=== PATIENT | male | born 1975 | race Caucasian/White ===

== ENCOUNTER 2017-03-18 18:54 | Inpatient (IN) | payer MEDICARE, OTHER ==
[~2017-03-18] VITALS: Ht 165.1 cm; Wt 87.4 kg
[2017-03-18 19:40] VITALS: BP 157/101; PULSE 62; RESP 18; TEMP 97.1; O2SAT 95
[2017-03-18] MEDS ORDERED: BENZTROPINE MESYLATE 1 MG TAB PO PRN (19:45)
[2017-03-18] MEDS ORDERED: ALUMINUM/MAGNESIUM/SIMETH 30 ML CUP PO PRN (19:45)
[2017-03-18] MEDS ORDERED: MAGNESIUM HYDROXIDE SUSP 30 ML CUP PO PRN (19:45)
[2017-03-18] MEDS ORDERED: BENZTROPINE MESYLATE 2 MG/2 ML VIAL IM PRN (19:45)
[2017-03-18] MEDS ORDERED: HALOPERIDOL 5 MG TAB PO PRN (20:00)
[2017-03-18] MEDS: REMOVE OLD NICOTINE PATCH T-DERMAL SCH (21:00)
[2017-03-18] MEDS: DIVALPROEX SODIUM DELAYED RELEASE 250 MG TAB PO SCH (22:01)
[2017-03-19 06:03] VITALS: BP 139/76; PULSE 69; RESP 18; TEMP 96.8; O2SAT 98
[2017-03-19 09:18] LABS: ANION GAP 8 MEQ/L (5-15); BICARBONATE 28.9 MEQ/L (21.0-32.0); BLOOD UREA NITROGEN 18 MG/DL (7-18); CHLORIDE 103 MEQ/L (98-107); GLOMERULAR FILTRATION RATE 104 ML/MIN (>89); POTASSIUM 3.4 MEQ/L (3.5-5.1); SODIUM (NA) 140 MEQ/L (136-145)
[2017-03-19 09:23] LABS: HDL CHOLESTEROL 46.2 MG/DL (40.0-60.0); LDL CHOLESTEROL 84 MG/DL (0-99)
[2017-03-19] MEDS: NICOTINE 21 MG/24 HR PATCH T-DERMAL SCH (09:29)
[2017-03-19] MEDS: DIVALPROEX DR 500 MG TABEC PO SCH (09:29)
--- NOTE | 2017-03-19 11:34 | HHI.HP ---
Provisional Diagnosis Admission Date Mar 18, 2017 at 19:27 [place] I. 1. Schizophrenia, undifferentiated type, acute exacerbation [place] II. Deferred [place] V. GAF is 20 presently Certification of Person's Competence To Provide Express and Informed Consent I have personally examined Jose Cook , a person being served at [facility] on, Mar 19, 2017 11:33. Express and informed consent means consent voluntarily given in writing, by a competent person, after sufficient explanation and disclosure of the subject matter involved to enable the person to make a knowing and willful decision without any element of force, fraud, deceit, duress, or other form of constraint or coercion. This person is 18 years of age or older, is not now known to be incompetent to consent to treatment with a guardian advocate, and does not have a health care surrogate or proxy currently making medical treatment decisions. I have found this person to be one of the following: [] Competent to provide express and informed consent, as defined above, for voluntary admission to this facility and is competent to provide express and informed consent for treatment. He/she has the consistent capacity to make well reasoned, willful, and knowing decisions concerning his or her medical or mental health treatment. The person fully and consistently understands the purpose of the admission for examination/placement and is fully capable of personally exercising all rights assured under [place] [x] Incompetent to provide express and informed consent to voluntary admission, and this is incompetent to provide express and informed consent to treatment. The person must be transferred to involuntary status and a petition for a guardian advocate filed with the Circuit Court. [] Refusing to provide express and informed consent to voluntary admission but is competent to provide express and informed consent for treatment. The person must be discharged or transferred to involuntary status. Form shall be completed within 24 hours of a person's arrival at the receiving facility and filed in the clinical record of each person: 1. Admitted on a voluntary basis 2. Permitted to provide express and informed consent to his/her own treatment 3. Allowed to transfer from involuntary to voluntary status 4. Prior to permitting a person to consent to his or her own treatment after having been previously found incompetent to consent to treatment. History of Present Illness Capacity: Lacks Capacity HPI Mr. Cook is a 42 year-old male with a history of schizophrenia who presents in transfer from [facility] under a Mortensen act alleging that he had been acting out at his [facility] facility. Records from [facility] reviewed. Reviewing our own electronic medical record, it appears this is patient's first visit to [facility]. Patient seen and examined with counselor. Chart reviewed. Case discussed with nursing staff reports the patient has been rambling and disorganized since arriving on the unit. On my examination today, the patient presents with pressured, disjointed speech. He tells me, "I had an idea for the place. A wash day. You're not going to breakfast on wash day. The love of the rain bee that loves me. They bait me." He proceeds in this way for some time and is difficult to interrupt. He appears internally stimulated, and when I ask about AVH, he says, "tigers talking about sharks. Sharks doing telepathy. I have olympic medals." Thought process extremely disorganized. He is impulsive and mildly psychomotor agitated. Affect somewhat silly. It is extremely difficult to get any meaningful history from the patient because of his degree of thought disorganization. I am unable to obtain any meaningful past psychiatric, family, chemical dependency or social history from this patient, once again on account of the thought disorganization. Review of Systems ROS Limitations: Psychotic, Poor Historian Except as stated in HPI: all other systems reviewed are Neg Past Psych History Psychological trauma history Unable to obtain from patient Violence risk - others (6 mos) Presently elevated. Patient is psychotic and unpredictable. Violence risk - self (6 mos) Presently elevated. Patient is psychotic and unpredictable. Substance Abuse History Drugs/Alcohol past 12 months Unable to obtain from patient because of thought disorganization. Past Family Social History Coded Allergies: Fluphenazine (Verified Allergy, Severe, 03/18/17) Geodon (Verified Allergy, Severe, 03/18/17) Past Medical History Includes a possible history of seizure, and the patient is presently on Depakote. Unable to obtain from patient because of degree of thought disorganization. Current Medications Medications (Trade) Dose Ordered Sig/Mai Route Start Time Stop Time Status Last Admin (Ativan) 1 mg Q6H PRN PO 03/18/17 19:45 (Ativan Inj) 1 mg Q6H PRN IM 03/18/17 19:45 (Cogentin) 1 mg Q12H PRN PO 03/18/17 19:45 (Cogentin Inj) 1 mg Q12H PRN IM 03/18/17 19:45 (Benadryl) 50 mg HS PRN PO 03/18/17 19:45 (Tylenol) 650 mg Q4H PRN PO 03/18/17 19:45 (Milk Of Magnesia Liq) 30 ml DAILY PRN PO 03/18/17 19:45 (Mag-Al Plus Susp Liq) 30 ml Q6H PRN PO 03/18/17 19:45 (Habitrol 21 Mg Patch.24 Hr) 1 patch DAILY T-DERMAL 03/19/17 09:00 03/19/17 09:29 Miscellaneous Information 1 HS T-DERMAL 03/18/17 21:00 (Depakote Dr) 500 mg DAILY PO 03/19/17 09:00 03/19/17 09:29 (Depakote Dr) 750 mg HS PO 03/18/17 21:00 03/18/17 22:01 (Haldol) 5 mg Q6H PRN PO 03/18/17 20:00 03/18/17 22:01 (Haldol Inj) 5 mg Q6H PRN IM 03/18/17 20:00 Family History Unable to obtain from patient Social History Unable to obtain from patient Patient's Strengths (min. 2) In a monitored setting. Verbally fluent. Physical Exam Physical examination completed at referring hospital ED. On my examination today, the patient appears to be well-nourished and well-developed and in no acute physical distress. No motor abnormalities noted although the patient is somewhat psychomotor agitated. No ictal activity noted. Laboratories and vitals signs reviewed: Vital Signs Vital Signs Date Time Temp Pulse Resp B/P Pulse Ox O2 Delivery O2 Flow Rate FiO2 03/19/17 06:03 96.8 69 18 139/76 98 Lab Results Laboratories from outside hospital reviewed: CBC was unremarkable. CMP was significant only for a mildly elevated glucose at 116 in a nonfasting sample. Urinalysis was bland. Toxicology negative. Alcohol level undetectable. Depakote level was low at 39. Head CT was performed and was read as no acute process. Item Value Date Time Sodium Level 140 MEQ/L 03/19/17 0831 Potassium Level 3.4 MEQ/L L 03/19/17 0831 Chloride Level 103 MEQ/L 03/19/17 0831 Carbon Dioxide Level 28.9 MEQ/L 03/19/17 0831 Blood Urea Nitrogen 18 MG/DL 03/19/17 0831 Creatinine 0.81 MG/DL 03/19/17 0831 EKG is sinus bradycardia with a QTC of 409 ms. Mental Status Examination Patient is casually dressed. He is somewhat disheveled. He is awake and alert and oriented to person only. Somewhat psychomotor agitated. Speech is rambling and pressured and difficult to follow. Focus and concentration impaired. Memory is difficult to assess because psychosis interferes. Affect is somewhat silly. Thought process disorganized. Associations loose. Difficult to assess for underlying delusional material because of the thought disorganization, although he may have some paranoia and bizarre ideation as noted above. Appears frankly internally preoccupied. No SI or HI voiced but the patient is unreliable to contract for safety. Insight and judgment are poor. Assessment & Plan Problem List: (1) Schizophrenia ICD Code: F20.9 Assessment & Plan This is a 42-year-old male with psychiatric history as detailed above who presents in transfer from [facility] under a Mortensen act. On my examination today, the patient presents as extremely disorganized. His Depakote level is subtherapeutic, especially given his reported dose, and so there is some concern for possible medication nonadherence. Charting also indicates that the patient receives Haldol Decanoate, but it is not clear when he received his last dose. Given his current degree of psychiatric decompensation, patient requires admission to the inpatient psychiatric unit for safety, observation and stabilization. Admit inpatient. Involuntary status. I've completed first opinion. Consult for second opinion. Request healthcare surrogate and guardian advocate. I have instructed the counselor to reach out the patient's [facility] facility to ascertain the details of his presentation here and also to figure out who his outpatient provider is so that we may confirm his outpatient regimen including the last date and dose of his Haldol Decanoate injection. For the time being, I will initiate Haldol 5 mg twice daily for psychosis. I will continue his Depakote, which I presently believe to be for seizure, and plan to check a Depakote and ammonia level later in the week. I will check an EEG to rule out nonconvulsive status epilepticus as a cause for his current symptoms. I will repeat his potassium and recheck a BMP and magnesium level in the morning. Violent/assaultive precautions given that he is psychotic and unpredictable. Haldol as needed for psychotic agitation, Ativan as needed for anxiety, Cogentin as needed for EPS, Benadryl as needed for sleep. Vitals every shift. Counselor to see. Disposition planning. Estimated length of stay : One to 2 weeks. Discharge Planning Pending psychiatric stabilization Request HC Surrog/Guard Advoc?: Yes Problem Qualifiers (1) Schizophrenia: Qualified Code: F20.3 - Undifferentiated schizophrenia Feliciano Euceda MD Mar 19, 2017 11:34
[2017-03-19] MEDS ORDERED: POTASSIUM CHLORIDE 10 MEQ CONTROLLED RELEASE TAB PO ONE (12:30)
--- NOTE | 2017-03-19 14:25 | PD.CONS ---
Provisional Diagnosis Admission Date Mar 18, 2017 at 19:27 [place] I. 1. Schizophrenia, undifferentiated type, acute exacerbation [place] II. Deferred [place] V. GAF is 20 presently History of Present Illness Service Psychiatry Consult Requested By Dr. Euceda Reason for Consult Second opinion Mortensen act Primary Care Physician Unknown HPI Mr. Cook is a 42 year-old male with a history of schizophrenia who presents in transfer from [facility] under a Mortensen act alleging that he had been acting out at his [facility] facility. Records from [facility] reviewed. Reviewing our own electronic medical record, it appears this is patient's first visit to [facility]. Patient seen and examined with counselor. Chart reviewed. Case discussed with nursing staff reports the patient has been rambling and disorganized since arriving on the unit. On my examination today, the patient presents with pressured, disjointed speech. He tells me, "I had an idea for the place. A wash day. You're not going to breakfast on wash day. The love of the rain bee that loves me. They bait me." He proceeds in this way for some time and is difficult to interrupt. He appears internally stimulated, and when I ask about AVH, he says, "tigers talking about sharks. Sharks doing telepathy. I have olympic medals." Thought process extremely disorganized. He is impulsive and mildly psychomotor agitated. Affect somewhat silly. It is extremely difficult to get any meaningful history from the patient because of his degree of thought disorganization. I am unable to obtain any meaningful past psychiatric, family, chemical dependency or social history from this patient, once again on account of the thought disorganization. 03/19/17 Above note dictated by Dr. Euceda reviewed and agreed with. Patient seen by me with nurse Sergey patient markedly disorganized confused delusional with and attitude of tension and irritability making some striking out gestures towards the corner of the room, patient was admitted to Dr. Euceda service under the Mortensen act. He has signed first opinion petition supporting Mortensen act. I agree. Patient meets criteria for involuntary psychiatric hospitalization under the Mortensen act. Thus I will cosign second opinion petition supporting Mortensen act Past Family Social History Coded Allergies: Fluphenazine (Verified Allergy, Severe, 03/18/17) Geodon (Verified Allergy, Severe, 6/27/17) Current Medications Medications (Trade) Dose Ordered Sig/Mai Route Start Time Stop Time Status Last Admin (Ativan) 1 mg Q6H PRN PO 03/18/17 19:45 (Ativan Inj) 1 mg Q6H PRN IM 03/18/17 19:45 (Cogentin) 1 mg Q12H PRN PO 03/18/17 19:45 (Cogentin Inj) 1 mg Q12H PRN IM 03/18/17 19:45 (Benadryl) 50 mg HS PRN PO 03/18/17 19:45 (Tylenol) 650 mg Q4H PRN PO 03/18/17 19:45 (Milk Of Magnesia Liq) 30 ml DAILY PRN PO 03/18/17 19:45 (Mag-Al Plus Susp Liq) 30 ml Q6H PRN PO 03/18/17 19:45 (Habitrol 21 Mg Patch.24 Hr) 1 patch DAILY T-DERMAL 03/19/17 09:00 03/19/17 09:29 Miscellaneous Information 1 HS T-DERMAL 03/18/17 21:00 (Depakote Dr) 500 mg DAILY PO 03/19/17 09:00 03/19/17 09:29 (Depakote Dr) 750 mg HS PO 03/18/17 21:00 03/18/17 22:01 (Haldol) 5 mg Q6H PRN PO 03/18/17 20:00 03/18/17 22:01 (Haldol Inj) 5 mg Q6H PRN IM 03/18/17 20:00 (Haldol) 5 mg BID PO 03/19/17 21:00 Patient's Strengths (min. 2) In a monitored setting. Verbally fluent. Physical Exam Vital Signs Vital Signs Date Time Temp Pulse Resp B/P Pulse Ox O2 Delivery O2 Flow Rate FiO2 03/19/17 06:03 96.8 69 18 139/76 98 Mental Status Examination Alert markedly confused disoriented below to reverse white male quite guarded and irritable Appearance Disheveled and malodorous Speech: Rapid, Other (markedly disorganized) Orientation: Person Memory: Impaired (describe) Thought Process: Loose Association Thought Content: Paranoid, Other (disorganized) Language Poor Fund of Knowledge Poor Hallucination Type: None (appears to be responding to internal stimuli) Attention and Concentration: Other (poor) Suicidal Ideation: No (denies) Previous Suicide Attempts: No Homicidal Ideation: No (denies) Previous Homicide Attempts: No Insight: Poor Judgment: Poor Affect: Other (increased range and intensity) Mood: Angry, Irritable Motor Activity: Normal gait Assessment & Plan Problem List: (1) Schizophrenia ICD Code: F20.9 Assessment & Plan Estimated LOS: days Request HC Surrog/Guard Advoc?: Yes Problem Qualifiers (1) Schizophrenia: Qualified Code: F20.3 - Undifferentiated schizophrenia Nathan Mares MD Mar 19, 2017 14:25
[2017-03-19 18:11] VITALS: BP 135/84; PULSE 80; RESP 18; TEMP 98.8; O2SAT 96
[2017-03-19] MEDS: DIVALPROEX SODIUM DELAYED RELEASE 250 MG TAB PO SCH (20:52)
[2017-03-19] MEDS: HALOPERIDOL 5 MG TAB PO SCH (20:52)
[2017-03-19] MEDS: REMOVE OLD NICOTINE PATCH T-DERMAL SCH (21:00)
[2017-03-19 21:25] LABS: HEMOGLOBIN A1a 1.1 %; HEMOGLOBIN A1b 0.9 %; HEMOGLOBIN Ao 85.9 %; HEMOGLOBIN LA1C 1.9 %; HEMOGLOBIN P3 3.4 %
--- NOTE | 2017-03-19 22:59 | EKG ---
Date Performed: 03/19/2017 Time Performed: 07:32:22 PTAGE: 42 years EKG: SINUS BRADYCARDIA BORDERLINE ECG NO PREVIOUS TRACING DOCTOR: Yoana Vallecillo Interpretating Date/Time 03/19/2017 22:57:51
[2017-03-20 05:50] VITALS: BP 120/72; PULSE 55; RESP 17; TEMP 97.2; O2SAT 98
[2017-03-20] MEDS: HALOPERIDOL 5 MG TAB PO SCH ×2 (09:00→21:07)
[2017-03-20] MEDS: DIVALPROEX DR 500 MG TABEC PO SCH (09:00)
[2017-03-20] MEDS: NICOTINE 21 MG/24 HR PATCH T-DERMAL SCH (09:00)
--- NOTE | 2017-03-20 12:01 | HHI.PYPN ---
Subjective Remarks Patient seen and examined with nurse. Chart reviewed. Case discussed with nursing staff reports the patient accepted his Depakote this morning but refused his Haldol saying that he only takes Haldol when he is in an assisted living facility, and since he isn't in an assisted living facility, he is going to refuse the Haldol. On my examination today, patient remains fairly disorganized. He rambles about a college class in a manner that is difficult to follow. He grows increasingly irritable throughout the course of the interview. He is upset about having his blood drawn for labs for unclear reasons. Says he plans to refuse EEG. No side effects from meds. No physical complaints. Review of Systems ROS Limitations: Poor Historian Except as stated in HPI: all other systems reviewed are Neg Objective Alert: Yes [place]: Person Mood: Other (irritable) Affect: Restricted Memory Intact: Comment (Not assessed) Hallucinations: Auditory (Remains int stim) Delusions: Yes Delusion Type: Paranoid Suicidal: Ideation (No SI voiced) Homicidal: Ideation (No HI voiced) Insight/Judgment Poor Remarks No motor abnormalities noted. Thought process disorganized. Grooming and hygiene fair at best. Labs Patient refused laboratories this morning. Vitals/IOs Vital Signs Date Time Temp Pulse Resp B/P Pulse Ox O2 Delivery O2 Flow Rate FiO2 03/20/17 05:50 97.2 55 17 120/72 98 Assessment & Plan Problem List: (1) Schizophrenia ICD Code: F20.9 Assessment & Plan Add IM backup option to patient's Haldol 5mg PO BID. Counselor continues to try to clarify when patient last received Haldol Dec. Continue Depakote as ordered. Try to obtain EEG, although patient says he plans to refuse. Continue to monitor on high-acuity unit. Continue other medications and care as ordered. Justification for Cont. Inpt. Impairment in reality construction. Medication changes in process. High risk for decompensation in a less restrictive environment. Discharge Planning Pending psychiatric stabilization. Request HC Surrog/Guard Advoc?: Yes Problem Qualifiers (1) Schizophrenia: Qualified Code: F20.3 - Undifferentiated schizophrenia Feliciano Euceda MD Mar 20, 2017 12:01
[2017-03-20] MEDS ORDERED: HALOPERIDOL LACTATE 5 MG/ML AMP IM PRN (12:15)
[2017-03-20 16:52] VITALS: BP 188/72; PULSE 62; RESP 24; TEMP 97.1; O2SAT 99
[2017-03-20] MEDS: REMOVE OLD NICOTINE PATCH T-DERMAL SCH (21:00)
[2017-03-20] MEDS: DIVALPROEX SODIUM DELAYED RELEASE 250 MG TAB PO SCH (21:07)
[2017-03-21 00:14] VITALS: BP 115/69; PULSE 111; RESP 20; TEMP 98; O2SAT 98
[2017-03-21 05:51] VITALS: BP 115/60; PULSE 55; RESP 18; TEMP 97.8; O2SAT 98
[2017-03-21] MEDS: HALOPERIDOL 5 MG TAB PO SCH ×2 (09:00→20:46)
[2017-03-21] MEDS: DIVALPROEX DR 500 MG TABEC PO SCH (09:59)
[2017-03-21 11:46] LABS: BICARBONATE 26.9 MEQ/L (21.0-32.0); MAGNESIUM 2.1 MG/DL (1.5-2.5)
--- NOTE | 2017-03-21 12:18 | HHI.PYPN ---
Subjective Remarks Patient seen and examined with counselor and nurse. Chart reviewed. Case discussed with nurse who reports the patient remains quite bizarre. He refused his EEG today and told the nurse that he did so because he thought that have to place a Mancera catheter to perform the procedure. Counselor has confirmed patient's last Haldol Decanoate injection was 200mg IM administered around . On my examination today, patient remains quite disorganized. He speaks in a rambling fashion about a "chest scan," a gas station, and "rice pudding in squash." He tells me, "there is a man in [place] who bowls with gators." He is irritable and paranoid. No evident side effects from medications. No physical complaints. Review of Systems ROS Limitations: Psychotic, Poor Historian Except as stated in HPI: all other systems reviewed are Neg Objective Alert: Yes [place]: Person Mood: Other (remains irritable) Affect: Restricted Memory Intact: Comment (Not formally assessed) Hallucinations: Auditory (int stim) Delusions: Yes Delusion Type: Paranoid Suicidal: Ideation (No SI) Homicidal: Ideation (No HI) Insight/Judgment Poor Remarks No motor abnormalities noted. Grooming and hygiene fair. TP disorganized. Labs Test 03/21/17 10:40 Sodium Level 141 MEQ/L Potassium Level 4.0 MEQ/L Chloride Level 108 MEQ/L Carbon Dioxide Level 26.9 MEQ/L Anion Gap 6 MEQ/L Blood Urea Nitrogen 13 MG/DL Creatinine 0.64 MG/DL Estimat Glomerular Filtration 136 ML/MIN Rate Random Glucose 135 MG/DL Calcium Level 9.3 MG/DL Magnesium Level 2.1 MG/DL Labs reviewed. Hypokalemia resolved. Vitals/IOs Vital Signs Date Time Temp Pulse Resp B/P Pulse Ox O2 Delivery O2 Flow Rate FiO2 03/21/17 05:51 97.8 55 18 115/60 98 Assessment & Plan Problem List: (1) Schizophrenia ICD Code: F20.9 Assessment & Plan Patient apparently received Haldol Decanoate about 2 weeks ago, but it is possible that the dose was inadequate or patient has ceased to respond to this agent. I will first try to titrate oral Haldol through the weekend to target dose of 10mg BID. If this controls his psychotic symptoms, then I will plan to administer additional Decanoate. Alternatively, we may need to replace this with a different antipsychotic. Continue VPA as ordered and check a VPA and ammonia level tomorrow. Monitor oral intake; it appears patient refused breakfast and lunch today. Continue to monitor on the inpatient unit. Continue other medications and care as ordered. Justification for Cont. Inpt. Impairment in reality construction. Medication changes in process. High risk for decompensation in a less restrictive environment. Discharge Planning Placement following psychiatric stabilization. Request HC Surrog/Guard Advoc?: Yes Problem Qualifiers (1) Schizophrenia: Qualified Code: F20.3 - Undifferentiated schizophrenia Feliciano Euceda MD Mar 21, 2017 12:18
[2017-03-21] MEDS ORDERED: PILL SPLITTER OTHER PRN (17:45)
[2017-03-21 17:48] VITALS: BP 129/58; PULSE 56; RESP 18; TEMP 98; O2SAT 96
[2017-03-21] MEDS: LORazepam 1 MG TAB PO PRN (20:45)
[2017-03-21] MEDS: DIVALPROEX SODIUM DELAYED RELEASE 250 MG TAB PO SCH (20:45)
[2017-03-21] MEDS: diphenhydrAMINE HCL 50 MG CAP - HS PRN PO (20:46)
[2017-03-21] MEDS ORDERED: HALOPERIDOL LACTATE 5 MG/ML AMP IM PRN (21:00)
[2017-03-22 05:42] VITALS: BP 116/71; PULSE 53; RESP 16; TEMP 98; O2SAT 98
[2017-03-22] MEDS: DIVALPROEX DR 500 MG TABEC PO SCH (09:00)
[2017-03-22] MEDS: HALOPERIDOL 5 MG TAB PO SCH ×2 (09:00→21:09)
[2017-03-22] MEDS: ACETAMINOPHEN 325 MG TAB PO PRN (09:24)
[2017-03-22] MEDS: LORazepam 1 MG TAB PO PRN (14:11)
--- NOTE | 2017-03-22 17:58 | HHI.PYPN ---
Subjective Remarks Patient was seen and case discussed with nursing. Patient is hyperverbal with slurred speech and difficult to understand. He remains internally preoccupied. He has voices taunting him accusing him of being scruggs. He is tolerating his medications well. Denies suicidal ideation intent or plan Objective Alert: Yes [place]: Person Mood: Other (remains irritable) Affect: Other (anxious) Memory Intact: Comment (Not formally assessed) Hallucinations: Auditory (voices telling him he is scruggs) Delusions: Yes Delusion Type: Paranoid (internally stimulated) Suicidal: Ideation (No SI) Homicidal: Ideation (No HI) Insight/Judgment Poor Labs Test 03/22/17 17:06 Ammonia 56 MCMOL/L Valproic Acid (Depakene) Level 90 MCG/ML Vitals/IOs Vital Signs Date Time Temp Pulse Resp B/P Pulse Ox O2 Delivery O2 Flow Rate FiO2 03/22/17 05:42 98.0 53 16 116/71 98 Assessment & Plan Problem List: (1) Schizophrenia ICD Code: F20.9 Assessment & Plan Ammonia level elevated, we will consult medicine. Justification for Cont. Inpt. Patient will decompensate in a less restrictive setting Request HC Surrog/Guard Advoc?: Yes Problem Qualifiers (1) Schizophrenia: Qualified Code: F20.3 - Undifferentiated schizophrenia Kirby Velasco DO Mar 22, 2017 17:58
[2017-03-22 17:59] VITALS: BP 136/65; PULSE 72; RESP 16; TEMP 97.7; O2SAT 98
[2017-03-22 19:29] LABS: ANION GAP 7 MEQ/L (5-15); BICARBONATE 26.2 MEQ/L (21.0-32.0); BLOOD UREA NITROGEN 13 MG/DL (7-18); CHLORIDE 109 MEQ/L (98-107); GLOMERULAR FILTRATION RATE 155 ML/MIN (>89); POTASSIUM 4.2 MEQ/L (3.5-5.1); SODIUM (NA) 142 MEQ/L (136-145)
[2017-03-22 19:30] LABS: ALT (GPT) 16 U/L (12-78); AST (GOT) 11 U/L (15-37)
[2017-03-22 19:33] LABS: ALKALINE PHOSPHATASE 71 U/L (45-117); TOTAL BILIRUBIN ADULT 0.2 MG/DL (0.2-1.0)
[2017-03-22] MEDS: diphenhydrAMINE HCL 50 MG CAP - HS PRN PO (21:08)
[2017-03-22] MEDS: DIVALPROEX SODIUM DELAYED RELEASE 250 MG TAB PO SCH (21:09)
[2017-03-23] MEDS: LORazepam 1 MG TAB PO PRN ×2 (01:03→20:40)
[2017-03-23 05:39] VITALS: BP 108/58; PULSE 59; RESP 17; TEMP 98.1; O2SAT 100
[2017-03-23] MEDS: DIVALPROEX DR 500 MG TABEC PO SCH (08:27)
[2017-03-23] MEDS: HALOPERIDOL 5 MG TAB PO SCH ×2 (08:27→20:41)
[2017-03-23] MEDS ORDERED: LACTULOSE SYRUP 20 GM/30 ML CUP PO ONE (10:30)
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
[2017-03-23] MEDS ORDERED: cloNIDine HCL 0.1 MG TAB PO PRN (14:15)
--- NOTE | 2017-03-23 15:59 | HHI.PYPN ---
Subjective Remarks Patient was seen and case discussed with nursing. Patient remains largely seclusive to his room. Speech remains difficult to understand and of slurred and mumbling fashion. Patient said that he continues to lay with the girls he can be a part of a kingdom. Compliant with his medications. Denies suicidal ideation intent or plan Objective Alert: Yes [place]: Person, Place Mood: Calm Affect: Restricted Memory Intact: Comment (Not formally assessed) Hallucinations: Auditory (voices telling him he is scruggs) Delusions: Yes Delusion Type: Paranoid (internally stimulated) Suicidal: Ideation (No SI) Homicidal: Ideation (No HI) Insight/Judgment Poor Labs Test 03/22/17 17:06 Sodium Level 142 MEQ/L Potassium Level 4.2 MEQ/L Chloride Level 109 MEQ/L Carbon Dioxide Level 26.2 MEQ/L Anion Gap 7 MEQ/L Blood Urea Nitrogen 13 MG/DL Creatinine 0.57 MG/DL Estimat Glomerular Filtration 155 ML/MIN Rate Random Glucose 87 MG/DL Calcium Level 8.9 MG/DL Total Bilirubin 0.2 MG/DL Aspartate Amino Transf 11 U/L (AST/SGOT) Alanine Aminotransferase 16 U/L (ALT/SGPT) Alkaline Phosphatase 71 U/L Ammonia 56 MCMOL/L Total Protein 6.5 GM/DL Albumin 3.2 GM/DL Valproic Acid (Depakene) Level 90 MCG/ML Vitals/IOs Vital Signs Date Time Temp Pulse Resp B/P Pulse Ox O2 Delivery O2 Flow Rate FiO2 03/23/17 05:39 98.1 59 17 108/58 100 Assessment & Plan Problem List: (1) Schizophrenia ICD Code: F20.9 Assessment & Plan Continue current treatment plan Justification for Cont. Inpt. Patient will decompensate in a less restrictive setting Request HC Surrog/Guard Advoc?: Yes Problem Qualifiers (1) Schizophrenia: Qualified Code: F20.3 - Undifferentiated schizophrenia Kirby Velasco DO Mar 23, 2017 15:59
[2017-03-23 18:20] VITALS: BP 149/66; PULSE 66; RESP 18; TEMP 98.3; O2SAT 97
[2017-03-23] MEDS: diphenhydrAMINE HCL 50 MG CAP - HS PRN PO (20:40)
[2017-03-23] MEDS: DIVALPROEX SODIUM DELAYED RELEASE 250 MG TAB PO SCH (20:41)
[2017-03-24 05:58] VITALS: BP 124/55; PULSE 62; RESP 16; TEMP 97.4; O2SAT 99
[2017-03-24] MEDS: LACTULOSE SYRUP 20 GM/30 ML CUP PO SCH (08:57)
[2017-03-24] MEDS: HALOPERIDOL 5 MG TAB PO SCH ×2 (08:57→21:34)
[2017-03-24] MEDS: DIVALPROEX DR 500 MG TABEC PO SCH (08:57)
[2017-03-24] MEDS: HALOPERIDOL LACTATE 5 MG/ML AMP IM PRN (11:54)
[2017-03-24] MEDS: LORazepam 2 MG/ML VIAL IM PRN (11:54)
--- NOTE | 2017-03-24 12:50 | HHI.PYPN ---
Subjective Remarks Patient interviewed and case discussed with the patient's nurse. He continues to demonstrate garbled and unintelligible speech. When he is understandable, he is discussing psychotic issues which are primarily loose associations. Review of Systems Except as stated in HPI: all other systems reviewed are Neg Objective Alert: Yes [place]: Person Mood: Calm Affect: Restricted Memory Intact: Comment (Not formally assessed) Hallucinations: Auditory (voices telling him he is scru[place]) Delusions: Yes Delusion Type: Paranoid (internally stimulated) Suicidal: Ideation (No SI) Homicidal: Ideation (No HI) Insight/Judgment Impaired Vitals/IOs Vital Signs Date Time Temp Pulse Resp B/P Pulse Ox O2 Delivery O2 Flow Rate FiO2 03/24/17 05:58 97.4 62 16 124/55 99 Assessment & Plan Problem List: (1) Schizophrenia ICD Code: F20.9 Assessment & Plan Estimated LOS: days insufficient response to antipsychotic medication. Will provide more time for observation, evaluation and response. Justification for Cont. Inpt. Likely to decompensate at lower level of care. Request HC Surrog/Guard Advoc?: Yes Problem Qualifiers (1) Schizophrenia: Qualified Code: F20.3 - Undifferentiated schizophrenia Panchito Kaufman MD Mar 24, 2017 12:50
[2017-03-24 13:59] LABS: PROTHROMBIN TIME - PATIENT 10.9 SEC (9.8-11.6)
[2017-03-24 18:32] VITALS: BP 115/65; PULSE 72; RESP 18; TEMP 99; O2SAT 98
[2017-03-24] MEDS: DIVALPROEX SODIUM DELAYED RELEASE 250 MG TAB PO SCH (21:32)
[2017-03-25 06:13] VITALS: BP 103/58; PULSE 56; RESP 18; TEMP 98.5; O2SAT 95
[2017-03-25] MEDS: DIVALPROEX DR 500 MG TABEC PO SCH (09:42)
[2017-03-25] MEDS: HALOPERIDOL 5 MG TAB PO SCH ×2 (09:42→21:00)
[2017-03-25] MEDS: ACETAMINOPHEN 325 MG TAB PO PRN (09:43)
[2017-03-25] MEDS: LACTULOSE SYRUP 20 GM/30 ML CUP PO SCH (09:46)
--- NOTE | 2017-03-25 13:17 | HHI.PYPN ---
Subjective Remarks Continues to demonstrate paranoid and confused thinking. Insight and judgment remain impaired. Case discussed with nursing staff and chart reviewed. Review of Systems Except as stated in HPI: all other systems reviewed are Neg Objective Alert: Yes [place]: Person Mood: Calm Affect: Restricted Memory Intact: Comment (Not formally assessed) Hallucinations: Auditory (voices telling him he is [place]ru[place]) Delusions: Yes Delusion Type: Paranoid (internally stimulated) Suicidal: Ideation (No SI) Homicidal: Ideation (No HI) Insight/Judgment Impaired Labs Test 03/24/17 13:27 Prothrombin Time 10.9 SEC Prothromb Time International 1.0 RATIO Ratio Vitals/IOs Vital Signs Date Time Temp Pulse Resp B/P Pulse Ox O2 Delivery O2 Flow Rate FiO2 03/25/17 06:13 98.5 56 18 103/58 95 Assessment & Plan Problem List: (1) Schizophrenia ICD Code: F20.9 Assessment & Plan Estimated LOS: daysCont to require more time on antipsychotic medication. Justification for Cont. Inpt. Will decompensate at lower level of care. Request HC Surrog/Guard Advoc?: Yes Problem Qualifiers (1) Schizophrenia: Qualified Code: F20.3 - Undifferentiated schizophrenia Panchito Kaufman MD Mar 25, 2017 13:17
[2017-03-25] MEDS: LORazepam 1 MG TAB PO PRN (16:30)
[2017-03-25 18:50] VITALS: BP 117/64; PULSE 65; RESP 18; TEMP 98.5; O2SAT 97
[2017-03-25] MEDS: DIVALPROEX SODIUM DELAYED RELEASE 250 MG TAB PO SCH (21:00)
[2017-03-26 05:57] VITALS: BP 114/57; PULSE 55; RESP 18; TEMP 96; O2SAT 99
[2017-03-26] MEDS: DIVALPROEX DR 500 MG TABEC PO SCH (09:11)
[2017-03-26] MEDS: HALOPERIDOL 5 MG TAB PO SCH ×2 (09:11→21:34)
[2017-03-26] MEDS: LACTULOSE SYRUP 20 GM/30 ML CUP PO SCH (09:11)
[2017-03-26] MEDS: ACETAMINOPHEN 325 MG TAB PO PRN (10:19)
[2017-03-26 11:14] VITALS: BP 120/67; PULSE 60; RESP 18
--- NOTE | 2017-03-26 13:24 | HHI.PYPN ---
Subjective Remarks Remains seclusive with paranoid ideation, ideas of reference and minimal social interaction. Chart reviewed and case discussed with nurse. Review of Systems Except as stated in HPI: all other systems reviewed are Neg Objective Alert: Yes [place]: Person Mood: Calm Affect: Restricted Memory Intact: Comment (Not formally assessed) Hallucinations: Auditory (voices telling him he is [place]ru[place]) Delusions: Yes Delusion Type: Paranoid (internally stimulated) Suicidal: Ideation (No SI) Homicidal: Ideation (No HI) Insight/Judgment Impaired Labs Test 03/26/17 12:15 Ammonia 32 MCMOL/L Vitals/IOs Vital Signs Date Time Temp Pulse Resp B/P Pulse Ox O2 Delivery O2 Flow Rate FiO2 03/26/17 11:14 60 18 120/67 03/26/17 05:57 96.0 99 Assessment & Plan Problem List: (1) Schizophrenia ICD Code: F20.9 Assessment & Plan Estimated LOS: days continue antipsychotic therapy. Patient needs more time to respond. Justification for Cont. Inpt. Psychotic and unable to care for self. Request HC Surrog/Guard Advoc?: Yes Problem Qualifiers (1) Schizophrenia: Qualified Code: F20.3 - Undifferentiated schizophrenia Panchito Kaufman MD Mar 26, 2017 13:23
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
[2017-03-26] MEDS ORDERED: LACTULOSE SYRUP 20 GM/30 ML CUP PO PRN (15:15)
[2017-03-26] MEDS: HALOPERIDOL LACTATE 5 MG/ML AMP IM PRN (15:20)
[2017-03-26 16:01] LABS: BLOOD, URINE NEG (NEG); GLUCOSE,URINE NEG (NEG); KETONE, URINE TRACE mg/dL (NEG); NITRITE,URINE NEG (NEG); URINE COLOR YELLOW (YELLW/STRAW)
[2017-03-26 16:10] LABS: COMMENT (UR) CULT NOT INDICATED; CULTURE IF INDICATED CULT NOT INDICATED
[2017-03-26 16:24] LABS: ANION GAP 6 MEQ/L (5-15); AST (GOT) 28 U/L (15-37); BICARBONATE 27.6 MEQ/L (21.0-32.0); BLOOD UREA NITROGEN 9 MG/DL (7-18); CHLORIDE 106 MEQ/L (98-107); GLOMERULAR FILTRATION RATE 121 ML/MIN (>89); POTASSIUM 4.9 MEQ/L (3.5-5.1); SODIUM (NA) 140 MEQ/L (136-145)
[2017-03-26 16:25] LABS: ALT (GPT) 20 U/L (12-78)
[2017-03-26 16:27] LABS: ALKALINE PHOSPHATASE 73 U/L (45-117); TOTAL BILIRUBIN ADULT 0.3 MG/DL (0.2-1.0)
[2017-03-26 17:10] LABS: AUTOMATED NEUTROPHIL # 3.8 TH/MM3 (1.8-7.7); BASOPHIL % 0.6 % (0.0-2.0); EOSINOPHIL # 0.2 TH/MM3 (0-0.4); EOSINOPHIL % 2.5 % (0.0-4.0); HEMATOCRIT 42.6 % (39.0-51.0); HEMO FLAGS DIFF FINAL; LYMPH % 33.2 % (9.0-44.0); LYMPHOCYTE # 2.2 TH/MM3 (1.0-4.8); MEAN CELL VOLUME 89.6 FL (80.0-100.0); MEAN CORPUSCULAR HEMOGLOBIN 29.8 PG (27.0-34.0); MEAN CORPUSCULAR HGB CONC 33.3 % (32.0-36.0); MONO % 6.5 % (0.0-8.0); NEUT % 57.2 % (16.0-70.0); PLATELET COUNT 189 TH/MM3 (150-450); RED BLOOD COUNT 4.76 MIL/MM3 (4.50-5.90); RED CELL DISTRIBUTION WIDTH 13.4 % (11.6-17.2); WHITE BLOOD COUNT 6.6 TH/MM3 (4.0-11.0)
[2017-03-26 18:37] VITALS: BP 131/70; PULSE 66; RESP 16; TEMP 98.7; O2SAT 98
--- NOTE | 2017-03-26 21:10 | RADRPT ---
EXAM DATE/TIME: 03/26/2017 20:36 [facility] COMPARISON: No previous studies available for comparison. INDICATIONS : Abdomen and back pain. MEDICAL HISTORY : None. SURGICAL HISTORY : None. ENCOUNTER: Initial ACUITY: 1 week PAIN SCORE: 4/10 LOCATION: Left abdomen FINDINGS: Supine view of the abdomen was performed. The abdominal bowel gas pattern is normal. No abnormal ma sses, calcifications, or organomegaly is seen. The osseous structures are unremarkable. CONCLUSION: 1. No acute findings. Agusto Hills MD on March 26, 2017 at 21:07 Board Certified Radiologist. This report was verified electronically.
--- NOTE | 2017-03-26 21:16 | RADRPT ---
EXAM DATE/TIME: 03/26/2017 20:38 [facility] COMPARISON: No previous studies available for comparison. INDICATIONS : Back pain. MEDICAL HISTORY : None. SURGICAL HISTORY : None. ENCOUNTER: Initial ACUITY: 2 months PAIN SCORE: 8/10 LOCATION: Bilateral back pain FINDINGS: Two view examination was performed. There are five non-rib bearing vertebral bodies. The vertebral bodies are in normal alignment without evidence of subluxation or scoliosis. The disc spaces are russ ntained. The pedicles are intact. Bony mineralization is normal. No fracture is identified. CONCLUSION: 1. Moderate degenerative disc disease. No acute fracture or spondylolisthesis. Agusto Hills MD on March 26, 2017 at 21:12 Board Certified Radiologist. This report was verified electronically.
--- NOTE | 2017-03-26 21:17 | RADRPT ---
EXAM DATE/TIME: 03/26/2017 20:40 [facility] COMPARISON: No previous studies available for comparison. INDICATIONS : Back pain MEDICAL HISTORY : None. SURGICAL HISTORY : None. ENCOUNTER: Initial ACUITY: 2 months PAIN SCORE: 8/10 LOCATION: Bilateral upper and lower back FINDINGS: There is a mild kyphosis. No fracture or spondylolisthesis. No paravertebral soft tissue swelling. Mo derate to advanced degenerative disc disease with large osteophytes in the lower thoracic spine. CONCLUSION: 1. Bjyoorok-el-ntmbji degenerative disc disease in the thoracic spine with large osteophytes especial ly inferiorly. Mild kyphosis. Agusto Hills MD on March 26, 2017 at 21:13 Board Certified Radiologist. This report was verified electronically.
[2017-03-26] MEDS: DIVALPROEX SODIUM DELAYED RELEASE 250 MG TAB PO SCH (21:33)
[2017-03-26] MEDS: diphenhydrAMINE HCL 50 MG CAP - HS PRN PO (21:34)
[2017-03-26] MEDS: LORazepam 1 MG TAB PO PRN (22:41)
[2017-03-27 06:24] VITALS: BP 113/60; PULSE 51; RESP 18; TEMP 97.1; O2SAT 96
[2017-03-27] MEDS: HALOPERIDOL 5 MG TAB PO SCH (09:10)
[2017-03-27] MEDS: DIVALPROEX DR 500 MG TABEC PO SCH (09:10)
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
[2017-03-27] MEDS: LORazepam 1 MG TAB PO PRN (14:48)
[2017-03-27 17:21] VITALS: BP 130/74; PULSE 17; RESP 17; TEMP 96.5
[2017-03-27] MEDS: DIVALPROEX SODIUM DELAYED RELEASE 250 MG TAB PO SCH (21:39)
[2017-03-27] MEDS: diphenhydrAMINE HCL 50 MG CAP - HS PRN PO (21:39)
[2017-03-28 05:27] VITALS: BP 105/60; PULSE 61; RESP 18; TEMP 97.8
[2017-03-28] MEDS: HALOPERIDOL 10 MG TAB PO SCH ×3 (09:49→18:37)
[2017-03-28] MEDS: DIVALPROEX DR 500 MG TABEC PO SCH (09:49)
--- NOTE | 2017-03-28 13:58 | HHI.PYPN ---
Subjective Remarks Patient seen and examined. Chart reviewed. Case discussed with nursing staff. On my examination today, the patient is marginally more organized. He remains perseverative about being discharged that he can live in the [employer] [facility]. He has a newspaper article from a few days ago that mentions this organization with a photo, and he observes that they "seem like such nice and juan people." He is able to make a coherent request to have some clothes brought from his [facility], and I will ask the nurse to follow up on this. Remains a little internally stimulated. No side effects from medications. Review of Systems ROS Limitations: Poor Historian Except as stated in HPI: all other systems reviewed are Neg Objective Alert: Yes [place]: Person Mood: Calm Affect: Blunted Memory Intact: Comment (Not formally assessed) Hallucinations: Auditory (a little internally stimulated) Delusions: No Delusion Type: Other (no teresa delusions today) Suicidal: Ideation (No SI) Homicidal: Ideation (No HI) Insight/Judgment Poor Remarks No motor abnormalities noted. Grooming and hygiene fair Labs Labs reviewed Vitals/IOs Vital Signs Date Time Temp Pulse Resp B/P Pulse Ox O2 Delivery O2 Flow Rate FiO2 03/28/17 05:27 97.8 61 18 105/60 03/27/17 06:24 96 Assessment & Plan Problem List: (1) Schizophrenia ICD Code: F20.9 Assessment & Plan Continue Haldol 10 mg 3 times daily through the weekend. Continue other psychotropics as ordered. Hospitalist input noted and appreciated. I note that the physical therapist has been consulted. Continue to monitor on the inpatient unit. Continue other medications and care as ordered. Justification for Cont. Inpt. Risk for decompensation Discharge Planning Pending psychiatric stabilization Request HC Surrog/Guard Advoc?: No (guardian advocate/healthcare surrogate not appointed by conciliation court judge.) Problem Qualifiers (1) Schizophrenia: Qualified Code: F20.3 - Undifferentiated schizophrenia Feliciano Euceda MD Mar 28, 2017 13:58
--- NOTE | 2017-03-28 14:26 | HHI.PR ---
Subjective Remarks Follow-up of patient with schizophrenia, hypertension and elevated ammonia level. Patient seen and examined today. He continues to have complaints of back pain. He is requesting PT be ordered. No other acute medical complaints. Objective Vitals Vital Signs Date Time Temp Pulse Resp B/P Pulse Ox O2 Delivery O2 Flow Rate FiO2 03/28/17 05:27 97.8 61 18 105/60 03/27/17 17:21 96.5 17 17 130/74 Result Diagram: 03/26/17 1655 03/26/17 1215 Imaging Last Impressions Thoracic Spine X-Ray 03/26/17 0000 Signed Impressions: Service Date/Time: Sunday, March 26, 2017 20:40 - CONCLUSION: 1. [id number] degenerative disc disease in the thoracic spine with large osteophytes especially inferiorly. Mild kyphosis. Agusto Hills MD Lumbar Spine X-Ray 03/26/17 0000 Signed Impressions: Service Date/Time: Sunday, March 26, 2017 20:38 - CONCLUSION: 1. Moderate degenerative disc disease. No acute fracture or spondylolisthesis. Agusto Hills MD Abdomen X-Ray 03/26/17 0000 Signed Impressions: Service Date/Time: Sunday, March 26, 2017 20:36 - CONCLUSION: 1. No acute findings. Agusto Hills MD Objective Remarks GENERAL: This is a well-nourished, well-developed patient, in no apparent distress. Awake and alert. Ambulating in hallway. SKIN: No rashes, ecchymoses or lesions. Cool and dry. HEENT: Atraumatic. Normocephalic. EOMI. MMM. Poor dentition. CARDIOVASCULAR: Regular rate and rhythm without murmurs, gallops, or rubs. RESPIRATORY: Clear to auscultation. Breath sounds equal bilaterally. No wheezes , rales, or rhonchi. GASTROINTESTINAL: Abdomen soft, non-tender, nondistended. Bowel sounds active 4. MUSCULOSKELETAL: Extremities without clubbing, cyanosis, or edema. (+)pain elicited with palpation of thoracic and lumbar spine diffusely. NEUROLOGICAL: Awake and alert. Confused, mumbles words with incoherent phrases. Motor and sensory grossly within normal limits. Medications and IVs Current Medications Medications (Trade) Dose Ordered Sig/Mai Route Start Time Stop Time Status Last Admin (Ativan) 1 mg Q6H PRN PO 03/18/17 19:45 03/27/17 14:48 (Ativan Inj) 1 mg Q6H PRN IM 03/18/17 19:45 03/24/17 11:54 (Cogentin) 1 mg Q12H PRN PO 03/18/17 19:45 (Cogentin Inj) 1 mg Q12H PRN IM 03/18/17 19:45 (Benadryl) 50 mg HS PRN PO 03/18/17 19:45 03/27/17 21:39 (Tylenol) 650 mg Q4H PRN PO 03/18/17 19:45 03/26/17 10:19 (Milk Of Magnesia Liq) 30 ml DAILY PRN PO 03/18/17 19:45 (Mag-Al Plus Susp Liq) 30 ml Q6H PRN PO 03/18/17 19:45 (Depakote Dr) 500 mg DAILY PO 03/19/17 09:00 03/28/17 09:49 (Depakote Dr) 750 mg HS PO 03/18/17 21:00 03/27/17 21:39 (Haldol) 5 mg Q6H PRN PO 03/18/17 20:00 03/18/17 22:01 (Haldol Inj) 5 mg Q6H PRN IM 03/18/17 20:00 03/26/17 15:20 (Pill Splitter) 1 ea UNSCH PRN OTHER 03/21/17 17:45 (Catapres) 0.1 mg Q6H PRN PO 03/23/17 14:15 (Lactulose Liq) 30 ml DAILY PRN PO 03/26/17 15:15 (Haldol) 10 mg TID PO 03/28/17 09:00 03/28/17 09:49 A/P Problem List: (1) Schizophrenia ICD Code: F20.9 Status: Acute (2) Increased ammonia level ICD Code: R79.89 Status: Acute (3) HTN (hypertension) ICD Code: I10 Status: Acute Assessment and Plan Patient is a 42-year-old male with primary medical history of HTN, schizophrenia who came in to the hospital transferred from [facility] under [facility] act from [facility] secondary to patient acting out at the facility. Patient is now admitted to inpatient psychiatry unit for further evaluation. Consulted for medical management, elevated ammonia level. Schizophrenia - Managed by psychiatry team Elevated ammonia level - resolved - ammonia level 56 --> 32 HTN - History of, but not on any meds - BP controlled off of meds - May use clonidine when necessary Back pain Abdominal pain - Thoracic xrays, personally reviewed, reveal moderate to severe DDD with large osteophytes and mild kyphosis - Lumbar xrays, personally reviewed, reveal moderate degenerative disc disease, with well maintained disc spaces/height and no e/o fracture or other osseous abnormality - lab studies all WNL - UA negative - KUB unremarkable - PT ordered - discussed xray findings with patient and recommended follow up with PCP as outpatient. Patient needs assistance with scheduling appt - will consult case management - Tylenol prn pain DVT prop - Patient is ambulatory Discussed with nursing staff, patient and Dr. Stanley Patient appears stable from hospitalist standpoint. Will sign off. Please reconsult if needed. Problem Qualifiers (1) Schizophrenia: Qualified Code: F20.3 - Undifferentiated schizophrenia Charlotte Villaseñor Mar 28, 2017 14:26
[2017-03-28] MEDS: ACETAMINOPHEN 325 MG TAB PO PRN (16:37)
[2017-03-28 18:13] VITALS: BP 104/54; PULSE 62; RESP 17; TEMP 98.7; O2SAT 99
[2017-03-28] MEDS: DIVALPROEX SODIUM DELAYED RELEASE 250 MG TAB PO SCH (20:39)
[2017-03-28] MEDS: LORazepam 1 MG TAB PO PRN (20:41)
[2017-03-28] MEDS: diphenhydrAMINE HCL 50 MG CAP - HS PRN PO (20:41)
[2017-03-29 06:07] VITALS: BP 112/56; PULSE 52; RESP 18; TEMP 98; O2SAT 98
[2017-03-29] MEDS: HALOPERIDOL 10 MG TAB PO SCH ×3 (09:00→17:22)
[2017-03-29] MEDS: DIVALPROEX DR 500 MG TABEC PO SCH (09:00)
--- NOTE | 2017-03-29 13:12 | HHI.PYPN ---
Subjective Remarks Pt seen and discussed with staff. He remains delusional and disorganized,and insists that he is going to live at the [facility]. He is compliant with medications but RN reports that pt has been resistant to medications. No SI/HI Objective Alert: Yes [place]: Person Mood: Calm Affect: Flat Memory Intact: Comment (fair) Hallucinations: Auditory (internally stimulated) Delusions: Yes Delusion Type: Other (bizarre) Suicidal: Ideation (No SI) Homicidal: Ideation (No HI) Insight/Judgment poor Vitals/IOs Vital Signs Date Time Temp Pulse Resp B/P Pulse Ox O2 Delivery O2 Flow Rate FiO2 03/29/17 06:07 98.0 52 18 112/56 98 Assessment & Plan Problem List: (1) Schizophrenia ICD Code: F20.9 Assessment & Plan Continue current tx plan. Estimated LOS: days Justification for Cont. Inpt. impairments in reality testing Request HC Surrog/Guard Advoc?: No (guardian advocate/healthcare surrogate not appointed by liquor runner.) Problem Qualifiers (1) Schizophrenia: Qualified Code: F20.3 - Undifferentiated schizophrenia Krys West MD Mar 29, 2017 13:12
[2017-03-29 17:51] VITALS: BP 131/68; PULSE 66; RESP 19; TEMP 97.8; O2SAT 99
[2017-03-29] MEDS: DIVALPROEX SODIUM DELAYED RELEASE 250 MG TAB PO SCH (20:52)
[2017-03-29] MEDS: LORazepam 1 MG TAB PO PRN (20:54)
[2017-03-30 05:50] VITALS: BP 113/54; PULSE 48; RESP 16; TEMP 96.3; O2SAT 99
[2017-03-30] MEDS: DIVALPROEX DR 500 MG TABEC PO SCH (09:00)
[2017-03-30] MEDS: HALOPERIDOL 10 MG TAB PO SCH ×3 (09:00→17:17)
--- NOTE | 2017-03-30 12:11 | HHI.PYPN ---
Subjective Remarks Pt seen and discussed with staff. He has been compliant with medications and denies side effects. RN moved room due to conflicts with roommate. Less suspicious of medications. No SI/HI. He remains fixated on living at the [facility]. Objective Alert: Yes [place]: Person Mood: Calm Affect: Flat Memory Intact: Comment (fair) Hallucinations: Auditory (internally stimulated) Delusions: Yes Delusion Type: Other (bizarre) Suicidal: Ideation (No SI) Homicidal: Ideation (No HI) Insight/Judgment poor Vitals/IOs Vital Signs Date Time Temp Pulse Resp B/P Pulse Ox O2 Delivery O2 Flow Rate FiO2 03/30/17 05:50 96.3 48 16 113/54 99 Assessment & Plan Problem List: (1) Schizophrenia ICD Code: F20.9 Assessment & Plan Continue current tx plan. Estimated LOS: days Justification for Cont. Inpt. risk of decompensations Request HC Surrog/Guard Advoc?: No (guardian advocate/healthcare surrogate not appointed by vacuum system tester.) Problem Qualifiers (1) Schizophrenia: Qualified Code: F20.3 - Undifferentiated schizophrenia Krys West MD Mar 30, 2017 12:11
[2017-03-30 17:00] VITALS: BP 132/60; PULSE 58; RESP 16; TEMP 98; O2SAT 99
[2017-03-30] MEDS: DIVALPROEX SODIUM DELAYED RELEASE 250 MG TAB PO SCH (20:44)
[2017-03-30] MEDS: ACETAMINOPHEN 325 MG TAB PO PRN (20:45)
[2017-03-31 06:09] VITALS: BP 94/47; PULSE 51; RESP 18; TEMP 95.7; O2SAT 100
[2017-03-31] MEDS: HALOPERIDOL 10 MG TAB PO SCH ×3 (09:35→16:57)
[2017-03-31] MEDS: DIVALPROEX DR 500 MG TABEC PO SCH (09:35)
--- NOTE | 2017-03-31 09:38 | HHI.PYPN ---
Subjective Remarks Patient seen and examined with counselor and nurse. Chart reviewed. Case discussed with nursing staff who reports the patient is fairly discharge focused. On my examination today, the patient does indeed request to be discharged. He seems more organized overall, although he remains fairly childlike. He is agreeable to returning to [facility], if this discharge can be arranged, and he is less perseverative on going to live with the [facility]. He denies any suicidal or homicidal ideation. Denies any audiovisual hallucinations. Denies any side effects from medications. No physical complaints. Review of Systems Except as stated in HPI: all other systems reviewed are Neg Objective Alert: Yes [place]: Person, Place Mood: Calm Affect: Blunted Memory Intact: Comment (remains fair) Hallucinations: Other (denies audiovisual hallucinations) Delusions: No Delusion Type: Other (no delusions today) Suicidal: Ideation (denies SI) Homicidal: Ideation (denies HI) Insight/Judgment Likely chronically poor Remarks No motor abnormalities noted. Thought process more linear today. Grooming and hygiene fair although dentition, if not previously noted, has been poor throughout. Labs Labs reviewed. Vitals/IOs Vital Signs Date Time Temp Pulse Resp B/P Pulse Ox O2 Delivery O2 Flow Rate FiO2 03/31/17 06:09 95.7 51 18 94/47 100 Assessment & Plan Problem List: (1) Schizophrenia ICD Code: F20.9 Assessment & Plan Patient seems improved today and is willing to return to his [facility] facility. He has been in good behavioral control over the weekend. I have asked the counselor to arrange for discharge back to [facility] within the next day or 2. Patient would be due for his Haldol Decanoate booster later this week, and I will schedule this for tomorrow to ensure that it is done, increasing the dose to 300 mg IM, or 10 times the oral dose for better control of symptoms in the long-term. Continue other medications and care as ordered. Justification for Cont. Inpt. Final discharge planning. Medication changes. Discharge Planning Anticipate discharge back to [facility] tomorrow, Friday. Request HC Surrog/Guard Advoc?: No Problem Qualifiers (1) Schizophrenia: Qualified Code: F20.3 - Undifferentiated schizophrenia Feliciano Euceda MD Mar 31, 2017 09:38
[2017-03-31] MEDS: ACETAMINOPHEN 325 MG TAB PO PRN (13:46)
[2017-03-31 18:12] VITALS: BP 123/68; PULSE 61; RESP 17; TEMP 97.1; O2SAT 100
[2017-03-31] MEDS: DIVALPROEX SODIUM DELAYED RELEASE 250 MG TAB PO SCH (21:04)
[2017-03-31] MEDS: diphenhydrAMINE HCL 50 MG CAP - HS PRN PO (22:44)
[2017-04-01 05:59] VITALS: BP 120/59; PULSE 47; RESP 18; TEMP 97.1; O2SAT 96
[2017-04-01] MEDS: HALOPERIDOL 10 MG TAB PO SCH ×3 (08:01→17:54)
[2017-04-01] MEDS: DIVALPROEX DR 500 MG TABEC PO SCH (08:01)
[2017-04-01] MEDS: LORazepam 1 MG TAB PO PRN ×2 (08:09→14:57)
[2017-04-01] MEDS ORDERED: HALOPERIDOL DECANOATE 50 MG/ML VIAL IM ONE (09:00)
--- NOTE | 2017-04-01 09:29 | HHI.PYPN ---
Subjective Remarks Patient seen and examined with staff. Chart reviewed. Case discussed in treatment team with nurse, counselor and occupational therapist. Per nursing staff, patient has been no significant behavioral problem. He received his Haldol Decanoate injection without incident. Counselor reports that unfortunately, during the period of the patient's hospitalization here, the administration of his assisted living facility has changed, and the new administration is refusing to accept the patient back. On my examination today , patient is taking this information in stride. He is agreeable to remaining on the unit for new placement. Thought process remains a little loose but generally much more organized versus admission. No SI or HI. No hallucinations. No side effects from medications. No physical complaints. Review of Systems ROS Limitations: Poor Historian Except as stated in HPI: all other systems reviewed are Neg Objective Alert: Yes [place]: Person, Place (at least) Mood: Calm Affect: Blunted Memory Intact: Comment (fair) Hallucinations: Other (no hallucinations) Delusions: No Delusion Type: Other (no delusions) Suicidal: Ideation (no SI) Homicidal: Ideation (no HI) Insight/Judgment Poor Remarks No motoric abnormalities. Grooming and hygiene fair. Labs Labs reviewed. Vitals/IOs Vital Signs Date Time Temp Pulse Resp B/P Pulse Ox O2 Delivery O2 Flow Rate FiO2 04/01/17 05:59 97.1 47 18 120/59 96 Assessment & Plan Problem List: (1) Schizophrenia ICD Code: F20.9 Assessment & Plan Continue current psychotropics as ordered. Continue to monitor on the inpatient unit. Continue other medications and care as ordered. Justification for Cont. Inpt. High risk for decompensation in a less restrictive environment. Discharge Planning Counselor is working on new placement for this patient Request HC Surrog/Guard Advoc?: No Problem Qualifiers (1) Schizophrenia: Qualified Code: F20.3 - Undifferentiated schizophrenia Feliciano Euceda MD Apr 01, 2017 09:29
--- NOTE | 2017-04-01 14:44 | PD.TTN ---
Patient Problems 1. Discharge planning 2. Medication compliance 3. Knowledge deficit 4. Lack of coping skills Progress Toward Goals Provider Input: Pt medication regiment will continue to be adjusted to help provide further stabilization. Nurse Input: Pt appears childlike, medication compliant, disorganized, cooperative and is no behavioral management problem on the unit. Psych Therapist Input: Pt appears hyperverbal, disorganized, cooperative, appropriate, with improving insight, improving coping skills and with less underlying agitation. He is willing to go to a new [facility] as he cannot return to [facility]. Pt verbalizes less delusional material and appears to perseverate somewhat less on whatever topic is bothering him. Occupational Therapist Input: Pt attends outside groups only and does not attend any therapy related groups. Documentation Scribe: ANI Lane Date Resolved: Apr 01, 2017 Hero Kirkpatrick Apr 01, 2017 14:44
[2017-04-01 17:30] VITALS: BP 135/57; PULSE 71; RESP 18; TEMP 96.6; O2SAT 98
[2017-04-01] MEDS: DIVALPROEX SODIUM DELAYED RELEASE 250 MG TAB PO SCH (20:27)
[2017-04-02 06:13] VITALS: BP 113/54; PULSE 63; RESP 18; TEMP 96.9; O2SAT 97
[2017-04-02] MEDS: DIVALPROEX DR 500 MG TABEC PO SCH (09:00)
--- NOTE | 2017-04-02 09:36 | HHI.PYPN ---
Subjective Remarks Patient seen and examined with counselor nurse. Chart reviewed. Case discussed with nursing staff. No behavioral issues noted. On my examination today, patient is in good spirits. He is agreeable to new placement, and counselor relays progress so far and finding the patient and new assisted living facility. Apparently he was declined at [facility] and there are to further referrals outstanding. The patient will be visited by a digital media representative from [facility] tomorrow. The patient says he is "just hanging out." He denies any audiovisual hallucinations. No SI or HI. No side effects from medications. No physical complaints besides some chronic left shoulder pain. Responded to all male staff on this pt ~12:10pm. Patient agitated, combative with staff. I have ordered patient medicated with Haldol 10mg, Ativan 2mg and Benadryl 50mg IM ETO and placed in locked seclusion until calm. I was present for [id number] evaluation at initiation of locked seclusion as required. Per RN, patient had been trying to get her to come into his room and he grew agitated when she declined. Review of Systems ROS Limitations: Poor Historian Except as stated in HPI: all other systems reviewed are Neg Objective Alert: Yes [place]: Person, Place (at least) Mood: Calm Affect: Blunted Memory Intact: Comment (fair) Hallucinations: Other (no hallucinations) Delusions: No Delusion Type: Other (no delusions) Suicidal: Ideation (no SI) Homicidal: Ideation (no HI) Insight/Judgment Poor Remarks MSE is from initial eval prior to the all staff assist. No motor abnormalities noted. Labs Labs reviewed. Vitals/IOs Vital Signs Date Time Temp Pulse Resp B/P Pulse Ox O2 Delivery O2 Flow Rate FiO2 04/02/17 06:13 96.9 63 18 113/54 97 Assessment & Plan Problem List: (1) Schizophrenia ICD Code: F20.9 Assessment & Plan Continue current psychotropics as ordered. I will ask the physical therapist to return to work with patient on his shoulder. Continue to monitor on the inpatient unit. Continue other medications and care as ordered. [Update following all-staff assist: I will add Zyprexa Zydis 5mg qHS. Violent/ assaultive prec remain in place.] Justification for Cont. Inpt. Impairment in social function. High risk for decompensation in less restrictive setting. Discharge Planning Counselor working on a new assisted living placement Request HC Surrog/Guard Advoc?: No Problem Qualifiers (1) Schizophrenia: Qualified Code: F20.3 - Undifferentiated schizophrenia Feliciano Euceda MD Apr 02, 2017 09:36
[2017-04-02] MEDS: HALOPERIDOL 10 MG TAB PO SCH ×3 (09:50→18:00)
[2017-04-02] MEDS ORDERED: diphenhydrAMINE HCL 50 MG/ML VIAL IM STA (12:11)
[2017-04-02] MEDS ORDERED: HALOPERIDOL LACTATE 5 MG/ML AMP IM STA (12:11)
[2017-04-02] MEDS ORDERED: LORazepam 2 MG/ML VIAL IM STA (12:11)
[2017-04-02 18:06] VITALS: BP 125/75; PULSE 68; RESP 16; TEMP 98.2; O2SAT 98
[2017-04-02] MEDS ORDERED: OLANZapine ODT 5 MG TAB PO SCH (21:00)
[2017-04-02] MEDS: DIVALPROEX SODIUM DELAYED RELEASE 250 MG TAB PO SCH (21:03)
[2017-04-03 06:08] VITALS: BP 119/59; PULSE 52; RESP 16; TEMP 97.6; O2SAT 98
[2017-04-03] MEDS: HALOPERIDOL 10 MG TAB PO SCH ×3 (09:00→18:00)
[2017-04-03] MEDS: DIVALPROEX DR 500 MG TABEC PO SCH (09:00)
--- NOTE | 2017-04-03 10:02 | HHI.PYPN ---
Subjective Remarks Patient seen and examined with nurse. Chart reviewed. Case discussed with nursing staff. No further behavioral issues overnight. On my examination today , the patient is calmer and apologizes for his behavior yesterday, although he is somewhat defensive and has an irritable edge. Denies SI or HI. Denies side effects from medications. No new physical complaints. Review of Systems ROS Limitations: Poor Historian Except as stated in HPI: all other systems reviewed are Neg Objective Alert: Yes [place]: Person, Place Mood: Other (somewhat irritable) Affect: Blunted Memory Intact: Comment (remains fair) Hallucinations: Other (no avh) Delusions: No Delusion Type: Other (no delusions) Suicidal: Ideation (no SI) Homicidal: Ideation (no HI) Insight/Judgment poor Remarks No abnormal motor movements noted. Thought process fairly linear. Labs Labs reviewed. Vitals/IOs Vital Signs Date Time Temp Pulse Resp B/P Pulse Ox O2 Delivery O2 Flow Rate FiO2 04/03/17 06:08 97.6 52 16 119/59 98 Assessment & Plan Problem List: (1) Schizophrenia ICD Code: F20.9 Assessment & Plan Titrate Zyprexa to 7.5 mg at bedtime. Continue other psychotropics as ordered. Continue to monitor on the high acuity unit. Continue other medications and care as ordered. Justification for Cont. Inpt. Medication changes in process. Risk for decompensation in less restrictive environment. Discharge Planning Counselor working on placement for this patient Request HC Surrog/Guard Advoc?: No Problem Qualifiers (1) Schizophrenia: Qualified Code: F20.3 - Undifferentiated schizophrenia Feliciano Euceda MD Apr 03, 2017 10:02
[2017-04-03] MEDS: ACETAMINOPHEN 325 MG TAB PO PRN (16:52)
[2017-04-03] MEDS: OLANZapine 5 MG TAB PO SCH (21:00)
[2017-04-03] MEDS: DIVALPROEX SODIUM DELAYED RELEASE 250 MG TAB PO SCH (21:39)
[2017-04-03] MEDS: diphenhydrAMINE HCL 50 MG CAP - HS PRN PO (21:40)
[2017-04-04 05:58] VITALS: BP 109/58; PULSE 52; RESP 18; TEMP 97.9; O2SAT 99
[2017-04-04] MEDS: DIVALPROEX DR 500 MG TABEC PO SCH (08:55)
[2017-04-04] MEDS: HALOPERIDOL 10 MG TAB PO SCH ×3 (08:55→17:21)
--- NOTE | 2017-04-04 10:18 | HHI.PYPN ---
Subjective Remarks Patient seen and examined with nurse. Chart reviewed. Zyprexa was placed on hold as there were apparently concerns about consent, although patient has already consented for Zyprexa. Case discussed with nursing staff who reports patient has been no real behavioral problem but remains a little bit irritable. On my examination today, the patient is calm. He remains agreeable to new placement. No evidence of behavioral issue at this time. No SI or HI. A little childlike in his interaction. No side effects from meds. No physical complaints. Remains agreeable to Zyprexa. Wants to have additional dose of Benadryl available if needed for sleep. Review of Systems ROS Limitations: Poor Historian Except as stated in HPI: all other systems reviewed are Neg Objective Alert: Yes [place]: Person, Place Mood: Calm Affect: Blunted (childlike) Memory Intact: Comment (remains fair) Hallucinations: Other (No hallucinations) Delusions: No Delusion Type: Other (no delusions) Suicidal: Ideation (No SI) Homicidal: Ideation (No HI) Insight/Judgment Poor Remarks No motor abnormalities noted. Grooming and hygiene fair. Labs Labs reviewed. Vitals/IOs Vital Signs Date Time Temp Pulse Resp B/P Pulse Ox O2 Delivery O2 Flow Rate FiO2 04/04/17 05:58 97.9 52 18 109/58 99 Assessment & Plan Problem List: (1) Schizophrenia ICD Code: F20.9 Assessment & Plan Take Zyprexa off of hold; patient continues to consent to this med. I will add a "may repeat x 1" order to patient's Benadryl per his request. Continue other psychotropics as ordered. Continue to monitor on the inpatient unit. Continue other medications and care as ordered. Justification for Cont. Inpt. Risk for decompensation Discharge Planning Counselor is working on new placement for this patient. Request HC Surrog/Guard Advoc?: No Problem Qualifiers (1) Schizophrenia: Qualified Code: F20.3 - Undifferentiated schizophrenia Feliciano Euceda MD Apr 04, 2017 10:18
[2017-04-04 17:27] VITALS: BP 117/58; PULSE 65; RESP 18; TEMP 97.9; O2SAT 97
[2017-04-04] MEDS: OLANZapine 5 MG TAB PO SCH (21:00)
[2017-04-04] MEDS: DIVALPROEX SODIUM DELAYED RELEASE 250 MG TAB PO SCH (21:17)
[2017-04-04] MEDS: diphenhydrAMINE HCL 50 MG CAP - HS PRN PO (21:18)
[2017-04-04] MEDS: ACETAMINOPHEN 325 MG TAB PO PRN (21:18)
[2017-04-05 05:52] VITALS: BP 112/65; PULSE 49; RESP 18; TEMP 97.2; O2SAT 96
[2017-04-05] MEDS: DIVALPROEX DR 500 MG TABEC PO SCH (09:00)
[2017-04-05] MEDS: HALOPERIDOL 10 MG TAB PO SCH ×3 (09:00→17:41)
--- NOTE | 2017-04-05 13:14 | HHI.PYPN ---
Subjective Remarks Patient was seen and case discussed with nursing. Patient is seclusive to room. He he is focused on me presenting himself as doing well this weekend. His compliant with his medications. He denies auditory or visual hallucinations. Asking for switch to Motrin from Tylenol Objective Alert: Yes [place]: Person, Place Mood: Calm Affect: Restricted Memory Intact: Comment (remains fair) Hallucinations: Other (No hallucinations) Delusions: No Delusion Type: Other (no delusions) Suicidal: Ideation (No SI) Homicidal: Ideation (No HI) Insight/Judgment Poor Vitals/IOs Vital Signs Date Time Temp Pulse Resp B/P Pulse Ox O2 Delivery O2 Flow Rate FiO2 04/05/17 05:52 97.2 49 18 112/65 96 Assessment & Plan Problem List: (1) Schizophrenia ICD Code: F20.9 Assessment & Plan Continue current treatment plan Justification for Cont. Inpt. Patient will decompensate in a less restrictive setting Request HC Surrog/Guard Advoc?: No Problem Qualifiers (1) Schizophrenia: Qualified Code: F20.3 - Undifferentiated schizophrenia Kirby Velasco DO Apr 05, 2017 13:14
[2017-04-05 17:49] VITALS: BP 120/64; PULSE 60; RESP 18; TEMP 97.2; O2SAT 98
[2017-04-05] MEDS: OLANZapine 5 MG TAB PO SCH (21:00)
[2017-04-05] MEDS: IBUPROFEN 600 MG TAB PO PRN (21:19)
[2017-04-05] MEDS: DIVALPROEX SODIUM DELAYED RELEASE 250 MG TAB PO SCH (21:22)
[2017-04-05] MEDS: diphenhydrAMINE HCL 50 MG CAP - HS PRN PO (21:23)
[2017-04-06 05:36] VITALS: BP 120/74; PULSE 67; RESP 18; TEMP 97.4; O2SAT 97
[2017-04-06] MEDS: HALOPERIDOL 10 MG TAB PO SCH ×3 (09:19→18:01)
[2017-04-06] MEDS: DIVALPROEX DR 500 MG TABEC PO SCH (09:19)
[2017-04-06] MEDS: LORazepam 1 MG TAB PO PRN (09:20)
--- NOTE | 2017-04-06 16:13 | HHI.PYPN ---
Subjective Remarks Patient was seen and case discussed with nursing. He remains on good behavior has not had any outbursts. He reengaged with his mother and they are not talking on the phone. Continues to deny psychotic symptoms. Compliant with his medications Objective Alert: Yes [place]: Person, Place Mood: Calm Affect: Blunted Memory Intact: Comment (remains fair) Hallucinations: Other (No hallucinations) Delusions: No Delusion Type: Other (no delusions) Suicidal: Ideation (No SI) Homicidal: Ideation (No HI) Insight/Judgment Poor Vitals/IOs Vital Signs Date Time Temp Pulse Resp B/P Pulse Ox O2 Delivery O2 Flow Rate FiO2 04/06/17 05:36 97.4 67 18 120/74 97 Assessment & Plan Problem List: (1) Schizophrenia ICD Code: F20.9 Assessment & Plan Continue current treatment plan Justification for Cont. Inpt. Patient will decompensate in a less restrictive setting Request HC Surrog/Guard Advoc?: No Problem Qualifiers (1) Schizophrenia: Qualified Code: F20.3 - Undifferentiated schizophrenia Kirby Velasco DO Apr 06, 2017 16:13
[2017-04-06 17:21] VITALS: BP 130/62; PULSE 71; RESP 18; TEMP 98.4; O2SAT 98
[2017-04-06] MEDS: OLANZapine 5 MG TAB PO SCH (21:05)
[2017-04-06] MEDS: DIVALPROEX SODIUM DELAYED RELEASE 250 MG TAB PO SCH (21:05)
[2017-04-07 05:48] VITALS: BP 128/73; PULSE 62; RESP 20; TEMP 98.5; O2SAT 99
[2017-04-07] MEDS: DIVALPROEX DR 500 MG TABEC PO SCH (09:17)
[2017-04-07] MEDS: HALOPERIDOL 10 MG TAB PO SCH ×3 (09:17→17:25)
[2017-04-07] MEDS ORDERED: DIVA500T PO (10:27)
[2017-04-07] MEDS ORDERED: HALO100P IM (10:27)
[2017-04-07] MEDS ORDERED: OLAN5TAB PO (10:27)
[2017-04-07] MEDS ORDERED: HALO10TA PO (10:27)
[2017-04-07] MEDS ORDERED: DIVA250T PO (10:27)
--- NOTE | 2017-04-07 10:27 | HHI.DS ---
Psychiatry Discharge Summary Advance Directive: No Reason Not Provided: Due to Patient Condition Admission Admission Date Mar 18, 2017 at 19:27 Admission Diagnosis: Brief History Mr. Cook is a 42 year-old male with a history of schizophrenia who presents in transfer from [facility] under a Mortensen act alleging that he had been acting out at his [facility] facility. Records from [facility] reviewed. Reviewing our own electronic medical record, it appears this is patient's first visit to [place]. Patient seen and examined with counselor. Chart reviewed. Case discussed with nursing staff reports the patient has been rambling and disorganized since arriving on the unit. On my examination today, the patient presents with pressured, disjointed speech. He tells me, "I had an idea for the place. A wash day. You're not going to breakfast on day. The love of the rain bee that loves me. They bait me." He proceeds in this way for some time and is difficult to interrupt. He appears internally stimulated, and when I ask about AVH, he says, "tigers talking about sharks. Sharks doing telepathy. I have [employer] medals." Thought process extremely disorganized. He is impulsive and mildly psychomotor agitated. Affect somewhat silly. It is extremely difficult to get any meaningful history from the patient because of his degree of thought disorganization. I am unable to obtain any meaningful past psychiatric, family, chemical dependency or social history from this patient, once again on account of the thought disorganization. 03/19/17 Above note dictated by Dr. Euceda reviewed and agreed with. Patient seen by me with nurse Sergey patient markedly disorganized confused delusional with and attitude of tension and irritability making some striking out gestures towards the corner of the room, patient was admitted to Dr. Euceda service under the Mortensen act. He has signed first opinion petition supporting Mortensen act. I agree. Patient meets criteria for involuntary psychiatric hospitalization under the Mortensen act. Thus I will cosign second opinion petition supporting Mortensen act Tobacco Use In Past 30 Days: Refused To Answer Alcohol Use: Never Results Blood Pressure 128 / 73 Vital Signs Date Time Temp Pulse Resp B/P Pulse Ox O2 Delivery O2 Flow Rate FiO2 04/07/17 05:48 98.5 62 20 128/73 99 Imaging Last Impressions Thoracic Spine X-Ray 03/26/17 0000 Signed Impressions: Service Date/Time: Sunday, March 26, 2017 20:40 - CONCLUSION: 1. [id number] degenerative disc disease in the thoracic spine with large osteophytes especially inferiorly. Mild kyphosis. Agusto Hills MD Lumbar Spine X-Ray 03/26/17 0000 Signed Impressions: Service Date/Time: Sunday, March 26, 2017 20:38 - CONCLUSION: 1. Moderate degenerative disc disease. No acute fracture or spondylolisthesis. Agusto Hills MD Abdomen X-Ray 03/26/17 0000 Signed Impressions: Service Date/Time: Sunday, March 26, 2017 20:36 - CONCLUSION: 1. No acute findings. gAusto Hills MD Medications Approp Antipsych med options 1 - Minimum of three failed multiple trials of monotherapy. 2 - Documented plan to taper to monotherapy due to previous use of multiple meds OR cross-taper in progress at D/C. 3 - Documentation of augmentation of Clozapine. 4 - Justification other than those listed in allowable values 1-3, document here : Discharge Discharge Disposition: [facility] Discharge Instructions Diet Instructions: As Tolerated, No Restrictions Activities you can perform: Weight Bearing as [place] Discharge/Advance Care Plan Health Problems: (1) Schizophrenia Goals to promote your health * To prevent worsening of your condition and complications * To maintain your health at the optimal level Directions to meet your goals Take your medications as prescribed Follow your dietary instruction Follow activity as directed Keep your appointments as scheduled Take your immunizations and boosters as scheduled If your symptoms worsen call your PCP, if no PCP go to Urgent Care Center or Emergency Room For 14/04 questions related to your inpatient stay or results of tests pending at discharge, please contact Dr. Feliciano Euceda at Smoking is Dangerous to Your Health. Avoid second hand smoking Feliciano Euceda MD Apr 07, 2017 10:27
[2017-04-07] MEDS: IBUPROFEN 600 MG TAB PO PRN ×2 (10:39→21:44)
[2017-04-07] MEDS: LORazepam 1 MG TAB PO PRN (12:09)
--- NOTE | 2017-04-07 15:30 | HHI.PYPN ---
Subjective Remarks Patient seen and examined with nurse. Chart reviewed. Case discussed with RN who reports that patient has been no real behavioral problem. Counselor reports that he has arranged for discharge [facility] today. On my exam, patient presents as very manipulative. He now says he does not want to go to [facility]. Mother has apparently made contact with patient on this, his 3rd week in the hospital. Previously, patient had initially been too disorganized to provide any collateral sources and later, when he was clearer, told us he had none. Mother is raising a great hue and cry about the discharge. I suspect this is all the result of patient's manipulations because he doesn't want to go to [facility]. Patient is otherwise psychiatrically stable. No evident mood disorder. No psychosis. Denies side effects from medications. No physical complaints. Review of Systems ROS Limitations: Poor Historian Except as stated in HPI: all other systems reviewed are Neg Objective Alert: Yes [place]: Person, Place Mood: Calm Affect: Blunted (childlike) Memory Intact: Comment (fair) Hallucinations: Other (No AVH) Delusions: No Delusion Type: Other (No delusions) Suicidal: Ideation (No SI) Homicidal: Ideation (No HI) Insight/Judgment Poor Remarks No abnormal motor movements noted. TP linear. Labs Labs reviewed. Vitals/IOs Vital Signs Date Time Temp Pulse Resp B/P Pulse Ox O2 Delivery O2 Flow Rate FiO2 04/07/17 05:48 98.5 62 20 128/73 99 Assessment & Plan Problem List: (1) Manipulative behavior ICD Code: R46.89 (2) History of schizophrenia ICD Code: Z86.59 Assessment & Plan Patient has successfully scuttled his discharge. Hopefully, if mother is opposed to discharge to [facility] she will be willing to take patient into her home instead. Counselor to liaison with mother. Continue current medications and care as ordered. Justification for Cont. Inpt. Dispo planning. Discharge Planning TBD. Request HC Surrog/Guard Advoc?: No Feliciano Euceda MD Apr 07, 2017 15:30
[2017-04-07 18:04] VITALS: BP 138/81; PULSE 79; RESP 18; TEMP 97.5; O2SAT 97
[2017-04-07] MEDS: DIVALPROEX SODIUM DELAYED RELEASE 250 MG TAB PO SCH (21:43)
[2017-04-07] MEDS: OLANZapine 5 MG TAB PO SCH (21:43)
[2017-04-07] MEDS: diphenhydrAMINE HCL 50 MG CAP - HS PRN PO (21:44)
[2017-04-08 06:02] VITALS: BP 122/78; PULSE 51; RESP 18; TEMP 97.7; O2SAT 98
[2017-04-08] MEDS: DIVALPROEX DR 500 MG TABEC PO SCH (08:36)
[2017-04-08] MEDS: HALOPERIDOL 10 MG TAB PO SCH ×3 (08:36→17:12)
--- NOTE | 2017-04-08 13:04 | HHI.PYPN ---
Subjective Remarks Patient seen and examined with counselor and nurse. Chart reviewed. Case discussed in treatment team. Per RN, patient tried to kiss her. On my exam, patient is entitled, petulant, childlike. Remains quite manipulative and behavioral. Threatens that he will call his mother to browbeat the staff if we do not complete some small administrative task to his satisfaction. No mood or psychotic symptoms. No side effects from meds. No physical complaints. Asking if he can be discharged today to [facility], and he was reminded that through his own actions he foiled his discharge to [facility] yesterday. He takes no ownership for his behavior. Review of Systems ROS Limitations: Poor Historian Except as stated in HPI: all other systems reviewed are Neg Objective Alert: Yes [place]: Person, Place Mood: Oppositional Affect: Other (childlike) Memory Intact: Comment (fair) Hallucinations: Other (No hallucinations) Delusions: No Delusion Type: Other (No delusional material) Suicidal: Ideation (No SI) Homicidal: Ideation (No HI) Insight/Judgment Poor Remarks No motoric abnormalities noted Labs Labs reviewed. 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 Continue other medications and care as ordered. Justification for Cont. Inpt. Discharge planning Discharge Planning Counselor is working on getting the patient to [facility] in mother's area. Request HC Surrog/Guard Advoc?: No Feliciano Euceda MD Apr 08, 2017 13:04
[2017-04-08] MEDS: LORazepam 2 MG/ML VIAL IM PRN (15:20)
[2017-04-08] MEDS: HALOPERIDOL LACTATE 5 MG/ML AMP IM PRN (15:20)
[2017-04-08 18:41] VITALS: BP 101/58; PULSE 58; RESP 18; TEMP 98.7; O2SAT 99
[2017-04-08] MEDS: OLANZapine 5 MG TAB PO SCH (21:00)
[2017-04-08] MEDS: DIVALPROEX SODIUM DELAYED RELEASE 250 MG TAB PO SCH (21:39)
[2017-04-09 05:47] VITALS: BP 138/87; PULSE 62; RESP 18; TEMP 96.7; O2SAT 99
[2017-04-09] MEDS: HALOPERIDOL 10 MG TAB PO SCH ×3 (08:46→17:17)
[2017-04-09] MEDS: DIVALPROEX DR 500 MG TABEC PO SCH (08:46)
--- NOTE | 2017-04-09 12:10 | HHI.PYPN ---
Subjective Remarks Patient seen and examined with counselor. Chart reviewed. Case discussed with nursing staff. No behavioral issues overnight. On my examination today, patient remains childlike, entitled, demanding. I suspect this is his baseline personality style. Patient perseverates on his clothes still held at [employer], and he says that if they have mishandled his clothes that he will adan them and "I will own [employer]!" No side effects from medications. Reports 1 episode of incontinence of urine overnight, says he slept through the urge to urinate. No associated symptoms. No other physical complaints. Review of Systems ROS Limitations: Poor Historian Except as stated in HPI: all other systems reviewed are Neg Objective Alert: Yes [place]: Person, Place Mood: Oppositional (ongoing) Affect: Other (remains childlike) Memory Intact: Comment (fair) Hallucinations: Other (No AVH) Delusions: No Delusion Type: Other (No delusions) Suicidal: Ideation (No SI) Homicidal: Ideation (No HI) Insight/Judgment Poor Remarks No motoric abnormalities. Labs Labs reviewed. Vitals/IOs Vital Signs Date Time Temp Pulse Resp B/P Pulse Ox O2 Delivery O2 Flow Rate FiO2 04/09/17 05:47 96.7 62 18 138/87 99 Assessment & Plan Problem List: (1) Manipulative behavior ICD Code: R46.89 (2) History of schizophrenia ICD Code: Z86.59 Assessment & Plan Check a urinalysis. Continue psychotropics as ordered. Continue other medications and care as ordered. Justification for Cont. Inpt. Discharge planning Discharge Planning Counselor working on finding an SENIOR LIVING that is satisfactory for family and patient. Request HC Surrog/Guard Advoc?: No Feliciano Euceda MD Apr 09, 2017 12:10
[2017-04-09] MEDS: IBUPROFEN 600 MG TAB PO PRN (17:17)
[2017-04-09 17:40] LABS: BLOOD, URINE NEG (NEG); COMMENT (UR) CULT NOT INDICATED; CULTURE IF INDICATED CULT NOT INDICATED; GLUCOSE,URINE NEG (NEG); KETONE, URINE TRACE mg/dL (NEG); NITRITE,URINE NEG (NEG); PH, URINE 5.5 (5.0-8.5); URINE COLOR YELLOW (YELLW/STRAW)
[2017-04-09 18:16] VITALS: BP 119/72; PULSE 75; RESP 18; TEMP 97.2; O2SAT 97
[2017-04-09] MEDS: OLANZapine 5 MG TAB PO SCH (20:49)
[2017-04-09] MEDS: DIVALPROEX SODIUM DELAYED RELEASE 250 MG TAB PO SCH (20:51)
[2017-04-10 06:19] VITALS: BP 118/63; PULSE 54; RESP 16; TEMP 96.9; O2SAT 97
[2017-04-10] MEDS: IBUPROFEN 600 MG TAB PO PRN (09:19)
[2017-04-10] MEDS: HALOPERIDOL 10 MG TAB PO SCH ×3 (09:19→17:45)
[2017-04-10] MEDS: DIVALPROEX DR 500 MG TABEC PO SCH (09:19)
--- NOTE | 2017-04-10 13:19 | HHI.PYPN ---
Subjective Remarks Patient seen and examined with nurse. Chart reviewed. Case discussed with nursing staff. For me today, patient remains childlike but is less demanding and less behavioral. Says that he would like to go to [facility]. No mood symptoms. No psychotic symptoms. No side effects from medications. No physical complaints besides some mild chronic back pain. Review of Systems ROS Limitations: Poor Historian Except as stated in HPI: all other systems reviewed are Neg Objective Alert: Yes [place]: Person, Place Mood: Calm Affect: Other (childlike) Memory Intact: Comment (fair) Hallucinations: Other (no hallucinations) Delusions: No Delusion Type: Other (no delusions noted) Suicidal: Ideation (No SI) Homicidal: Ideation (No HI) Insight/Judgment Poor Remarks No motor abnormalities Labs Test 04/09/17 17:20 Urine Color YELLOW Urine Turbidity CLEAR Urine pH 5.5 Urine Specific [place] 1.021 Urine Protein NEG mg/dL Urine Glucose (UA) NEG mg/dL Urine Ketones TRACE mg/dL Urine Occult Blood NEG Urine Nitrite NEG Urine Bilirubin NEG Urine Urobilinogen LESS THAN 2.0 MG/DL Urine Leukocyte Esterase NEG Urine WBC LESS THAN 1 /hpf Microscopic Urinalysis Comment CULT NOT INDICATED Urinalysis bland. No further reports of incontinence. Vitals/IOs Vital Signs Date Time Temp Pulse Resp B/P Pulse Ox O2 Delivery O2 Flow Rate FiO2 04/10/17 06:19 96.9 54 16 118/63 97 Assessment & Plan Problem List: (1) Manipulative behavior ICD Code: R46.89 (2) History of schizophrenia ICD Code: Z86.59 Assessment & Plan Continue current psychotropics as ordered. Continue to monitor on the inpatient unit. Continue other medications and care as ordered. Justification for Cont. Inpt. Discharge planning Discharge Planning [facility] placement Request HC Surrog/Guard Advoc?: No Feliciano Euceda MD Apr 10, 2017 13:19
[2017-04-10] MEDS: LORazepam 1 MG TAB PO PRN (14:06)
[2017-04-10 15:02] VITALS: BP 160/92
[2017-04-10 16:02] VITALS: BP 125/58; PULSE 70; RESP 17; TEMP 98.6; O2SAT 99
[2017-04-10 20:00] VITALS: BP 166/90; PULSE 70; RESP 18; TEMP 98.6; O2SAT 97
[2017-04-10] MEDS: DIVALPROEX SODIUM DELAYED RELEASE 250 MG TAB PO SCH (20:26)
[2017-04-10] MEDS: OLANZapine 5 MG TAB PO SCH (20:27)
[2017-04-11 05:49] VITALS: BP 129/72; PULSE 64; RESP 16; TEMP 97.4; O2SAT 98
[2017-04-11 05:59] VITALS: BP 129/72; PULSE 64; RESP 16; TEMP 97.4; O2SAT 98
[2017-04-11] MEDS: IBUPROFEN 600 MG TAB PO PRN (09:03)
[2017-04-11] MEDS: LORazepam 1 MG TAB PO PRN (09:04)
[2017-04-11] MEDS: DIVALPROEX DR 500 MG TABEC PO SCH (09:04)
[2017-04-11] MEDS: HALOPERIDOL 10 MG TAB PO SCH ×3 (09:04→18:00)
--- NOTE | 2017-04-11 11:49 | HHI.PYPN ---
Subjective Remarks Patient seen and examined with counselor and nurse. Chart reviewed. Case discussed with nursing staff reports the patient remains somewhat demanding but no real behavioral problem. For me, patient is fairly pleasant. No evidence of decompensated mood or psychotic disorder, and the patient is actually in fairly good spirits today. He and the counselor speak for a time about the discharge plan. No side effects from medications. No physical complaints. Review of Systems ROS Limitations: Poor Historian Except as stated in HPI: all other systems reviewed are Neg Objective Alert: Yes [place]: Person, Place Mood: Calm Affect: Euthymic (childlike) Memory Intact: Comment (fair) Hallucinations: Other (No AVH) Delusions: No Delusion Type: Other (No delusions elicited) Suicidal: Ideation (No SI) Homicidal: Ideation (No HI) Insight/Judgment Poor Remarks No motoric abnormalities appreciated. Labs Labs reviewed. Vitals/IOs Vital Signs Date Time Temp Pulse Resp B/P Pulse Ox O2 Delivery O2 Flow Rate FiO2 04/11/17 05:59 97.4 64 16 129/72 98 Assessment & Plan Problem List: (1) Manipulative behavior ICD Code: R46.89 (2) History of schizophrenia ICD Code: Z86.59 Assessment & Plan Continue Zyprexa as ordered. Continue Haldol PO supplementing Haldol Dec. Continue Depakote as ordered. Continue to monitor on the inpatient unit. Continue other medications and care as ordered. Justification for Cont. Inpt. Discharge planning Discharge Planning Counselor continues to work on assisted living placement. Counselor reports that mother has not been returning counselor calls of late, and this is presenting a barrier to discharge planning. Request HC Surrog/Guard Advoc?: No Feliciano Euceda MD Apr 11, 2017 11:49
[2017-04-11 18:11] VITALS: BP 132/69; PULSE 69; RESP 17; TEMP 96.9; O2SAT 97
[2017-04-11] MEDS: OLANZapine 5 MG TAB PO SCH (20:40)
[2017-04-11] MEDS: DIVALPROEX SODIUM DELAYED RELEASE 250 MG TAB PO SCH (20:40)
[2017-04-12 06:05] VITALS: BP 126/70; PULSE 59; RESP 18; TEMP 97.5; O2SAT 99
[2017-04-12] MEDS: HALOPERIDOL 10 MG TAB PO SCH ×3 (09:11→17:37)
[2017-04-12] MEDS: DIVALPROEX DR 500 MG TABEC PO SCH (09:12)
--- NOTE | 2017-04-12 14:49 | HHI.PYPN ---
Subjective Remarks Patient was seen and case discussed with nursing. Patient is pleasant and cooperative with exam. No verbal her behavioral outbursts. He is compliant with his medications. Apparently he had poor boundaries last night attempting to give everyone hog. Seclusive to room today. Continues to deny psychotic symptoms Objective Alert: Yes [place]: Person, Place Mood: Calm Affect: Restricted Memory Intact: Comment (fair) Hallucinations: Other (No AVH) Delusions: No Delusion Type: Other (No delusions elicited) Suicidal: Ideation (No SI) Homicidal: Ideation (No HI) Insight/Judgment Poor Vitals/IOs Vital Signs Date Time Temp Pulse Resp B/P Pulse Ox O2 Delivery O2 Flow Rate FiO2 04/12/17 06:05 97.5 59 18 126/70 99 Assessment & Plan Problem List: (1) Manipulative behavior ICD Code: R46.89 (2) History of schizophrenia ICD Code: Z86.59 Assessment & Plan Continue current treatment plan Justification for Cont. Inpt. Patient will decompensate in a less restrictive setting Request HC Surrog/Guard Advoc?: No Kirby Velasco DO Apr 12, 2017 14:49
[2017-04-12 18:10] VITALS: BP 119/62; PULSE 68; RESP 17; TEMP 97.4; O2SAT 96
[2017-04-12] MEDS: OLANZapine 5 MG TAB PO SCH (20:33)
[2017-04-12] MEDS: IBUPROFEN 600 MG TAB PO PRN (20:33)
[2017-04-12] MEDS: DIVALPROEX SODIUM DELAYED RELEASE 250 MG TAB PO SCH (20:34)
[2017-04-13 05:53] VITALS: BP 152/80; PULSE 57; RESP 18; TEMP 98; O2SAT 99
[2017-04-13] MEDS: IBUPROFEN 600 MG TAB PO PRN ×2 (09:36→22:05)
[2017-04-13] MEDS: DIVALPROEX DR 500 MG TABEC PO SCH (09:36)
[2017-04-13] MEDS: LORazepam 1 MG TAB PO PRN (09:37)
[2017-04-13] MEDS: HALOPERIDOL 10 MG TAB PO SCH ×3 (09:37→18:20)
--- NOTE | 2017-04-13 13:46 | HHI.PYPN ---
Subjective Remarks Patient was seen and case discussed with nursing. Patient describes an incident where he went to bed last night and the techs were being rude. He says he was able to control his emotions did not have an outburst. His compliant with medications. Behaving well on the unit. Denies psychotic symptoms. Remains seclusive to room Objective Alert: Yes [place]: Person, Place Mood: Calm Affect: Restricted Memory Intact: Comment (fair) Hallucinations: Other (No AVH) Delusions: No Delusion Type: Other (No delusions elicited) Suicidal: Ideation (No SI) Homicidal: Ideation (No HI) Insight/Judgment Poor Vitals/IOs Vital Signs Date Time Temp Pulse Resp B/P Pulse Ox O2 Delivery O2 Flow Rate FiO2 04/13/17 05:53 98.0 57 18 152/80 99 Assessment & Plan Problem List: (1) Manipulative behavior ICD Code: R46.89 (2) History of schizophrenia ICD Code: Z86.59 Assessment & Plan Continue current treatment plan Justification for Cont. Inpt. Patient would decompensate in a less restrictive setting Request HC Surrog/Guard Advoc?: No Kirby Velasco DO Apr 13, 2017 13:46
[2017-04-13] MEDS: OLANZapine 5 MG TAB PO SCH (21:00)
[2017-04-13] MEDS: DIVALPROEX SODIUM DELAYED RELEASE 250 MG TAB PO SCH (22:04)
[2017-04-13] MEDS: diphenhydrAMINE HCL 50 MG CAP - HS PRN PO (22:04)
[2017-04-13 22:28] VITALS: BP 119/60; PULSE 57; RESP 18; TEMP 97.9; O2SAT 96
[2017-04-14 05:56] VITALS: BP 125/64; PULSE 57; RESP 18; TEMP 97.2; O2SAT 97
[2017-04-14] MEDS: DIVALPROEX DR 500 MG TABEC PO SCH (08:45)
[2017-04-14] MEDS: HALOPERIDOL 10 MG TAB PO SCH ×3 (08:45→18:00)
--- NOTE | 2017-04-14 12:00 | HHI.PYPN ---
Subjective Remarks Patient seen and examined with counselor. Chart reviewed. Case discussed with nursing staff who reports that the patient spontaneously verbalized goals for the day including spending more time in the day area. On my examination today, the patient remains childlike but calm. He is somewhat fixated on discharge. No evidence of mood or psychotic disturbance. No SI or HI. No side effects from medications. No physical complaints. Review of Systems ROS Limitations: Poor Historian Except as stated in HPI: all other systems reviewed are Neg Objective Alert: Yes [place]: Person, Place Mood: Calm Affect: Blunted (childlike) Memory Intact: Comment (fair) Hallucinations: Other (none) Delusions: No Delusion Type: Other (none) Suicidal: Ideation (no SI voiced) Homicidal: Ideation (no HI voiced) Insight/Judgment Poor Remarks No motor abnormalities appreciated. Labs Labs reviewed Vitals/IOs Vital Signs Date Time Temp Pulse Resp B/P Pulse Ox O2 Delivery O2 Flow Rate FiO2 04/14/17 05:56 97.2 57 18 125/64 97 Assessment & Plan Problem List: (1) Manipulative behavior ICD Code: R46.89 (2) History of schizophrenia ICD Code: Z86.59 Assessment & Plan Continue current psychiatric medications as ordered. Continue other medications and care as ordered. Justification for Cont. Inpt. Discharge planning Discharge Planning Counselor continues to work on assisted living placement Request HC Surrog/Guard Advoc?: No Feliciano Euceda MD Apr 14, 2017 12:00
[2017-04-14] MEDS: IBUPROFEN 600 MG TAB PO PRN (12:23)
[2017-04-14] MEDS: LORazepam 1 MG TAB PO PRN (13:43)
[2017-04-14 18:12] VITALS: BP 135/77; PULSE 65; RESP 18; TEMP 97.3; O2SAT 100
[2017-04-14] MEDS: OLANZapine 5 MG TAB PO SCH (20:26)
[2017-04-14] MEDS: DIVALPROEX SODIUM DELAYED RELEASE 250 MG TAB PO SCH (20:26)
[2017-04-15 06:01] VITALS: BP 120/59; PULSE 55; RESP 18; TEMP 97.6; O2SAT 98
[2017-04-15] MEDS: HALOPERIDOL 10 MG TAB PO SCH ×3 (09:04→18:47)
[2017-04-15] MEDS: DIVALPROEX DR 500 MG TABEC PO SCH (09:04)
--- NOTE | 2017-04-15 11:55 | HHI.PYPN ---
Subjective Remarks Patient seen and examined with counselor and nurse. Chart reviewed. Case discussed in treatment team. Counselor informs me that counselor has once again arranged for successful placement at [facility]. Patient now tells me that he wishes to go to [facility]. Remains quite childlike. Somewhat manipulative. Continues to threaten to call his mother to harangue the staff if he does not get his way. Denies SI, HI or AVH. Denies issues with mood. Denies side effects from medications. No physical complaints. Review of Systems ROS Limitations: Poor Historian Except as stated in HPI: all other systems reviewed are Neg Objective Alert: Yes [place]: Person, Place Mood: Calm Affect: Other (childlike) Memory Intact: Comment (fair) Hallucinations: Other (no hallucinations) Delusions: No Delusion Type: Other (no delusions) Suicidal: Ideation (no SI) Homicidal: Ideation (no HI) Insight/Judgment Poor Remarks No motor abnormalities Labs Labs reviewed Vitals/IOs Vital Signs Date Time Temp Pulse Resp B/P Pulse Ox O2 Delivery O2 Flow Rate FiO2 04/15/17 06:01 97.6 55 18 120/59 98 Assessment & Plan Problem List: (1) Manipulative behavior ICD Code: R46.89 (2) History of schizophrenia ICD Code: Z86.59 Assessment & Plan Counselor has reached out to patient's mother who is now reportedly agreeable to placement at [facility]. [facility] is requesting a screening chest x-ray prior to admission, and I have ordered this. Continue current psychotropics as ordered. Continue other medications and care as ordered. Justification for Cont. Inpt. Discharge planning Discharge Planning Plan for discharge tomorrow, Friday, to [facility] Request HC Surrog/Guard Advoc?: No Feliciano Euceda MD Apr 15, 2017 11:55
--- NOTE | 2017-04-15 16:42 | RADRPT ---
EXAM DATE/TIME: 04/15/2017 16:06 [facility] COMPARISON: No previous studies available for comparison. INDICATIONS : Congestion, cough. MEDICAL HISTORY : None. SURGICAL HISTORY : None. ENCOUNTER: Initial ACUITY: 1 day PAIN SCORE: 0/10 LOCATION: Bilateral chest FINDINGS: A single view of the chest demonstrates the lungs to be symmetrically aerated without evidence of mas s, infiltrate or effusion. The cardiomediastinal contours are unremarkable. Osseous structures are intact. CONCLUSION: No acute disease. Nikos Avitia Jr., MD on April 15, 2017 at 16:39 Board Certified Radiologist. This report was verified electronically.
[2017-04-15 18:08] VITALS: BP 127/74; PULSE 80; RESP 18; TEMP 97.7; O2SAT 97
[2017-04-15] MEDS: OLANZapine 5 MG TAB PO SCH (20:57)
[2017-04-15] MEDS: DIVALPROEX SODIUM DELAYED RELEASE 250 MG TAB PO SCH (20:57)
[2017-04-16 05:50] VITALS: BP 92/63; PULSE 64; RESP 18; TEMP 98.4; O2SAT 98
[2017-04-16] MEDS: HALOPERIDOL 10 MG TAB PO SCH (08:34)
[2017-04-16] MEDS: DIVALPROEX DR 500 MG TABEC PO SCH (08:34)
--- NOTE | 2017-04-16 09:43 | HHI.DS ---
Psychiatry Discharge Summary Inpatient Psychiatric care?: Yes Advance Directive: No Reason Not Provided: Due to Patient Condition Mental Health AdvanceDirective: No Health Care Proxy: No Admission Admission Date Mar 18, 2017 at 19:27 Admission Diagnosis: (1) Schizophrenia ICD Code: F20.9 Brief History Mr. Cook is a 42 year-old male with a history of schizophrenia who presents in transfer from [facility] under a Mortensen act alleging that he had been acting out at his [facility] facility. Records from [facility] reviewed. Reviewing our own electronic medical record, it appears this is patient's first visit to [facility]. Patient seen and examined with counselor. Chart reviewed. Case discussed with nursing staff reports the patient has been rambling and disorganized since arriving on the unit. On my examination today, the patient presents with pressured, disjointed speech. He tells me, "I had an idea for the place. A wash day. You're not going to breakfast on wash day. The love of the rain bee that loves me. They bait me." He proceeds in this way for some time and is difficult to interrupt. He appears internally stimulated, and when I ask about AVH, he says, "tigers talking about sharks. Sharks doing telepathy. I have olympic medals." Thought process extremely disorganized. He is impulsive and mildly psychomotor agitated. Affect somewhat silly. It is extremely difficult to get any meaningful history from the patient because of his degree of thought disorganization. I am unable to obtain any meaningful past psychiatric, family, chemical dependency or social history from this patient, once again on account of the thought disorganization. Tobacco Use In Past 30 Days: Refused To Answer Alcohol Use: Never Hospital Course Patient was admitted to a locked, inpatient psychiatric unit. A general medical consultation was obtained. Appropriate precautions were in place throughout patient's hospital stay. Patient was seen and examined daily on the unit by psychiatry and also visited by counselor. Psychotropic medications were adjusted. Patient tolerated psychotropics well without side effects. Patient's presenting psychosis improved with the benefit of medication treatment. There was no evidence of suicidality or homicidality on the inpatient unit. As his mental state improved, dysfunctional personality traits emerged. He was noted to be quite manipulative, see relevant progress notes. After some difficulties, in part related to patient's manipulations, placement was arranged at [facility], and counselor has confirmed that mother is agreeing to this placement. On the day of discharge: Patient seen and examined. Chart reviewed. Case discussed with nursing staff. No behavioral issues overnight. On my examination today, patient voices readiness to go to [facility]. He denies any suicidal or homicidal ideation, intent or plan. Contracts for safety. No mood symptoms. No psychotic symptoms. Thought process linear and goal-directed. Denies side effects from medications. No physical complaints. Weighing the acute, chronic, and protective factors and based on the available evidence, I envelope stuffer to a reasonable degree of medical certainty that the patient is at low imminent risk of harm to self or others from a mental illness as defined under the Mortensen act and his level of function is adequate for outpatient care. Patient has maximized benefit from this inpatient psychiatric hospital stay and will be discharged today to [facility] with psychiatric follow-up as arranged by counselor. Patient is also follow-up with primary care. Patient to return to psychiatric emergency room for any concerning psychiatric symptoms. Results Blood Pressure 92 / 63 Vital Signs Date Time Temp Pulse Resp B/P Pulse Ox O2 Delivery O2 Flow Rate FiO2 04/16/17 05:50 98.4 64 18 92/63 98 Item Value Date Time White Blood Count 6.6 TH/MM3 03/26/17 1655 Hemoglobin 14.2 GM/DL 03/26/17 1655 Platelet Count 189 TH/MM3 03/26/17 1655 Sodium Level 140 MEQ/L 03/26/17 1215 Potassium Level 4.9 MEQ/L 03/26/17 1215 Chloride Level 106 MEQ/L 03/26/17 1215 Carbon Dioxide Level 27.6 MEQ/L 03/26/17 1215 Anion Gap 6 MEQ/L 03/26/17 1215 Blood Urea Nitrogen 9 MG/DL 03/26/17 1215 Creatinine 0.71 MG/DL 03/26/17 1215 Estimat Glomerular Filtration Rate 121 ML/MIN 03/26/17 1215 Random Glucose 91 MG/DL 03/26/17 1215 Calcium Level 9.3 MG/DL 03/26/17 1215 Total Bilirubin 0.3 MG/DL 03/26/17 1215 Aspartate Amino Transf (AST/SGOT) 28 U/L 03/26/17 1215 Alanine Aminotransferase (ALT/SGPT) 20 U/L 03/26/17 1215 Alkaline Phosphatase 73 U/L 03/26/17 1215 Ammonia 32 MCMOL/L 03/26/17 1215 Total Protein 7.1 GM/DL # 03/26/17 1215 Albumin 3.7 GM/DL 03/26/17 1215 Valproic Acid (Depakene) Level 90 MCG/ML 03/22/17 1706 Summary of Procedures None done Imaging Last Impressions Chest X-Ray 04/15/17 0000 Signed Impressions: Service Date/Time: Saturday, April 15, 2017 16:06 - CONCLUSION: No acute disease. Nikos Avitia Jr., MD Thoracic Spine X-Ray 03/26/17 0000 Signed Impressions: Service Date/Time: Sunday, March 26, 2017 20:40 - CONCLUSION: 1. [id number] degenerative disc disease in the thoracic spine with large osteophytes especially inferiorly. Mild kyphosis. Agusto Hills MD Lumbar Spine X-Ray 03/26/17 0000 Signed Impressions: Service Date/Time: Sunday, March 26, 2017 20:38 - CONCLUSION: 1. Moderate degenerative disc disease. No acute fracture or spondylolisthesis. Agusto Hills MD Abdomen X-Ray 03/26/17 0000 Signed Impressions: Service Date/Time: Sunday, March 26, 2017 20:36 - CONCLUSION: 1. No acute findings. Agusto Hills MD Pending results at discharge: No Medications # of Antipsychotic meds at D/C: 2 Appropriate >1 Antipsych meds?: 4 Approp Antipsych med options 1 - Minimum of three failed multiple trials of monotherapy. 2 - Documented plan to taper to monotherapy due to previous use of multiple meds OR cross-taper in progress at D/C. 3 - Documentation of augmentation of Clozapine. 4 - Justification other than those listed in allowable values 1-3, document here : 2 antipsychotics needed for stabilization. Discharge Discharge Date: Apr 16, 2017 Discharge Diagnosis: (1) Schizophrenia Diagnosis: Principal (Stabilized) ICD Code: F20.9 (2) Manipulative behavior Diagnosis: Secondary ICD Code: R46.89 (3) Rule-out intellectual disability Diagnosis: Secondary Mental Status Exam at Disch Patient is casually dressed. He is fairly well groomed and maintaining basic hygiene. He is awake and alert and oriented to person and hospital at least. No delirium. No motor abnormalities noted. Dentition remains poor, as at admission. Speech within normal limits for rate, tone and volume. Language and fund of knowledge perhaps somewhat reduced for age. Focus and concentration intact. Memory grossly intact on clinical exam. Mood fair and affect childlike but generally reactive. Thought processes linear. No loosening of associations. No delusional material. Denies audiovisual hallucinations. Denies suicidal or homicidal ideation, intent or plan. Insight and judgment are chronically poor. Pt Condition on Discharge: Stable Discharge Disposition: [facility] Discharge Instructions Diet Instructions: As Tolerated, No Restrictions Activities you can perform: Weight Bearing as [place] Scheduled Appointment: as per counselor's notes New Medications: Haloperidol Decanoate Inj (Haldol Decanoate Inj) 100 Mg/Ml Inj 300 MG IM Q28D This dose of Haldol Decanoate is due 04/29/2017. Mental Health #3 Ref [address] (Divalproex DR) 500 Mg Tabdr 500 MG PO DAILY Mental Health Days 15 Ref [address] (Divalproex DR) 250 Mg Tabdr 750 MG PO HS Mental Health Days 15 Ref 1 TAB Haloperidol (Haloperidol) 10 Mg Tab 10 MG PO TID Continue oral Haldol until your next Haldol Dec injection or as directed by your outpatient provider. Mental Health Days 15 Ref 1 TAB Olanzapine (Olanzapine) 5 Mg Tab 7.5 MG PO HS Mental Health Days 15 Ref 1 TAB Discharge Time <= 30 minutes Discharge/Advance Care Plan Health Problems: (1) Manipulative behavior (2) History of schizophrenia Goals to promote your health * To prevent worsening of your condition and complications * To maintain your health at the optimal level Directions to meet your goals Take your medications as prescribed Follow your dietary instruction Follow activity as directed Keep your appointments as scheduled Take your immunizations and boosters as scheduled If your symptoms worsen call your PCP, if no PCP go to Urgent Care Center or Emergency Room For 14/04 questions related to your inpatient stay or results of tests pending at discharge, please contact Dr. Feliciano Euceda at Smoking is Dangerous to Your Health. Avoid second hand smoking Problem Qualifiers (1) Schizophrenia: Qualified Code: F20.3 - Undifferentiated schizophrenia Feliciano Euceda MD 26, 2017 09:43
== END 2017-04-16 12:05 | DRG 885 ==
LOC: H270 19:27
PROVIDERS: ADMIT Psychiatry & Neurology Psychiatry; ATTEND Psychiatry & Neurology Psychiatry
DX: F20.3 Undifferentiated schizophrenia (principal); R56.9 Unspecified convulsions; M25.78 Osteophyte, vertebrae; I10 Essential (primary) hypertension; I49.9 Cardiac arrhythmia, unspecified; H54.42 Blindness, left eye, normal vision right eye; R10.30 Lower abdominal pain, unspecified; M51.36 Other intervertebral disc degeneration, lumbar region; M51.34 Other intervertebral disc degeneration, thoracic region; R46.89 Other symptoms and signs involving appearance and behavior
CPT/HCPCS: 71010; 72072; 72100; 74000; 80048; 80053; 80061; 80164; 81001; 82140; 83036; 83735; 85025; 85610; 93005; J1200; J1630; J1631; J2060; Q0163

== ENCOUNTER 2017-04-21 06:51 | Inpatient (IN) | payer MEDICARE, OTHER ==
[~2017-04-21] VITALS: Ht 170.2 cm; Wt 95.4 kg
[~2017-04-21 06:51] MED LIST: DIVA250T PO; DIVA500T PO; HALO100P IM; HALO10TA PO; OLAN5TAB PO
[2017-04-21 06:53] VITALS: BP 179/88; PULSE 88; RESP 18; TEMP 98.5; O2SAT 98
[2017-04-21] MEDS ORDERED: HALO5TAB PO (07:21)
--- NOTE | 2017-04-21 07:56 | PD ---
HPI Chief Complaint: Psychiatric Symptoms Time Seen by Provider: 07:16 Travel History International Travel<30 days: No Contact w/Intl Traveler<30days: No Traveled to known affect area: No History of Present Illness HPI Is a 42-year-old man with a history of schizophrenia presents to the emergency department for psychiatric evaluation. Review of records shows she was just admitted from [facility] in [place] where he apparently had been acting out. He was admitted for about a month inpatient psychiatry. He was discharged about 5 days ago on April 16. Patient states that he was discharged to [facility]. He states he's been there for about 3 days. He reports that the staff member dropped him off. He is multiple complaints that really center around finding belongings, he apparently has 2 suitcases there and somewhat his garage. Previously but staying, as well as concerns about his taxes and his disability check. He denies any recent illness or injury. He is disorganized and somewhat tangential and difficult to get a complete history from. History Past Medical History Narrative Medical Schizophrenia Tetanus Vaccination: Unknown Influenza Vaccination: No Social History Alcohol Use: No Tobacco Use: Yes Allergies-Medications (Allergen,Severity, Reaction): Coded Allergies: Fluphenazine (Verified Allergy, Severe, 04/21/17) Geodon (Verified Allergy, Severe, 04/21/17) Reported Meds & Prescriptions Reported Meds & Active Scripts Active Haldol Decanoate Inj (Haloperidol Decanoate) 100 Mg/Ml Inj 300 Mg IM Q28D This dose of Haldol Decanoate is due 04/29/2017. Olanzapine 5 Mg Tab 7.5 Mg PO HS [address] (Divalproex Sodium) 250 Mg Tabdr 750 Mg PO HS [address] (Divalproex Sodium) 500 Mg Tabdr 500 Mg PO DAILY 15 Days Reported Haloperidol 5 Mg Tab 5 Mg PO TID Review of Systems Except as stated in HPI: all other systems reviewed are Neg Physical Exam Narrative GENERAL: 42 old man, talking loudly, little bit disheveled, no acute distress. SKIN: Focused skin assessment warm/dry. HEAD: Atraumatic. Normocephalic. CARDIOVASCULAR: Regular rate and rhythm. No murmur appreciated. RESPIRATORY: No accessory muscle use. Clear to auscultation. Breath sounds equal bilaterally. GASTROINTESTINAL: Abdomen soft, non-tender, nondistended. Hepatic and splenic margins not palpable. MUSCULOSKELETAL: No obvious deformities. No edema. NEUROLOGICAL: Awake and alert. No obvious cranial nerve deficits. Motor grossly within normal limits. Normal speech. PSYCHIATRIC: Verbose and a little bit agitated, somewhat tangential and disorganized in his thinking. Not clearly delusional or psychotic, not clearly responding to internal stimuli. Data Data Last Documented VS Vital Signs Date Time Temp Pulse Resp B/P Pulse Ox O2 Delivery O2 Flow Rate FiO2 04/21/17 06:53 98.5 88 18 179/88 98 Room Air Orders Psych Screen (04/21/17 07:47) MDM Medical Decision Making Medical Screen Exam Complete: Yes Emergency Medical Condition: Yes Differential Diagnosis Schizophrenia, personality disorder, intellectual disability, adjustment reaction, behavioral disturbance, other Narrative Course Medical decision making 42 old male with schizophrenia dropped off from [facility] for psychiatric assessment. No somatic complaints. He had labs done when he was just admitted. Is on Depakote and his ammonia was a little bit elevated. He does not appear encephalopathic. Patient is medically clear for psychiatric evaluation. Diagnosis Primary Impression: Schizophrenia Alex Jiménez MD Apr 21, 2017 07:56
[2017-04-21 08:11] LABS: AUTOMATED NEUTROPHIL # 3.7 TH/MM3 (1.8-7.7); BASOPHIL % 0.5 % (0.0-2.0); EOSINOPHIL # 0.1 TH/MM3 (0-0.4); EOSINOPHIL % 1.2 % (0.0-4.0); HEMATOCRIT 36.4 % (39.0-51.0); HEMO FLAGS DIFF FINAL; LYMPHOCYTE # 1.3 TH/MM3 (1.0-4.8); MEAN CELL VOLUME 89.2 FL (80.0-100.0); MEAN CORPUSCULAR HEMOGLOBIN 30.8 PG (27.0-34.0); MEAN CORPUSCULAR HGB CONC 34.5 % (32.0-36.0); MONO % 10.7 % (0.0-8.0); NEUT % 64.6 % (16.0-70.0); PLATELET COUNT 160 TH/MM3 (150-450); RED BLOOD COUNT 4.08 MIL/MM3 (4.50-5.90); RED CELL DISTRIBUTION WIDTH 13.2 % (11.6-17.2); WHITE BLOOD COUNT 5.7 TH/MM3 (4.0-11.0)
[2017-04-21 08:31] LABS: ANION GAP 11 MEQ/L (5-15); BICARBONATE 24.7 MEQ/L (21.0-32.0); BLOOD UREA NITROGEN 10 MG/DL (7-18); CHLORIDE 106 MEQ/L (98-107); GLOMERULAR FILTRATION RATE 149 ML/MIN (>89); POTASSIUM 3.8 MEQ/L (3.5-5.1); SODIUM (NA) 142 MEQ/L (136-145)
[2017-04-21 08:32] LABS: AST (GOT) 16 U/L (15-37)
[2017-04-21 08:35] LABS: ALKALINE PHOSPHATASE 76 U/L (45-117); ALT (GPT) 15 U/L (12-78); TOTAL BILIRUBIN ADULT 0.3 MG/DL (0.2-1.0)
--- NOTE | 2017-04-21 13:58 | PD ---
History of Present Illness Chief Complaint: Psychiatric Symptoms Time Seen by Provider: 13:30 Travel History International Travel<30 Days: No Contact w/Intl Traveler<30days: No Known affected area: No Legal Status Legal Status: Voluntary History of Present Illness: 42-year-old male well known to this facility, with long history of paranoid schizophrenia. Patient was recently treated by Dr. Luz Maria freeman here at [facility] and discharged less than one week ago. He was brought in by the folks at [facility] because the patient was creating a disturbance. At this time, the patient denies being suicidal or homicidal. He continues to express paranoid ideation and looks to the ceiling to tell this physician that there wires in the ceiling which are likely to persecute him in some way. He would like to take his Haldol at this time and is requesting an increased dose from 5 mg to 10 mg. This physician also spoke with his recent psychiatrist, who states he has been treated with Haldol decanoate. Patient is also willing to take his Depakote at this time and has been ordered 1000 mg at bedtime. It is unclear at this moment whether he needs psychiatric hospitalization and this physician did research his recent hospitalization here at [facility]. According to his recent psychiatrist, he is a master manipulator and he called his mother repeatedly during the hospitalization to manipulate his medicines. Mother would call the nursing staff and threatened to turn this facility into the local newspapers for administering medicines against the patient's will. PFSH Past Medical History Heart Rhythm Problems: No Cardiovascular Problems: Yes High Cholesterol: No Chest Pain: No Congestive Heart Failure: No Cerebrovascular Accident: No Diminished Hearing: No Genitourinary: No Musculoskeletal: Yes (States he has hip displasia) Neurologic: Yes Reproductive: No Respiratory: No Migraines: No Seizures: Yes Tetanus Vaccination: Unknown Influenza Vaccination: No Past Surgical History Abdominal Surgery: No Cardiac Surgery: No Ear Surgery: No Endocrine Surgery: No Eye Surgery: No Genitourinary Surgery: No Gynecologic Surgery: No Thoracic Surgery: No Other Surgery: Yes Psychiatric History Psychiatric History Hx Psychiatric Treatment: Unable to assess due to level of decompensation History of Inpatient Treatment: Yes Guns or firearms in home: No Social History Hx Alcohol Use: No Hx Tobacco Use: Yes Hx Substance Use: No Allergies-Medications (Allergen,Severity, Reaction): Coded Allergies: Fluphenazine (Verified Allergy, Severe, 04/21/17) Geodon (Verified Allergy, Severe, 04/21/17) Reported Meds & Prescriptions Reported Meds & Active Scripts Active Haldol Decanoate Inj (Haloperidol Decanoate) 100 Mg/Ml Inj 300 Mg IM Q28D This dose of Haldol Decanoate is due 04/29/2017. Olanzapine 5 Mg Tab 7.5 Mg PO HS [address] (Divalproex Sodium) 250 Mg Tabdr 750 Mg PO HS [address] (Divalproex Sodium) 500 Mg Tabdr 500 Mg PO DAILY 15 Days Reported Haloperidol 5 Mg Tab 5 Mg PO TID Review of Systems Except as stated in HPI: all other systems reviewed are Neg Exam Alert: Yes [place]: Person, Place, Date Mood: Anxious Affect: Labile Speech: Fast Eye Contact: Indirect Memory Intact: Immediate, Recent, Remote Delusions: Yes Delusion Type: Paranoid Insight/Judgement adequate. MDM Medical Decision Making Medical Record Reviewed: Yes Assessment/Plan We will begin treatment here in the emergency department by increasing oral Haldol, adding Zyprexa situs, and using Depakote at bedtime. If patient can be calm and cooperative, we will investigate his ability to be returning to [facility] if they will accept him. Orders Psych Screen (04/21/17 07:47) Complete Blood Count With Diff (04/21/17 07:48) Comprehensive Metabolic Panel (04/21/17 07:48) Drug Screen, Random Urine (04/21/17 07:48) Diet Regular Basic (04/21/17 Lunch) Haloperidol (Haldol) (04/21/17 18:00) Divalproex Er (Depakote Er) (04/21/17 21:00) Results Vital Signs Date Time Temp Pulse Resp B/P Pulse Ox O2 Delivery O2 Flow Rate FiO2 04/21/17 06:53 98.5 88 18 179/88 98 Room Air Laboratory Tests Test 04/21/17 04/21/17 07:50 07:55 White Blood Count 5.7 Red Blood Count 4.08 Hemoglobin 12.6 Hematocrit 36.4 Mean Corpuscular Volume 89.2 Mean Corpuscular Hemoglobin 30.8 Mean Corpuscular Hemoglobin 34.5 Concent Red Cell Distribution Width 13.2 Platelet Count 160 Mean Platelet Volume 8.9 Neutrophils (%) (Auto) 64.6 Lymphocytes (%) (Auto) 23.0 Monocytes (%) (Auto) 10.7 Eosinophils (%) (Auto) 1.2 Basophils (%) (Auto) 0.5 Neutrophils # (Auto) 3.7 Lymphocytes # (Auto) 1.3 Monocytes # (Auto) 0.6 Eosinophils # (Auto) 0.1 Basophils # (Auto) 0.0 CBC Comment DIFF FINAL Differential Comment Sodium Level 142 Potassium Level 3.8 Chloride Level 106 Carbon Dioxide Level 24.7 Anion Gap 11 Blood Urea Nitrogen 10 Creatinine 0.59 Estimat Glomerular Filtration 149 Rate Random Glucose 95 Calcium Level 8.9 Total Bilirubin 0.3 Aspartate Amino Transf 16 (AST/SGOT) Alanine Aminotransferase 15 (ALT/SGPT) Alkaline Phosphatase 76 Total Protein 6.9 Albumin 3.5 Urine Opiates Screen NEG Urine Barbiturates Screen NEG Urine Amphetamines Screen NEG Urine Benzodiazepines Screen NEG Urine Cocaine Screen NEG Urine Cannabinoids Screen NEG Diagnosis Primary Impression: Chronic paranoid schizophrenia Panchito Kaufman MD Apr 21, 2017 13:58
[2017-04-21 14:29] VITALS: BP 141/67; PULSE 70; RESP 20; O2SAT 96
[2017-04-21] MEDS ORDERED: OLANZapine ODT 10 MG TAB PO ONE (14:30)
[2017-04-21 14:38] VITALS: BP 113/74; PULSE 106; RESP 18; O2SAT 92
[2017-04-21] MEDS: HALOPERIDOL 10 MG TAB PO SCH (18:47)
[2017-04-21] MEDS: DIVALPROEX SODIUM E.R. 500 MG TAB PO SCH (20:59)
[2017-04-22 02:25] VITALS: BP 149/81; PULSE 64; RESP 18; O2SAT 98
[2017-04-22 06:37] VITALS: BP 147/88; PULSE 60; RESP 20
[2017-04-22] MEDS: HALOPERIDOL 10 MG TAB PO SCH ×3 (09:39→18:14)
[2017-04-22 10:40] VITALS: BP 129/72; PULSE 58; RESP 18; O2SAT 99
[2017-04-22] MEDS ORDERED: LORazepam 2 MG/ML VIAL IM PRN ×2 (11:45)
[2017-04-22] MEDS ORDERED: ALUMINUM/MAGNESIUM/SIMETH 30 ML CUP PO PRN (11:45)
[2017-04-22] MEDS ORDERED: MAGNESIUM HYDROXIDE SUSP 30 ML CUP PO PRN (11:45)
[2017-04-22] MEDS ORDERED: diphenhydrAMINE HCL 50 MG/ML VIAL IM PRN (11:45)
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
[2017-04-22 13:03] VITALS: BP 149/84; PULSE 72; RESP 19; TEMP 97.9; O2SAT 99
[2017-04-22] MEDS: DIVALPROEX SODIUM E.R. 500 MG TAB PO SCH (21:04)
[2017-04-22] MEDS: traZODone HCL 50 MG TAB PO PRN (23:36)
[2017-04-23 06:09] VITALS: BP 139/65; PULSE 57; RESP 18; TEMP 97.3; O2SAT 98
[2017-04-23] MEDS: NICOTINE 21 MG/24 HR PATCH T-DERMAL SCH (08:34)
[2017-04-23] MEDS: HALOPERIDOL 10 MG TAB PO SCH ×3 (08:35→17:56)
--- NOTE | 2017-04-23 09:01 | EKG ---
Date Performed: 04/23/2017 Time Performed: 07:02:57 PTAGE: 42 years EKG: SINUS BRADYCARDIA WITH SINUS ARRHYTHMIA MINIMAL VOLTAGE CRITERIA FOR LVH, CONSIDER NORMAL V ARIANT NONSPECIFIC ST ELEVATION BORDERLINE ECG PREVIOUS TRACING : 03/19/2017 07.32 DOCTOR: Alex Mccord Interpretating Date/Time 04/23/2017 09:00:55
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
[2017-04-23 11:07] LABS: AUTOMATED NEUTROPHIL # 3.2 TH/MM3 (1.8-7.7); BASOPHIL % 0.5 % (0.0-2.0); EOSINOPHIL # 0.2 TH/MM3 (0-0.4); EOSINOPHIL % 2.7 % (0.0-4.0); HEMATOCRIT 42.1 % (39.0-51.0); HEMO FLAGS DIFF FINAL; LYMPH % 33.1 % (9.0-44.0); LYMPHOCYTE # 1.9 TH/MM3 (1.0-4.8); MEAN CELL VOLUME 89.2 FL (80.0-100.0); MEAN CORPUSCULAR HEMOGLOBIN 31.4 PG (27.0-34.0); MEAN CORPUSCULAR HGB CONC 35.2 % (32.0-36.0); NEUT % 54.7 % (16.0-70.0); PLATELET COUNT 190 TH/MM3 (150-450); RED BLOOD COUNT 4.72 MIL/MM3 (4.50-5.90); RED CELL DISTRIBUTION WIDTH 13.7 % (11.6-17.2); WHITE BLOOD COUNT 5.8 TH/MM3 (4.0-11.0)
[2017-04-23 11:14] LABS: ANION GAP 7 MEQ/L (5-15); AST (GOT) 14 U/L (15-37); BICARBONATE 29.4 MEQ/L (21.0-32.0); BLOOD UREA NITROGEN 12 MG/DL (7-18); CHLORIDE 104 MEQ/L (98-107); GLOMERULAR FILTRATION RATE 113 ML/MIN (>89); POTASSIUM 4.3 MEQ/L (3.5-5.1); SODIUM (NA) 140 MEQ/L (136-145)
[2017-04-23] MEDS: ACETAMINOPHEN 325 MG TAB PO PRN ×2 (11:15→17:32)
[2017-04-23 11:35] LABS: HEMOGLOBIN A1a 0.9 %; HEMOGLOBIN Ao 85.5 %; HEMOGLOBIN F 0.9 %; HEMOGLOBIN LA1C 1.9 %; HEMOGLOBIN P3 3.6 %
[2017-04-23 11:41] LABS: ALKALINE PHOSPHATASE 85 U/L (45-117); ALT (GPT) 14 U/L (12-78); HDL CHOLESTEROL 46.5 MG/DL (40.0-60.0); LDL CHOLESTEROL 125 MG/DL (0-99); TOTAL BILIRUBIN ADULT 0.4 MG/DL (0.2-1.0)
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
[2017-04-23 17:37] VITALS: BP 130/60; PULSE 70; RESP 18; TEMP 98; O2SAT 97
[2017-04-23] MEDS: LORazepam 1 MG TAB PO PRN (18:41)
[2017-04-23] MEDS: REMOVE OLD NICODERM (NICOTINE) PATCH T-DERMAL SCH (20:53)
[2017-04-23] MEDS: DIVALPROEX SODIUM E.R. 500 MG TAB PO SCH (20:53)
[2017-04-24 05:30] VITALS: BP 117/71; PULSE 67; RESP 18; TEMP 97.2; O2SAT 99
[2017-04-24] MEDS: NICOTINE 21 MG/24 HR PATCH T-DERMAL SCH (09:00)
[2017-04-24] MEDS: HALOPERIDOL 10 MG TAB PO SCH ×3 (09:00→17:52)
--- NOTE | 2017-04-24 09:36 | HHI.PYPN ---
Subjective Remarks Patient seen and examined with nurse. Chart reviewed. Case discussed with nursing staff who reports that the patient has been complaining of some dental and right knee pain. Also has been telling nurse that he is Jose Garcia. On my examination today, patient complains that his sleep remains somewhat poor. He tells me that he is experiencing AH that he is Jose Garcia and does , as a result, believe that he is so. Denies side effects from medications. Does complain of R knee pain and dental pain in R lower canine. Also complains of chronic back pain. Review of Systems ROS Limitations: Psychotic, Poor Historian Except as stated in HPI: all other systems reviewed are Neg Objective Alert: Yes [place]: Person, Place, Date Mood: Calm Affect: Blunted Memory Intact: Comment (remains intact) Hallucinations: Auditory (as above) Delusions: Yes Delusion Type: Paranoid Suicidal: Ideation (no SI) Homicidal: Ideation (no HI) Insight/Judgment Poor Remarks No motor abnormalities appreciated. No tenderness to palpation at the R knee. No swelling or erythema. Affected canine appears intact as far as I can tell. Labs Test 04/23/17 10:11 White Blood Count 5.8 TH/MM3 Red Blood Count 4.72 MIL/MM3 Hemoglobin 14.8 GM/DL Hematocrit 42.1 % Mean Corpuscular Volume 89.2 FL Mean Corpuscular Hemoglobin 31.4 PG Mean Corpuscular Hemoglobin 35.2 % Concent Red Cell Distribution Width 13.7 % Platelet Count 190 TH/MM3 Mean Platelet Volume 8.9 FL Neutrophils (%) (Auto) 54.7 % Lymphocytes (%) (Auto) 33.1 % Monocytes (%) (Auto) 9.0 % Eosinophils (%) (Auto) 2.7 % Basophils (%) (Auto) 0.5 % Neutrophils # (Auto) 3.2 TH/MM3 Lymphocytes # (Auto) 1.9 TH/MM3 Monocytes # (Auto) 0.5 TH/MM3 Eosinophils # (Auto) 0.2 TH/MM3 Basophils # (Auto) 0.0 TH/MM3 CBC Comment DIFF FINAL Differential Comment Sodium Level 140 MEQ/L Potassium Level 4.3 MEQ/L Chloride Level 104 MEQ/L Carbon Dioxide Level 29.4 MEQ/L Anion Gap 7 MEQ/L Blood Urea Nitrogen 12 MG/DL Creatinine 0.75 MG/DL Estimat Glomerular Filtration 113 ML/MIN Rate Random Glucose 85 MG/DL Hemoglobin A1c 5.4 % Calcium Level 9.6 MG/DL Total Bilirubin 0.4 MG/DL Aspartate Amino Transf 14 U/L (AST/SGOT) Alanine Aminotransferase 14 U/L (ALT/SGPT) Alkaline Phosphatase 85 U/L Total Protein 7.6 GM/DL Albumin 3.8 GM/DL Triglycerides Level 130 MG/DL Cholesterol Level 197 MG/DL LDL Cholesterol 125 MG/DL HDL Cholesterol 46.5 MG/DL Cholesterol/HDL Ratio 4.23 RATIO Vitamin B12 Level 575 PG/ML 25-Hydroxy Vitamin D Total 37.5 ng/ML Thyroid Stimulating Hormone 0.575 uIU/ML 3rd Gen Valproic Acid (Depakene) Level 86 MCG/ML Labs reviewed. Depakote level within the therapeutic range but likely somewhat artificially elevated because of the timing of the blood draw. Vitals/IOs Vital Signs Date Time Temp Pulse Resp B/P Pulse Ox O2 Delivery O2 Flow Rate FiO2 04/24/17 05:30 97.2 67 18 117/71 99 04/22/17 10:40 Room Air Assessment & Plan Problem List: (1) Adjustment disorder with mixed disturbance of emotions and conduct ICD Code: F43.25 (2) Schizophrenia ICD Code: F20.9 Assessment & Plan Given psychotic symptoms today and difficulty with sleep, I have added back Zyprexa at a dose of 5mg qHS. Consult to hospitalist for c/o knee and dental pain. Back pain is chronic; consult PT. Continue to monitor on high acuity unit. Continue other medications and care as ordered. Justification for Cont. Inpt. Medication changes in process. High risk for decompensation and less restrictive environment. Discharge Planning New placement Request HC Surrog/Guard Advoc?: No Problem Qualifiers (1) Schizophrenia: Qualified Code: F20.9 - Schizophrenia, unspecified type Feliciano Euceda MD Apr 24, 2017 09:35
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
[2017-04-24 17:44] VITALS: BP 127/73; PULSE 78; RESP 17; TEMP 97.6; O2SAT 97
--- NOTE | 2017-04-24 18:56 | RADRPT ---
EXAM DATE/TIME: 04/24/2017 18:10 [place] COMPARISON: No previous studies available for comparison. INDICATIONS : Right knee pain after fall. MEDICAL HISTORY : None. SURGICAL HISTORY : None. ENCOUNTER: Initial ACUITY: 3 days PAIN SCORE: 10/10 LOCATION: Right knee. FINDINGS: Two view examination of the right knee demonstrates no evidence of fracture or dislocation. Bony min eralization is normal. The suprapatellar soft tissues have a normal configuration. No radiopaque fo reign bodies. CONCLUSION: No fracture seen. Nikos Ivan MD on April 24, 2017 at 18:54 Board Certified Radiologist. This report was verified electronically.
[2017-04-24] MEDS: REMOVE OLD NICODERM (NICOTINE) PATCH T-DERMAL SCH (21:00)
[2017-04-24] MEDS: OLANZapine 5 MG TAB PO SCH (21:56)
[2017-04-24] MEDS: DIVALPROEX SODIUM E.R. 500 MG TAB PO SCH (21:56)
[2017-04-25 05:58] VITALS: BP 138/76; PULSE 69; RESP 18; TEMP 97.3; O2SAT 98
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
[2017-04-25] MEDS: NICOTINE 21 MG/24 HR PATCH T-DERMAL SCH (09:03)
[2017-04-25] MEDS: HALOPERIDOL 10 MG TAB PO SCH ×2 (09:03→13:01)
--- NOTE | 2017-04-25 09:22 | HHI.PYPN ---
Subjective Remarks Patient seen and examined with counselor and nurse. Chart reviewed. Case discussed with nursing staff who reports that the patient slept much better overnight with addition of Zyprexa. On my examination today, the patient agrees that he slept better and says that his auditory hallucinations are somewhat decreased with addition of Zyprexa. He does complain that he feels more groggy today, and we discussed medication adjustments to manage this. He denies any suicidal or homicidal ideation. Denies side effects from medications. No new physical complaints. Review of Systems ROS Limitations: Poor Historian Except as stated in HPI: all other systems reviewed are Neg Objective Alert: Yes [place]: Person, Place, Date Mood: Calm Affect: Blunted Memory Intact: Comment (intact) Hallucinations: Auditory (decreasing) Delusions: No Delusion Type: Other (No delusions) Suicidal: Ideation (denies SI) Homicidal: Ideation (denies HI) Insight/Judgment Poor Remarks No motor abnormalities appreciated. Labs Labs reviewed. Vitals/IOs Vital Signs Date Time Temp Pulse Resp B/P Pulse Ox O2 Delivery O2 Flow Rate FiO2 04/25/17 05:58 97.3 69 18 138/76 98 04/22/17 10:40 Room Air Assessment & Plan Problem List: (1) Adjustment disorder with mixed disturbance of emotions and conduct ICD Code: F43.25 (2) Schizophrenia ICD Code: F20.9 Assessment & Plan Continue Zyprexa as ordered since this seems to have helped with sleep. Taper Haldol to 7.5 mg 3 times daily to try to manage complaints of grogginess. Check a Depakote and ammonia level this evening, pre-dose. Hospitalist input noted and appreciated. Continue to monitor on the inpatient unit. Continue other medications and care as ordered. Justification for Cont. Inpt. Medication changes. Impairment in reality construction. High risk for decompensation in a less restrictive environment. Discharge Planning New placement Request HC Surrog/Guard Advoc?: No Problem Qualifiers (1) Schizophrenia: Qualified Code: F20.9 - Schizophrenia, unspecified type Feliciano Euceda MD Apr 25, 2017 09:22
[2017-04-25] MEDS: ACETAMINOPHEN 325 MG TAB PO PRN ×2 (11:35→15:41)
[2017-04-25] MEDS ORDERED: PILL SPLITTER OTHER PRN (18:00)
[2017-04-25] MEDS: HALOPERIDOL 5 MG TAB PO SCH (18:03)
[2017-04-25 18:17] VITALS: BP 128/64; PULSE 76; RESP 18; TEMP 97.9; O2SAT 99
[2017-04-25] MEDS: OLANZapine 5 MG TAB PO SCH (20:05)
[2017-04-25] MEDS: REMOVE OLD NICODERM (NICOTINE) PATCH T-DERMAL SCH (20:05)
[2017-04-25] MEDS: DIVALPROEX SODIUM E.R. 500 MG TAB PO SCH (20:05)
[2017-04-26 05:43] VITALS: BP 120/80; PULSE 69; RESP 18; TEMP 97.2; O2SAT 97
[2017-04-26] MEDS: HALOPERIDOL 5 MG TAB PO SCH ×3 (08:41→17:19)
[2017-04-26] MEDS: NICOTINE 21 MG/24 HR PATCH T-DERMAL SCH (08:41)
--- NOTE | 2017-04-26 17:17 | HHI.PYPN ---
Subjective Remarks Patient was seen and case discussed with nursing. Patient is pleasant and cooperative with exam. Behaving well on the unit. Compliant with his medications. Denies psychotic symptoms. Denies suicidal ideation intent or plan Objective Alert: Yes [place]: Person, Place, Date Mood: Calm Affect: Blunted Memory Intact: Comment (intact) Hallucinations: Auditory (decreasing) Delusions: No Delusion Type: Other (No delusions) Suicidal: Ideation (denies SI) Homicidal: Ideation (denies HI) Insight/Judgment Poor Labs Test 04/25/17 04/25/17 20:54 21:05 Ammonia 35 MCMOL/L Valproic Acid (Depakene) Level 76 MCG/ML Vitals/IOs Vital Signs Date Time Temp Pulse Resp B/P Pulse Ox O2 Delivery O2 Flow Rate FiO2 04/26/17 05:43 97.2 69 18 120/80 97 04/22/17 10:40 Room Air Assessment & Plan Problem List: (1) 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 Inpt. Patient will decompensate in a less restrictive setting Request HC Surrog/Guard Advoc?: No Problem Qualifiers (1) Schizophrenia: Qualified Code: F20.9 - Schizophrenia, unspecified type Kirby Velasco DO Apr 26, 2017 17:17
[2017-04-26 17:44] VITALS: BP 136/62; PULSE 66; RESP 18; TEMP 98.2; O2SAT 98
[2017-04-26] MEDS: REMOVE OLD NICODERM (NICOTINE) PATCH T-DERMAL SCH (20:44)
[2017-04-26] MEDS: OLANZapine 5 MG TAB PO SCH (20:44)
[2017-04-26] MEDS: DIVALPROEX SODIUM E.R. 500 MG TAB PO SCH (20:44)
[2017-04-27] MEDS: HALOPERIDOL 5 MG TAB PO SCH ×3 (09:07→17:21)
[2017-04-27] MEDS: NICOTINE 21 MG/24 HR PATCH T-DERMAL SCH (09:09)
[2017-04-27] MEDS: BENZOCAINE 7.5% ORAL GEL 9.4 GM TUBE OROPHARYNG PRN ×2 (13:05→21:27)
[2017-04-27 17:48] VITALS: BP 141/81; PULSE 84; RESP 17; TEMP 98.1; O2SAT 99
[2017-04-27] MEDS: REMOVE OLD NICODERM (NICOTINE) PATCH T-DERMAL SCH (21:00)
[2017-04-27] MEDS: OLANZapine 5 MG TAB PO SCH (21:24)
[2017-04-27] MEDS: DIVALPROEX SODIUM E.R. 500 MG TAB PO SCH (21:24)
[2017-04-28 05:51] VITALS: BP 128/77; PULSE 64; RESP 18; TEMP 97.4; O2SAT 95
[2017-04-28] MEDS: NICOTINE 21 MG/24 HR PATCH T-DERMAL SCH (09:00)
--- NOTE | 2017-04-28 09:50 | HHI.PYPN ---
Subjective Remarks Patient seen and examined. Chart reviewed. Case discussed with nursing staff. No behavioral issues noted. On my examination today, the patient reports that his sleep remains somewhat disturbed. Complains of noncommand auditory hallucinations of laughing. No SI or HI. No side effects from medications. No physical complaints. Review of Systems ROS Limitations: Poor Historian Except as stated in HPI: all other systems reviewed are Neg Objective Alert: Yes [place]: Person, Place, Date Mood: Calm Affect: Blunted (remains a little blunted) Memory Intact: Comment (intact) Hallucinations: Auditory ("laughing") Delusions: No Delusion Type: Other (No delusions) Suicidal: Ideation (No SI) Homicidal: Ideation (No HI) Insight/Judgment Poor Remarks No motoric abnormalities. Grooming and hygiene poor. Labs Labs reviewed. Depakote level within the therapeutic range. Mild hyperammonemia noted without evidence of encephalopathy. Vitals/IOs Vital Signs Date Time Temp Pulse Resp B/P Pulse Ox O2 Delivery O2 Flow Rate FiO2 04/28/17 05:51 97.4 64 18 128/77 95 Assessment & Plan Problem List: (1) Adjustment disorder with mixed disturbance of emotions and conduct ICD Code: F43.25 (2) Schizophrenia ICD Code: F20.9 Assessment & Plan Titrate Zyprexa to 7.5 mg at bedtime to target reported psychotic symptoms and difficulty with sleep. I have discussed this with the patient and he is in agreement with adjusting this medication. Continue Haldol as ordered. Patient due for booster dose of Haldol Decanoate. Add lactulose for hyperammonemia and recheck later in the week. Continue Depakote as ordered. Continue other medications and care as ordered. Justification for Cont. Inpt. High risk for decompensation and less restrictive environment. Discharge Planning New placement. Request HC Surrog/Guard Advoc?: No Problem Qualifiers (1) Schizophrenia: Qualified Code: F20.9 - Schizophrenia, unspecified type Feliciano Euceda MD Apr 28, 2017 09:50
[2017-04-28] MEDS: ACETAMINOPHEN 325 MG TAB PO PRN (10:21)
[2017-04-28] MEDS: HALOPERIDOL 5 MG TAB PO SCH ×3 (10:21→17:57)
[2017-04-28 18:00] VITALS: BP 120/70; PULSE 72; RESP 17; TEMP 98.7; O2SAT 97
[2017-04-28] MEDS: DIVALPROEX SODIUM E.R. 500 MG TAB PO SCH (20:39)
[2017-04-28] MEDS: OLANZapine 5 MG TAB PO SCH (20:39)
[2017-04-28] MEDS: REMOVE OLD NICODERM (NICOTINE) PATCH T-DERMAL SCH (21:00)
[2017-04-28] MEDS: BENZOCAINE 7.5% ORAL GEL 9.4 GM TUBE OROPHARYNG PRN (21:00)
[2017-04-29 06:18] VITALS: BP 135/73; PULSE 57; RESP 16; TEMP 97.4; O2SAT 98
[2017-04-29] MEDS: HALOPERIDOL 5 MG TAB PO SCH ×3 (08:48→18:27)
[2017-04-29] MEDS: NICOTINE 21 MG/24 HR PATCH T-DERMAL SCH (08:48)
[2017-04-29] MEDS: LACTULOSE SYRUP 20 GM/30 ML CUP PO SCH (08:48)
--- NOTE | 2017-04-29 10:50 | HHI.PYPN ---
Subjective Remarks Patient seen and examined with counselor and nurse. Chart reviewed. Case discussed in treatment team. On my examination today, patient reports that he slept fairly well overnight. Calm and cooperative at this point. No psychotic symptoms. No behavioral issue per nursing staff. No side effects from medications. No physical complaints. Review of Systems ROS Limitations: Poor Historian Except as stated in HPI: all other systems reviewed are Neg Objective Alert: Yes [place]: Person, Place, Date Mood: Calm Affect: Blunted Memory Intact: Comment (intact) Hallucinations: Other (No AVH) Delusions: No Delusion Type: Other (No delusions elicited) Suicidal: Ideation (No SI) Homicidal: Ideation (No HI) Insight/Judgment Poor Remarks No motor abnormalities noted. TP linear. Labs Labs reviewed. Vitals/IOs Vital Signs Date Time Temp Pulse Resp B/P Pulse Ox O2 Delivery O2 Flow Rate FiO2 04/29/17 06:18 97.4 57 16 135/73 98 Assessment & Plan Problem List: (1) Adjustment disorder with mixed disturbance of emotions and conduct ICD Code: F43.25 (2) Schizophrenia ICD Code: F20.9 Assessment & Plan Patient due for Haldol Dec, 300mg IM today. Continue oral Haldol, but we should consider beginning to slowly taper this med. Continue other medications and care as ordered. Justification for Cont. Inpt. High risk for decompensation and less restrictive environment. Discharge Planning Counselor working on [facility] placement. Request HC Surrog/Guard Advoc?: No Problem Qualifiers (1) Schizophrenia: Qualified Code: F20.9 - Schizophrenia, unspecified type Feliciano Euceda MD Apr 29, 2017 10:50
[2017-04-29] MEDS: LORazepam 0.5 MG TAB PO PRN ×2 (12:24→20:49)
--- NOTE | 2017-04-29 14:53 | PD.TTN ---
Present for Treatment Team Treatment Team Staff: Provider (Dr. Euceda), Nurse (Nida King RN), Psych Therapist (ANI Lane), Occupational Therapist (RAMIREZ Michael) Patient Problems 1. Discharge planning 2. Medication compliance 3. Knowledge deficit 4. Lack of coping skills Progress Toward Goals Provider Input: Placement options are being reviewed and pt is due for his Haldol Deconoate shot. Nurse Input: Pt appears cooperative, gaurded, mumbles to himself, is focused on discharge back to [place] and is compliant with medication regiment. Psych Therapist Input: Pt continues to appear disorganized, demanding, cooperative, appropriate, hyperverbal and visible on unit. Pt presents with poor insight into condition and need for care. He is compliant with medication regiment. Pt is being referred to [facility] facilities as he will require this placement following discharge. Occupational Therapist Input: Pt is cooperative and attends 50% of groups. Documentation Scribe: ANI Lane Jonathan LMHC Apr 29, 2017 14:53
[2017-04-29] MEDS: HALOPERIDOL DECANOATE 50 MG/ML VIAL IM SCH (15:00)
[2017-04-29 18:15] VITALS: BP 144/86; PULSE 80; RESP 18; TEMP 98.1; O2SAT 98
[2017-04-29] MEDS: DIVALPROEX SODIUM E.R. 500 MG TAB PO SCH (20:49)
[2017-04-29] MEDS: OLANZapine 5 MG TAB PO SCH (20:49)
[2017-04-29] MEDS: REMOVE OLD NICODERM (NICOTINE) PATCH T-DERMAL SCH (20:50)
[2017-04-30 05:58] VITALS: BP 93/46; PULSE 53; RESP 18; TEMP 98.1; O2SAT 97
[2017-04-30] MEDS: HALOPERIDOL 5 MG TAB PO SCH ×3 (08:09→18:00)
[2017-04-30] MEDS: LACTULOSE SYRUP 20 GM/30 ML CUP PO SCH (08:09)
[2017-04-30] MEDS: NICOTINE 21 MG/24 HR PATCH T-DERMAL SCH (09:00)
--- NOTE | 2017-04-30 09:59 | HHI.PYPN ---
Subjective Remarks Patient seen and examined with counselor and nurse. Chart reviewed. Case discussed with nursing staff. No behavioral issues noted. Patient is medication compliant. On my examination today, patient calm and cooperative. No AVH. No SI/HI. He says that he would [facility], but then says, "[facility]'m [facility] [place] [facility]." Patient asks, and education provided re: purpose of lactulose. He would like the lactulose in juice. No side effects from medications. Received Haldol Decanoate injection yesterday without incident. No physical complaints. Review of Systems ROS Limitations: Poor Historian Except as stated in HPI: all other systems reviewed are Neg Objective Alert: Yes [place]: Person, Place, Date Mood: Calm Affect: Blunted (childlike) Memory Intact: Comment (intact) Hallucinations: Other (No hallucinations) Delusions: No Delusion Type: Other (No delusions) Suicidal: Ideation (No SI) Homicidal: Ideation (No HI) Insight/Judgment Poor Remarks No motor abnormalities noted. Labs Labs reviewed. 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 Check ammonia level end of the week. Continue other medications and care as ordered. Justification for Cont. Inpt. High risk for decompensation in less restrictive environment. Discharge Planning Placement Request HC Surrog/Guard Advoc?: No Problem Qualifiers (1) Schizophrenia: Qualified Code: F20.9 - Schizophrenia, unspecified type Feliciano Euceda MD Apr 30, 2017 09:59
[2017-04-30] MEDS: REMOVE OLD NICODERM (NICOTINE) PATCH T-DERMAL SCH (20:59)
[2017-04-30] MEDS: OLANZapine 5 MG TAB PO SCH (20:59)
[2017-04-30] MEDS: DIVALPROEX SODIUM E.R. 500 MG TAB PO SCH (20:59)
[2017-04-30 21:00] VITALS: BP 111/63; PULSE 66; RESP 16; TEMP 97.4; O2SAT 98
[2017-05-01 05:59] VITALS: BP 103/55; PULSE 57; RESP 16; TEMP 97.3; O2SAT 97
[2017-05-01] MEDS: HALOPERIDOL 5 MG TAB PO SCH ×3 (08:31→18:24)
[2017-05-01] MEDS: NICOTINE 21 MG/24 HR PATCH T-DERMAL SCH (08:31)
[2017-05-01] MEDS: LACTULOSE SYRUP 20 GM/30 ML CUP PO SCH (08:31)
[2017-05-01] MEDS: ACETAMINOPHEN 325 MG TAB PO PRN ×2 (08:56→20:50)
--- NOTE | 2017-05-01 10:19 | HHI.PYPN ---
Subjective Remarks Patient seen and examined with nurse. Chart reviewed. Case discussed with nursing staff. On my examination today, the patient is complaining of low back pain. He says that he fell last night but didn't report it. No psychotic symptoms. No mood symptoms. No side effects from medications. No other physical complaints. Review of Systems ROS Limitations: Poor Historian Except as stated in HPI: all other systems reviewed are Neg Objective Alert: Yes [place]: Person, Place, Date Mood: Calm Affect: Restricted Memory Intact: Comment (remains intact) Hallucinations: Other (no AVH) Delusions: No Delusion Type: Other (none elicited) Suicidal: Ideation (No SI) Homicidal: Ideation (No HI) Insight/Judgment Poor Remarks No motor abnormalities noted. Mild spinal tenderness over lumbar spine. No paraspinal mm tenderness. Appears to be in NAD. Thought process linear. Labs Labs reviewed. Vitals/IOs Vital Signs Date Time Temp Pulse Resp B/P Pulse Ox O2 Delivery O2 Flow Rate FiO2 05/01/17 05:59 97.3 57 16 103/55 97 Assessment & Plan Problem List: (1) Adjustment disorder with mixed disturbance of emotions and conduct ICD Code: F43.25 (2) Schizophrenia ICD Code: F20.9 Assessment & Plan Lumbar X-Ray [update: no fracture]. Lidoderm patch. Consult to hospitalist for back pain. Falls prec. Continue other medications and care as ordered. Justification for Cont. Inpt. Risk for decompensation Discharge Planning Placement Request HC Surrog/Guard Advoc?: No Problem Qualifiers (1) Schizophrenia: Qualified Code: F20.9 - Schizophrenia, unspecified type Feliciano Euceda MD May 01, 2017 10:19
[2017-05-01] MEDS: LIDOCAINE HCL 5% PATCH T-DERMAL SCH (11:00)
--- NOTE | 2017-05-01 11:33 | RADRPT ---
EXAM DATE/TIME: 05/01/2017 11:22 [place] COMPARISON: SPINE LUMBAR LTD (AP & LAT), March 26, 2017, 20:38. INDICATIONS : Low back pain; fall yesterday. MEDICAL HISTORY : None. SURGICAL HISTORY : None. ENCOUNTER: Initial ACUITY: 2 days PAIN SCORE: 7/10 LOCATION: Bilateral lumbar spine FINDINGS: Two view examination was performed. There are five non-rib bearing vertebral bodies. The vertebral bodies are in normal alignment without evidence of subluxation or scoliosis.there mild stable primary degenerative changes of the lower thoracic and lumbar spine. Mild disc space narrowing at L2-3. The pedicles are intact. Bony mineralization is normal. No fracture is identified. No significant anand es compared to the prior exam. CONCLUSION: Stable plain films the lumbar spine compared to the prior exam. There are mild to moderate primary de generative changes involving the lower thoracic and lumbar spine. Cem Crocker MD on May 01, 2017 at 11:31 Board Certified Radiologist. This report was verified electronically.
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
[2017-05-01] MEDS ORDERED: ACETAMINOPHEN/HYDROcodone 325 MG/5 MG TAB PO PRN (13:00)
[2017-05-01] MEDS: LORazepam 0.5 MG TAB PO PRN (15:18)
[2017-05-01 16:15] VITALS: BP 148/64; PULSE 62; RESP 18; TEMP 97.6; O2SAT 98
[2017-05-01 18:12] VITALS: BP 130/77; PULSE 69; RESP 18; TEMP 97.6; O2SAT 98
[2017-05-01] MEDS: OLANZapine 5 MG TAB PO SCH (20:47)
[2017-05-01] MEDS: DIVALPROEX SODIUM E.R. 500 MG TAB PO SCH (20:47)
[2017-05-01] MEDS: REMOVE OLD NICODERM (NICOTINE) PATCH T-DERMAL SCH (20:48)
[2017-05-02 05:59] VITALS: BP 145/71; PULSE 53; RESP 17; TEMP 98.1; O2SAT 98
[2017-05-02] MEDS: HALOPERIDOL 5 MG TAB PO SCH ×3 (08:45→17:35)
[2017-05-02] MEDS: LACTULOSE SYRUP 20 GM/30 ML CUP PO SCH ×2 (08:45→21:27)
[2017-05-02] MEDS: LIDOCAINE HCL 5% PATCH T-DERMAL SCH (08:45)
[2017-05-02] MEDS: NICOTINE 21 MG/24 HR PATCH T-DERMAL SCH (09:00)
--- NOTE | 2017-05-02 09:57 | HHI.PYPN ---
Subjective Remarks Patient seen and examined with nurse. Chart reviewed. Case discussed with nursing staff who reports that the patient is somewhat med seeking but otherwise no behavioral problem. Patient tells me he is "doing pretty good." Remains focused on discharge plan, and he did discuss the plan with the counselor. Wants to be placed on the state hospital list, but patient is not presently impaired enough to warrant state psychiatric hospitalization. No psychotic symptoms. No SI or HI. No side effects from medications. Back pain improved with lidocaine patch. No physical complaints otherwise. Review of Systems ROS Limitations: Poor Historian Except as stated in HPI: all other systems reviewed are Neg Objective Alert: Yes [place]: Person, Place, Date Mood: Calm Affect: Blunted (childlike) Memory Intact: Comment (intact) Hallucinations: Other (no AVH) Delusions: No Delusion Type: Other (no delusions) Suicidal: Ideation (No SI) Homicidal: Ideation (No HI) Insight/Judgment Poor Remarks No motor abnormalities noted. Thought process linear. Labs Labs reviewed. Ammonia remains elevated without evidence of encephalopathy. Vitals/IOs Vital Signs Date Time Temp Pulse Resp B/P Pulse Ox O2 Delivery O2 Flow Rate FiO2 05/02/17 05:59 98.1 53 17 145/71 98 Assessment & Plan Problem List: (1) Adjustment disorder with mixed disturbance of emotions and conduct ICD Code: F43.25 (2) Schizophrenia ICD Code: F20.9 Assessment & Plan Given that patient has now received second dose of Haldol Dec 300mg IM without evidence of ongoing psychosis, taper oral Haldol to 5mg TID with plans for further taper as able. Continue Zyprexa and Depakote as ordered. Titrate lactulose to BID and recheck ammonia after weekend. Continue other medications and care as ordered. Justification for Cont. Inpt. Risk for decompensation in less restrictive environment. Med changes. Discharge Planning Placement. Counselor working on this. Request HC Surrog/Guard Advoc?: No Problem Qualifiers (1) Schizophrenia: Qualified Code: F20.9 - Schizophrenia, unspecified type Feliciano Euceda MD May 02, 2017 09:57
[2017-05-02 18:00] VITALS: BP 138/70; PULSE 55; RESP 18; TEMP 98; O2SAT 97
[2017-05-02] MEDS: REMOVE OLD NICODERM (NICOTINE) PATCH T-DERMAL SCH (21:00)
[2017-05-02] MEDS: OLANZapine 5 MG TAB PO SCH (21:00)
[2017-05-02] MEDS: DIVALPROEX SODIUM E.R. 500 MG TAB PO SCH (21:28)
[2017-05-02] MEDS: traZODone HCL 50 MG TAB PO PRN (21:28)
[2017-05-02] MEDS: diphenhydrAMINE HCL 50 MG CAP PO PRN (21:28)
[2017-05-03 05:56] VITALS: BP 104/61; PULSE 44; RESP 16; TEMP 97.6; O2SAT 96
[2017-05-03] MEDS: LACTULOSE SYRUP 20 GM/30 ML CUP PO SCH ×2 (07:58→20:27)
[2017-05-03] MEDS: LIDOCAINE HCL 5% PATCH T-DERMAL SCH (07:58)
[2017-05-03] MEDS: HALOPERIDOL 5 MG TAB PO SCH ×3 (07:58→16:48)
[2017-05-03] MEDS: NICOTINE 21 MG/24 HR PATCH T-DERMAL SCH (08:00)
--- NOTE | 2017-05-03 13:15 | HHI.PYPN ---
Subjective Remarks Pt seen and discussed with staff. Pt signed ROR yesterday evening requesting discharge. During exam, he c/o of hearing voices and fear that sea water is coming into his room. He states that he didn't realize ROR meant that he wanted discharge and states that he would like to rescind. No SI/HI Objective Alert: Yes [place]: Person, Place, Date Mood: Anxious Affect: Other (congruent) Memory Intact: Comment (intact) Hallucinations: Auditory, Other (pt reports AH) Delusions: No Delusion Type: Other (pt reports that seawater is going to rise in his room) Suicidal: Ideation (No SI) Homicidal: Ideation (No HI) Insight/Judgment poor Vitals/IOs Vital Signs Date Time Temp Pulse Resp B/P Pulse Ox O2 Delivery O2 Flow Rate FiO2 05/03/17 05:56 97.6 44 16 104/61 96 Assessment & Plan Problem List: (1) Adjustment disorder with mixed disturbance of emotions and conduct ICD Code: F43.25 (2) Schizophrenia ICD Code: F20.9 Assessment & Plan Continue current tx plan. Allow pt to rescind ROR. Estimated LOS: days Justification for Cont. Inpt. psychosis Request HC Surrog/Guard Advoc?: No Problem Qualifiers (1) Schizophrenia: Qualified Code: F20.9 - Schizophrenia, unspecified type Krys West MD May 03, 2017 13:15
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
[2017-05-03 18:16] VITALS: BP 113/58; PULSE 60; RESP 17; TEMP 97.6; O2SAT 97
[2017-05-03] MEDS: DIVALPROEX SODIUM E.R. 500 MG TAB PO SCH (20:28)
[2017-05-03] MEDS: OLANZapine 5 MG TAB PO SCH (20:28)
[2017-05-03] MEDS: REMOVE OLD NICODERM (NICOTINE) PATCH T-DERMAL SCH (20:28)
[2017-05-04 06:35] VITALS: BP 120/64; PULSE 52; RESP 16; TEMP 97.4; O2SAT 97
[2017-05-04] MEDS: NICOTINE 21 MG/24 HR PATCH T-DERMAL SCH (09:00)
[2017-05-04] MEDS: LIDOCAINE HCL 5% PATCH T-DERMAL SCH (09:55)
[2017-05-04] MEDS: HALOPERIDOL 5 MG TAB PO SCH ×3 (09:56→17:42)
[2017-05-04] MEDS: LACTULOSE SYRUP 20 GM/30 ML CUP PO SCH ×2 (09:56→20:30)
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
[2017-05-04 15:46] VITALS: BP 131/73; PULSE 56; RESP 16; TEMP 97.9; O2SAT 99
[2017-05-04] MEDS: ACETAMINOPHEN 325 MG TAB PO PRN (18:00)
[2017-05-04] MEDS: OLANZapine 5 MG TAB PO SCH (20:30)
[2017-05-04] MEDS: DIVALPROEX SODIUM E.R. 500 MG TAB PO SCH (20:30)
[2017-05-04] MEDS: REMOVE OLD NICODERM (NICOTINE) PATCH T-DERMAL SCH (20:31)
[2017-05-05 06:35] VITALS: BP 130/63; PULSE 57; RESP 18; TEMP 98; O2SAT 99
[2017-05-05] MEDS: HALOPERIDOL 5 MG TAB PO SCH ×4 (08:55→21:36)
[2017-05-05] MEDS: LACTULOSE SYRUP 20 GM/30 ML CUP PO SCH ×2 (08:55→21:35)
[2017-05-05] MEDS: LIDOCAINE HCL 5% PATCH T-DERMAL SCH (08:56)
[2017-05-05] MEDS: NICOTINE 21 MG/24 HR PATCH T-DERMAL SCH (08:56)
[2017-05-05] MEDS: LORazepam 1 MG TAB PO PRN (14:11)
[2017-05-05 18:59] VITALS: BP_SYST 136; BP_SYST 141; BP_DIAS 72; BP_DIAS 92; PULSE 71; PULSE 93; RESP 18; TEMP 97.7; TEMP 98; O2SAT 97
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
[2017-05-05] MEDS: REMOVE OLD NICODERM (NICOTINE) PATCH T-DERMAL SCH (21:00)
[2017-05-05] MEDS: OLANZapine 5 MG TAB PO SCH (21:35)
[2017-05-05] MEDS: DIVALPROEX SODIUM E.R. 500 MG TAB PO SCH (21:35)
[2017-05-05] MEDS: ACETAMINOPHEN 325 MG TAB PO PRN (21:40)
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
[2017-05-06 05:43] VITALS: BP 133/65; PULSE 72; RESP 18; TEMP 97.6; O2SAT 94
[2017-05-06] MEDS: HALOPERIDOL 5 MG TAB PO SCH ×2 (08:27→20:47)
[2017-05-06] MEDS: NICOTINE 21 MG/24 HR PATCH T-DERMAL SCH (08:49)
[2017-05-06] MEDS: LIDOCAINE HCL 5% PATCH T-DERMAL SCH (08:49)
[2017-05-06] MEDS ORDERED: LACTULOSE SYRUP 20 GM/30 ML CUP PO SCH (09:00)
[2017-05-06 09:06] LABS: ANION GAP 4 MEQ/L (5-15); AST (GOT) 13 U/L (15-37); BICARBONATE 30.7 MEQ/L (21.0-32.0); BLOOD UREA NITROGEN 12 MG/DL (7-18); CHLORIDE 105 MEQ/L (98-107); GLOMERULAR FILTRATION RATE 127 ML/MIN (>89); SODIUM (NA) 140 MEQ/L (136-145)
[2017-05-06 09:07] LABS: ALT (GPT) 21 U/L (12-78)
[2017-05-06 09:10] LABS: ALKALINE PHOSPHATASE 76 U/L (45-117); TOTAL BILIRUBIN ADULT 0.3 MG/DL (0.2-1.0)
--- NOTE | 2017-05-06 09:39 | RADRPT ---
EXAM DATE/TIME: 05/06/2017 08:00 [facility] COMPARISON: No previous studies available for comparison. INDICATIONS : Increased lab values. MEDICAL HISTORY : Seizures. Schizophrenia. Hip dysplasia. SURGICAL HISTORY : None. ENCOUNTER: Initial ACUITY: 1 day PAIN SCORE: 0/10 LOCATION: Abdomen. MEASUREMENTS: LIVER: 17.5 cm length COMMON DUCT: 4 mm RIGHT KIDNEY: 11.8 x 4.8 x 5.1 cm SPLEEN: 13.6 cm length FINDINGS: LIVER: The liver is enlarged without focal lesion or ductal dilatation. COMMON DUCT: No intraluminal mass or stone visualized. GALLBLADDER: Contains no stones, demonstrates no wall thickening or pericholecystic fluid. PANCREAS: The visualized portions are within normal limits. RIGHT KIDNEY: No hydronephrosis, stone or mass. SPLEEN: The spleen is enlarged. No focal splenic lesion is seen. CONCLUSION: Hepatosplenomegaly. Nathan Rinaldi MD on May 06, 2017 at 9:34 Board Certified Radiologist. This report was verified electronically.
[2017-05-06] MEDS ORDERED: DIATRIZOATE MEGLUM/DIATRIZOATE SOD 9 ML CUP PO ONE (13:45)
[2017-05-06] MEDS: diphenhydrAMINE HCL 50 MG CAP PO PRN (14:05)
[2017-05-06] MEDS: LORazepam 1 MG TAB PO PRN (14:05)
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
[2017-05-06] MEDS ORDERED: IOHEXOL 350 MG/ML 10 ML VIAL (for RAD DIAG) IV ONE (17:11)
--- NOTE | 2017-05-06 17:44 | RADRPT ---
EXAM DATE/TIME: 05/06/2017 16:58 [facility] COMPARISON: No previous studies available for comparison. INDICATIONS : Hepatosplenomegaly IV CONTRAST: 94 cc Omnipaque 350 (iohexol) IV ; Cumulative dose for multiple exams. RADIATION DOSE: 5.25 CTDIvol (mGy) ; Combined studies - Thorax/Abdomen/Pelvis MEDICAL HISTORY : None SURGICAL HISTORY : None. ENCOUNTER: Initial ACUITY: 1 day PAIN SCALE: 0/10 LOCATION: chest TECHNIQUE: Volumetric scanning of the chest was performed. Using automated exposure control and adjustment of t he mA and/or kV according to patient size, radiation dose was kept as low as reasonably achievable to obtain optimal diagnostic quality images. DICOM format image data is available electronically for review and comparison. Follow-up recommendations for detected pulmonary nodules are based at a minimum on nodule size and pa tient risk factors according to Fleischner Society Guidelines. FINDINGS: LUNGS: There is no consolidation or pneumothorax. No concerning pulmonary nodule is visualized. PLEURA: There is no pleural thickening or pleural effusion. MEDIASTINUM: The heart and great vessels demonstrate no acute abnormality. There is no mediastinal or hilar lymph adenopathy. AXILLAE: Within normal limits. No lymphadenopathy. SKELETAL: Spurs are seen in the thoracic spine. MISCELLANEOUS: The visualized upper abdominal organs demonstrate no acute abnormality. CONCLUSION: Normal examination. Nathan Rinaldi MD on May 06, 2017 at 17:41 Board Certified Radiologist. This report was verified electronically.
--- NOTE | 2017-05-06 17:47 | RADRPT ---
EXAM DATE/TIME: 05/06/2017 16:58 [facility] COMPARISON: No previous studies available for comparison. INDICATIONS : Evaluate hepatosplenomegaly IV CONTRAST: 94 cc Omnipaque 350 (iohexol) IV ; Cumulative dose for multiple exams. ORAL CONTRAST: Prescribed oral contrast ingested. RADIATION DOSE: 5.25 CTDIvol (mGy) ; Combined studies - Thorax/Abdomen/Pelvis MEDICAL HISTORY : None SURGICAL HISTORY : None. ENCOUNTER: Initial ACUITY: 1 day PAIN SCALE: 0/10 LOCATION: abdomen TECHNIQUE: Volumetric scanning of the abdomen and pelvis was performed. Using automated exposure control and ad justment of the mA and/or kV according to patient size, radiation dose was kept as low as reasonably achievable to obtain optimal diagnostic quality images. DICOM format image data is available electro nically for review and comparison. FINDINGS: LOWER LUNGS: The visualized lower lungs are clear. LIVER: Homogeneous density without lesion. There is no dilation of the biliary tree. No calcified gallston es. SPLEEN: Normal size without lesion. PANCREAS: There is fatty infiltration of the pancreas especially the pancreatic head and uncinate process. No s oft tissue mass is seen. KIDNEYS: Normal in size and shape. There is no mass, stone or hydronephrosis. ADRENAL GLANDS: Within normal limits. VASCULAR: There is no aortic aneurysm. BOWEL/MESENTERY: The stomach, small bowel, and colon demonstrate no acute abnormality. There is no free intraperitone al air or fluid. ABDOMINAL WALL: Within normal limits. RETROPERITONEUM: There is no lymphadenopathy. BLADDER: No wall thickening or mass. REPRODUCTIVE: Within normal limits. INGUINAL: There is no lymphadenopathy or hernia. MUSCULOSKELETAL: There is some degenerative change in the lumbar spine. CONCLUSION: 1. Liver and spleen appear normal in size. CT is better at characterizing the overall size of the arline er and spleen compared to ultrasound. 2. Fatty infiltration of the pancreas. Nathan Rinaldi MD on May 06, 2017 at 17:42 Board Certified Radiologist. This report was verified electronically.
[2017-05-06 18:00] VITALS: BP 121/54; PULSE 62; RESP 18; TEMP 98.1; O2SAT 95
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
[2017-05-06] MEDS: REMOVE OLD NICODERM (NICOTINE) PATCH T-DERMAL SCH (20:41)
[2017-05-06] MEDS: OLANZapine 5 MG TAB PO SCH (20:47)
[2017-05-06] MEDS: LACTULOSE SYRUP 20 GM/30 ML CUP PO SCH (20:48)
[2017-05-06] MEDS: DIVALPROEX SODIUM E.R. 500 MG TAB PO SCH (20:48)
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
[2017-05-07 06:02] VITALS: BP 130/79; PULSE 60; RESP 18; TEMP 97.9; O2SAT 97
[2017-05-07] MEDS: NICOTINE 21 MG/24 HR PATCH T-DERMAL SCH (09:00)
[2017-05-07] MEDS: LACTULOSE SYRUP 20 GM/30 ML CUP PO SCH ×2 (09:03→21:00)
[2017-05-07] MEDS: LIDOCAINE HCL 5% PATCH T-DERMAL SCH (09:04)
[2017-05-07] MEDS: LORazepam 1 MG TAB PO PRN (09:04)
[2017-05-07] MEDS: HALOPERIDOL 5 MG TAB PO SCH ×2 (09:04→21:23)
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
[2017-05-07 18:07] VITALS: BP 124/73; PULSE 59; RESP 18; TEMP 97.6; O2SAT 97
[2017-05-07] MEDS: REMOVE OLD NICODERM (NICOTINE) PATCH T-DERMAL SCH (21:00)
[2017-05-07] MEDS: OLANZapine 5 MG TAB PO SCH (21:22)
[2017-05-07] MEDS: DIVALPROEX SODIUM E.R. 500 MG TAB PO SCH (21:23)
[2017-05-08 06:00] VITALS: BP 118/58; PULSE 45; RESP 18; TEMP 97.6; O2SAT 97
[2017-05-08] MEDS: LACTULOSE SYRUP 20 GM/30 ML CUP PO SCH ×2 (08:38→20:06)
[2017-05-08] MEDS: NICOTINE 21 MG/24 HR PATCH T-DERMAL SCH (08:38)
[2017-05-08] MEDS: HALOPERIDOL 5 MG TAB PO SCH ×2 (08:38→20:07)
[2017-05-08] MEDS: LIDOCAINE HCL 5% PATCH T-DERMAL SCH (08:38)
[2017-05-08 18:11] VITALS: BP 114/59; PULSE 60; RESP 17; TEMP 98.4; O2SAT 96
[2017-05-08] MEDS: OLANZapine 5 MG TAB PO SCH (20:07)
[2017-05-08] MEDS: DIVALPROEX SODIUM E.R. 500 MG TAB PO SCH (20:07)
--- NOTE | 2017-05-08 20:27 | HHI.PYPN ---
Subjective Remarks Patient seen for follow, chart review. Patient found sleeping but was able to wake up to engage in interview. Patient states he had been feeling "drowsy" that he did not do much today. Patient states that he is currently still waiting for placement and that he continues adhered to treatment here on the unit at proving that he is in behavioral control. Patient denies SI, HI, AVH or delusions at time of interview. Review of Systems Except as stated in HPI: all other systems reviewed are Neg Objective Alert: Yes [place]: Person, Place, Date Mood: Calm Affect: Other (congruent) Memory Intact: Comment (intact) Hallucinations: Other (denies at time of interview) Delusions: Yes Delusion Type: Other ([place] view stealing his money) Suicidal: Ideation (No SI) Homicidal: Ideation (No HI) Insight/Judgment Limited insight, impulse control and judgment Vitals/IOs Vital Signs Date Time Temp Pulse Resp B/P Pulse Ox O2 Delivery O2 Flow Rate FiO2 05/08/17 18:11 98.4 60 17 114/59 96 Assessment & Plan Problem List: (1) 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 Patient to continue recommendations as per primary medical team. Patient to be encouraged to maintain personal hygiene participate in groups and activities. Discharge planning in progress Justification for Cont. Inpt. Patient at risk for further decompensation if at lower level of care. Discharge Planning In progress Request HC Surrog/Guard Advoc?: No Problem Qualifiers (1) Schizophrenia: Qualified Code: F20.9 - Schizophrenia, unspecified type Moe Boswell MD May 08, 2017 20:27
[2017-05-08] MEDS: LORazepam 1 MG TAB PO PRN (20:41)
[2017-05-08] MEDS: REMOVE OLD NICODERM (NICOTINE) PATCH T-DERMAL SCH (21:00)
[2017-05-09 06:24] VITALS: BP 118/72; PULSE 74; RESP 18; TEMP 97.8; O2SAT 96
[2017-05-09] MEDS: HALOPERIDOL 5 MG TAB PO SCH ×2 (09:00→20:29)
[2017-05-09] MEDS: LACTULOSE SYRUP 20 GM/30 ML CUP PO SCH ×2 (09:00→20:30)
[2017-05-09] MEDS: LIDOCAINE HCL 5% PATCH T-DERMAL SCH (09:00)
[2017-05-09] MEDS: NICOTINE 21 MG/24 HR PATCH T-DERMAL SCH (09:00)
[2017-05-09] MEDS: ACETAMINOPHEN 325 MG TAB PO PRN (16:38)
[2017-05-09 17:57] VITALS: BP 110/71; PULSE 9; RESP 17; TEMP 98.2; O2SAT 98
--- NOTE | 2017-05-09 18:15 | HHI.PYPN ---
Subjective Remarks Patient seen for follow-up, chart reviewed. As per nursing report and discussion with staff patient requires encouragement to be able to leave his room but has been calm and cooperative with staff. Patient found asleep was able to wake up for interview. Patient states that he was feeling okay felt a little sick last evening after eating something that he cannot identify. But denied having any upset stomach today. Patient states that he would like to return to regular diet but was reminded that he is currently being followed by primary medical team for increased ammonia levels. Patient states that he will try to leave his room and participating more in activities and is waiting to be able to find placement Review of Systems Except as stated in HPI: all other systems reviewed are Neg Objective Alert: Yes [place]: Person, Place, Date Mood: Calm Affect: Other (congruent) Memory Intact: Comment (intact) Hallucinations: Other (denies at time of interview) Delusions: Yes Delusion Type: Other ([place] view stealing his money) Suicidal: Ideation (No SI) Homicidal: Ideation (No HI) Insight/Judgment Limited insight, fair impulse control and judgment Vitals/IOs Vital Signs Date Time Temp Pulse Resp B/P Pulse Ox O2 Delivery O2 Flow Rate FiO2 05/09/17 17:57 98.2 9 17 110/71 98 Assessment & Plan Problem List: (1) 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 Patient awaiting placement as discharged he is currently attempted to find an assisted living facility that will accept him. Continue to encourage patient to improve personal hygiene and a participate in activities and groups on the unit. Discharge planning in progress Justification for Cont. Inpt. Patient at risk for further decompensation if at lower level of care. Discharge Planning In progress Request HC Surrog/Guard Advoc?: No Problem Qualifiers (1) Schizophrenia: Qualified Code: F20.9 - Schizophrenia, unspecified type Moe Boswell MD May 09, 2017 18:15
[2017-05-09] MEDS: OLANZapine 5 MG TAB PO SCH (20:29)
[2017-05-09] MEDS: DIVALPROEX SODIUM E.R. 500 MG TAB PO SCH (20:29)
[2017-05-09] MEDS: REMOVE OLD NICODERM (NICOTINE) PATCH T-DERMAL SCH (20:30)
[2017-05-10 05:53] VITALS: BP 120/76; PULSE 52; RESP 16; TEMP 97.1; O2SAT 96
[2017-05-10] MEDS: LIDOCAINE HCL 5% PATCH T-DERMAL SCH (08:39)
[2017-05-10] MEDS: LACTULOSE SYRUP 20 GM/30 ML CUP PO SCH ×2 (08:40→20:59)
[2017-05-10] MEDS: NICOTINE 21 MG/24 HR PATCH T-DERMAL SCH (08:40)
[2017-05-10] MEDS: HALOPERIDOL 5 MG TAB PO SCH ×2 (08:40→21:01)
--- NOTE | 2017-05-10 17:29 | HHI.PYPN ---
Subjective Remarks Patient was seen and case discussed with nursing. Patient is more perseverative and demanding today. He is hyperverbal and focused on the qualities of the assisted living facility he will be discharged to. Complaining of bed wetting at night. Denies auditory visual hallucinations. Compliant with his medications. 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 Inpt. Patient would decompensate in a less restrictive setting Request HC Surrog/Guard Advoc?: No Problem Qualifiers (1) Schizophrenia: Qualified Code: F20.9 - Schizophrenia, unspecified type Kirby Velasco DO May 10, 2017 17:29
[2017-05-10 18:37] VITALS: BP 122/81; PULSE 66; RESP 18; TEMP 97.6; O2SAT 98
[2017-05-10] MEDS: DIVALPROEX SODIUM E.R. 500 MG TAB PO SCH (21:00)
[2017-05-10] MEDS: REMOVE OLD NICODERM (NICOTINE) PATCH T-DERMAL SCH (21:00)
[2017-05-10] MEDS: OLANZapine 5 MG TAB PO SCH (21:01)
[2017-05-11 06:14] VITALS: BP 118/61; PULSE 68; RESP 16; TEMP 98.4; O2SAT 97
[2017-05-11] MEDS: LACTULOSE SYRUP 20 GM/30 ML CUP PO SCH ×2 (09:00→20:26)
[2017-05-11] MEDS: LIDOCAINE HCL 5% PATCH T-DERMAL SCH (09:00)
[2017-05-11] MEDS: HALOPERIDOL 5 MG TAB PO SCH ×2 (09:00→20:26)
[2017-05-11] MEDS: NICOTINE 21 MG/24 HR PATCH T-DERMAL SCH (09:00)
[2017-05-11] MEDS: LORazepam 1 MG TAB PO PRN (16:28)
[2017-05-11 17:00] VITALS: BP 118/67; PULSE 66; RESP 18; TEMP 98.1; O2SAT 99
--- NOTE | 2017-05-11 19:14 | HHI.PYPN ---
Subjective Remarks Patient was seen and case discussed with nursing. Patient was sleeping throughout the day. When awoken, he was initially pleasant but became irritable with flight of ideas and pressured speech. Largely nonsensical and disorganized. No behavioral outbursts today. Compliant with medications Objective Alert: Yes [place]: Person, Place, Date Mood: Agitated, Oppositional Affect: Other (irritable) Memory Intact: Comment (intact) Hallucinations: Other (denies at time of interview) Delusions: Yes Delusion Type: Other (perseverative) Suicidal: Ideation (No SI) Homicidal: Ideation (No HI) Insight/Judgment Poor Vitals/IOs Vital Signs Date Time Temp Pulse Resp B/P (MAP) Pulse Ox O2 Delivery O2 Flow Rate FiO2 05/11/17 17:00 98.1 66 18 118/67 (84) 99 Assessment & Plan Problem List: (1) Adjustment disorder with mixed disturbance of emotions and conduct ICD Codes: F43.25 - Adjustment disorder with mixed disturbance of emotions and conduct Status: Acute (2) Schizophrenia ICD Codes: F20.9 - Schizophrenia, unspecified Status: Acute Assessment & Plan Continue current treatment plan Justification for Cont. Inpt. Patient would decompensate in a less restrictive setting Request HC Surrog/Guard Advoc?: No Problem Qualifiers (1) Schizophrenia: Kirby Velasco DO May 11, 2017 19:14
[2017-05-11] MEDS: OLANZapine 5 MG TAB PO SCH (20:26)
[2017-05-11] MEDS: REMOVE OLD NICODERM (NICOTINE) PATCH T-DERMAL SCH (20:26)
[2017-05-11] MEDS: DIVALPROEX SODIUM E.R. 500 MG TAB PO SCH (20:26)
[2017-05-12 05:41] VITALS: BP 103/61; PULSE 62; RESP 18; TEMP 97.4; O2SAT 95
[2017-05-12] MEDS: NICOTINE 21 MG/24 HR PATCH T-DERMAL SCH (09:00)
[2017-05-12] MEDS: LIDOCAINE HCL 5% PATCH T-DERMAL SCH ×2 (09:00→09:07)
[2017-05-12] MEDS: HALOPERIDOL 5 MG TAB PO SCH ×2 (09:06→20:20)
[2017-05-12] MEDS: LACTULOSE SYRUP 20 GM/30 ML CUP PO SCH ×2 (09:06→20:20)
[2017-05-12] MEDS: REMOVE OLD NICODERM (NICOTINE) PATCH T-DERMAL SCH (09:17)
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
[2017-05-12] MEDS: OLANZapine 5 MG TAB PO SCH (20:20)
[2017-05-12] MEDS: DIVALPROEX SODIUM E.R. 500 MG TAB PO SCH (20:20)
[2017-05-12] MEDS: traZODone HCL 50 MG TAB PO PRN (20:20)
[2017-05-13 05:52] VITALS: BP 133/75; PULSE 62; RESP 18; TEMP 97.7; O2SAT 96
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
[2017-05-13] MEDS: HALOPERIDOL 5 MG TAB PO SCH ×2 (08:48→20:21)
[2017-05-13] MEDS: LIDOCAINE HCL 5% PATCH T-DERMAL SCH (08:49)
[2017-05-13] MEDS: LACTULOSE SYRUP 20 GM/30 ML CUP PO SCH ×2 (09:00→20:23)
[2017-05-13] MEDS: NICOTINE 21 MG/24 HR PATCH T-DERMAL SCH (09:00)
[2017-05-13] MEDS: ACETAMINOPHEN 325 MG TAB PO PRN (17:42)
[2017-05-13 17:51] VITALS: BP 109/59; PULSE 53; RESP 18; TEMP 98.2; O2SAT 96
[2017-05-13] MEDS: DIVALPROEX SODIUM E.R. 500 MG TAB PO SCH (20:21)
[2017-05-13] MEDS: OLANZapine 5 MG TAB PO SCH (20:21)
[2017-05-13] MEDS: traZODone HCL 50 MG TAB PO PRN (20:25)
[2017-05-13] MEDS: REMOVE OLD NICODERM (NICOTINE) PATCH T-DERMAL SCH (20:33)
[2017-05-14 05:58] VITALS: BP 113/53; PULSE 47; RESP 18; TEMP 96.1; O2SAT 96
[2017-05-14] MEDS: NICOTINE 21 MG/24 HR PATCH T-DERMAL SCH (09:00)
[2017-05-14] MEDS: LACTULOSE SYRUP 20 GM/30 ML CUP PO SCH ×2 (09:08→21:00)
[2017-05-14] MEDS: HALOPERIDOL 5 MG TAB PO SCH ×2 (09:08→21:00)
[2017-05-14] MEDS: LIDOCAINE HCL 5% PATCH T-DERMAL SCH (09:09)
--- NOTE | 2017-05-14 09:53 | HHI.PYPN ---
Subjective Remarks Patient seen and examined with counselor. Chart reviewed. Case discussed with nursing staff. On my examination today, the patient tells us that he feels much better. He proudly shows us that he has made his bed. He says that he slept better overnight with titration of his Zyprexa. He is quite enthusiastic about the possibility of placement and promises that next time he will not act out as he has in the past. Denies side effects from medications. No physical complaints. Review of Systems Except as stated in HPI: all other systems reviewed are Neg Objective Alert: Yes [place]: Person, Place, Date Mood: Calm Affect: Euthymic (childlike) Memory Intact: Comment (intact) Hallucinations: Other (no hallucinations) Delusions: No Delusion Type: Other (no delusions) Suicidal: Ideation (No SI) Homicidal: Ideation (No HI) Insight/Judgment Poor Remarks No motor abnormalities noted. Labs Labs reviewed. Vitals/IOs Vital Signs Date Time Temp Pulse Resp B/P (MAP) Pulse Ox O2 Delivery O2 Flow Rate FiO2 05/14/17 05:58 96.1 47 18 113/53 (73) 96 Assessment & Plan Problem List: (1) Adjustment disorder with mixed disturbance of emotions and conduct ICD Codes: F43.25 - Adjustment disorder with mixed disturbance of emotions and conduct Status: Acute (2) Schizophrenia ICD Codes: F20.9 - Schizophrenia, unspecified Status: Acute Assessment & Plan Continue Zyprexa as ordered. Continue to monitor on the high acuity unit. Continue other medications and care as ordered. Justification for Cont. Inpt. High risk for decompensation in less restrictive environment. Discharge Planning New placement. Case discussed with counselor. Request HC Surrog/Guard Advoc?: No Problem Qualifiers (1) Schizophrenia: Feliciano Euceda MD May 14, 2017 09:53
[2017-05-14] MEDS: ACETAMINOPHEN 325 MG TAB PO PRN (18:35)
[2017-05-14 19:39] VITALS: BP 132/81; PULSE 72; RESP 18; TEMP 97.6; O2SAT 99
[2017-05-14] MEDS: OLANZapine 5 MG TAB PO SCH (21:00)
[2017-05-14] MEDS: DIVALPROEX SODIUM E.R. 500 MG TAB PO SCH (21:00)
[2017-05-14] MEDS: REMOVE OLD NICODERM (NICOTINE) PATCH T-DERMAL SCH (21:00)
[2017-05-15 06:06] VITALS: BP 112/55; PULSE 50; RESP 16; TEMP 98.2; O2SAT 97
[2017-05-15] MEDS: LACTULOSE SYRUP 20 GM/30 ML CUP PO SCH ×2 (08:56→20:45)
[2017-05-15] MEDS: HALOPERIDOL 5 MG TAB PO SCH ×2 (08:56→20:46)
[2017-05-15] MEDS: NICOTINE 21 MG/24 HR PATCH T-DERMAL SCH (08:57)
[2017-05-15] MEDS: LIDOCAINE HCL 5% PATCH T-DERMAL SCH ×2 (08:57→09:03)
--- NOTE | 2017-05-15 10:28 | HHI.PYPN ---
Subjective Remarks Patient seen and examined with nurse. Chart reviewed. Case discussed with nursing staff. On my exam, the patient says that he is a little worried about his father's health, which has been ailing. He says that he tried to get in touch with his mother but was not able to; I have encouraged him to continue trying. Denies AVH. No SI or HI. Remains eager for eventual placement. Denies side effects from medications. Complains of chronic back pain but has no other physical complaints. Review of Systems Except as stated in HPI: all other systems reviewed are Neg Objective Alert: Yes [place]: Person, Place, Date Mood: Calm Affect: Blunted Memory Intact: Comment (intact) Hallucinations: Other (No AVH) Delusions: No Delusion Type: Other (no delusions) Suicidal: Ideation (No SI) Homicidal: Ideation (No HI) Insight/Judgment Poor Remarks No motor abnormalities noted Labs Labs reviewed Vitals/IOs Vital Signs Date Time Temp Pulse Resp B/P (MAP) Pulse Ox O2 Delivery O2 Flow Rate FiO2 05/15/17 06:06 98.2 50 16 112/55 (74) 97 Assessment & Plan Problem List: (1) Adjustment disorder with mixed disturbance of emotions and conduct ICD Codes: F43.25 - Adjustment disorder with mixed disturbance of emotions and conduct Status: Acute (2) Schizophrenia ICD Codes: F20.9 - Schizophrenia, unspecified Status: Acute Assessment & Plan Continue current psychiatric medications as ordered. Continue to monitor on the inpatient unit. Continue other medications and care as ordered. Justification for Cont. Inpt. High risk for decompensation in less restrictive environment. Discharge Planning Placement. Request HC Surrog/Guard Advoc?: No Problem Qualifiers (1) Schizophrenia: Feliciano Euceda MD May 15, 2017 10:28
[2017-05-15 18:05] VITALS: BP 162/80; PULSE 78; RESP 17; TEMP 98.5; O2SAT 98
[2017-05-15] MEDS: DIVALPROEX SODIUM E.R. 500 MG TAB PO SCH (20:46)
[2017-05-15] MEDS: OLANZapine 5 MG TAB PO SCH (20:46)
[2017-05-15] MEDS: REMOVE OLD NICODERM (NICOTINE) PATCH T-DERMAL SCH (20:46)
[2017-05-15] MEDS: traZODone HCL 50 MG TAB PO PRN (22:56)
[2017-05-16] MEDS: ACETAMINOPHEN 325 MG TAB PO PRN (02:26)
[2017-05-16 05:52] VITALS: BP 134/98; PULSE 75; RESP 18; TEMP 95.9; O2SAT 98
[2017-05-16] MEDS: LACTULOSE SYRUP 20 GM/30 ML CUP PO SCH (07:57)
[2017-05-16] MEDS: HALOPERIDOL 5 MG TAB PO SCH ×2 (07:57→20:21)
[2017-05-16] MEDS: NICOTINE 21 MG/24 HR PATCH T-DERMAL SCH (07:58)
[2017-05-16] MEDS: LIDOCAINE HCL 5% PATCH T-DERMAL SCH (07:59)
--- NOTE | 2017-05-16 12:47 | HHI.PYPN ---
Subjective Remarks Patient seen and examined with nurse. Chart reviewed. Case discussed with nursing staff. Patient presents as childlike, needy. Once again displaying that he has made his bed and is cooperating in his estimation with unit expectations. Requesting additional Haldol, but this is because he wants "a female to inject it in my buttocks." Resistant to taking lactulose for hyperammonemia because of the GI side effects; education attempted regarding the purpose of this medication. Says he likes the room he is in and feels safe there. No side effects from medications. No physical complaints. Review of Systems ROS Limitations: Poor Historian Except as stated in HPI: all other systems reviewed are Neg Objective Alert: Yes [place]: Person, Place, Date Mood: Anxious Affect: Euthymic (quite childlike) Memory Intact: Comment (intact) Hallucinations: Other (None) Delusions: No Delusion Type: Other (no delusions) Suicidal: Ideation (No SI) Homicidal: Ideation (No HI) Insight/Judgment poor Remarks No motor abnormalities noted. Labs Labs reviewed. Vitals/IOs Vital Signs Date Time Temp Pulse Resp B/P (MAP) Pulse Ox O2 Delivery O2 Flow Rate FiO2 05/16/17 05:52 95.9 75 18 134/98 (110) 98 Assessment & Plan Problem List: (1) Adjustment disorder with mixed disturbance of emotions and conduct ICD Codes: F43.25 - Adjustment disorder with mixed disturbance of emotions and conduct Status: Acute (2) Schizophrenia ICD Codes: F20.9 - Schizophrenia, unspecified Status: Acute Assessment & Plan Switch lactulose to Carnitor. Check ammonia level beginning of next week. Will also check updated set of basic laboratories at the same time. Sexual precautions. Continue to monitor on the high acuity unit. Continue other medications and care as ordered. Justification for Cont. Inpt. High risk for decompensation in less restrictive environment. Medication changes. Discharge Planning Placement. Case discussed with counselor, including interaction with patient's mother yesterday. Request HC Surrog/Guard Advoc?: No Problem Qualifiers (1) Schizophrenia: Feliciano Euceda MD May 16, 2017 12:47
[2017-05-16 17:50] VITALS: BP 130/86; PULSE 94; RESP 18; TEMP 97.2; O2SAT 97
[2017-05-16] MEDS: levOCARNitine 10% ORAL SOLN 118 ML BTL PO SCH (18:00)
[2017-05-16] MEDS: DIVALPROEX SODIUM E.R. 500 MG TAB PO SCH (20:21)
[2017-05-16] MEDS: OLANZapine 5 MG TAB PO SCH (20:22)
[2017-05-16] MEDS: REMOVE OLD NICODERM (NICOTINE) PATCH T-DERMAL SCH (20:47)
[2017-05-16] MEDS: traZODone HCL 50 MG TAB PO PRN (21:47)
[2017-05-17 06:00] VITALS: BP 113/57; PULSE 60; RESP 18; TEMP 98; O2SAT 98
[2017-05-17] MEDS: HALOPERIDOL 5 MG TAB PO SCH ×2 (08:18→21:34)
[2017-05-17] MEDS: levOCARNitine 10% ORAL SOLN 118 ML BTL PO SCH ×3 (08:18→17:35)
[2017-05-17] MEDS: LIDOCAINE HCL 5% PATCH T-DERMAL SCH (08:19)
[2017-05-17] MEDS: NICOTINE 21 MG/24 HR PATCH T-DERMAL SCH (08:54)
--- NOTE | 2017-05-17 12:46 | HHI.PYPN ---
Subjective Remarks Pt seen and discussed with staff. He has been childlike and intrusive, but not aggressive. He gave RN a long list of lottery numbers that he states are going to win. No SI/HI Objective Alert: Yes [place]: Person, Place, Date Mood: Anxious Affect: Euthymic (quite childlike) Memory Intact: Comment (intact) Hallucinations: Other (None) Delusions: No Delusion Type: Other (no delusions) Suicidal: Ideation (No SI) Homicidal: Ideation (No HI) Insight/Judgment poor Vitals/IOs Vital Signs Date Time Temp Pulse Resp B/P (MAP) Pulse Ox O2 Delivery O2 Flow Rate FiO2 05/17/17 06:00 98.0 60 18 113/57 (75) 98 Assessment & Plan Problem List: (1) Adjustment disorder with mixed disturbance of emotions and conduct ICD Codes: F43.25 - Adjustment disorder with mixed disturbance of emotions and conduct Status: Acute (2) Schizophrenia ICD Codes: F20.9 - Schizophrenia, unspecified Status: Acute Assessment & Plan Continue current tx plan. Estimated LOS: days Justification for Cont. Inpt. risk of decompensation Request HC Surrog/Guard Advoc?: No Problem Qualifiers (1) Schizophrenia: Krys West MD May 17, 2017 12:46
[2017-05-17] MEDS: LORazepam 1 MG TAB PO PRN (17:58)
[2017-05-17 18:37] VITALS: BP 116/58; PULSE 58; RESP 17; TEMP 96.7; O2SAT 99
[2017-05-17] MEDS: REMOVE OLD NICODERM (NICOTINE) PATCH T-DERMAL SCH (21:00)
[2017-05-17] MEDS: OLANZapine 5 MG TAB PO SCH (21:34)
[2017-05-17] MEDS: DIVALPROEX SODIUM E.R. 500 MG TAB PO SCH (21:35)
[2017-05-18 06:06] VITALS: BP 128/59; PULSE 49; RESP 16; TEMP 97.6; O2SAT 100
[2017-05-18] MEDS: HALOPERIDOL 5 MG TAB PO SCH ×2 (08:30→21:22)
[2017-05-18] MEDS: levOCARNitine 10% ORAL SOLN 118 ML BTL PO SCH ×3 (08:30→13:34)
[2017-05-18] MEDS: NICOTINE 21 MG/24 HR PATCH T-DERMAL SCH (08:31)
[2017-05-18] MEDS: REMOVE OLD NICODERM (NICOTINE) PATCH T-DERMAL SCH (08:31)
[2017-05-18] MEDS: LIDOCAINE HCL 5% PATCH T-DERMAL SCH (08:35)
--- NOTE | 2017-05-18 11:09 | HHI.PYPN ---
Subjective Remarks Pt seen and discussed with staff. He has been compliant with medications and denies side effects. He has been isolative to room. No behavioral problems.No SI /HI He continues to behave in a childlike regressed manner. Insight is poor Objective Alert: Yes [place]: Person, Place, Date Mood: Calm Affect: Euthymic (quite childlike) Memory Intact: Comment (intact) Hallucinations: Other (None) Delusions: No Delusion Type: Other (no delusions) Suicidal: Ideation (No SI) Homicidal: Ideation (No HI) Insight/Judgment poor Vitals/IOs Vital Signs Date Time Temp Pulse Resp B/P (MAP) Pulse Ox O2 Delivery O2 Flow Rate FiO2 05/18/17 06:06 97.6 49 16 128/59 (82) 100 Assessment & Plan Problem List: (1) Adjustment disorder with mixed disturbance of emotions and conduct ICD Codes: F43.25 - Adjustment disorder with mixed disturbance of emotions and conduct Status: Acute (2) Schizophrenia ICD Codes: F20.9 - Schizophrenia, unspecified Status: Acute Assessment & Plan Continue current tx plan. Estimated LOS: days Justification for Cont. Inpt. risk of decompensation Request HC Surrog/Guard Advoc?: No Problem Qualifiers (1) Schizophrenia: Krys West MD May 18, 2017 11:09
[2017-05-18 18:44] VITALS: BP 128/69; PULSE 68; RESP 16; TEMP 97.3; O2SAT 98
[2017-05-18] MEDS: OLANZapine 5 MG TAB PO SCH (21:22)
[2017-05-18] MEDS: DIVALPROEX SODIUM E.R. 500 MG TAB PO SCH (21:22)
[2017-05-19 06:09] VITALS: BP 125/64; PULSE 58; RESP 16; TEMP 95.7; O2SAT 97
[2017-05-19] MEDS: LIDOCAINE HCL 5% PATCH T-DERMAL SCH (08:57)
[2017-05-19] MEDS: HALOPERIDOL 5 MG TAB PO SCH ×2 (08:57→20:30)
[2017-05-19] MEDS: levOCARNitine 10% ORAL SOLN 118 ML BTL PO SCH ×4 (08:58→17:05)
[2017-05-19] MEDS: NICOTINE 21 MG/24 HR PATCH T-DERMAL SCH (09:00)
--- NOTE | 2017-05-19 09:27 | HHI.PYPN ---
Subjective Remarks Patient seen and examined with nurse. Chart reviewed. Case discussed with nursing staff. On my examination, patient is somewhat faultfinding and manipulative today. Otherwise calm and no behavioral problem. Placement remains difficult. Case d/w counselor. Patient denies side effects from medications and likes the Carnitor better than the lactulose. No physical complaints today. Review of Systems ROS Limitations: Poor Historian Except as stated in HPI: all other systems reviewed are Neg Objective Alert: Yes [place]: Person, Place, Date Mood: Calm Affect: Blunted Memory Intact: Comment (intact) Hallucinations: Other (no AVH) Delusions: No Delusion Type: Other (no delusions) Suicidal: Ideation (No SI) Homicidal: Ideation (No HI) Insight/Judgment Poor Remarks No motor abnormalities noted Labs Labs reviewed. Vitals/IOs Vital Signs Date Time Temp Pulse Resp B/P (MAP) Pulse Ox O2 Delivery O2 Flow Rate FiO2 05/19/17 06:09 95.7 58 16 125/64 (84) 97 Assessment & Plan Problem List: (1) Adjustment disorder with mixed disturbance of emotions and conduct ICD Codes: F43.25 - Adjustment disorder with mixed disturbance of emotions and conduct Status: Acute (2) Schizophrenia ICD Codes: F20.9 - Schizophrenia, unspecified Status: Acute Assessment & Plan Continue current psychotropics as ordered. Follow-up laboratories ordered for tomorrow morning. Continue to monitor on the high acuity unit. Continue other medications and care as ordered. Justification for Cont. Inpt. High risk for decompensation in less restrictive environment. Discharge Planning Placement Request HC Surrog/Guard Advoc?: No Problem Qualifiers (1) Schizophrenia: Feliciano Euceda MD May 19, 2017 09:27
[2017-05-19] MEDS: ACETAMINOPHEN 325 MG TAB PO PRN (14:21)
[2017-05-19] MEDS: DIVALPROEX SODIUM E.R. 500 MG TAB PO SCH (20:30)
[2017-05-19] MEDS: OLANZapine 5 MG TAB PO SCH (20:30)
[2017-05-19] MEDS: REMOVE OLD NICODERM (NICOTINE) PATCH T-DERMAL SCH (20:31)
[2017-05-19] MEDS: diphenhydrAMINE HCL 50 MG CAP PO PRN (20:33)
[2017-05-20 06:05] VITALS: BP 112/80; PULSE 46; RESP 18; TEMP 96.4; O2SAT 96
[2017-05-20] MEDS: NICOTINE 21 MG/24 HR PATCH T-DERMAL SCH (09:00)
[2017-05-20] MEDS: levOCARNitine 10% ORAL SOLN 118 ML BTL PO SCH ×3 (09:00→13:00)
[2017-05-20] MEDS: LIDOCAINE HCL 5% PATCH T-DERMAL SCH ×2 (09:00→09:09)
[2017-05-20] MEDS: HALOPERIDOL 5 MG TAB PO SCH ×2 (09:10→20:20)
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
[2017-05-20] MEDS ORDERED: HALOPERIDOL LACTATE 5 MG/ML AMP IM ONE (13:00)
[2017-05-20] MEDS ORDERED: HALOPERIDOL LACTATE 5 MG/ML AMP ONE (13:01)
[2017-05-20 13:03] LABS: AUTOMATED NEUTROPHIL # 2.2 TH/MM3 (1.8-7.7); BASOPHIL % 0.2 % (0.0-2.0); EOSINOPHIL # 0.1 TH/MM3 (0-0.4); EOSINOPHIL % 2.7 % (0.0-4.0); HEMATOCRIT 41.5 % (39.0-51.0); HEMO FLAGS DIFF FINAL; LYMPH % 43.2 % (9.0-44.0); MEAN CELL VOLUME 89.8 FL (80.0-100.0); MEAN CORPUSCULAR HEMOGLOBIN 31.2 PG (27.0-34.0); MEAN CORPUSCULAR HGB CONC 34.7 % (32.0-36.0); MONO % 6.8 % (0.0-8.0); NEUT % 47.1 % (16.0-70.0); PLATELET COUNT 161 TH/MM3 (150-450); RED BLOOD COUNT 4.62 MIL/MM3 (4.50-5.90); RED CELL DISTRIBUTION WIDTH 13.5 % (11.6-17.2); WHITE BLOOD COUNT 4.6 TH/MM3 (4.0-11.0)
[2017-05-20 13:10] LABS: ALT (GPT) 16 U/L (12-78); ANION GAP 7 MEQ/L (5-15); AST (GOT) 10 U/L (15-37); BICARBONATE 27.8 MEQ/L (21.0-32.0); BLOOD UREA NITROGEN 13 MG/DL (7-18); CHLORIDE 108 MEQ/L (98-107); GLOMERULAR FILTRATION RATE 138 ML/MIN (>89); POTASSIUM 4.7 MEQ/L (3.5-5.1); SODIUM (NA) 143 MEQ/L (136-145)
[2017-05-20 13:12] LABS: ALKALINE PHOSPHATASE 66 U/L (45-117); TOTAL BILIRUBIN ADULT 0.3 MG/DL (0.2-1.0)
--- NOTE | 2017-05-20 14:52 | RADRPT ---
EXAM DATE/TIME: 05/20/2017 14:35 [facility] COMPARISON: No previous studies available for comparison. INDICATIONS : Pain both hands and left elbow MEDICAL HISTORY : paranoid schizophrenia SURGICAL HISTORY : None. ENCOUNTER: Initial ACUITY: 1 day PAIN SCORE: Non-responsive. LOCATION: Left elbow FINDINGS: Two view examination of the left elbow demonstrates no soft tissue swelling, joint effusion, fracture or dislocation. Bony mineralization is normal. CONCLUSION: Unremarkable limited examination of the left elbow. Joel Machado MD on May 20, 2017 at 14:50 Board Certified Radiologist. This report was verified electronically.
--- NOTE | 2017-05-20 14:53 | RADRPT ---
EXAM DATE/TIME: 05/20/2017 14:30 [facility] COMPARISON: No previous studies available for comparison. INDICATIONS : Pain both hands and left elbow MEDICAL HISTORY : paranoid schizophrenia SURGICAL HISTORY : None. ENCOUNTER: Initial ACUITY: 1 day PAIN SCORE: Non-responsive. LOCATION: Right hand FINDINGS: Three view examination of the right hand demonstrates no soft tissue swelling, dislocation, or fractu re. The carpal bones appear intact. The interphalangeal and metacarpophalangeal joints are intact. Bony mineralization is normal. CONCLUSION: Unremarkable examination of the right hand. Joel Machado MD on May 20, 2017 at 14:51 Board Certified Radiologist. This report was verified electronically.
--- NOTE | 2017-05-20 14:54 | RADRPT ---
EXAM DATE/TIME: 05/20/2017 14:32 [facility] COMPARISON: No previous studies available for comparison. INDICATIONS : Pain both hands and left elbow MEDICAL HISTORY : paranoid schizophrenia SURGICAL HISTORY : None. ENCOUNTER: Initial ACUITY: 1 day PAIN SCORE: Non-responsive. LOCATION: Left hand FINDINGS: Three view examination of the left hand demonstrates no soft tissue swelling, dislocation, or fractur e. The carpal bones appear intact. The interphalangeal and metacarpophalangeal joints are intact. Bony mineralization is normal. CONCLUSION: Unremarkable examination of the left hand. Nikos Avitia Jr., MD on May 20, 2017 at 14:52 Board Certified Radiologist. This report was verified electronically.
[2017-05-20 15:40] VITALS: BP 153/74; PULSE 60; RESP 19; TEMP 96.9; O2SAT 97
--- NOTE | 2017-05-20 16:54 | RADRPT ---
EXAM DATE/TIME: 05/20/2017 14:40 [facility] COMPARISON: No previous studies available for comparison. INDICATIONS : Psychotic. RADIATION DOSE: 56.39 CTDIvol (mGy) MEDICAL HISTORY : Seizures. SURGICAL HISTORY : None. ENCOUNTER: Initial ACUITY: 1 day PAIN SCALE: 0/10 LOCATION: cranial TECHNIQUE: Multiple contiguous axial images were obtained of the head. Using automated exposure control and adj ustment of the mA and/or kV according to patient size, radiation dose was kept as low as reasonably a chievable to obtain optimal diagnostic quality images. DICOM format image data is available electro nically for review and comparison. FINDINGS: CEREBRUM: The ventricles are normal for age. No evidence of midline shift, mass lesion, hemorrhage or acute in farction. No extra-axial fluid collections are seen. POSTERIOR FOSSA: The cerebellum and brainstem are intact. The 4th ventricle is midline. The cerebellopontine angle i s unremarkable. EXTRACRANIAL: The visualized portion of the orbits is intact. SKULL: The calvaria is intact. No evidence of skull fracture. CONCLUSION: Normal examination. Joel Machado MD on May 20, 2017 at 16:51 Board Certified Radiologist. This report was verified electronically.
[2017-05-20 18:05] VITALS: BP 109/58; PULSE 57; RESP 18; TEMP 97.3; O2SAT 99
[2017-05-20] MEDS: DIVALPROEX SODIUM E.R. 500 MG TAB PO SCH (20:20)
[2017-05-20] MEDS: LACTULOSE SYRUP 20 GM/30 ML CUP PO SCH (20:20)
[2017-05-20] MEDS: OLANZapine 5 MG TAB PO SCH (20:21)
[2017-05-20] MEDS: REMOVE OLD NICODERM (NICOTINE) PATCH T-DERMAL SCH (20:39)
[2017-05-21 06:27] VITALS: BP 107/63; PULSE 51; RESP 18; TEMP 97.3; O2SAT 95
[2017-05-21] MEDS: OLANZapine 5 MG TAB PO SCH ×2 (08:52→20:38)
[2017-05-21] MEDS: LACTULOSE SYRUP 20 GM/30 ML CUP PO SCH ×2 (08:52→20:41)
[2017-05-21] MEDS: HALOPERIDOL 5 MG TAB PO SCH ×2 (08:53→20:37)
[2017-05-21] MEDS: diphenhydrAMINE HCL 50 MG CAP PO PRN (08:53)
[2017-05-21] MEDS: LIDOCAINE HCL 5% PATCH T-DERMAL SCH (09:00)
[2017-05-21] MEDS: NICOTINE 21 MG/24 HR PATCH T-DERMAL SCH (09:00)
--- NOTE | 2017-05-21 10:56 | HHI.PYPN ---
Subjective Remarks Patient seen and examined with counselor and nurse. Chart reviewed. Case discussed with nursing staff. No further behavioral disturbance following his outburst yesterday. On my examination today, patient presents as quite manipulative. He tells us that he wants to be sent to the [facility] because placement at [facility] has not come through yet. He takes no ownership for the impact of his behavior on the difficulties with placement. He says that he is being held against his will, but when I explain that he is voluntary and could sign an ROR if he wished, he tells me that he would make a suicidal gesture if discharged so that he would be brought back into the hospital. Quite imperious and dictating of care. Affect a little dysphoric. No psychotic symptoms. No side effects from medications. No physical complaints. Review of Systems ROS Limitations: Poor Historian Except as stated in HPI: all other systems reviewed are Neg Objective Alert: Yes [place]: Person, Place Mood: Oppositional Affect: Blunted (perhaps a little dysphoric) Memory Intact: Comment (not formally assessed) Hallucinations: Other (No AVH) Delusions: No Delusion Type: Other (No delusions) Suicidal: Ideation (No SI) Homicidal: Ideation (No HI) Insight/Judgment Poor Remarks No motor abnormalities noted. Thought processes fairly linear. Grooming and hygiene poor. Labs Test 05/20/17 12:26 White Blood Count 4.6 TH/MM3 Red Blood Count 4.62 MIL/MM3 Hemoglobin 14.4 GM/DL Hematocrit 41.5 % Mean Corpuscular Volume 89.8 FL Mean Corpuscular Hemoglobin 31.2 PG Mean Corpuscular Hemoglobin Concent 34.7 % Red Cell Distribution Width 13.5 % Platelet Count 161 TH/MM3 Mean Platelet Volume 9.1 FL Neutrophils (%) (Auto) 47.1 % Lymphocytes (%) (Auto) 43.2 % Monocytes (%) (Auto) 6.8 % Eosinophils (%) (Auto) 2.7 % Basophils (%) (Auto) 0.2 % Neutrophils # (Auto) 2.2 TH/MM3 Lymphocytes # (Auto) 2.0 TH/MM3 Monocytes # (Auto) 0.3 TH/MM3 Eosinophils # (Auto) 0.1 TH/MM3 Basophils # (Auto) 0.0 TH/MM3 CBC Comment DIFF FINAL Differential Comment Blood Urea Nitrogen 13 MG/DL Creatinine 0.63 MG/DL Random Glucose 90 MG/DL Total Protein 7.0 GM/DL Albumin 3.3 GM/DL Calcium Level 9.1 MG/DL Alkaline Phosphatase 66 U/L Aspartate Amino Transf (AST/SGOT) 10 U/L Alanine Aminotransferase (ALT/SGPT) 16 U/L Total Bilirubin 0.3 MG/DL Sodium Level 143 MEQ/L Potassium Level 4.7 MEQ/L Chloride Level 108 MEQ/L Carbon Dioxide Level 27.8 MEQ/L Anion Gap 7 MEQ/L Estimat Glomerular Filtration Rate 138 ML/MIN Ammonia 61 MCMOL/L Valproic Acid (Depakene) Level 61 MCG/ML Labs reviewed. Vitals/IOs Vital Signs Date Time Temp Pulse Resp B/P (MAP) Pulse Ox O2 Delivery O2 Flow Rate FiO2 05/21/17 06:27 97.3 51 18 107/63 (78) 95 Assessment & Plan Problem List: (1) Adjustment disorder with mixed disturbance of emotions and conduct ICD Codes: F43.25 - Adjustment disorder with mixed disturbance of emotions and conduct Status: Acute (2) Schizophrenia ICD Codes: F20.9 - Schizophrenia, unspecified Status: Acute Assessment & Plan Patient has entered back into his behavioral and manipulative mode, as was seen during his previous hospitalization. As a practical matter, his behavioral acting out is hampering efforts at placement. I will continue his psychotropics as ordered. We might consider liberalizing restrictions to the short mcguire and with meals in the next day or two if patient is able to maintain behavioral control. Continue to monitor on the high acuity unit. Continue other medications and care as ordered. Justification for Cont. Inpt. High risk for decompensation in less restrictive environment. Discharge Planning I will initiate a state hospital referral as the patient asks as I suspect his acting out will represent a critical barrier to placement even long after his behaviors have improved. Request HC Surrog/Guard Advoc?: No Problem Qualifiers (1) Schizophrenia: Feliciano Euceda MD May 21, 2017 10:56
[2017-05-21 15:59] VITALS: BP 111/53; PULSE 60; RESP 18; TEMP 97.7; O2SAT 95
[2017-05-21] MEDS: DIVALPROEX SODIUM E.R. 500 MG TAB PO SCH (20:38)
[2017-05-21] MEDS: REMOVE OLD NICODERM (NICOTINE) PATCH T-DERMAL SCH (21:00)
[2017-05-22] MEDS: OLANZapine 5 MG TAB PO SCH ×2 (08:36→21:00)
[2017-05-22] MEDS: HALOPERIDOL 5 MG TAB PO SCH ×2 (08:36→21:00)
[2017-05-22] MEDS: LACTULOSE SYRUP 20 GM/30 ML CUP PO SCH ×2 (08:45→21:00)
[2017-05-22] MEDS: LIDOCAINE HCL 5% PATCH T-DERMAL SCH (08:45)
[2017-05-22] MEDS: NICOTINE 21 MG/24 HR PATCH T-DERMAL SCH (08:45)
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
--- NOTE | 2017-05-22 10:42 | HHI.PYPN ---
Subjective Remarks Patient seen and examined with nurse. Chart reviewed. Case discussed with nursing staff. No behavioral issues noted overnight. On my examination today, patient remains quite childlike. Less manipulative and imperious today. He expresses desire for placement, and we discuss how his acting out has affected the viability of this plan. No side effects from medications. Some chronic pain complaints, but otherwise no physical complaints. Review of Systems ROS Limitations: Poor Historian Except as stated in HPI: all other systems reviewed are Neg Objective Alert: Yes [place]: Person, Place Mood: Calm Affect: Blunted, Other (childlike) Memory Intact: Comment (not formally assessed) Hallucinations: Other (No AVH) Delusions: No Delusion Type: Other (No delusional material) Suicidal: Ideation (No SI) Homicidal: Ideation (No HI) Insight/Judgment Poor Remarks No motoric abnormalities appreciated Labs Labs reviewed Vitals/IOs Vital Signs Date Time Temp Pulse Resp B/P (MAP) Pulse Ox O2 Delivery O2 Flow Rate FiO2 05/21/17 15:59 97.7 60 18 111/53 (72) 95 Assessment & Plan Problem List: (1) Adjustment disorder with mixed disturbance of emotions and conduct ICD Codes: F43.25 - Adjustment disorder with mixed disturbance of emotions and conduct Status: Acute (2) Schizophrenia ICD Codes: F20.9 - Schizophrenia, unspecified Status: Acute Assessment & Plan Continue current psychotropics as ordered. Hospitalist input noted and appreciated. Given lack of ongoing behavioral disturbance, will allow patient to return to dine with peers and spend time in day area; d/w nursing. Low threshold to return to previous restrictions though with patient resumes acting out and this poses a risk to self/others. Continue other medications and care as ordered. Justification for Cont. Inpt. High risk for decompensation in less restrictive environment Discharge Planning Placement versus state psychiatric hospital Request HC Surrog/Guard Advoc?: No Problem Qualifiers (1) Schizophrenia: Feliciano Euceda MD May 22, 2017 10:42
[2017-05-22] MEDS: LORazepam 1 MG TAB PO PRN (11:20)
[2017-05-22 16:22] VITALS: BP 87/56; PULSE 65; RESP 18; TEMP 98.1; O2SAT 94
[2017-05-22] MEDS: DIVALPROEX SODIUM E.R. 500 MG TAB PO SCH (21:00)
[2017-05-22] MEDS: REMOVE OLD NICODERM (NICOTINE) PATCH T-DERMAL SCH (21:00)
[2017-05-23 06:08] VITALS: BP 140/65; PULSE 68; RESP 18; TEMP 97.4; O2SAT 97
[2017-05-23] MEDS: OLANZapine 5 MG TAB PO SCH ×2 (09:00→21:00)
[2017-05-23] MEDS: NICOTINE 21 MG/24 HR PATCH T-DERMAL SCH (09:00)
[2017-05-23] MEDS: LIDOCAINE HCL 5% PATCH T-DERMAL SCH (09:00)
[2017-05-23] MEDS: HALOPERIDOL 5 MG TAB PO SCH ×2 (09:04→21:37)
[2017-05-23] MEDS: LACTULOSE SYRUP 20 GM/30 ML CUP PO SCH ×2 (09:04→09:43)
--- NOTE | 2017-05-23 10:09 | HHI.PYPN ---
Subjective Remarks Patient seen and examined with nurse. Chart reviewed. Case discussed with nursing staff. On my exam, patient continues to try to dictate care, particularly with regard to placement. I have tried to explain to patient that we are largely at the mercy of facilities that might consider his case given his history of acting out. He promises to "be good for 1 week." No side effects from medications. Patient is refusing lactulose, and I provided psychoeducation regarding the need for this medication to assist in reducing his ammonia levels. No physical complaints. Review of Systems ROS Limitations: Poor Historian Except as stated in HPI: all other systems reviewed are Neg Objective Alert: Yes [place]: Person, Place Mood: Calm Affect: Blunted (childlike) Memory Intact: Comment (not formally assessed) Hallucinations: Other (No AVH) Delusions: No Delusion Type: Other (no delusional material noted) Suicidal: Ideation (No SI) Homicidal: Ideation (No HI) Insight/Judgment Poor Remarks No motoric abnormalities noted. Labs Labs reviewed. Vitals/IOs Vital Signs Date Time Temp Pulse Resp B/P (MAP) Pulse Ox O2 Delivery O2 Flow Rate FiO2 05/23/17 06:08 97.4 68 18 140/65 (90) 97 Assessment & Plan Problem List: (1) Adjustment disorder with mixed disturbance of emotions and conduct ICD Codes: F43.25 - Adjustment disorder with mixed disturbance of emotions and conduct Status: Acute (2) Schizophrenia ICD Codes: F20.9 - Schizophrenia, unspecified Status: Acute Assessment & Plan Continue current psychotropics as ordered. I have encouraged the patient to take his lactulose. I will check an ammonia level in the morning although I suspect this will remain elevated given his nonadherence with ammonia lowering therapy. Continue to monitor on the inpatient unit. Continue other medications and care as ordered. Justification for Cont. Inpt. High risk for decompensation in less restrictive environment. Discharge Planning Placement versus state psychiatric hospitalization Request HC Surrog/Guard Advoc?: No Problem Qualifiers (1) Schizophrenia: Feliciano Euceda MD May 23, 2017 10:09
[2017-05-23 15:45] VITALS: BP 139/71; PULSE 71; RESP 18; TEMP 97.3; O2SAT 97
[2017-05-23] MEDS: REMOVE OLD NICODERM (NICOTINE) PATCH T-DERMAL SCH (21:00)
[2017-05-23] MEDS: DIVALPROEX SODIUM E.R. 500 MG TAB PO SCH (21:36)
[2017-05-24 06:13] VITALS: BP 116/59; PULSE 55; RESP 16; TEMP 97.6; O2SAT 98
[2017-05-24] MEDS: OLANZapine 5 MG TAB PO SCH ×2 (08:43→20:52)
[2017-05-24] MEDS: LACTULOSE SYRUP 20 GM/30 ML CUP PO SCH ×2 (08:43→20:53)
[2017-05-24] MEDS: HALOPERIDOL 5 MG TAB PO SCH ×2 (08:43→20:53)
[2017-05-24] MEDS: NICOTINE 21 MG/24 HR PATCH T-DERMAL SCH (08:44)
[2017-05-24] MEDS: LIDOCAINE HCL 5% PATCH T-DERMAL SCH (08:44)
[2017-05-24] MEDS: ACETAMINOPHEN 325 MG TAB PO PRN (16:24)
--- NOTE | 2017-05-24 17:21 | HHI.PYPN ---
Subjective Remarks Patient was seen and case discussed with nursing. Patient remains oppositional taking lactulose. After psychoeducation he said he will take it and nursing was asked to administer. He is pleasant and cooperative with exam. His been behaving well. No physical or verbal outbursts Objective Alert: Yes [place]: Person, Place Mood: Oppositional Affect: Restricted Memory Intact: Comment (not formally assessed) Hallucinations: Other (No AVH) Delusions: No Delusion Type: Other (no delusional material noted) Suicidal: Ideation (No SI) Homicidal: Ideation (No HI) Insight/Judgment Poor Labs Test 05/24/17 09:20 Ammonia 57 MCMOL/L Vitals/IOs Vital Signs Date Time Temp Pulse Resp B/P (MAP) Pulse Ox O2 Delivery O2 Flow Rate FiO2 05/24/17 06:13 97.6 55 16 116/59 (78) 98 Assessment & Plan Problem List: (1) Adjustment disorder with mixed disturbance of emotions and conduct ICD Codes: F43.25 - Adjustment disorder with mixed disturbance of emotions and conduct Status: Acute (2) Schizophrenia ICD Codes: F20.9 - Schizophrenia, unspecified Status: Acute Assessment & Plan Continue current treatment plan Justification for Cont. Inpt. Patient would decompensate in a less restrictive setting Request HC Surrog/Guard Advoc?: No Problem Qualifiers (1) Schizophrenia: Kirby Velasco DO May 24, 2017 17:21
[2017-05-24 18:49] VITALS: BP 151/87; PULSE 70; RESP 17; TEMP 97.7; O2SAT 98
[2017-05-24] MEDS: DIVALPROEX SODIUM E.R. 500 MG TAB PO SCH (20:52)
[2017-05-24] MEDS: REMOVE OLD NICODERM (NICOTINE) PATCH T-DERMAL SCH (21:00)
[2017-05-25 05:50] VITALS: BP 136/77; PULSE 66; RESP 17; TEMP 98; O2SAT 96
[2017-05-25] MEDS: NICOTINE 21 MG/24 HR PATCH T-DERMAL SCH (09:00)
[2017-05-25] MEDS: LIDOCAINE HCL 5% PATCH T-DERMAL SCH (09:00)
[2017-05-25] MEDS: LACTULOSE SYRUP 20 GM/30 ML CUP PO SCH ×2 (09:37→20:53)
[2017-05-25] MEDS: OLANZapine 5 MG TAB PO SCH ×2 (09:37→20:53)
[2017-05-25] MEDS: HALOPERIDOL 5 MG TAB PO SCH ×2 (09:38→20:53)
--- NOTE | 2017-05-25 16:27 | HHI.PYPN ---
Subjective Remarks Patient was seen and case discussed with nursing. Patient is now compliant with his lactulose. Slightly more seclusive today. However day by day, insight seems to improve, patient has accepted his status here while social workers continue to look for placement. Behaving well on the unit. Denies psychotic symptoms Objective Alert: Yes [place]: Person, Place Mood: Calm Affect: Restricted Memory Intact: Comment (not formally assessed) Hallucinations: Other (No AVH) Delusions: No Delusion Type: Other (no delusional material noted) Suicidal: Ideation (No SI) Homicidal: Ideation (No HI) Insight/Judgment Improving Vitals/IOs Vital Signs Date Time Temp Pulse Resp B/P (MAP) Pulse Ox O2 Delivery O2 Flow Rate FiO2 05/25/17 05:50 98.0 66 17 136/77 (96) 96 Assessment & Plan Problem List: (1) Adjustment disorder with mixed disturbance of emotions and conduct ICD Codes: F43.25 - Adjustment disorder with mixed disturbance of emotions and conduct Status: Acute (2) Schizophrenia ICD Codes: F20.9 - Schizophrenia, unspecified Status: Acute Assessment & Plan Continue current treatment plan Justification for Cont. Inpt. Patient would decompensate in a less restrictive setting Request HC Surrog/Guard Advoc?: No Problem Qualifiers (1) Schizophrenia: Kirby Velasco DO May 25, 2017 16:27
[2017-05-25 18:00] VITALS: BP 120/58; PULSE 72; RESP 17; TEMP 98.2; O2SAT 95
[2017-05-25] MEDS: DIVALPROEX SODIUM E.R. 500 MG TAB PO SCH (20:53)
[2017-05-25] MEDS: REMOVE OLD NICODERM (NICOTINE) PATCH T-DERMAL SCH (20:57)
[2017-05-26 05:46] VITALS: BP 125/74; PULSE 63; RESP 17; TEMP 98; O2SAT 96
[2017-05-26] MEDS: LIDOCAINE HCL 5% PATCH T-DERMAL SCH (09:00)
[2017-05-26] MEDS: NICOTINE 21 MG/24 HR PATCH T-DERMAL SCH (09:00)
[2017-05-26] MEDS: HALOPERIDOL 5 MG TAB PO SCH ×2 (09:10→21:22)
[2017-05-26] MEDS: LACTULOSE SYRUP 20 GM/30 ML CUP PO SCH ×2 (09:10→21:21)
[2017-05-26] MEDS: OLANZapine 5 MG TAB PO SCH ×2 (09:10→21:22)
--- NOTE | 2017-05-26 11:21 | HHI.PYPN ---
Subjective Remarks Patient seen and examined with counselor and his nurse. Chart reviewed. Case discussed with nursing staff. No behavioral issues overnight. On my examination today, patient mainly focuses his comments to the counselor who is assisting him in discharge planning, as this is his primary concern. No psychotic symptoms. Presently calm. No side effects from medications. No physical complaints. Review of Systems Except as stated in HPI: all other systems reviewed are Neg Objective Alert: Yes [place]: Person, Place Mood: Calm Affect: Appropriate Memory Intact: Comment (not formally assessed) Hallucinations: Other (No AVH) Delusions: No Delusion Type: Other (no delusions) Suicidal: Ideation (No SI) Homicidal: Ideation (No HI) Insight/Judgment Poor Remarks No motor abnormalities noted Labs Labs reviewed. Vitals/IOs Vital Signs Date Time Temp Pulse Resp B/P (MAP) Pulse Ox O2 Delivery O2 Flow Rate FiO2 05/26/17 05:46 98.0 63 17 125/74 (91) 96 Assessment & Plan Problem List: (1) Adjustment disorder with mixed disturbance of emotions and conduct ICD Codes: F43.25 - Adjustment disorder with mixed disturbance of emotions and conduct Status: Acute (2) Schizophrenia ICD Codes: F20.9 - Schizophrenia, unspecified Status: Acute Assessment & Plan Continue current psychiatric medications as ordered. Continue other medications and care as ordered. Continue to monitor on the inpatient unit. Justification for Cont. Inpt. Risk for decompensation Discharge Planning Placement versus state referral Request HC Surrog/Guard Advoc?: No Problem Qualifiers (1) Schizophrenia: Feliciano Euceda MD May 26, 2017 11:21
[2017-05-26 17:53] VITALS: BP 135/75; PULSE 81; RESP 16; TEMP 97.9; O2SAT 98
[2017-05-26] MEDS: REMOVE OLD NICODERM (NICOTINE) PATCH T-DERMAL SCH (21:00)
[2017-05-26] MEDS: DIVALPROEX SODIUM E.R. 500 MG TAB PO SCH (21:22)
[2017-05-27 06:29] VITALS: BP 109/57; PULSE 54; RESP 18; TEMP 97.7; O2SAT 97
[2017-05-27] MEDS: LIDOCAINE HCL 5% PATCH T-DERMAL SCH ×2 (09:00→18:02)
[2017-05-27] MEDS: OLANZapine 5 MG TAB PO SCH ×2 (09:00→20:44)
[2017-05-27] MEDS: NICOTINE 21 MG/24 HR PATCH T-DERMAL SCH (09:00)
[2017-05-27] MEDS: HALOPERIDOL 5 MG TAB PO SCH ×2 (09:00→20:44)
[2017-05-27] MEDS: LACTULOSE SYRUP 20 GM/30 ML CUP PO SCH ×2 (09:20→20:44)
--- NOTE | 2017-05-27 09:39 | HHI.PYPN ---
Subjective Remarks Patient seen and examined with counselor and nurse. Chart reviewed. Case discussed in treatment team. On my examination today, patient denies AVH. Sleep somewhat poor, but he does get up a few times to void. We do discuss limiting fluids towards evening hours to limit need to arise to void. Now says that he wants to go to a facility in [place] called [facility], counselor looking into this. Denies side effects from medications. No physical complaints. Review of Systems ROS Limitations: Poor Historian Except as stated in HPI: all other systems reviewed are Neg Objective Alert: Yes [place]: Person, Place Mood: Calm Affect: Blunted Memory Intact: Comment (not assessed) Hallucinations: Other (No AVH) Delusions: No Delusion Type: Other (No delusional material) Suicidal: Ideation (no suicidal ideation) Homicidal: Ideation (no homicidal ideation) Insight/Judgment Poor Remarks No abnormal motor movements noted Labs Labs reviewed Vitals/IOs Vital Signs Date Time Temp Pulse Resp B/P (MAP) Pulse Ox O2 Delivery O2 Flow Rate FiO2 05/27/17 06:29 97.7 54 18 109/57 (74) 97 Assessment & Plan Problem List: (1) Adjustment disorder with mixed disturbance of emotions and conduct ICD Codes: F43.25 - Adjustment disorder with mixed disturbance of emotions and conduct Status: Acute (2) Schizophrenia ICD Codes: F20.9 - Schizophrenia, unspecified Status: Acute Assessment & Plan Patient to receive booster dose of Haldol Decanoate today. To consider tapering and discontinuing oral Haldol. Continue Zyprexa as ordered. Continue other medications and care as ordered. Justification for Cont. Inpt. Risk for decompensation in less restrictive environment. Discharge Planning Placement. Case discussed with counselor. We can certainly look into this facility that patient mentions. Request HC Surrog/Guard Advoc?: No Problem Qualifiers (1) Schizophrenia: Feliciano Euceda MD May 27, 2017 09:39
--- NOTE | 2017-05-27 11:05 | PD.TTN ---
Patient Problems 1. Discharge planning 2. Medication compliance 3. Knowledge deficit 4. Lack of coping skills Progress Toward Goals Provider Input: Placement options are being reviewed and pt is due for his Haldol Deconoate shot. Nurse(s) Input: Pt appears cooperative, gaurded, mumbles to himself, is focused on discharge back to [place] and is compliant with medication regiment. Psych Therapist Input: Pt continues to appear disorganized, demanding, cooperative, appropriate, hyperverbal and visible on unit. Pt presents with poor insight into condition and need for care. He is compliant with medication regiment. Pt is being referred to [facility] facilities as he will require this placement following discharge. Occupational Therapist Input: Pt is cooperative and attends 50% of groups. Documentation Scribe: ANI Lane Elizabeth RMGeorgiana May 27, 2017 11:05
--- NOTE | 2017-05-27 11:21 | PD.TTN ---
Patient Problems 1. Discharge planning 2. Medication compliance 3. Knowledge deficit 4. Lack of coping skills Progress Toward Goals Provider Present: Dr. Noni Euceda Provider Input: Placement options are being reviewed and pt is due for his Haldol Deconoate shot. Nurse(s) Input: Pt appears cooperative, gaurded, mumbles to himself, is focused on discharge back to [place] and is compliant with medication regiment. Psychiatric Counselors Present: MARISOL Hameed Psych Therapist Input: Pt continues to appear disorganized, demanding, cooperative, appropriate, hyperverbal and visible on unit. Pt presents with poor insight into condition and need for care. He is compliant with medication regiment. Pt is being referred to [facility] facilities as he will require this placement following discharge. Group Spec/RT/OT/GUZMÁN Present: Dev Ferrari OT Group Spec/RT/OT/GUZMÁN Input: Patient attends selective groups mostly exercise group Occupational Therapist Input: Pt is cooperative and attends 50% of groups. Documentation Scribe: Hero Kirkpatrick Leonora Mckeon May 27, 2017 11:21
[2017-05-27] MEDS: HALOPERIDOL DECANOATE 50 MG/ML VIAL IM SCH (15:00)
[2017-05-27] MEDS: LORazepam 1 MG TAB PO PRN (17:51)
[2017-05-27 18:20] VITALS: BP 123/64; PULSE 60; RESP 18; TEMP 98.2; O2SAT 96
[2017-05-27] MEDS: DIVALPROEX SODIUM E.R. 500 MG TAB PO SCH (20:44)
[2017-05-27] MEDS: REMOVE OLD NICODERM (NICOTINE) PATCH T-DERMAL SCH (20:45)
[2017-05-28 05:51] VITALS: BP 142/84; PULSE 77; RESP 18; TEMP 97.4; O2SAT 96
[2017-05-28] MEDS: LIDOCAINE HCL 5% PATCH T-DERMAL SCH (09:00)
[2017-05-28] MEDS: NICOTINE 21 MG/24 HR PATCH T-DERMAL SCH (09:00)
--- NOTE | 2017-05-28 09:54 | HHI.PYPN ---
Subjective Remarks Patient seen and examined with counselor and to nurse. Chart reviewed. Case discussed with nursing staff. Patient received Haldol Dec without incident yesterday. Nurse does note that patient had been growing a little more unruly in the several days prior to his Decanoate injection. On my exam today, patient is needy, childlike. Remains focused on discharge but now says that he does not want us to look into the facility in [place] because it is too far for his mother to drive. He reports he was experiencing VH of "shadow people" yesterday but the Haldol Dec helped. Denies AVH at this time. No SI or HI. No side effects from medications. No physical complaints. Review of Systems ROS Limitations: Poor Historian Except as stated in HPI: all other systems reviewed are Neg Objective Alert: Yes [place]: Person, Place Mood: Calm Affect: Blunted (childlike) Memory Intact: Comment (not assessed) Hallucinations: Other (Denies AVH at this time) Delusions: No Delusion Type: Other (No delusional material) Suicidal: Ideation (no si) Homicidal: Ideation (no hi) Insight/Judgment poor Remarks No abnormal motor movements noted. Grooming and hygiene fair. Labs Labs reviewed. Vitals/IOs Vital Signs Date Time Temp Pulse Resp B/P (MAP) Pulse Ox O2 Delivery O2 Flow Rate FiO2 05/28/17 05:51 97.4 77 18 142/84 (103) 96 Assessment & Plan Problem List: (1) Adjustment disorder with mixed disturbance of emotions and conduct ICD Codes: F43.25 - Adjustment disorder with mixed disturbance of emotions and conduct Status: Acute (2) Schizophrenia ICD Codes: F20.9 - Schizophrenia, unspecified Status: Acute Assessment & Plan Continue current psychotropics as ordered. Going forward, we might consider administering Haldol Dec every 3-3.5 weeks (i.e. around the end of May for next dose) given that patient seemed to decompensate slightly just before next dose. I will check a CBC, CMP, ammonia, and VPA level this evening to rule out medical/adherence issues as cause for aberrant behavior. Continue to monitor on the high acuity unit. Continue other medications and care as ordered. Justification for Cont. Inpt. High risk for decompensation in less restrictive environment. Discharge Planning Placement versus state psychiatric hospitalization. Request HC Surrog/Guard Advoc?: No Problem Qualifiers (1) Schizophrenia: Feliciano Euceda MD May 28, 2017 09:54
[2017-05-28] MEDS: OLANZapine 5 MG TAB PO SCH ×2 (09:56→21:24)
[2017-05-28] MEDS: HALOPERIDOL 5 MG TAB PO SCH ×2 (09:56→21:25)
[2017-05-28] MEDS: LORazepam 1 MG TAB PO PRN (09:56)
[2017-05-28] MEDS: LACTULOSE SYRUP 20 GM/30 ML CUP PO SCH ×2 (09:56→21:24)
[2017-05-28 18:18] VITALS: BP 127/68; PULSE 59; RESP 18; TEMP 98.1; O2SAT 95
[2017-05-28 18:43] LABS: AUTOMATED NEUTROPHIL # 3.3 TH/MM3 (1.8-7.7); BASOPHIL % 0.5 % (0.0-2.0); EOSINOPHIL # 0.2 TH/MM3 (0-0.4); EOSINOPHIL % 2.7 % (0.0-4.0); HEMATOCRIT 40.6 % (39.0-51.0); HEMO FLAGS DIFF FINAL; LYMPH % 40.2 % (9.0-44.0); LYMPHOCYTE # 2.7 TH/MM3 (1.0-4.8); MEAN CELL VOLUME 89.7 FL (80.0-100.0); MEAN CORPUSCULAR HEMOGLOBIN 31.2 PG (27.0-34.0); MEAN CORPUSCULAR HGB CONC 34.7 % (32.0-36.0); MONO % 7.2 % (0.0-8.0); NEUT % 49.4 % (16.0-70.0); PLATELET COUNT 166 TH/MM3 (150-450); RED BLOOD COUNT 4.53 MIL/MM3 (4.50-5.90); RED CELL DISTRIBUTION WIDTH 13.2 % (11.6-17.2); WHITE BLOOD COUNT 6.8 TH/MM3 (4.0-11.0)
[2017-05-28 19:08] LABS: AST (GOT) 10 U/L (15-37); BICARBONATE 29.1 MEQ/L (21.0-32.0); BLOOD UREA NITROGEN 12 MG/DL (7-18); GLOMERULAR FILTRATION RATE 129 ML/MIN (>89)
[2017-05-28 19:10] LABS: ALT (GPT) 17 U/L (12-78)
[2017-05-28 19:48] LABS: ALKALINE PHOSPHATASE 74 U/L (45-117); ANION GAP 7 MEQ/L (5-15); CHLORIDE 104 MEQ/L (98-107); POTASSIUM 3.8 MEQ/L (3.5-5.1); SODIUM (NA) 140 MEQ/L (136-145); TOTAL BILIRUBIN ADULT 0.3 MG/DL (0.2-1.0)
[2017-05-28] MEDS: REMOVE OLD NICODERM (NICOTINE) PATCH T-DERMAL SCH (21:00)
[2017-05-28] MEDS: DIVALPROEX SODIUM E.R. 500 MG TAB PO SCH (21:25)
[2017-05-29 05:42] VITALS: BP 95/50; PULSE 55; RESP 16; TEMP 98; O2SAT 98
[2017-05-29] MEDS: LIDOCAINE HCL 5% PATCH T-DERMAL SCH (08:51)
[2017-05-29] MEDS: OLANZapine 5 MG TAB PO SCH ×2 (08:51→20:40)
[2017-05-29] MEDS: NICOTINE 21 MG/24 HR PATCH T-DERMAL SCH (08:51)
[2017-05-29] MEDS: HALOPERIDOL 5 MG TAB PO SCH ×2 (08:51→20:39)
[2017-05-29] MEDS: LACTULOSE SYRUP 20 GM/30 ML CUP PO SCH ×2 (08:51→20:38)
--- NOTE | 2017-05-29 11:34 | HHI.PYPN ---
Subjective Remarks Patient seen and examined with counselor. Chart reviewed. Case discussed with nursing staff. Patient calm, no behavioral problem today. No SI/HI. No hallucinations. Most of session spent discussing discharge planning with counselor. Placement remains quite difficult given patient's history. No side effects from medications. No physical complaints. Review of Systems Except as stated in HPI: all other systems reviewed are Neg Objective Alert: Yes [place]: Person, Place Mood: Calm Affect: Appropriate Memory Intact: Comment (not assessed) Hallucinations: Other (No hallucinations) Delusions: No Delusion Type: Other (No delusions) Suicidal: Ideation (No SI) Homicidal: Ideation (No HI) Insight/Judgment Poor Remarks No motoric abnormalities noted Labs Test 05/28/17 18:10 05/28/17 22:03 White Blood Count 6.8 TH/MM3 Red Blood Count 4.53 MIL/MM3 Hemoglobin 14.1 GM/DL Hematocrit 40.6 % Mean Corpuscular Volume 89.7 FL Mean Corpuscular Hemoglobin 31.2 PG Mean Corpuscular Hemoglobin Concent 34.7 % Red Cell Distribution Width 13.2 % Platelet Count 166 TH/MM3 Mean Platelet Volume 8.6 FL Neutrophils (%) (Auto) 49.4 % Lymphocytes (%) (Auto) 40.2 % Monocytes (%) (Auto) 7.2 % Eosinophils (%) (Auto) 2.7 % Basophils (%) (Auto) 0.5 % Neutrophils # (Auto) 3.3 TH/MM3 Lymphocytes # (Auto) 2.7 TH/MM3 Monocytes # (Auto) 0.5 TH/MM3 Eosinophils # (Auto) 0.2 TH/MM3 Basophils # (Auto) 0.0 TH/MM3 CBC Comment DIFF FINAL Differential Comment Blood Urea Nitrogen 12 MG/DL Creatinine 0.67 MG/DL Random Glucose 92 MG/DL Total Protein 6.5 GM/DL Albumin 3.3 GM/DL Calcium Level 8.4 MG/DL Alkaline Phosphatase 74 U/L Aspartate Amino Transf (AST/SGOT) 10 U/L Alanine Aminotransferase (ALT/SGPT) 17 U/L Total Bilirubin 0.3 MG/DL Sodium Level 140 MEQ/L Potassium Level 3.8 MEQ/L Chloride Level 104 MEQ/L Carbon Dioxide Level 29.1 MEQ/L Anion Gap 7 MEQ/L Estimat Glomerular Filtration Rate 129 ML/MIN Valproic Acid (Depakene) Level 66 MCG/ML Ammonia 51 MCMOL/L Labs reviewed: CBC unremarkable CMP unremarkable Ammonia level slightly down Depakote level stable and remains within the therapeutic range. Vitals/IOs Vital Signs Date Time Temp Pulse Resp B/P (MAP) Pulse Ox O2 Delivery O2 Flow Rate FiO2 05/29/17 05:42 98.0 55 16 95/50 (65) 98 Assessment & Plan Problem List: (1) Adjustment disorder with mixed disturbance of emotions and conduct ICD Codes: F43.25 - Adjustment disorder with mixed disturbance of emotions and conduct Status: Acute (2) Schizophrenia ICD Codes: F20.9 - Schizophrenia, unspecified Status: Acute Assessment & Plan Continue current psychotropic medications as ordered. Continue to monitor on the high acuity unit. Continue other medications and care as ordered. Justification for Cont. Inpt. Risk for decompensation in less restrictive environment Discharge Planning Placement versus state psychiatric hospital Request HC Surrog/Guard Advoc?: No Problem Qualifiers (1) Schizophrenia: Feliciano Euceda MD May 29, 2017 11:34
[2017-05-29 17:54] VITALS: BP 132/88; PULSE 66; RESP 18; TEMP 97.2; O2SAT 96
[2017-05-29] MEDS: DIVALPROEX SODIUM E.R. 500 MG TAB PO SCH (20:39)
[2017-05-29] MEDS: REMOVE OLD NICODERM (NICOTINE) PATCH T-DERMAL SCH (20:40)
[2017-05-30 06:16] VITALS: BP 138/79; PULSE 55; RESP 17; TEMP 97.6; O2SAT 96
[2017-05-30] MEDS: NICOTINE 21 MG/24 HR PATCH T-DERMAL SCH (09:00)
[2017-05-30] MEDS: LIDOCAINE HCL 5% PATCH T-DERMAL SCH (09:00)
[2017-05-30] MEDS: OLANZapine 5 MG TAB PO SCH ×2 (09:08→20:35)
[2017-05-30] MEDS: HALOPERIDOL 5 MG TAB PO SCH ×2 (09:08→20:35)
[2017-05-30] MEDS: LACTULOSE SYRUP 20 GM/30 ML CUP PO SCH ×2 (09:09→20:35)
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
[2017-05-30] MEDS: FLUTICASONE PROPIONATE 50 MCG/ACT 16 GM NASAL SPRAY EACH NARE SCH (17:45)
[2017-05-30] MEDS ORDERED: ACETIC ACID/HYDROCORTISONE OTIC SOLN 10 ML BTL RIGHT EAR SCH (17:45)
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
[2017-05-30 18:25] VITALS: BP 144/78; PULSE 68; RESP 17; TEMP 98.8; O2SAT 99
[2017-05-30] MEDS: NEOMYCIN/POLYMYXIN/HYDROCORT OTIC SOLN 10 ML BTL RIGHT EAR SCH (20:00)
[2017-05-30] MEDS: traZODone HCL 50 MG TAB PO PRN (20:35)
[2017-05-30] MEDS: DIVALPROEX SODIUM E.R. 500 MG TAB PO SCH (20:35)
[2017-05-30] MEDS: REMOVE OLD NICODERM (NICOTINE) PATCH T-DERMAL SCH (21:00)
[2017-05-31] MEDS: NEOMYCIN/POLYMYXIN/HYDROCORT OTIC SOLN 10 ML BTL RIGHT EAR SCH ×3 (09:00→17:08)
[2017-05-31] MEDS: HALOPERIDOL 5 MG TAB PO SCH ×2 (09:00→20:24)
[2017-05-31] MEDS: OLANZapine 5 MG TAB PO SCH ×2 (09:00→20:23)
[2017-05-31] MEDS: LACTULOSE SYRUP 20 GM/30 ML CUP PO SCH ×2 (09:00→20:24)
[2017-05-31] MEDS: NICOTINE 21 MG/24 HR PATCH T-DERMAL SCH (09:00)
[2017-05-31] MEDS: LIDOCAINE HCL 5% PATCH T-DERMAL SCH (09:00)
[2017-05-31] MEDS: FLUTICASONE PROPIONATE 50 MCG/ACT 16 GM NASAL SPRAY EACH NARE SCH (09:00)
--- NOTE | 2017-05-31 13:11 | HHI.PYPN ---
Subjective Remarks Patient seen and case discussed with nurse. Labs reviewed. Appears to be improving. No complaints of psychosis, suicidal or homicidal ideation. Review of Systems Except as stated in HPI: all other systems reviewed are Neg Objective Alert: Yes [place]: Person, Place Mood: Calm Affect: Blunted Memory Intact: Comment (not assessed) Hallucinations: Auditory (none), Visual ("shadow people") Delusions: No Delusion Type: Other (No delusions) Suicidal: Ideation (No SI) Homicidal: Ideation (No HI) Insight/Judgment Improved Vitals/IOs Vital Signs Date Time Temp Pulse Resp B/P (MAP) Pulse Ox O2 Delivery O2 Flow Rate FiO2 05/30/17 18:25 98.8 68 17 144/78 (100) 99 Assessment & Plan Problem List: (1) Adjustment disorder with mixed disturbance of emotions and conduct ICD Codes: F43.25 - Adjustment disorder with mixed disturbance of emotions and conduct Status: Acute (2) Schizophrenia ICD Codes: F20.9 - Schizophrenia, unspecified Status: Acute Assessment & Plan Estimated LOS: days continue current antipsychotic medicines. Justification for Cont. Inpt. Waiting for medication efficacy to be adequate. Request HC Surrog/Guard Advoc?: No Problem Qualifiers (1) Schizophrenia: Panchito Kaufman MD May 31, 2017 13:11
[2017-05-31] MEDS: ACETAMINOPHEN 325 MG TAB PO PRN ×2 (16:37→17:08)
[2017-05-31 17:34] VITALS: BP 127/66; PULSE 57; RESP 17; TEMP 99; O2SAT 98
[2017-05-31] MEDS: LORazepam 0.5 MG TAB PO PRN (17:57)
[2017-05-31] MEDS: traZODone HCL 50 MG TAB PO PRN (20:23)
[2017-05-31] MEDS: DIVALPROEX SODIUM E.R. 500 MG TAB PO SCH (20:23)
[2017-05-31] MEDS: REMOVE OLD NICODERM (NICOTINE) PATCH T-DERMAL SCH (20:24)
[2017-06-01 05:55] VITALS: BP 146/72; PULSE 57; RESP 18; TEMP 98.1; O2SAT 97
[2017-06-01] MEDS: OLANZapine 5 MG TAB PO SCH ×2 (08:44→21:00)
[2017-06-01] MEDS: HALOPERIDOL 5 MG TAB PO SCH ×2 (08:44→21:00)
[2017-06-01] MEDS: FLUTICASONE PROPIONATE 50 MCG/ACT 16 GM NASAL SPRAY EACH NARE SCH (08:44)
[2017-06-01] MEDS: NEOMYCIN/POLYMYXIN/HYDROCORT OTIC SOLN 10 ML BTL RIGHT EAR SCH ×3 (08:44→17:16)
[2017-06-01] MEDS: LACTULOSE SYRUP 20 GM/30 ML CUP PO SCH ×2 (08:44→21:00)
[2017-06-01] MEDS: NICOTINE 21 MG/24 HR PATCH T-DERMAL SCH (08:51)
[2017-06-01] MEDS: LIDOCAINE HCL 5% PATCH T-DERMAL SCH (08:52)
--- NOTE | 2017-06-01 13:44 | HHI.PYPN ---
Subjective Remarks Patient seen and examined. Chart reviewed. Case discussed with nursing staff. No behavioral issues overnight. On my examination today, patient is calm and pleasant. Denies AVH. No SI or HI. Her pain is improving. He asks to get a shave. No side effects from medications. No new physical complaints. Review of Systems Except as stated in HPI: all other systems reviewed are Neg Objective Alert: Yes [place]: Person, Place Mood: Calm Affect: Appropriate Memory Intact: Comment (not formally assessed) Hallucinations: Other (denies AVH) Delusions: No Delusion Type: Other (No delusions) Suicidal: Ideation (No SI) Homicidal: Ideation (No HI) Insight/Judgment Poor Remarks No motor abnormalities noted. Labs Labs reviewed. Vitals/IOs Vital Signs Date Time Temp Pulse Resp B/P (MAP) Pulse Ox O2 Delivery O2 Flow Rate FiO2 06/01/17 05:55 98.1 57 18 146/72 (96) 97 Assessment & Plan Problem List: (1) Adjustment disorder with mixed disturbance of emotions and conduct ICD Codes: F43.25 - Adjustment disorder with mixed disturbance of emotions and conduct Status: Acute (2) Schizophrenia ICD Codes: F20.9 - Schizophrenia, unspecified Status: Acute Assessment & Plan Continue current psychotropics as ordered. Continue other medications and care as ordered. Patient may get a shave with staff supervision. Justification for Cont. Inpt. Risk for decompensation Discharge Planning Placement versus critical access hospital psychiatric hospital referral. Request HC Surrog/Guard Advoc?: No Problem Qualifiers (1) Schizophrenia: Feliciano Euceda MD Jun 01, 2017 13:44
[2017-06-01 17:49] VITALS: BP 104/60; PULSE 54; RESP 17; TEMP 97.3; O2SAT 95
[2017-06-01] MEDS: REMOVE OLD NICODERM (NICOTINE) PATCH T-DERMAL SCH (21:00)
[2017-06-01] MEDS: DIVALPROEX SODIUM E.R. 500 MG TAB PO SCH (21:00)
[2017-06-01] MEDS: LORazepam 1 MG TAB PO PRN (21:00)
[2017-06-01] MEDS: traZODone HCL 50 MG TAB PO PRN (21:00)
[2017-06-02 05:57] VITALS: BP 104/65; PULSE 50; RESP 18; TEMP 98.3; O2SAT 98
[2017-06-02] MEDS: NEOMYCIN/POLYMYXIN/HYDROCORT OTIC SOLN 10 ML BTL RIGHT EAR SCH ×3 (09:00→17:09)
[2017-06-02] MEDS: OLANZapine 5 MG TAB PO SCH ×2 (09:00→21:00)
[2017-06-02] MEDS: LACTULOSE SYRUP 20 GM/30 ML CUP PO SCH ×2 (09:00→21:00)
[2017-06-02] MEDS: LIDOCAINE HCL 5% PATCH T-DERMAL SCH (09:00)
[2017-06-02] MEDS: NICOTINE 21 MG/24 HR PATCH T-DERMAL SCH (09:00)
[2017-06-02] MEDS: HALOPERIDOL 5 MG TAB PO SCH ×2 (09:00→21:00)
[2017-06-02] MEDS: FLUTICASONE PROPIONATE 50 MCG/ACT 16 GM NASAL SPRAY EACH NARE SCH (09:00)
--- NOTE | 2017-06-02 15:57 | HHI.PYPN ---
Subjective Remarks Patient was seen today for psychiatric reevaluation along with nursing charge, patient is calm, cooperative and pleasant. Patient states that he is ready to go back home. He says that he has been thinking about how to hold himself and avoid explosive behavior. He says the He was just walk away. Patient reports good mood, denies suicidal and homicidal ideation, patient denies visual and auditory hallucinations. At least in the last 24 hours, patient has no present any reportable agitation or aggressive behavior. She has been fully compliant with medications, no significant side effects. Review of Systems Other No somatic complaints Objective Alert: Yes [place]: Person, Place Mood: Calm Affect: Appropriate Memory Intact: Comment (not formally assessed) Hallucinations: Other (denies AVH) Delusions: No Delusion Type: Other (No delusions) Suicidal: Ideation (No SI) Homicidal: Ideation (No HI) Insight/Judgment Good Vitals/IOs Vital Signs Date Time Temp Pulse Resp B/P (MAP) Pulse Ox O2 Delivery O2 Flow Rate FiO2 06/02/17 05:57 98.3 50 18 104/65 (78) 98 Assessment & Plan Problem List: (1) Adjustment disorder with mixed disturbance of emotions and conduct ICD Codes: F43.25 - Adjustment disorder with mixed disturbance of emotions and conduct Status: Acute (2) Schizophrenia ICD Codes: F20.9 - Schizophrenia, unspecified Status: Acute Assessment & Plan Estimated LOS: days Justification for Cont. Inpt. Patient has an elevated risk to decompensate at a lower level of care. Request HC Surrog/Guard Advoc?: No Problem Qualifiers (1) Schizophrenia: Hammad Wesley MD Jun 02, 2017 15:57
[2017-06-02 17:29] VITALS: BP 127/61; PULSE 61; RESP 16; TEMP 98.2; O2SAT 98
[2017-06-02] MEDS: DIVALPROEX SODIUM E.R. 500 MG TAB PO SCH (21:00)
[2017-06-02] MEDS: diphenhydrAMINE HCL 50 MG CAP PO PRN (21:00)
[2017-06-02] MEDS: LORazepam 1 MG TAB PO PRN ×2 (21:00→21:05)
[2017-06-02] MEDS: REMOVE OLD NICODERM (NICOTINE) PATCH T-DERMAL SCH (21:00)
[2017-06-03 06:03] VITALS: BP 99/56; PULSE 51; RESP 18; TEMP 97.6; O2SAT 98
[2017-06-03] MEDS: FLUTICASONE PROPIONATE 50 MCG/ACT 16 GM NASAL SPRAY EACH NARE SCH (09:00)
[2017-06-03] MEDS: NICOTINE 21 MG/24 HR PATCH T-DERMAL SCH (09:00)
[2017-06-03] MEDS: OLANZapine 5 MG TAB PO SCH ×2 (09:00→20:49)
[2017-06-03] MEDS: LIDOCAINE HCL 5% PATCH T-DERMAL SCH (09:00)
[2017-06-03] MEDS: LACTULOSE SYRUP 20 GM/30 ML CUP PO SCH ×2 (09:03→20:48)
[2017-06-03] MEDS: HALOPERIDOL 5 MG TAB PO SCH ×2 (09:03→20:48)
[2017-06-03] MEDS: NEOMYCIN/POLYMYXIN/HYDROCORT OTIC SOLN 10 ML BTL RIGHT EAR SCH ×3 (09:03→17:55)
--- NOTE | 2017-06-03 10:47 | HHI.PYPN ---
Subjective Remarks Patient seen and examined with nurse. Chart reviewed. Case discussed in treatment team. On my exam, patient calm and cooperative. No particular psychiatric or physical complaints. Denies side effects from medications. Says he slept a little poorly overnight but this was because there were people yelling in the hallways, which is likely fact-based. Review of Systems ROS Limitations: Poor Historian Except as stated in HPI: all other systems reviewed are Neg Objective Alert: Yes [place]: Person, Place Mood: Calm Affect: Blunted Memory Intact: Comment (not formally assessed) Hallucinations: Other (no AVH) Delusions: No Delusion Type: Other (no delusional material elicited) Suicidal: Ideation (No SI) Homicidal: Ideation (No HI) Insight/Judgment Poor Remarks No motor abnormalities noted Labs Labs reviewed. Vitals/IOs Vital Signs Date Time Temp Pulse Resp B/P (MAP) Pulse Ox O2 Delivery O2 Flow Rate FiO2 06/03/17 06:03 97.6 51 18 99/56 (70) 98 Assessment & Plan Problem List: (1) Adjustment disorder with mixed disturbance of emotions and conduct ICD Codes: F43.25 - Adjustment disorder with mixed disturbance of emotions and conduct Status: Acute (2) Schizophrenia ICD Codes: F20.9 - Schizophrenia, unspecified Status: Acute Assessment & Plan Continue current psychotropics as ordered. Continue to monitor on the inpatient unit. I did offer once again to transfer him to the lower acuity unit where it might be more quiet, but patient maintains he is most comfortable where he is at. Continue other medications and care as ordered. Justification for Cont. Inpt. Risk for decompensation Discharge Planning Placement versus state hospital Request HC Surrog/Guard Advoc?: No Problem Qualifiers (1) Schizophrenia: Feliciano Euceda MD Jun 03, 2017 10:47
[2017-06-03 17:57] VITALS: PULSE 68; RESP 18; TEMP 97.6; O2SAT 95
[2017-06-03 17:58] VITALS: BP 117/54; PULSE 68; RESP 18; TEMP 97.6; O2SAT 95
[2017-06-03] MEDS: DIVALPROEX SODIUM E.R. 500 MG TAB PO SCH (20:48)
[2017-06-03] MEDS: REMOVE OLD NICODERM (NICOTINE) PATCH T-DERMAL SCH (20:49)
[2017-06-04 06:04] VITALS: BP 114/61; PULSE 54; RESP 14; TEMP 98; O2SAT 98
[2017-06-04] MEDS: LIDOCAINE HCL 5% PATCH T-DERMAL SCH (09:00)
[2017-06-04] MEDS: LACTULOSE SYRUP 20 GM/30 ML CUP PO SCH ×2 (09:00→20:35)
[2017-06-04] MEDS: OLANZapine 5 MG TAB PO SCH ×2 (09:00→20:36)
[2017-06-04] MEDS: NICOTINE 21 MG/24 HR PATCH T-DERMAL SCH (09:00)
[2017-06-04] MEDS: FLUTICASONE PROPIONATE 50 MCG/ACT 16 GM NASAL SPRAY EACH NARE SCH (09:01)
[2017-06-04] MEDS: NEOMYCIN/POLYMYXIN/HYDROCORT OTIC SOLN 10 ML BTL RIGHT EAR SCH ×3 (09:01→18:21)
[2017-06-04] MEDS: HALOPERIDOL 5 MG TAB PO SCH ×2 (09:01→20:35)
--- NOTE | 2017-06-04 10:21 | HHI.PYPN ---
Subjective Remarks Patient seen and examined with counselor and nurse. Chart reviewed. Case discussed with nursing staff. No behavioral issues overnight. On my examination today, patient calm and pleasant. Engages counselor in discharge planning discussion. No psychiatric symptoms reported. No side effects from medications. No physical complaints. Review of Systems Except as stated in HPI: all other systems reviewed are Neg Objective Alert: Yes [place]: Person, Place Mood: Calm Affect: Blunted Memory Intact: Comment (not formally assessed) Hallucinations: Other (no AVH) Delusions: No Delusion Type: Other (no delusions) Suicidal: Ideation (No SI) Homicidal: Ideation (no homicidal ideation) Insight/Judgment Poor Remarks No motor abnormalities noted Labs Labs reviewed Vitals/IOs Vital Signs Date Time Temp Pulse Resp B/P (MAP) Pulse Ox O2 Delivery O2 Flow Rate FiO2 06/04/17 06:04 98.0 54 14 114/61 (78) 98 Assessment & Plan Problem List: (1) Adjustment disorder with mixed disturbance of emotions and conduct ICD Codes: F43.25 - Adjustment disorder with mixed disturbance of emotions and conduct Status: Acute (2) Schizophrenia ICD Codes: F20.9 - Schizophrenia, unspecified Status: Acute Assessment & Plan Continue current psychotropics as ordered. Continue to monitor on the inpatient unit. Continue other medications and care as ordered. Justification for Cont. Inpt. Risk for decompensation Discharge Planning Placement versus [facility] referral Request HC Surrog/Guard Advoc?: No Problem Qualifiers (1) Schizophrenia: Feliciano Euceda MD Jun 04, 2017 10:21
[2017-06-04] MEDS: DIVALPROEX SODIUM E.R. 500 MG TAB PO SCH (20:35)
[2017-06-05 06:19] VITALS: BP 123/69; PULSE 58; RESP 14; TEMP 97.6; O2SAT 95
[2017-06-05] MEDS: LACTULOSE SYRUP 20 GM/30 ML CUP PO SCH ×2 (08:08→20:39)
[2017-06-05] MEDS: HALOPERIDOL 5 MG TAB PO SCH ×2 (08:08→20:39)
[2017-06-05] MEDS: FLUTICASONE PROPIONATE 50 MCG/ACT 16 GM NASAL SPRAY EACH NARE SCH (08:09)
[2017-06-05] MEDS: NEOMYCIN/POLYMYXIN/HYDROCORT OTIC SOLN 10 ML BTL RIGHT EAR SCH ×3 (08:09→17:08)
[2017-06-05] MEDS: OLANZapine 5 MG TAB PO SCH ×2 (08:10→20:39)
--- NOTE | 2017-06-05 09:25 | HHI.PYPN ---
Subjective Remarks Patient seen and examined with counselor and nurse. Chart reviewed. Case discussed with nursing staff. On my examination today, patient no behavioral problem. Counselor reports that he has reached out to patient's mother and left a voicemail. Ongoing discussion regarding discharge planning. Counselor suggests possible [facility] placement, and patient is receptive to this idea. No side effects from medications. No physical complaints. Review of Systems Except as stated in HPI: all other systems reviewed are Neg Objective Alert: Yes [place]: Person, Place Mood: Calm Affect: Appropriate Memory Intact: Comment (not formally assessed) Hallucinations: Other (None) Delusions: No Delusion Type: Other (No delusions) Suicidal: Ideation (No SI) Homicidal: Ideation (No HI) Insight/Judgment Poor Remarks No motoric abnormalities noted. Thought process linear. Labs Labs reviewed. Vitals/IOs Vital Signs Date Time Temp Pulse Resp B/P (MAP) Pulse Ox O2 Delivery O2 Flow Rate FiO2 06/05/17 06:19 97.6 58 14 123/69 (87) 95 Assessment & Plan Problem List: (1) Adjustment disorder with mixed disturbance of emotions and conduct ICD Codes: F43.25 - Adjustment disorder with mixed disturbance of emotions and conduct Status: Acute (2) Schizophrenia ICD Codes: F20.9 - Schizophrenia, unspecified Status: Acute Assessment & Plan Continue current psychotropic medications as ordered. Continue to monitor inpatient. Continue other medications and care as ordered. Justification for Cont. Inpt. Risk for decompensation Discharge Planning Placement versus state psychiatric hospitalization Request HC Surrog/Guard Advoc?: No Problem Qualifiers (1) Schizophrenia: Feliciano uEceda MD Jun 05, 2017 09:25
[2017-06-05] MEDS: LORazepam 1 MG TAB PO PRN (10:53)
[2017-06-05 18:27] VITALS: BP 121/74; PULSE 68; RESP 18; TEMP 97.4; O2SAT 97
[2017-06-05] MEDS: DIVALPROEX SODIUM E.R. 500 MG TAB PO SCH (20:40)
[2017-06-05] MEDS: traZODone HCL 50 MG TAB PO PRN (20:42)
[2017-06-06 05:30] VITALS: BP 120/68; PULSE 76; RESP 15; TEMP 97.5; O2SAT 96
[2017-06-06] MEDS: HALOPERIDOL 5 MG TAB PO SCH ×2 (08:01→20:39)
[2017-06-06] MEDS: NEOMYCIN/POLYMYXIN/HYDROCORT OTIC SOLN 10 ML BTL RIGHT EAR SCH ×3 (08:01→18:00)
[2017-06-06] MEDS: LACTULOSE SYRUP 20 GM/30 ML CUP PO SCH ×2 (08:01→20:40)
[2017-06-06] MEDS: FLUTICASONE PROPIONATE 50 MCG/ACT 16 GM NASAL SPRAY EACH NARE SCH (08:02)
[2017-06-06] MEDS: OLANZapine 5 MG TAB PO SCH ×2 (08:02→20:39)
--- NOTE | 2017-06-06 09:40 | HHI.PYPN ---
Subjective Remarks Patient seen and examined with counselor and nurse. Chart reviewed. Case discussed with nursing staff. No behavioral issues noted. Case discussed with counselor who reports he has initiated 5 referrals to group homes in the area. Counselor updates patient on progress with regards to disposition. Patient in fairly good spirits today. No mood or psychotic symptoms. No side effects from medications. No physical complaints. Review of Systems Except as stated in HPI: all other systems reviewed are Neg Objective Alert: Yes [place]: Person, Place Mood: Calm Affect: Appropriate (remains fairly appropriate) Memory Intact: Comment (not formally assessed) Hallucinations: Other (no AVH) Delusions: No Delusion Type: Other (no delusional material) Suicidal: Ideation (no suicidal ideation) Homicidal: Ideation (no homicidal ideation) Insight/Judgment Poor Remarks No motoric abnormalities Labs Labs reviewed Vitals/IOs Vital Signs Date Time Temp Pulse Resp B/P (MAP) Pulse Ox O2 Delivery O2 Flow Rate FiO2 06/06/17 05:30 97.5 76 15 120/68 (85) 96 Assessment & Plan Problem List: (1) Adjustment disorder with mixed disturbance of emotions and conduct ICD Codes: F43.25 - Adjustment disorder with mixed disturbance of emotions and conduct Status: Acute (2) Schizophrenia ICD Codes: F20.9 - Schizophrenia, unspecified Status: Acute Assessment & Plan Continue current psychiatric medications as ordered. To consider discontinuing oral Haldol after the weekend and continuing on with Haldol Decanoate, Zyprexa and Depakote. Continue other medications and care as ordered. Continue to monitor on the inpatient unit. Justification for Cont. Inpt. Risk for decompensation Discharge Planning Placement versus state psychiatric hospitalization Request HC Surrog/Guard Advoc?: No Problem Qualifiers (1) Schizophrenia: Feliciano Euceda MD Jun 06, 2017 09:40
[2017-06-06 16:15] VITALS: BP 149/76; PULSE 76; RESP 17; TEMP 97.6; O2SAT 99
[2017-06-06] MEDS: DIVALPROEX SODIUM E.R. 500 MG TAB PO SCH (20:40)
[2017-06-07 05:41] VITALS: BP 107/61; PULSE 51; RESP 18; TEMP 97.5; O2SAT 99
[2017-06-07] MEDS: OLANZapine 5 MG TAB PO SCH ×2 (09:00→20:39)
[2017-06-07] MEDS: LACTULOSE SYRUP 20 GM/30 ML CUP PO SCH ×2 (09:00→20:36)
[2017-06-07] MEDS: FLUTICASONE PROPIONATE 50 MCG/ACT 16 GM NASAL SPRAY EACH NARE SCH (09:13)
[2017-06-07] MEDS: NEOMYCIN/POLYMYXIN/HYDROCORT OTIC SOLN 10 ML BTL RIGHT EAR SCH ×3 (09:13→18:00)
[2017-06-07] MEDS: HALOPERIDOL 5 MG TAB PO SCH ×2 (09:13→20:36)
[2017-06-07 17:56] VITALS: BP 151/88; PULSE 82; RESP 19; TEMP 98.5; O2SAT 97
--- NOTE | 2017-06-07 18:41 | HHI.PYPN ---
Subjective Remarks Patient was seen and case discussed with nursing. Patient she complaint today is back pain and he is willing to get Motrin. Continues to behave well on the unit. No verbal or physical outbursts. Compliant with medications Objective Alert: Yes [place]: Person, Place Mood: Calm Affect: Labile Memory Intact: Comment (not formally assessed) Hallucinations: Other (no AVH) Delusions: No Delusion Type: Other (no delusional material) Suicidal: Ideation (no suicidal ideation) Homicidal: Ideation (no homicidal ideation) Insight/Judgment Poor Vitals/IOs Vital Signs Date Time Temp Pulse Resp B/P (MAP) Pulse Ox O2 Delivery O2 Flow Rate FiO2 06/07/17 17:56 98.5 82 19 151/88 (109 97 Assessment & Plan Problem List: (1) Adjustment disorder with mixed disturbance of emotions and conduct ICD Codes: F43.25 - Adjustment disorder with mixed disturbance of emotions and conduct Status: Acute (2) Schizophrenia ICD Codes: F20.9 - Schizophrenia, unspecified Status: Acute Assessment & Plan Continue current treatment plan Justification for Cont. Inpt. Patient would decompensate in a less restrictive setting Request HC Surrog/Guard Advoc?: No Problem Qualifiers (1) Schizophrenia: Kirby Velasco DO Jun 07, 2017 18:41
[2017-06-07] MEDS: IBUPROFEN 800 MG TAB PO PRN (19:08)
[2017-06-07] MEDS: diphenhydrAMINE HCL 50 MG CAP PO PRN (20:36)
[2017-06-07] MEDS: DIVALPROEX SODIUM E.R. 500 MG TAB PO SCH (20:36)
[2017-06-08 05:36] VITALS: BP 93/52; PULSE 54; RESP 15; TEMP 96.4; O2SAT 98
[2017-06-08] MEDS: OLANZapine 5 MG TAB PO SCH ×2 (09:00→20:29)
[2017-06-08] MEDS: LACTULOSE SYRUP 20 GM/30 ML CUP PO SCH ×2 (10:21→20:29)
[2017-06-08] MEDS: HALOPERIDOL 5 MG TAB PO SCH ×2 (10:21→20:29)
[2017-06-08] MEDS: FLUTICASONE PROPIONATE 50 MCG/ACT 16 GM NASAL SPRAY EACH NARE SCH (10:22)
[2017-06-08] MEDS: NEOMYCIN/POLYMYXIN/HYDROCORT OTIC SOLN 10 ML BTL RIGHT EAR SCH ×3 (10:22→17:32)
[2017-06-08 17:13] VITALS: BP 128/71; PULSE 75; RESP 18; TEMP 98.5
--- NOTE | 2017-06-08 18:38 | HHI.PYPN ---
Subjective Remarks Patient was seen and case discussed with nursing. Patient today is perseverative and mildly irritable concerning future discharge. He was asked to have patient's while we find placement. He was able to be redirected. Continues to deny psychotic symptoms but could be preoccupied. No outbursts Objective Alert: Yes [place]: Person, Place Mood: Agitated Affect: Labile Memory Intact: Comment (not formally assessed) Hallucinations: Other (no AVH) Delusions: No Delusion Type: Other (vigilance) Suicidal: Ideation (no suicidal ideation) Homicidal: Ideation (no homicidal ideation) Insight/Judgment Poor Vitals/IOs Vital Signs Date Time Temp Pulse Resp B/P (MAP) Pulse Ox O2 Delivery O2 Flow Rate FiO2 06/08/17 17:13 98.5 75 18 128/71 (90) 06/08/17 05:36 98 Assessment & Plan Problem List: (1) Adjustment disorder with mixed disturbance of emotions and conduct ICD Codes: F43.25 - Adjustment disorder with mixed disturbance of emotions and conduct Status: Acute (2) Schizophrenia ICD Codes: F20.9 - Schizophrenia, unspecified Status: Acute Assessment & Plan Continue current treatment plan Justification for Cont. Inpt. Patient will decompensate in a less restrictive setting Request HC Surrog/Guard Advoc?: No Problem Qualifiers (1) Schizophrenia: Kirby Velasco DO Jun 08, 2017 18:38
[2017-06-08] MEDS: DIVALPROEX SODIUM E.R. 500 MG TAB PO SCH (20:29)
[2017-06-09 06:08] VITALS: BP 123/68; PULSE 73; RESP 20; TEMP 97.6; O2SAT 97
--- NOTE | 2017-06-09 08:38 | HHI.PYPN ---
Subjective Remarks Patient seen and examined with nurse. Chart reviewed. Case discussed with nursing staff who reports patient is doing well on the unit. On my examination today, the patient is calm and cooperative with exam. No mood or psychotic symptoms. Denies audiovisual hallucinations. No SI or HI. He would like to discontinue oral Haldol, and we discuss the risks and benefits of so doing. Denies side effects from medications. Complains of some chronic back pain without radiation or bowel/bladder symptoms. No other physical complaints. Review of Systems Except as stated in HPI: all other systems reviewed are Neg Objective Alert: Yes [place]: Person, Place Mood: Calm Affect: Appropriate Memory Intact: Comment (not formally assessed) Hallucinations: Other (denies AVH) Delusions: No Delusion Type: Other (no delusions) Suicidal: Ideation (no SI) Homicidal: Ideation (no HI) Insight/Judgment Poor Remarks No motor abnormalities noted. Thought process linear. Labs Labs reviewed Vitals/IOs Vital Signs Date Time Temp Pulse Resp B/P (MAP) Pulse Ox O2 Delivery O2 Flow Rate FiO2 06/09/17 06:08 97.6 73 20 123/68 (86) 97 Assessment & Plan Problem List: (1) Adjustment disorder with mixed disturbance of emotions and conduct ICD Codes: F43.25 - Adjustment disorder with mixed disturbance of emotions and conduct Status: Acute (2) Schizophrenia ICD Codes: F20.9 - Schizophrenia, unspecified Status: Acute Assessment & Plan Discontinue oral Haldol. Continue with Haldol Decanoate as ordered. Continue other psychotropics as ordered. Continue symptomatic treatment for patient's chronic back pain. Continue to monitor on the inpatient unit. Continue other medications and care as ordered. Justification for Cont. Inpt. Med changes. Risk for decompensation. Discharge Planning Placement versus state psychiatric hospitalization Request HC Surrog/Guard Advoc?: No Problem Qualifiers (1) Schizophrenia: Feliciano Euceda MD Jun 09, 2017 08:38
[2017-06-09] MEDS: FLUTICASONE PROPIONATE 50 MCG/ACT 16 GM NASAL SPRAY EACH NARE SCH (09:00)
[2017-06-09] MEDS: NEOMYCIN/POLYMYXIN/HYDROCORT OTIC SOLN 10 ML BTL RIGHT EAR SCH ×3 (09:00→18:00)
[2017-06-09] MEDS: OLANZapine 5 MG TAB PO SCH ×2 (09:00→21:00)
[2017-06-09] MEDS: HALOPERIDOL 5 MG TAB PO SCH (09:19)
[2017-06-09] MEDS: LACTULOSE SYRUP 20 GM/30 ML CUP PO SCH ×2 (09:19→21:00)
[2017-06-09] MEDS: traZODone HCL 50 MG TAB PO PRN (21:00)
[2017-06-09] MEDS: DIVALPROEX SODIUM E.R. 500 MG TAB PO SCH (21:00)
[2017-06-10] MEDS: NEOMYCIN/POLYMYXIN/HYDROCORT OTIC SOLN 10 ML BTL RIGHT EAR SCH ×3 (09:00→18:00)
[2017-06-10] MEDS: OLANZapine 5 MG TAB PO SCH ×2 (09:00→21:00)
[2017-06-10] MEDS: LACTULOSE SYRUP 20 GM/30 ML CUP PO SCH ×2 (09:11→21:41)
[2017-06-10] MEDS: FLUTICASONE PROPIONATE 50 MCG/ACT 16 GM NASAL SPRAY EACH NARE SCH (09:11)
--- NOTE | 2017-06-10 12:35 | HHI.PYPN ---
Subjective Remarks Patient seen and examined with nurse. Chart reviewed. Case discussed in treatment team. On my examination today, patient is in fairly good spirits. No evidence of psychotic decompensation off of oral Haldol. Behaving well on the unit per nursing staff. No side effects from medications. No physical complaints. Patient is agreeable to a trial of transition to a lower acuity 2600 unit. Review of Systems ROS Limitations: Poor Historian Except as stated in HPI: all other systems reviewed are Neg Objective Alert: Yes [place]: Person, Place Mood: Calm Affect: Appropriate (remains appropriate) Memory Intact: Comment (not formally assessed) Hallucinations: Other (denies AVH) Delusions: No Delusion Type: Other (no delusional material elicited) Suicidal: Ideation (no SI) Homicidal: Ideation (no HI) Insight/Judgment Poor Remarks No motoric abnormalities appreciated Labs Labs reviewed Vitals/IOs Vital Signs Date Time Temp Pulse Resp B/P (MAP) Pulse Ox O2 Delivery O2 Flow Rate FiO2 06/09/17 06:08 97.6 73 20 123/68 (86) 97 Assessment & Plan Problem List: (1) Adjustment disorder with mixed disturbance of emotions and conduct ICD Codes: F43.25 - Adjustment disorder with mixed disturbance of emotions and conduct Status: Acute (2) Schizophrenia ICD Codes: F20.9 - Schizophrenia, unspecified Status: Acute Assessment & Plan Transfer to 2600 unit. Continue current psychotropics as ordered. Continue other medications and care as ordered. Justification for Cont. Inpt. Risk for decompensation in less restrictive environment. Discharge Planning Placement versus state psychiatric hospitalization. Counselor continues to work on placement options for this patient. Request HC Surrog/Guard Advoc?: No Problem Qualifiers (1) Schizophrenia: Feliciano Euceda MD Jun 10, 2017 12:35
[2017-06-10 17:49] VITALS: BP 147/86; PULSE 79; RESP 18; TEMP 96.5; O2SAT 98
[2017-06-10] MEDS: LORazepam 0.5 MG TAB PO PRN (21:38)
[2017-06-10] MEDS: DIVALPROEX SODIUM E.R. 500 MG TAB PO SCH (21:39)
[2017-06-11 06:07] VITALS: BP 150/67; PULSE 46; RESP 18; TEMP 98.3; O2SAT 98
[2017-06-11] MEDS: NEOMYCIN/POLYMYXIN/HYDROCORT OTIC SOLN 10 ML BTL RIGHT EAR SCH ×3 (09:00→17:12)
[2017-06-11] MEDS: LACTULOSE SYRUP 20 GM/30 ML CUP PO SCH ×2 (09:57→21:31)
[2017-06-11] MEDS: FLUTICASONE PROPIONATE 50 MCG/ACT 16 GM NASAL SPRAY EACH NARE SCH (09:58)
[2017-06-11] MEDS: OLANZapine 5 MG TAB PO SCH ×2 (09:59→21:00)
--- NOTE | 2017-06-11 12:40 | HHI.PYPN ---
Subjective Remarks Patient seen and examined with nurse. Chart reviewed. Case discussed with nursing staff who reports the patient has been no behavioral problem on the unit. On my examination today, the patient appears to be adapting well to the milieu of the 2600 unit. Mood is good. No evidence of psychotic decompensation. The patient would like his Depakote to be dosed twice a day instead of once a day. He reports that he has an uncle Kojo who would like to be of assistance in discharge planning, and I have passed this information along to the counselor. No side effects from medications. No physical complaints. Review of Systems Except as stated in HPI: all other systems reviewed are Neg Objective Alert: Yes [place]: Person, Place Mood: Calm Affect: Appropriate Memory Intact: Comment (not assessed) Hallucinations: Other (no hallucinations) Delusions: No Delusion Type: Other (no delusions) Suicidal: Ideation (no SI) Homicidal: Ideation (no HI) Insight/Judgment Poor Remarks No motoric abnormalities noted Labs Labs reviewed Vitals/IOs Vital Signs Date Time Temp Pulse Resp B/P (MAP) Pulse Ox O2 Delivery O2 Flow Rate FiO2 06/11/17 06:07 98.3 46 18 150/67 (94) 98 Assessment & Plan Problem List: (1) Adjustment disorder with mixed disturbance of emotions and conduct ICD Codes: F43.25 - Adjustment disorder with mixed disturbance of emotions and conduct Status: Acute (2) Schizophrenia ICD Codes: F20.9 - Schizophrenia, unspecified Status: Acute Assessment & Plan Adjust Depakote dosing to 500 mg twice daily per patient preference. Continue to monitor on the inpatient unit. Continue other medications and care as ordered. Justification for Cont. Inpt. Risk for decompensation in less restrictive environment Discharge Planning Placement Request HC Surrog/Guard Advoc?: No Problem Qualifiers (1) Schizophrenia: Feliciano Euceda MD Jun 11, 2017 12:40
--- NOTE | 2017-06-11 14:40 | PD.TTN ---
Patient Problems 1. Discharge planning 2. Medication compliance 3. Knowledge deficit 4. Lack of coping skills Progress Toward Goals Provider Present: Dr. Noni Euceda Provider Input: Placement options are being reviewed and pt is due for his Haldol Deconoate shot. 06-10- Pt oral Haldol will be titrated. Medication regiment will continue to be evaluated as needed to assist with further stabilization. Nurse(s) Present: Bayron Herrera RN Nurse(s) Input: Pt appears cooperative, gaurded, mumbles to himself, is focused on discharge back to [place] and is compliant with medication regiment. 06-10- Pt appears withdrawn, cooperative, appropriate, organized, somewhat depressed and compliant with medication. Psychiatric Counselors Present: Leonora Rico [facility] Psych Therapist Input: Pt continues to appear disorganized, demanding, cooperative, appropriate, hyperverbal and visible on unit. Pt presents with poor insight into condition and need for care. He is compliant with medication regiment. Pt is being referred to [facility] facilities as he will require this placement following discharge. 06-10- Pt appears calm, cooperative, repetitive, somewhat paranoid about previous facilities, appropriate, organized and pleasant. He has not presented with further behavioral outbursts and is somewhat less intrusive than previously suggesting some improvement in use of coping skills to regulate emotions. He remains paranoid that previous facilities are going through his belongings and stealing his money/food stamps despite frequent reassurance that this is not the case. Pt insight into condition and need for care appears to be improving as he voices increased understanding of how his behavior has led to his admission. Group Spec/RT/OT/GUZMÁN Present: RAMIREZ Michael Group Spec/RT/OT/GUZMÁN Input: Patient attends selective groups mostly exercise group 06-10- Pt rarely attents groups and does not participate when he does. He mainly isolates to himself and his room. Occupational Therapist Input: Pt is cooperative and attends 50% of groups. Discharge Plan SMA, Other Pt will be referred for outpatient placement at an [facility] or retirement. Documentation Scribe: ANI Lane Jonathan [facility] Jun 11, 2017 14:40
[2017-06-11 18:36] VITALS: BP 138/79; PULSE 63; RESP 16; TEMP 98.4; O2SAT 99
[2017-06-11] MEDS: DIVALPROEX SODIUM E.R. 500 MG TAB PO SCH (21:31)
[2017-06-11] MEDS: LORazepam 0.5 MG TAB PO PRN (21:32)
[2017-06-12] MEDS: OLANZapine 5 MG TAB PO SCH ×2 (09:00→20:47)
[2017-06-12] MEDS: FLUTICASONE PROPIONATE 50 MCG/ACT 16 GM NASAL SPRAY EACH NARE SCH (09:00)
[2017-06-12] MEDS: NEOMYCIN/POLYMYXIN/HYDROCORT OTIC SOLN 10 ML BTL RIGHT EAR SCH ×3 (09:00→17:38)
[2017-06-12] MEDS: DIVALPROEX SODIUM E.R. 500 MG TAB PO SCH ×2 (09:46→20:47)
[2017-06-12] MEDS: LACTULOSE SYRUP 20 GM/30 ML CUP PO SCH ×2 (09:46→20:47)
--- NOTE | 2017-06-12 13:53 | HHI.PYPN ---
Subjective Remarks Patient seen and examined with nurse. Chart reviewed. Case discussed with nursing staff. Patient has been no behavioral problem on the 2600 unit. On my examination today, the patient is in good spirits. He is pleased that his Depakote has been adjusted to twice daily. He denies side effects from medications. We discuss the discharge plan, and the patient requests that the counselor give his mother a call re: discharge planning, and I have passed this request on to the counselor. No new physical complaints. Review of Systems ROS Limitations: Poor Historian Except as stated in HPI: all other systems reviewed are Neg Objective Alert: Yes [place]: Person, Place Mood: Calm Affect: Appropriate Memory Intact: Comment (Not formally assessed) Hallucinations: Other (No AVH) Delusions: No Delusion Type: Other (no delusions) Suicidal: Ideation (no SI) Homicidal: Ideation (no HI) Insight/Judgment Poor Remarks No motor abnormalities appreciated Labs Labs reviewed. Vitals/IOs Vital Signs Date Time Temp Pulse Resp B/P (MAP) Pulse Ox O2 Delivery O2 Flow Rate FiO2 06/11/17 18:36 98.4 63 16 138/79 (98) 99 Intake and Output 06/12/17 06/12/17 06/13/17 08:00 16:00 00:00 Intake Total 840 ml Balance 840 ml Assessment & Plan Problem List: (1) Adjustment disorder with mixed disturbance of emotions and conduct ICD Codes: F43.25 - Adjustment disorder with mixed disturbance of emotions and conduct Status: Acute (2) Schizophrenia ICD Codes: F20.9 - Schizophrenia, unspecified Status: Acute Assessment & Plan Continue current treatment as ordered. Continue to monitor on the inpatient unit. Justification for Cont. Inpt. Risk for decompensation in less restrictive environment. Discharge Planning Placement versus state psychiatric hospital referral Request HC Surrog/Guard Advoc?: No Problem Qualifiers (1) Schizophrenia: Feliciano Euceda MD Jun 12, 2017 13:53
[2017-06-12] MEDS: IBUPROFEN 800 MG TAB PO PRN (15:58)
[2017-06-12 18:06] VITALS: BP 146/80; PULSE 88; RESP 17; TEMP 98.2; O2SAT 95
[2017-06-12] MEDS: traZODone HCL 50 MG TAB PO PRN (22:07)
[2017-06-13 04:58] VITALS: BP 111/57; PULSE 60; RESP 18; TEMP 97.6; O2SAT 96
[2017-06-13] MEDS: OLANZapine 5 MG TAB PO SCH ×2 (09:00→21:00)
[2017-06-13] MEDS: FLUTICASONE PROPIONATE 50 MCG/ACT 16 GM NASAL SPRAY EACH NARE SCH (09:00)
[2017-06-13] MEDS: NEOMYCIN/POLYMYXIN/HYDROCORT OTIC SOLN 10 ML BTL RIGHT EAR SCH ×3 (09:00→18:00)
[2017-06-13] MEDS: LACTULOSE SYRUP 20 GM/30 ML CUP PO SCH ×2 (09:08→21:04)
[2017-06-13] MEDS: DIVALPROEX SODIUM E.R. 500 MG TAB PO SCH ×2 (09:08→21:03)
--- NOTE | 2017-06-13 11:10 | HHI.PYPN ---
Subjective Remarks Patient seen and examined with counselor. Chart reviewed. Case discussed with nursing staff. No behavioral issues overnight. On my examination today, patient is calm and pleasant. Mainly, he wishes to discuss discharge planning, and counselor and I do discuss this with him. No mood or psychotic symptoms. Denies side effects from medications. Requesting a flu shot saying that he has received 1 in the past without incident. Review of Systems Except as stated in HPI: all other systems reviewed are Neg Objective Alert: Yes [place]: Person, Place Mood: Calm Affect: Appropriate Memory Intact: Comment (Not formally assessed) Hallucinations: Other (no hallucinations) Delusions: No Delusion Type: Other (no delusions) Suicidal: Ideation (no SI) Homicidal: Ideation (no HI) Insight/Judgment Poor Remarks No motor abnormalities noted Labs Labs reviewed Vitals/IOs Vital Signs Date Time Temp Pulse Resp B/P (MAP) Pulse Ox O2 Delivery O2 Flow Rate FiO2 06/13/17 04:58 97.6 60 18 111/57 (75) 96 Assessment & Plan Problem List: (1) Adjustment disorder with mixed disturbance of emotions and conduct ICD Codes: F43.25 - Adjustment disorder with mixed disturbance of emotions and conduct Status: Acute (2) Schizophrenia ICD Codes: F20.9 - Schizophrenia, unspecified Status: Acute Assessment & Plan Continue current psychiatric medications as ordered. Flu vaccine ordered. Continue other medications and care as ordered. Justification for Cont. Inpt. Risk for decompensation in less restrictive environment. Discharge Planning Placement versus state psychiatric hospital Request HC Surrog/Guard Advoc?: No Problem Qualifiers (1) Schizophrenia: Feliciano Euceda MD Jun 13, 2017 11:10
[2017-06-13] MEDS: IBUPROFEN 800 MG TAB PO PRN (14:34)
[2017-06-13] MEDS ORDERED: INFLUENZA VIRUS VACCINE (QUADRIVALENT) 0.5 ML SYR IM ONE (16:45)
[2017-06-13 18:19] VITALS: BP 120/63; PULSE 73; RESP 18; TEMP 98.6; O2SAT 100
[2017-06-14 06:16] VITALS: BP 132/74; PULSE 68; RESP 16; TEMP 97.9; O2SAT 95
[2017-06-14] MEDS: NEOMYCIN/POLYMYXIN/HYDROCORT OTIC SOLN 10 ML BTL RIGHT EAR SCH ×4 (08:36→17:32)
[2017-06-14] MEDS: OLANZapine 5 MG TAB PO SCH ×2 (08:36→21:00)
[2017-06-14] MEDS: LACTULOSE SYRUP 20 GM/30 ML CUP PO SCH ×2 (08:36→22:14)
[2017-06-14] MEDS: DIVALPROEX SODIUM E.R. 500 MG TAB PO SCH ×2 (08:36→22:14)
[2017-06-14] MEDS: FLUTICASONE PROPIONATE 50 MCG/ACT 16 GM NASAL SPRAY EACH NARE SCH (08:37)
[2017-06-14] MEDS ORDERED: INFLUENZA VIRUS VACCINE (QUADRIVALENT) 0.5 ML SYR IM ONE (10:00)
--- NOTE | 2017-06-14 15:30 | HHI.PYPN ---
Subjective Remarks Pt seen and discussed with staff. He remains fixated on delusional belief that [employer] and [place] are stealing his foodstamps. He states that a [employer] player was serving as his personal naresh and has been arrested over a stolen lottery ticket and requests MD's help in getting him out of [facility]dc. He has been withdrawn and isolative to room today. Objective Alert: Yes [place]: Person, Place Mood: Calm Affect: Appropriate Memory Intact: Comment (Not formally assessed) Hallucinations: Other (no hallucinations) Delusions: Yes Delusion Type: Paranoid, Other (bizarre) Suicidal: Ideation (no SI) Homicidal: Ideation (no HI) Insight/Judgment poor Vitals/IOs Vital Signs Date Time Temp Pulse Resp B/P (MAP) Pulse Ox O2 Delivery O2 Flow Rate FiO2 06/14/17 06:16 97.9 68 16 132/74 (93) 95 Assessment & Plan Problem List: (1) Adjustment disorder with mixed disturbance of emotions and conduct ICD Codes: F43.25 - Adjustment disorder with mixed disturbance of emotions and conduct Status: Acute (2) Schizophrenia ICD Codes: F20.9 - Schizophrenia, unspecified Status: Acute Assessment & Plan Continue current tx plan. Estimated LOS: days Justification for Cont. Inpt. risk of decompensation Request HC Surrog/Guard Advoc?: No Problem Qualifiers (1) Schizophrenia: Krys West MD Jun 14, 2017 15:30
[2017-06-14] MEDS: ACETAMINOPHEN 325 MG TAB PO PRN (17:27)
[2017-06-14 18:31] VITALS: BP 127/58; PULSE 75; RESP 18; TEMP 99.5; O2SAT 96
[2017-06-15 06:25] VITALS: BP 120/64; PULSE 55; RESP 18; TEMP 98.3; O2SAT 99
[2017-06-15] MEDS: LACTULOSE SYRUP 20 GM/30 ML CUP PO SCH ×2 (08:31→21:33)
[2017-06-15] MEDS: NEOMYCIN/POLYMYXIN/HYDROCORT OTIC SOLN 10 ML BTL RIGHT EAR SCH ×3 (08:31→17:38)
[2017-06-15] MEDS: FLUTICASONE PROPIONATE 50 MCG/ACT 16 GM NASAL SPRAY EACH NARE SCH (08:31)
[2017-06-15] MEDS: OLANZapine 5 MG TAB PO SCH (08:31)
[2017-06-15] MEDS: DIVALPROEX SODIUM E.R. 500 MG TAB PO SCH ×2 (08:31→21:33)
[2017-06-15] MEDS: ACETAMINOPHEN 325 MG TAB PO PRN (09:14)
--- NOTE | 2017-06-15 16:11 | HHI.PYPN ---
Subjective Remarks Pt seen and discussed with staff. He remains fixated on delusions about various penitentiary conspiring against him. He is compliant with medications and denies side effects. No behavioral problems. No SI/HI Objective Alert: Yes [place]: Person, Place, Date Mood: Calm Affect: Restricted Memory Intact: Comment (Not formally assessed) Hallucinations: Other (no hallucinations) Delusions: Yes Delusion Type: Paranoid, Other (bizarre) Suicidal: Ideation (no SI) Homicidal: Ideation (no HI) Insight/Judgment poor Vitals/IOs Vital Signs Date Time Temp Pulse Resp B/P (MAP) Pulse Ox O2 Delivery O2 Flow Rate FiO2 06/15/17 06:25 98.3 55 18 120/64 (82) 99 Intake and Output 06/15/17 06/15/17 06/16/17 08:00 16:00 00:00 Intake Total 240 ml Balance 240 ml Assessment & Plan Problem List: (1) Adjustment disorder with mixed disturbance of emotions and conduct ICD Codes: F43.25 - Adjustment disorder with mixed disturbance of emotions and conduct Status: Acute (2) Schizophrenia ICD Codes: F20.9 - Schizophrenia, unspecified Status: Acute Assessment & Plan Continue current treatment plan. Estimated LOS: days Justification for Cont. Inpt. impairments in reality testing Request HC Surrog/Guard Advoc?: No Problem Qualifiers (1) Schizophrenia: Krys West MD Jun 15, 2017 16:11
[2017-06-15 18:20] VITALS: BP 127/76; PULSE 62; RESP 18; TEMP 97.6; O2SAT 98
[2017-06-15] MEDS: OLANZapine 10 MG TAB PO SCH (21:33)
[2017-06-16 04:32] VITALS: BP 120/70; PULSE 63; RESP 18; TEMP 98
[2017-06-16] MEDS: OLANZapine 5 MG TAB PO SCH (09:00)
[2017-06-16] MEDS: FLUTICASONE PROPIONATE 50 MCG/ACT 16 GM NASAL SPRAY EACH NARE SCH (09:00)
[2017-06-16] MEDS: NEOMYCIN/POLYMYXIN/HYDROCORT OTIC SOLN 10 ML BTL RIGHT EAR SCH ×3 (09:00→18:00)
[2017-06-16] MEDS: LACTULOSE SYRUP 20 GM/30 ML CUP PO SCH ×2 (09:28→20:51)
[2017-06-16] MEDS: DIVALPROEX SODIUM E.R. 500 MG TAB PO SCH ×2 (09:28→20:50)
--- NOTE | 2017-06-16 12:33 | HHI.PYPN ---
Subjective Remarks Patient seen and examined with nurse. Chart reviewed. Case discussed with nursing staff reports the patient has been quite demanding and entitled today. On my exam initially, patient presents as more frankly paranoid than in previous visits about other facilities stealing his money. He tells me he is "tired of being frauded by group homes!" He also is somewhat hostile towards me and the staff. He suggests that we should discharge him to the street so that he can then adan us for unsafe discharge. I explain that we have no intention of doing so and are working to arrange a safe discharge. He is dictating of care and says that he will take meals with peers but otherwise will hole up in his room and won't participate in unit activities. I have encouraged him to participate in unit activities. About 15 minutes later, the patient comes up to me on rounds and apologizes profusely for his previous behavior. He is intrusive and hyperverbal but is able to be redirected. Denies side effects from medications. No physical complaints. Review of Systems ROS Limitations: Poor Historian Except as stated in HPI: all other systems reviewed are Neg Objective Alert: Yes [place]: Person, Place, Date Mood: Agitated, Anxious Affect: Labile Memory Intact: Comment (Not formally assessed) Hallucinations: Other (no AVH) Delusions: Yes Delusion Type: Paranoid Suicidal: Ideation (no SI) Homicidal: Ideation (no HI) Insight/Judgment Poor Remarks No motor abnormalities noted. Thought process perseverative on delusional themes as noted above. Grooming and hygiene fair at best. Speech rambling. Labs Labs reviewed. Vitals/IOs Vital Signs Date Time Temp Pulse Resp B/P (MAP) Pulse Ox O2 Delivery O2 Flow Rate FiO2 06/16/17 04:32 98.0 63 18 120/70 (87) 06/15/17 18:20 98 Intake and Output 06/16/17 06/16/17 06/17/17 08:00 16:00 00:00 Intake Total 260 ml 260 ml Balance 260 ml 260 ml Assessment & Plan Problem List: (1) Adjustment disorder with mixed disturbance of emotions and conduct ICD Codes: F43.25 - Adjustment disorder with mixed disturbance of emotions and conduct Status: Acute (2) Schizophrenia ICD Codes: F20.9 - Schizophrenia, unspecified Status: Acute Assessment & Plan Patient much more paranoid and labile today for unclear reasons. I will check a Depakote and ammonia level in the morning, but med non-adherence is not suspected by nursing staff. I will titrate Zyprexa to 10mg BID for mood stabilization and psychosis. Continue to monitor on the inpatient unit. Possibly may require transfer back to the high acuity unit. Continue other medications and care as ordered. Justification for Cont. Inpt. Med changes. Risk for decompensation in less restrictive environment. Discharge Planning Placement versus state hospital referral. Case discussed with counselor. Request HC Surrog/Guard Advoc?: No Problem Qualifiers (1) Schizophrenia: Feliciano Euceda MD Jun 16, 2017 12:33
[2017-06-16] MEDS ORDERED: OLANZapine 5 MG TAB PO ONE (13:45)
[2017-06-16] MEDS: OLANZapine 10 MG TAB PO SCH (20:50)
[2017-06-17 06:11] VITALS: BP 117/78; PULSE 78; RESP 18; TEMP 97.7; O2SAT 100
[2017-06-17] MEDS: LACTULOSE SYRUP 20 GM/30 ML CUP PO SCH ×2 (08:48→20:31)
[2017-06-17] MEDS: DIVALPROEX SODIUM E.R. 500 MG TAB PO SCH ×2 (08:48→20:31)
[2017-06-17] MEDS: FLUTICASONE PROPIONATE 50 MCG/ACT 16 GM NASAL SPRAY EACH NARE SCH (08:49)
[2017-06-17] MEDS: OLANZapine 5 MG TAB PO SCH (08:54)
[2017-06-17] MEDS: NEOMYCIN/POLYMYXIN/HYDROCORT OTIC SOLN 10 ML BTL RIGHT EAR SCH ×3 (09:00→18:00)
--- NOTE | 2017-06-17 13:06 | HHI.PYPN ---
Subjective Remarks Patient seen and examined with counselor. Chart reviewed. Case discussed in treatment team. On my examination today, the patient is less frantic and more redirectable. He is in good spirits today and trying to emphasize his cooperation with unit protocols in hopes that this will facilitate placement soon. We discuss the difficulties in placing patient. No side effects from medications. No physical complaints. Review of Systems ROS Limitations: Poor Historian Except as stated in HPI: all other systems reviewed are Neg Objective Alert: Yes [place]: Person, Place, Date Mood: Anxious (less today) Affect: Euthymic Memory Intact: Comment (Not formally assessed) Hallucinations: Other (no AVH) Delusions: No Delusion Type: Other (no delusions) Suicidal: Ideation (no SI) Homicidal: Ideation (no HI) Insight/Judgment Poor Remarks No motor abnormalities noted. I do note a small, crusted lesion on patient's left chin, perhaps a cut from shaving. Labs Test 06/17/17 07:55 Ammonia 31 MCMOL/L Valproic Acid (Depakene) Level 64 MCG/ML Labs reviewed. Depakote level within the therapeutic range. Ammonia level significantly reduced and now within the normal range. Vitals/IOs Vital Signs Date Time Temp Pulse Resp B/P (MAP) Pulse Ox O2 Delivery O2 Flow Rate FiO2 06/17/17 06:11 97.7 78 18 117/78 (91) 100 Intake and Output 06/17/17 06/17/17 06/18/17 08:00 16:00 00:00 Intake Total 720 ml Balance 720 ml Assessment & Plan Problem List: (1) Adjustment disorder with mixed disturbance of emotions and conduct ICD Codes: F43.25 - Adjustment disorder with mixed disturbance of emotions and conduct Status: Acute (2) Schizophrenia ICD Codes: F20.9 - Schizophrenia, unspecified Status: Acute Assessment & Plan Continue current psychotropics as ordered. I will order some Bacitracin for the patient's chin lesion. Continue other medications and care as ordered. Justification for Cont. Inpt. Risk for decompensation in less restrictive environment. Discharge Planning Placement versus state psychiatric hospitalization. Case discussed with counselor. Request HC Surrog/Guard Advoc?: No Problem Qualifiers (1) Schizophrenia: Feliciano Euceda MD Jun 17, 2017 13:06
[2017-06-17 16:59] VITALS: BP 156/75; PULSE 77; RESP 17; TEMP 98.2; O2SAT 98
[2017-06-17] MEDS: diphenhydrAMINE HCL 50 MG CAP PO PRN (17:55)
[2017-06-17] MEDS: OLANZapine 10 MG TAB PO SCH (20:31)
[2017-06-17] MEDS: BACITRACIN TOP OINT 15 GM TUBE TOPICAL SCH (20:31)
[2017-06-18 06:07] VITALS: BP 127/58; PULSE 57; RESP 17; TEMP 97.9; O2SAT 98
--- NOTE | 2017-06-18 08:09 | PD.TTN ---
Patient Problems 1. Discharge planning 2. Medication compliance 3. Knowledge deficit 4. Lack of coping skills Progress Toward Goals Provider Present: Dr. Noni Euceda Provider Input: Placement options are being reviewed and pt is due for his Haldol Deconoate shot. 06-10- Pt oral Haldol will be titrated. Medication regiment will continue to be evaluated as needed to assist with further stabilization. Nurse(s) Present: Bayron Herrera RN Nurse(s) Input: Pt appears cooperative, gaurded, mumbles to himself, is focused on discharge back to [place] and is compliant with medication regiment. 06-10- Pt appears withdrawn, cooperative, appropriate, organized, somewhat depressed and compliant with medication. Psychiatric Counselors Present: MARISOL Pate Psych Therapist Input: Pt continues to appear disorganized, demanding, cooperative, appropriate, hyperverbal and visible on unit. Pt presents with poor insight into condition and need for care. He is compliant with medication regiment. Pt is being referred to [facility] facilities as he will require this placement following discharge. 06-10- Pt appears calm, cooperative, repetitive, somewhat paranoid about previous facilities, appropriate, organized and pleasant. He has not presented with further behavioral outbursts and is somewhat less intrusive than previously suggesting some improvement in use of coping skills to regulate emotions. He remains paranoid that previous facilities are going through his belongings and stealing his money/food stamps despite frequent reassurance that this is not the case. Pt insight into condition and need for care appears to be improving as he voices increased understanding of how his behavior has led to his admission. Group Spec/RT/OT/GUZMÁN Present: RAMIREZ Michael Group Spec/RT/OT/GUZMÁN Input: Patient attends selective groups mostly exercise group 06-10- Pt rarely attents groups and does not participate when he does. He mainly isolates to himself and his room. Occupational Therapist Input: Pt is cooperative and attends 50% of groups. Discharge Plan SMA, Other Pt will be referred for outpatient placement at an [facility] or halfway. Documentation Scribe: Hero Kirkpatrick, Rakel Cervantes Jun 18, 2017 08:09
[2017-06-18] MEDS: FLUTICASONE PROPIONATE 50 MCG/ACT 16 GM NASAL SPRAY EACH NARE SCH (09:00)
[2017-06-18] MEDS: OLANZapine 5 MG TAB PO SCH (09:00)
[2017-06-18] MEDS: NEOMYCIN/POLYMYXIN/HYDROCORT OTIC SOLN 10 ML BTL RIGHT EAR SCH ×3 (09:00→18:00)
[2017-06-18] MEDS: BACITRACIN TOP OINT 15 GM TUBE TOPICAL SCH ×2 (09:26→20:30)
[2017-06-18] MEDS: LACTULOSE SYRUP 20 GM/30 ML CUP PO SCH ×2 (09:27→20:30)
[2017-06-18] MEDS: DIVALPROEX SODIUM E.R. 500 MG TAB PO SCH ×2 (09:28→20:30)
--- NOTE | 2017-06-18 10:15 | HHI.PYPN ---
Subjective Remarks Patient seen and examined. Chart reviewed. Case discussed with counselor and nurse. On my examination, patient remains somewhat paranoid. He apparently found a needle cap in his bed and believed it was a vial of Ativan and accuses the overnight staff of medicating him without his knowledge while he was sleeping. In fact, it appears patient has not received Ativan IM in a month or so. He does admit he may have been mistaken in this regard but then moves on to fixate on getting his clothing from [place] as he has done in the past. Besides being a little intrusive and childlike, he is fairly calm. Denies side effects from medications. No physical complaints. Prefers Zyprexa 10mg as a single tab, not 2 x 5mg tabs, and I have specified this in med order. Review of Systems ROS Limitations: Poor Historian Except as stated in HPI: all other systems reviewed are Neg Objective Alert: Yes [place]: Person, Place, Date Mood: Anxious (mild) Affect: Restricted Memory Intact: Comment (Not formally assessed) Hallucinations: Other (None) Delusions: Yes Delusion Type: Paranoid (mild) Suicidal: Ideation (no SI) Homicidal: Ideation (no HI) Insight/Judgment Poor Remarks No abnormal motor movements noted. Left chin lesion healing well. Labs Labs reviewed Vitals/IOs Vital Signs Date Time Temp Pulse Resp B/P (MAP) Pulse Ox O2 Delivery O2 Flow Rate FiO2 06/18/17 06:07 97.9 57 17 127/58 (81) 98 Assessment & Plan Problem List: (1) Adjustment disorder with mixed disturbance of emotions and conduct ICD Codes: F43.25 - Adjustment disorder with mixed disturbance of emotions and conduct Status: Acute (2) Schizophrenia ICD Codes: F20.9 - Schizophrenia, unspecified Status: Acute Assessment & Plan Continue current psychotropics as ordered. Might consider further titration of patient's antipsychotic but I would like to give current doses more time to work , especially since the degree of patient's current symptomatology is fairly mild. Continue to monitor on the inpatient unit. Continue other medications and care as ordered. Justification for Cont. Inpt. Impairment in reality construction. High risk for decompensation in less restrictive environment. Discharge Planning Placement versus state psychiatric hospital Request HC Surrog/Guard Advoc?: No Problem Qualifiers (1) Schizophrenia: Feliciano Euceda MD Jun 18, 2017 10:14
[2017-06-18 18:00] VITALS: BP 161/83; PULSE 64; RESP 18; TEMP 98.8; O2SAT 95
[2017-06-18] MEDS: OLANZapine 10 MG TAB PO SCH (20:30)
[2017-06-18] MEDS: traZODone HCL 50 MG TAB PO PRN (21:19)
[2017-06-19 05:20] VITALS: BP 138/75; PULSE 80; RESP 16; TEMP 98; O2SAT 98
[2017-06-19] MEDS: NEOMYCIN/POLYMYXIN/HYDROCORT OTIC SOLN 10 ML BTL RIGHT EAR SCH ×3 (08:26→17:46)
[2017-06-19] MEDS: FLUTICASONE PROPIONATE 50 MCG/ACT 16 GM NASAL SPRAY EACH NARE SCH (08:27)
[2017-06-19] MEDS: OLANZapine 10 MG TAB PO SCH ×2 (08:28→21:00)
[2017-06-19] MEDS: LACTULOSE SYRUP 20 GM/30 ML CUP PO SCH ×2 (08:28→21:00)
[2017-06-19] MEDS: DIVALPROEX SODIUM E.R. 500 MG TAB PO SCH (08:29)
[2017-06-19] MEDS: BACITRACIN TOP OINT 15 GM TUBE TOPICAL SCH ×2 (08:29→21:00)
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
[2017-06-19 17:58] VITALS: BP 133/69; PULSE 85; RESP 17; TEMP 97; O2SAT 96
[2017-06-19] MEDS: DIVALPROEX SODIUM E.R. 250 MG TAB PO SCH (21:00)
[2017-06-19 21:35] VITALS: BP 133/69; PULSE 85; RESP 17; TEMP 97; O2SAT 96
[2017-06-20 06:05] VITALS: BP 104/63; PULSE 62; RESP 18; TEMP 98.1; O2SAT 98
[2017-06-20] MEDS: OLANZapine 10 MG TAB PO SCH ×2 (08:29→21:00)
[2017-06-20] MEDS: LACTULOSE SYRUP 20 GM/30 ML CUP PO SCH ×2 (08:29→21:56)
[2017-06-20] MEDS: DIVALPROEX SODIUM E.R. 250 MG TAB PO SCH ×2 (08:30→21:56)
[2017-06-20] MEDS: NEOMYCIN/POLYMYXIN/HYDROCORT OTIC SOLN 10 ML BTL RIGHT EAR SCH ×3 (08:31→17:28)
[2017-06-20] MEDS: BACITRACIN TOP OINT 15 GM TUBE TOPICAL SCH ×2 (08:31→21:00)
[2017-06-20] MEDS: FLUTICASONE PROPIONATE 50 MCG/ACT 16 GM NASAL SPRAY EACH NARE SCH (08:31)
--- NOTE | 2017-06-20 11:54 | HHI.PYPN ---
Subjective Remarks Patient seen and examined with nurse. Chart reviewed. Case discussed with nursing staff. On my examination today, the patient seems much more stable with respect to his mood. He does not articulate any of the delusional material he verbalized yesterday. He says that he likes the increased dose of VPA. Affect is euthymic. Denies side effects from medications. Complains of some pain in right foot, thinks he picked up a splinter in the last day or two. No other physical complaints. Review of Systems ROS Limitations: Poor Historian Except as stated in HPI: all other systems reviewed are Neg Objective Alert: Yes [place]: Person, Place, Date Mood: Calm Affect: Euthymic Memory Intact: Comment (Not formally assessed) Hallucinations: Other (no AVH) Delusions: No Delusion Type: Other (no delusional material today) Suicidal: Ideation (no SI) Homicidal: Ideation (no HI) Insight/Judgment Poor Remarks Patient does appear to have a small foreign body embedded in the sole of his right foot, probably a splinter. Mild tenderness to palpation around the foreign body but no swelling, erythema or purulent drainage. No motor abnormalities noted. Labs Labs reviewed. Vitals/IOs Vital Signs Date Time Temp Pulse Resp B/P (MAP) Pulse Ox O2 Delivery O2 Flow Rate FiO2 06/20/17 06:05 98.1 62 18 104/63 (77) 98 Assessment & Plan Problem List: (1) Adjustment disorder with mixed disturbance of emotions and conduct ICD Codes: F43.25 - Adjustment disorder with mixed disturbance of emotions and conduct Status: Acute (2) Schizophrenia ICD Codes: F20.9 - Schizophrenia, unspecified Status: Acute Assessment & Plan Continue increased dose of Depakote as ordered. Check a Depakote and ammonia level next week. I have requested the hospitalist to return to see the patient for foreign body in right foot. Continue other medications and care as ordered. Continue to monitor on the inpatient unit. Justification for Cont. Inpt. High risk for decompensation in less restrictive environment. Discharge Planning Placement versus state psychiatric hospital referral. Request HC Surrog/Guard Advoc?: No Problem Qualifiers (1) Schizophrenia: Feliciano Euceda MD Jun 20, 2017 11:54
[2017-06-20 16:53] VITALS: BP 136/67; PULSE 91; RESP 18; TEMP 98.7; O2SAT 98
[2017-06-21 05:59] VITALS: BP 113/63; PULSE 60; RESP 16; TEMP 97.9; O2SAT 98
[2017-06-21] MEDS: NEOMYCIN/POLYMYXIN/HYDROCORT OTIC SOLN 10 ML BTL RIGHT EAR SCH (09:00)
[2017-06-21] MEDS: FLUTICASONE PROPIONATE 50 MCG/ACT 16 GM NASAL SPRAY EACH NARE SCH (09:00)
[2017-06-21] MEDS: LACTULOSE SYRUP 20 GM/30 ML CUP PO SCH ×2 (09:52→21:25)
[2017-06-21] MEDS: OLANZapine 10 MG TAB PO SCH ×2 (09:53→21:27)
[2017-06-21] MEDS: DIVALPROEX SODIUM E.R. 250 MG TAB PO SCH ×2 (09:53→21:26)
[2017-06-21] MEDS: BACITRACIN TOP OINT 15 GM TUBE TOPICAL SCH ×2 (09:54→21:00)
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
[2017-06-21] MEDS: IBUPROFEN 800 MG TAB PO SCH ×2 (16:12→21:25)
--- NOTE | 2017-06-21 16:30 | HHI.PYPN ---
Subjective Remarks Patient was seen and case discussed with nursing. Patient remains perseverative on discharge. No verbal or physical outbursts today. Concerned about the for an object in his foot and is being followed by the medical team Objective Alert: Yes [place]: Person, Place, Date Mood: Calm Affect: Euthymic Memory Intact: Comment (Not formally assessed) Hallucinations: Other (no AVH) Delusions: No Delusion Type: Other (no delusional material today) Suicidal: Ideation (no SI) Homicidal: Ideation (no HI) Insight/Judgment Poor Vitals/IOs Vital Signs Date Time Temp Pulse Resp B/P (MAP) Pulse Ox O2 Delivery O2 Flow Rate FiO2 06/21/17 05:59 97.9 60 16 113/63 (80) 98 Assessment & Plan Problem List: (1) Adjustment disorder with mixed disturbance of emotions and conduct ICD Codes: F43.25 - Adjustment disorder with mixed disturbance of emotions and conduct Status: Acute (2) Schizophrenia ICD Codes: F20.9 - Schizophrenia, unspecified Status: Acute Assessment & Plan Continue current treatment plan Justification for Cont. Inpt. Patient would decompensate in a less restrictive setting Request HC Surrog/Guard Advoc?: No Problem Qualifiers (1) Schizophrenia: Kirby Velasco DO Jun 21, 2017 16:30
[2017-06-22 05:42] VITALS: BP 129/69; PULSE 16; RESP 18; TEMP 97.9; O2SAT 97
[2017-06-22] MEDS: IBUPROFEN 800 MG TAB PO SCH ×3 (06:09→22:00)
[2017-06-22] MEDS: FLUTICASONE PROPIONATE 50 MCG/ACT 16 GM NASAL SPRAY EACH NARE SCH (08:47)
[2017-06-22] MEDS: OLANZapine 10 MG TAB PO SCH ×2 (08:48→21:17)
[2017-06-22] MEDS: DIVALPROEX SODIUM E.R. 250 MG TAB PO SCH ×2 (08:48→21:16)
[2017-06-22] MEDS: LACTULOSE SYRUP 20 GM/30 ML CUP PO SCH ×2 (08:49→21:16)
[2017-06-22] MEDS: BACITRACIN TOP OINT 15 GM TUBE TOPICAL SCH ×2 (08:50→21:17)
--- NOTE | 2017-06-22 10:24 | HHI.PYPN ---
Subjective Remarks Patient was seen and case discussed with nursing. Patient is pleasant and cooperative with exam. Alert and oriented 4. Remains perseverant on discharge. Tolerating his medications well. No verbal outbursts or aggressive behavior Objective Alert: Yes [place]: Person, Place, Date Mood: Calm Affect: Restricted Memory Intact: Comment (Not formally assessed) Hallucinations: Other (no AVH) Delusions: No Delusion Type: Other (no delusional material today) Suicidal: Ideation (no SI) Homicidal: Ideation (no HI) Insight/Judgment Poor Vitals/IOs Vital Signs Date Time Temp Pulse Resp B/P (MAP) Pulse Ox O2 Delivery O2 Flow Rate FiO2 06/22/17 05:42 97.9 16 18 129/69 (89) 97 Assessment & Plan Problem List: (1) Adjustment disorder with mixed disturbance of emotions and conduct ICD Codes: F43.25 - Adjustment disorder with mixed disturbance of emotions and conduct Status: Acute (2) Schizophrenia ICD Codes: F20.9 - Schizophrenia, unspecified Status: Acute Assessment & Plan Continue current treatment plan Justification for Cont. Inpt. Patient will decompensate in a less restrictive setting Request HC Surrog/Guard Advoc?: No Problem Qualifiers (1) Schizophrenia: Kirby Velasco DO Jun 22, 2017 10:23
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
[2017-06-22] MEDS ORDERED: LACT10SO PO (15:47)
[2017-06-22] MEDS ORDERED: FLUT50SP EACH NARE (15:47)
--- NOTE | 2017-06-22 17:15 | MB ---
cc: SHIELA KELLEY DPM DATE OF CONSULTATION 06/22/2017 DATE OF 1975 REASON FOR CONSULTATION Right foot foreign body. The patient was admitted to [facility] for a history of for schizophrenia. HISTORY OF PRESENT ILLNESS Podiatric related, the patient states that he does not recall how a foreign body got into his foot but on evaluation with nursing staff in the room he pointed to the plantar aspect of the sub second metatarsal head and noted that his last nurse took out the foreign body. He is not having any pain. PAST SURGICAL HISTORY Per HPI. PAST MEDICAL HISTORY 1. Schizophrenia. 2. History of diabetes. MEDICATIONS Per HPI. ALLERGIES ZIPRASIDONE AND FLUPHENAZINE. FAMILY HISTORY Noncontributory. REVIEW OF SYSTEMS Unable to obtain. PHYSICAL EXAMINATION EXTREMITIES: The right foot DP and PT palpable. Lower extremity warm to warm. There is a small puncture wound sub second metatarsal. There is no erythema, no drainage. No acute sign of infection. On palpation there is no pain on palpation. There is no foreign body palpated. He currently has a coverlet protecting it. ASSESSMENT/PLAN Right foot puncture wound. He is currently pending right foot x-rays. If those x-rays are normal then the patient can be discharged and with the right foot continue to coverlet and triple antibiotic for 4 to 5 days. Shiela Kelley DPM SR/WILL /2:17 PM /5:01 PM
--- NOTE | 2017-06-22 17:30 | RADRPT ---
EXAM DATE/TIME: 06/22/2017 17:11 [place] COMPARISON: No previous studies available for comparison. INDICATIONS : Pain after steping on sharp object, concern for foreign body. MEDICAL HISTORY : None. SURGICAL HISTORY : None. ENCOUNTER: Initial ACUITY: 2 days PAIN SCORE: 4/10 LOCATION: Right foot. FINDINGS: Three view examination of the right foot demonstrates no soft tissue swelling, dislocation, or fractu re. The tarsal bones appear intact. The interphalangeal and metatarsophalangeal joints are intact. The calcaneus is intact. Bony mineralization is normal. CONCLUSION: Unremarkable examination of the right foot. Alex Ewing MD on June 22, 2017 at 17:28 Board Certified Radiologist. This report was verified electronically.
[2017-06-22 17:47] VITALS: BP 133/72; PULSE 68; RESP 17; TEMP 97.7; O2SAT 97
[2017-06-23] MEDS: IBUPROFEN 800 MG TAB PO SCH (05:50)
[2017-06-23 06:31] VITALS: BP 135/85; PULSE 91; RESP 16; TEMP 97.6; O2SAT 96
[2017-06-23] MEDS: DIVALPROEX SODIUM E.R. 250 MG TAB PO SCH ×2 (08:27→21:00)
[2017-06-23] MEDS: LACTULOSE SYRUP 20 GM/30 ML CUP PO SCH ×2 (08:27→21:00)
[2017-06-23] MEDS: OLANZapine 10 MG TAB PO SCH ×2 (08:28→21:00)
[2017-06-23] MEDS: BACITRACIN TOP OINT 15 GM TUBE TOPICAL SCH ×2 (08:28→21:00)
[2017-06-23] MEDS: FLUTICASONE PROPIONATE 50 MCG/ACT 16 GM NASAL SPRAY EACH NARE SCH (08:28)
--- NOTE | 2017-06-23 14:41 | HHI.PYPN ---
Subjective Remarks Patient seen in his room with nurse Malissa, chart reviewed, patient Depakote level today came back at 120. Discussed this with patient. Will repeat blood level in a.m. to verify. Otherwise patient calm quiet with me very poor eye contact. Though denying suicidality homicidality voices or visions. States he is some place to go. Meeting he wants to live with his brother will also has functional issues. Staff feels this is not an appropriate placement. For now continue treatment as mentioned above, patient showing no signs of Depakote toxicity Review of Systems Except as stated in HPI: all other systems reviewed are Neg Objective Alert: Yes [place]: Person, Place, Date Mood: Calm Affect: Restricted Memory Intact: Comment (Not formally assessed) Hallucinations: Other (no AVH) Delusions: No Delusion Type: Other (no delusional material today) Suicidal: Ideation (no SI) Homicidal: Ideation (no HI) Insight/Judgment Very poor Labs Test 06/23/17 10:31 Ammonia 65 MCMOL/L Valproic Acid (Depakene) Level 120 MCG/ML Vitals/IOs Vital Signs Date Time Temp Pulse Resp B/P (MAP) Pulse Ox O2 Delivery O2 Flow Rate FiO2 06/23/17 06:31 97.6 91 16 135/85 (102) 96 Assessment & Plan Problem List: (1) Adjustment disorder with mixed disturbance of emotions and conduct ICD Codes: F43.25 - Adjustment disorder with mixed disturbance of emotions and conduct Status: Acute (2) Schizophrenia ICD Codes: F20.9 - Schizophrenia, unspecified Status: Acute Assessment & Plan Estimated LOS: days patient continues withdrawn somewhat paranoid and vigilant. Though compliant medications. Depakote blood level was somewhat elevated at 120 will recheck level tomorrow, though patient showing no signs of toxicity Justification for Cont. Inpt. At this time patient decompensate if not place an appropriate level of care Discharge Planning To be determined Request HC Surrog/Guard Advoc?: No Problem Qualifiers (1) Schizophrenia: Nathan Mares MD Jun 23, 2017 14:41
[2017-06-23] MEDS: IBUPROFEN 800 MG TAB PO PRN (16:56)
[2017-06-23 17:53] VITALS: BP 130/68; PULSE 68; RESP 18; TEMP 97.6; O2SAT 96
[2017-06-23] MEDS: traZODone HCL 50 MG TAB PO PRN (21:00)
[2017-06-24 06:34] VITALS: BP 107/64; PULSE 66; RESP 20; TEMP 98.2
[2017-06-24] MEDS: DIVALPROEX SODIUM E.R. 250 MG TAB PO SCH ×2 (08:22→21:00)
[2017-06-24] MEDS: LACTULOSE SYRUP 20 GM/30 ML CUP PO SCH ×2 (08:22→21:00)
[2017-06-24] MEDS: OLANZapine 10 MG TAB PO SCH ×2 (08:22→21:00)
[2017-06-24] MEDS: FLUTICASONE PROPIONATE 50 MCG/ACT 16 GM NASAL SPRAY EACH NARE SCH (08:25)
[2017-06-24] MEDS: BACITRACIN TOP OINT 15 GM TUBE TOPICAL SCH ×2 (08:27→21:00)
--- NOTE | 2017-06-24 10:24 | HHI.PYPN ---
Subjective Remarks Patient seen with 1% management of 2700. Patient just transferred here from 2600 and they became angry and attempted to fit one of the floor staff was intervening with his aggressive behavior. Patient still shows no insight into his disease. However is scheduled today for his Haldol Decanoate injection of 32 mg every 28 days. For now continue treatment Review of Systems Except as stated in HPI: all other systems reviewed are Neg Objective Alert: Yes [place]: Person, Place, Date Mood: Calm Affect: Restricted Memory Intact: Comment (Not formally assessed) Hallucinations: Other (no AVH) Delusions: No Delusion Type: Other (no delusional material today) Suicidal: Ideation (no SI) Homicidal: Ideation (no HI) Insight/Judgment Very poor Labs Test 06/23/17 10:31 06/24/17 09:11 Ammonia 65 MCMOL/L Valproic Acid (Depakene) Level 120 MCG/ML Vitals/IOs Vital Signs Date Time Temp Pulse Resp B/P (MAP) Pulse Ox O2 Delivery O2 Flow Rate FiO2 06/24/17 06:34 98.2 66 20 107/64 (78) 06/23/17 17:53 96 Intake and Output 06/24/17 06/24/17 06/25/17 08:00 16:00 00:00 Intake Total 240 ml Balance 240 ml Assessment & Plan Problem List: (1) Adjustment disorder with mixed disturbance of emotions and conduct ICD Codes: F43.25 - Adjustment disorder with mixed disturbance of emotions and conduct Status: Acute (2) Schizophrenia ICD Codes: F20.9 - Schizophrenia, unspecified Status: Acute Assessment & Plan Estimated LOS: days patient is transferred to 2700 to do aggressive behavior. Is scheduled for his Haldol Decanoate injection today Justification for Cont. Inpt. At this time patient will decompensate the placed on the lower level of care Discharge Planning To be determined Request HC Surrog/Guard Advoc?: No Problem Qualifiers (1) Schizophrenia: Nathan Mares MD Jun 24, 2017 10:24
[2017-06-24] MEDS: HALOPERIDOL DECANOATE 50 MG/ML VIAL IM SCH (15:00)
[2017-06-24 18:25] VITALS: BP 149/82; PULSE 67; RESP 19; TEMP 97.7; O2SAT 99
[2017-06-25 06:06] VITALS: BP 128/75; PULSE 66; RESP 16; TEMP 98.2; O2SAT 97
[2017-06-25] MEDS: BACITRACIN TOP OINT 15 GM TUBE TOPICAL SCH ×2 (09:00→21:00)
[2017-06-25] MEDS: DIVALPROEX SODIUM E.R. 250 MG TAB PO SCH ×2 (09:33→21:33)
[2017-06-25] MEDS: OLANZapine 10 MG TAB PO SCH ×2 (09:33→21:32)
[2017-06-25] MEDS: LACTULOSE SYRUP 20 GM/30 ML CUP PO SCH ×2 (09:33→21:32)
[2017-06-25] MEDS: FLUTICASONE PROPIONATE 50 MCG/ACT 16 GM NASAL SPRAY EACH NARE SCH (09:34)
--- NOTE | 2017-06-25 13:32 | HHI.PYPN ---
Subjective Remarks Patient seen in his room nurse Ami, chart review, compliant medications. Depakote level on 06/24 is 104. Will recheck Depakote level tomorrow. Patient so showing no insight into his behaviors. Though he is, no problems at the present time. He denies voices today denies suicidality. Continue to work on placement issues Review of Systems Except as stated in HPI: all other systems reviewed are Neg Objective Alert: Yes [place]: Person, Place, Date Mood: Calm Affect: Restricted Memory Intact: Comment (Not formally assessed) Hallucinations: Other (no AVH) Delusions: No Delusion Type: Other (no delusional material today) Suicidal: Ideation (no SI) Homicidal: Ideation (no HI) Insight/Judgment Poor Vitals/IOs Vital Signs Date Time Temp Pulse Resp B/P (MAP) Pulse Ox O2 Delivery O2 Flow Rate FiO2 06/25/17 06:06 98.2 66 16 128/75 (92) 97 Assessment & Plan Problem List: (1) Adjustment disorder with mixed disturbance of emotions and conduct ICD Codes: F43.25 - Adjustment disorder with mixed disturbance of emotions and conduct Status: Acute (2) Schizophrenia ICD Codes: F20.9 - Schizophrenia, unspecified Status: Acute Assessment & Plan Estimated LOS: days continue somewhat psychotic and labile blood control at the present time. We'll check Depakote level in a.m. Justification for Cont. Inpt. This time patient will decompensate if placed in a lower level of care Discharge Planning To be determined Request HC Surrog/Guard Advoc?: No Problem Qualifiers (1) Schizophrenia: Nathan Mares MD Jun 25, 2017 13:32
[2017-06-25 17:00] VITALS: BP 124/72; PULSE 68; RESP 18; TEMP 97.7; O2SAT 99
[2017-06-25] MEDS: IBUPROFEN 800 MG TAB PO PRN (21:33)
[2017-06-26 05:38] VITALS: BP 110/53; PULSE 56; RESP 17; TEMP 97.9
[2017-06-26] MEDS: BACITRACIN TOP OINT 15 GM TUBE TOPICAL SCH ×2 (09:00→21:00)
[2017-06-26] MEDS: FLUTICASONE PROPIONATE 50 MCG/ACT 16 GM NASAL SPRAY EACH NARE SCH (09:00)
[2017-06-26] MEDS: OLANZapine 10 MG TAB PO SCH ×2 (09:09→21:09)
[2017-06-26] MEDS: LACTULOSE SYRUP 20 GM/30 ML CUP PO SCH ×2 (09:09→21:08)
[2017-06-26] MEDS: DIVALPROEX SODIUM E.R. 250 MG TAB PO SCH ×2 (09:10→21:09)
--- NOTE | 2017-06-26 15:00 | HHI.PYPN ---
Subjective Remarks Patient seen in his room with nurse Ingrid. Chart reviewed. Patient compliant medications. Patient somewhat vague about voices at this time though does acknowledge their persistence. Is otherwise calm cooperative in no behavior problems at this time. Depakote level drawn today came back at 105 for now continue dosage no change. Review of Systems Except as stated in HPI: all other systems reviewed are Neg Mental Status Examination Appearance: Appropriate Consciousness: Alert Orientation: Person, Place, Date/Time, Situation Motor Activity: Normal gait Speech: Pressured (mildly) Language: Adequate Fund of Knowledge: Poor Attention and Concentration: Other (poor) Memory: Impaired Mood: Other (restricted) Affect: Other (decreased range and intensity) Thought Process & Associations: Linear Thought Content: Bizarre thinking Hallucination Type: Auditory (persistent but diminished) Delusion Type: Paranoid (mildly) Suicidal Ideation: No Suicidal Plan: No Suicidal Intention: No Homicidal Ideation: No Homicidal Plan: No Homicidal Intention: No Insight: Poor Judgment: Poor Results Labs Test 06/26/17 07:45 Valproic Acid (Depakene) Level 105 MCG/ML Vitals/IOs Vital Signs Date Time Temp Pulse Resp B/P (MAP) Pulse Ox O2 Delivery O2 Flow Rate FiO2 06/26/17 05:38 97.9 56 17 110/53 (72) 06/25/17 17:00 99 Assessment & Plan Problem List: (1) Adjustment disorder with mixed disturbance of emotions and conduct ICD Codes: F43.25 - Adjustment disorder with mixed disturbance of emotions and conduct Status: Acute (2) Schizophrenia ICD Codes: F20.9 - Schizophrenia, unspecified Status: Acute Assessment & Plan Estimated LOS: days patient continues somewhat psychotic calmer, compliant medications. For now continue treatment Depakote level drawn this a.m. is 105 continue Depakote no change Justification for Cont. Inpt. At this time patient will decompensate placed in a lower level of care Discharge Planning Continue to work with mother and attempt to arrange an apartment for this patient Request HC Surrog/Guard Advoc?: No Problem Qualifiers (1) Schizophrenia: Qualified Codes: F20.0 - Paranoid schizophrenia Nathan Mares MD Jun 26, 2017 15:00
[2017-06-26 16:26] VITALS: BP 129/69; PULSE 62; RESP 18; TEMP 97.9; O2SAT 99
[2017-06-27 05:43] VITALS: BP 113/66; PULSE 58; RESP 18; TEMP 97.7; O2SAT 96
[2017-06-27] MEDS: OLANZapine 10 MG TAB PO SCH ×2 (08:24→20:46)
[2017-06-27] MEDS: LACTULOSE SYRUP 20 GM/30 ML CUP PO SCH ×2 (08:24→20:45)
[2017-06-27] MEDS: DIVALPROEX SODIUM E.R. 250 MG TAB PO SCH ×2 (08:25→20:46)
[2017-06-27] MEDS: MULTIVITAMIN TAB PO SCH (08:25)
[2017-06-27] MEDS: FLUTICASONE PROPIONATE 50 MCG/ACT 16 GM NASAL SPRAY EACH NARE SCH (08:26)
[2017-06-27] MEDS: BACITRACIN TOP OINT 15 GM TUBE TOPICAL SCH ×2 (08:37→20:47)
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
[2017-06-27 17:05] VITALS: BP 109/59; PULSE 67; RESP 18; TEMP 98.3; O2SAT 95
[2017-06-27] MEDS: diphenhydrAMINE HCL 50 MG CAP PO PRN (20:45)
[2017-06-27] MEDS: traZODone HCL 50 MG TAB PO PRN (20:45)
[2017-06-28 05:25] VITALS: BP 129/70; PULSE 59; RESP 18; TEMP 97.6; O2SAT 97
[2017-06-28] MEDS: MULTIVITAMIN TAB PO SCH (08:31)
[2017-06-28] MEDS: FLUTICASONE PROPIONATE 50 MCG/ACT 16 GM NASAL SPRAY EACH NARE SCH (08:31)
[2017-06-28] MEDS: DIVALPROEX SODIUM E.R. 250 MG TAB PO SCH ×2 (08:31→20:01)
[2017-06-28] MEDS: LACTULOSE SYRUP 20 GM/30 ML CUP PO SCH ×2 (08:31→20:02)
[2017-06-28] MEDS: OLANZapine 10 MG TAB PO SCH ×2 (08:31→20:01)
[2017-06-28] MEDS: BACITRACIN TOP OINT 15 GM TUBE TOPICAL SCH ×2 (09:00→20:19)
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
[2017-06-28] MEDS: NEOMYCIN/POLYMYXIN/BACITRACIN OINT 15 GM TUBE TOPICAL SCH ×2 (14:15→20:02)
[2017-06-28 17:22] LABS: HEMATOCRIT 41.2 % (39.0-51.0); MEAN CELL VOLUME 89.6 FL (80.0-100.0); MEAN CORPUSCULAR HEMOGLOBIN 32.1 PG (27.0-34.0); MEAN CORPUSCULAR HGB CONC 35.8 % (32.0-36.0); PLATELET COUNT 211 TH/MM3 (150-450); RED CELL DISTRIBUTION WIDTH 13.1 % (11.6-17.2); REVIEW FLAG FINAL; WHITE BLOOD COUNT 6.1 TH/MM3 (4.0-11.0)
[2017-06-28 17:36] LABS: BICARBONATE 29.8 MEQ/L (21.0-32.0); POTASSIUM 4.1 MEQ/L (3.5-5.1)
[2017-06-28 17:45] VITALS: BP 102/75; PULSE 69; RESP 18; TEMP 97.3; O2SAT 97
[2017-06-28] MEDS: traZODone HCL 50 MG TAB PO PRN (20:02)
[2017-06-28] MEDS: diphenhydrAMINE HCL 50 MG CAP PO PRN (20:02)
[2017-06-29 05:55] VITALS: BP 112/75; PULSE 57; RESP 18; TEMP 97.8; O2SAT 97
[2017-06-29] MEDS: MULTIVITAMIN TAB PO SCH (08:01)
[2017-06-29] MEDS: FLUTICASONE PROPIONATE 50 MCG/ACT 16 GM NASAL SPRAY EACH NARE SCH (08:01)
[2017-06-29] MEDS: DIVALPROEX SODIUM E.R. 250 MG TAB PO SCH ×2 (08:01→20:29)
[2017-06-29] MEDS: LACTULOSE SYRUP 20 GM/30 ML CUP PO SCH ×2 (08:01→20:28)
[2017-06-29] MEDS: BACITRACIN TOP OINT 15 GM TUBE TOPICAL SCH ×2 (08:01→20:36)
[2017-06-29] MEDS: NEOMYCIN/POLYMYXIN/BACITRACIN OINT 15 GM TUBE TOPICAL SCH ×2 (08:01→20:32)
[2017-06-29] MEDS: OLANZapine 10 MG TAB PO SCH ×2 (08:01→20:28)
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
[2017-06-29 16:42] VITALS: BP 137/73; PULSE 61; RESP 17; TEMP 98; O2SAT 95
[2017-06-29] MEDS: IBUPROFEN 800 MG TAB PO PRN (16:58)
[2017-06-30 05:53] VITALS: BP 121/69; PULSE 50; RESP 16; TEMP 98.2; O2SAT 97
[2017-06-30] MEDS: MULTIVITAMIN TAB PO SCH (08:43)
[2017-06-30] MEDS: NEOMYCIN/POLYMYXIN/BACITRACIN OINT 15 GM TUBE TOPICAL SCH ×2 (08:43→20:54)
[2017-06-30] MEDS: LACTULOSE SYRUP 20 GM/30 ML CUP PO SCH ×2 (08:43→20:46)
[2017-06-30] MEDS: BACITRACIN TOP OINT 15 GM TUBE TOPICAL SCH ×3 (08:43→20:54)
[2017-06-30] MEDS: FLUTICASONE PROPIONATE 50 MCG/ACT 16 GM NASAL SPRAY EACH NARE SCH (08:44)
[2017-06-30] MEDS: DIVALPROEX SODIUM E.R. 250 MG TAB PO SCH ×2 (08:44→20:45)
[2017-06-30] MEDS: OLANZapine 10 MG TAB PO SCH ×2 (08:44→20:46)
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
[2017-06-30 15:33] VITALS: BP 121/75; PULSE 74; RESP 18; TEMP 98.5; O2SAT 97
[2017-07-01 05:50] VITALS: BP 138/61; PULSE 48; RESP 16; TEMP 97.5; O2SAT 98
[2017-07-01] MEDS: NEOMYCIN/POLYMYXIN/BACITRACIN OINT 15 GM TUBE TOPICAL SCH ×2 (08:50→08:54)
[2017-07-01] MEDS: LACTULOSE SYRUP 20 GM/30 ML CUP PO SCH (08:50)
[2017-07-01] MEDS: MULTIVITAMIN TAB PO SCH (08:50)
[2017-07-01] MEDS: DIVALPROEX SODIUM E.R. 250 MG TAB PO SCH (08:50)
[2017-07-01] MEDS: OLANZapine 10 MG TAB PO SCH (08:50)
[2017-07-01] MEDS: FLUTICASONE PROPIONATE 50 MCG/ACT 16 GM NASAL SPRAY EACH NARE SCH (08:51)
[2017-07-01] MEDS: BACITRACIN TOP OINT 15 GM TUBE TOPICAL SCH (09:00)
[2017-07-01] MEDS ORDERED: OLAN10TA PO (12:34)
[2017-07-01] MEDS ORDERED: THERTAB15 PO (12:34)
[2017-07-01] MEDS ORDERED: HALD50IN IM (12:34)
[2017-07-01] MEDS ORDERED: DEPA500T3 PO (12:34)
[2017-07-01] MEDS ORDERED: BACI500O2 TOPICAL (12:34)
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
== END 2017-07-01 16:20 | DRG 885 ==
LOC: NEPC 06:51 → NEDA 04-22 11:44 → H270 04-22 12:45 → H260 06-10 18:17 → H270 06-24 09:45
PROVIDERS: ADMIT Psychiatry & Neurology Psychiatry; ATTEND Psychiatry & Neurology Psychiatry
DX: F20.0 Paranoid schizophrenia (principal); G40.909 Epilepsy, unspecified, not intractable, without status epilepticus; I10 Essential (primary) hypertension; F43.25 Adjustment disorder with mixed disturbance of emotions and conduct; G89.29 Other chronic pain; M51.36 Other intervertebral disc degeneration, lumbar region; M25.561 Pain in right knee; K08.89 Other specified disorders of teeth and supporting structures; M51.34 Other intervertebral disc degeneration, thoracic region; M25.78 Osteophyte, vertebrae; R79.89 Other specified abnormal findings of blood chemistry; H60.91 Unspecified otitis externa, right ear; S91.341A Puncture wound with foreign body, right foot, initial encounter; M79.1 Myalgia; L98.9 Disorder of the skin and subcutaneous tissue, unspecified; M40.209 Unspecified kyphosis, site unspecified; Z72.0 Tobacco use; Z88.8 Allergy status to other drugs, medicaments and biological substances; Z23 Encounter for immunization
CPT/HCPCS: 70450; 71260; 72100; 73070; 73130; 73560; 73630; 74177; 76705; 80048; 80053; 80061; 80074; 80164; 80307; 82140; 82306; 82607; 83036; 84443; 85025; 85027; 86308; 86403; 86703; 87070; 87147; 87186; 87205; 90471; 90686; 93005; G0008; J1200; J1630; J1631; J2060; Q0163; Q2038; Q9963; Q9967

== ENCOUNTER 2017-09-22 09:35 | Emergency (ER) | payer MEDICARE, OTHER ==
[~2017-09-22] VITALS: Ht 172.7 cm; Wt 82.0 kg
[~2017-09-22 09:35] MED LIST changes: +BACI500O2 TOPICAL; +DEPA500T3 PO; +FLUT50SP EACH NARE; +HALD50IN IM; -HALO10TA PO; +HALO5TAB PO; +LACT10SO PO; +OLAN10TA PO; +THERTAB15 PO
[2017-09-22 09:41] VITALS: BP 147/85; PULSE 74; RESP 16; TEMP 97.9; O2SAT 98
[2017-09-22] MEDS ORDERED: OLAN20TA PO (09:58)
[2017-09-22] MEDS ORDERED: OLAN10TA PO (09:58)
[2017-09-22] MEDS ORDERED: HALO100I IM (09:58)
[2017-09-22] MEDS ORDERED: TRAZ50TA12 PO (09:58)
[2017-09-22] MEDS ORDERED: SODIUM CHLORIDE 0.9% FLUSH 10 ML FLUSH IVF PRN (10:00)
[2017-09-22] MEDS ORDERED: methylPREDNISolone SOD SUCC 125 MG/2 ML VIAL IV PUSH ONE (10:00)
[2017-09-22] MEDS ORDERED: LITH600C PO (10:02)
[2017-09-22] MEDS ORDERED: DESM1TAB16 PO (10:02)
[2017-09-22] MEDS ORDERED: MIRA50TA PO (10:02)
[2017-09-22] MEDS ORDERED: IBUP1TAB7 PO (10:02)
[2017-09-22] MEDS ORDERED: VENTAER INH ×2 (10:02→11:33)
[2017-09-22 10:05] VITALS: RESP 16; O2SAT 98
--- NOTE | 2017-09-22 10:23 | RADRPT ---
EXAM DATE/TIME: 09/22/2017 10:08 [place] COMPARISON: CHEST SINGLE AP, April 15, 2017, 16:06. INDICATIONS : Short of breath. MEDICAL HISTORY : Asthma SURGICAL HISTORY : None. ENCOUNTER: Initial ACUITY: 1 week PAIN SCORE: 0/10 LOCATION: Bilateral chest FINDINGS: A single view of the chest demonstrates the lungs to be symmetrically aerated without evidence of mas s, infiltrate or effusion. The cardiomediastinal contours are unremarkable. Osseous structures are intact. CONCLUSION: 1. No acute cardiopulmonary disease. Mango Fields MD on September 22, 2017 at 10:21 Board Certified Radiologist. This report was verified electronically.
[2017-09-22] MEDS: RESP: ALBUTEROL 2.5 MG/IPRATROPIUM 0.5 MG NEB (SCH) INH ×2 (10:43→10:44)
--- NOTE | 2017-09-22 10:50 | PD ---
HPI Chief Complaint: Cold / Flu Symptoms Time Seen by Provider: 09:57 Travel History International Travel<30 days: No Contact w/Intl Traveler<30days: No Traveled to known affect area: No History of Present Illness HPI Patient is a 42-year-old male presenting to the emergency department from an assisted living facility for evaluation of nasal congestion, chest congestion, cough. He states his symptoms started 3 days ago. He believes he has COPD and he is currently out of his inhaler. He is requesting a refill of his inhaler because it helps him to be able to continue using tobacco products. He denies any fevers, chills, abdominal pain, chest pain, shortness of breath. Patient has a past medical history significant for psychiatric disorders, asthma. PFSH Past Medical History ADD: Yes Heart Rhythm Problems: No Cardiovascular Problems: Yes High Cholesterol: No Chest Pain: No Congestive Heart Failure: No Cerebrovascular Accident: No Musculoskeletal: Yes (States he has hip displasia) Neurologic: Yes Schizophrenia: Yes Seizures: Yes Past Surgical History Abdominal Surgery: No Cardiac Surgery: No Ear Surgery: No Endocrine Surgery: No Eye Surgery: No Genitourinary Surgery: No Gynecologic Surgery: No Thoracic Surgery: No Other Surgery: Yes Social History Alcohol Use: No Tobacco Use: Yes (09/23 PPD) Substance Use: No Allergies-Medications (Allergen,Severity, Reaction): Coded Allergies: fluphenazine (Unverified Allergy, Severe, 09/22/17) ziprasidone (Unverified Allergy, Severe, 09/22/17) Reported Meds & Prescriptions Reported Meds & Active Scripts Active Fluticasone Nasal [place] 50 Mcg/Act Naspr 2 [place] EACH NARE DAILY 50 mcg/spray Reported Ventolin Hfa 18 GM Inh (Albuterol Sulfate) 90 Mcg/Act Aer 2 Puff INH Q4-6H PRN Myrbetriq (Mirabegron) 50 Mg Tab 50 Mg PO DAILY Time Carbonate 600 Mg Cap 600 Mg PO HS Ibuprofen 800 Mg Tab 800 Mg PO BID Desmopressin (Desmopressin Acetate) 0.2 Mg Tab 0.2 Mg PO HS Trazodone (Trazodone HCl) 50 Mg Tab 50 Mg PO HS Olanzapine 20 Mg Tab 20 Mg PO HS Olanzapine 10 Mg Tab 10 Mg PO DAILY Haloperidol Decanoate Inj (Haloperidol Decanoate) 100 Mg/Ml Inj 300 Mg IM Q28D Review of Systems Except as stated in HPI: all other systems reviewed are Neg General / Constitutional: No: Fever, Chills HENT: Positive: Rhinitis, Congestion, No: Headaches Cardiovascular: No: Chest Pain or Discomfort Respiratory: Positive: Cough, Wheezing, No: Shortness of Breath Gastrointestinal: No: Nausea, Vomiting, Abdominal Pain Physical Exam Narrative GENERAL: Well-developed, well-nourished, alert male. Resting comfortably in no acute distress. SKIN: Warm and dry. HEAD: Atraumatic. Normocephalic. EYES: Pupils equal and round. No scleral icterus. No injection or drainage. ENT: No nasal bleeding or discharge. Mucous membranes pink and moist. NECK: Trachea midline. No JVD. CARDIOVASCULAR: Regular rate and rhythm. RESPIRATORY: No accessory muscle use. Clear to auscultation. Diminished in bases GASTROINTESTINAL: Abdomen soft, non-tender, nondistended. Hepatic and splenic margins not palpable. MUSCULOSKELETAL: Extremities without clubbing, cyanosis, or edema. No obvious deformities. NEUROLOGICAL: Awake and alert. No obvious cranial nerve deficits. Motor grossly within normal limits. Five out of 5 muscle strength in the arms and legs. Normal speech. PSYCHIATRIC: Appropriate mood and affect; insight and judgment normal. Data Data Last Documented VS Vital Signs Date Time Temp Pulse Resp B/P (MAP) Pulse Ox O2 Delivery O2 Flow Rate FiO2 09/22/17 10:05 16 98 Room Air 09/22/17 09:45 80 09/22/17 09:41 97.9 147/85 (105) Orders Orders Chest, Single Ap (09/22/17 09:58) Ecg Monitoring (09/22/17 09:58) Iv Access Insert/Monitor (09/22/17 09:58) Oximetry (09/22/17 09:58) Oxygen Administration (09/22/17 09:58) Methylprednisolone So Succ Inj (Solumedr (09/22/17 10:00) Albuterol-Ipratropium Neb (Duoneb Neb) (09/22/17 10:00) Sodium Chloride 0.9% Flush (Ns Flush) (09/22/17 10:00) MDM Medical Decision Making Medical Screen Exam Complete: Yes Emergency Medical Condition: Yes Interpretation(s) Last Impressions Chest X-Ray 09/22/1799 Signed Impressions: Service Date/Time: Friday, September 22, 2017 10:08 - CONCLUSION: 1. No acute cardiopulmonary disease. Mango Fields MD Vital Signs Date Time Temp Pulse Resp B/P (MAP) Pulse Ox O2 Delivery O2 Flow Rate FiO2 09/22/17 10:05 16 98 Room Air 09/22/17 09:45 80 16 98 Room Air 09/22/17 09:41 97.9 74 16 147/85 (105) 98 Differential Diagnosis Asthma exacerbation versus COPD exacerbation versus pneumonia versus bronchitis versus viral syndrome versus other Narrative Course Patient is a 42-year-old male that presented to emergency department evaluation of cold symptoms and chest congestion. Patient's vital signs are stable, imaging and DuoNeb is ordered. Chest x-ray shows no acute disease. After nebulizer treatments patient reports improvement in his symptoms. This time patient will be discharged home with a refill of his inhaler, he was advised to avoid tobacco use. He is encouraged follow-up with his primary doctor. Additionally patient can return to emergency department for any new or worsening symptoms. Physical examination at this time Is Most consistent with an asthma exacerbation/bronchitis. She is stable for discharge. Diagnosis Primary Impression: Acute bronchitis Qualified Codes: J20.9 - Acute bronchitis, unspecified Referrals: Primary Care Physician 3 days Patient Instructions: Acute Bronchitis (ED), General Instructions Additional Instructions: Follow-up with your primary doctor Take medications as directed Avoid tobacco products Inhaler as needed and as directed Return to emergency department for any new or worsening symptoms Med/Other Pt SpecificInfo: Prescription(s) given Scripts Albuterol 18 GM Inh (Ventolin Hfa 18 GM Inh) 90 Mcg/Act Aer 2 PUFF INH Q4-6H Y for SHORTNESS OF BREATH, #1 INHALER 0 Refills Prov: Renu Walsh 09/22/17 Azithromycin (Azithromycin) 250 Mg Tab 250 MG PO DIRECTED for Infection, #6 TAB 0 Refills Take 2 tabs (500 mg) on day 1 then 1 tab daily x 4 days. Prov: Renu Walsh 09/22/17 Disposition: 01 DISCHARGE HOME Condition: Stable Renu Walsh Sep 22, 2017 10:50
[2017-09-22] MEDS ORDERED: AZIT250T3 PO (11:33)
== END 2017-09-22 12:48 | disposition home or self-care (01) ==
LOC: NEPD 09:35
DX: J20.9 Acute bronchitis, unspecified (principal); J45.909 Unspecified asthma, uncomplicated; F98.8 Other specified behavioral and emotional disorders with onset usually occurring in childhood and adolescence; F20.9 Schizophrenia, unspecified; R56.9 Unspecified convulsions; F17.200 Nicotine dependence, unspecified, uncomplicated; Z79.899 Other long term (current) drug therapy; Z88.8 Allergy status to other drugs, medicaments and biological substances
CPT/HCPCS: 71045; 94640; 94664; 96374; 99284; J2930

== ENCOUNTER 2017-10-03 10:53 | Emergency (ER) | payer MEDICARE ==
[~2017-10-03 10:53] MED LIST changes: +AZIT250T3 PO; -BACI500O2 TOPICAL; -DEPA500T3 PO; +DESM1TAB16 PO; -DIVA250T PO; -DIVA500T PO; -HALD50IN IM; +HALO100I IM; -HALO100P IM; -HALO5TAB PO; +IBUP1TAB7 PO; -LACT10SO PO; +LITH600C PO; +MIRA50TA PO; +OLAN20TA PO; -OLAN5TAB PO; -THERTAB15 PO; +TRAZ50TA12 PO; +VENTAER INH
[2017-10-03 11:20] VITALS: BP 122/84; PULSE 86; RESP 16; TEMP 98.5; O2SAT 98
[2017-10-03 11:55] LABS: AUTOMATED NEUTROPHIL # 5.2 TH/MM3 (1.8-7.7); BASOPHIL # 0.1 TH/MM3 (0-0.2); BASOPHIL % 0.7 % (0.0-2.0); EOSINOPHIL # 0.3 TH/MM3 (0-0.4); EOSINOPHIL % 3.3 % (0.0-4.0); HEMOGLOBIN 15.2 GM/DL (13.0-17.0); LYMPHOCYTE # 1.9 TH/MM3 (1.0-4.8); MEAN CELL VOLUME 88.2 FL (80.0-100.0); MEAN CORPUSCULAR HEMOGLOBIN 30.5 PG (27.0-34.0); MEAN CORPUSCULAR HGB CONC 34.6 % (32.0-36.0); MEAN PLATELET VOLUME 8.1 FL (7.0-11.0); MONO % 6.4 % (0.0-8.0); MONOCYTE # 0.5 TH/MM3 (0-0.9); NEUT % 65.6 % (16.0-70.0); PLATELET COUNT 280 TH/MM3 (150-450); RED BLOOD COUNT 4.99 MIL/MM3 (4.50-5.90); RED CELL DISTRIBUTION WIDTH 14.6 % (11.6-17.2); WHITE BLOOD COUNT 7.9 TH/MM3 (4.0-11.0)
[2017-10-03 12:10] LABS: ALBUMIN 4.2 GM/DL (3.4-5.0); AST (GOT) 25 U/L (15-37); BICARBONATE 25.7 MEQ/L (21.0-32.0); BLOOD UREA NITROGEN 10 MG/DL (7-18); CALCIUM 9.4 MG/DL (8.5-10.1); CHLORIDE 107 MEQ/L (98-107); GLOMERULAR FILTRATION RATE 105 ML/MIN (>89); GLUCOSE,RANDOM 96 MG/DL (74-106); SODIUM (NA) 139 MEQ/L (136-145)
[2017-10-03 12:13] LABS: ALKALINE PHOSPHATASE 116 U/L (45-117); ALT (GPT) 48 U/L (12-78); TOTAL BILIRUBIN ADULT 0.3 MG/DL (0.2-1.0); TOTAL PROTEIN 8.1 GM/DL (6.4-8.2)
[2017-10-03 14:27] VITALS: BP 163/91; PULSE 71; RESP 18; TEMP 98.3; O2SAT 98
--- NOTE | 2017-10-03 14:37 | PD ---
HPI Chief Complaint: Psychiatric Symptoms Time Seen by Provider: 14:24 Travel History International Travel<30 days: No Contact w/Intl Traveler<30days: No Traveled to known affect area: No History of Present Illness HPI This is a 42-year-old male with history of schizophrenia who presents from assisted living facility called [facility]. He presents today because he does not want to live and [facility] anymore. He reports that he does not like living there and he no longer wants to live there. He is requesting transportation to a hospital in [place] that he believes can facilitate a different kind of her living arrangement for him. He has no acute medical or psychiatric complaints. He denies any suicidal or homicidal ideation. [facility] Past Medical History ADD: Yes Heart Rhythm Problems: No Cardiovascular Problems: Yes High Cholesterol: No Chest Pain: No Congestive Heart Failure: No Cerebrovascular Accident: No Musculoskeletal: Yes (States he has hip displasia) Neurologic: Yes Schizophrenia: Yes Seizures: Yes Past Surgical History Abdominal Surgery: No Cardiac Surgery: No Ear Surgery: No Endocrine Surgery: No Eye Surgery: No Genitourinary Surgery: No Gynecologic Surgery: No Thoracic Surgery: No Other Surgery: Yes Social History Alcohol Use: No Tobacco Use: Yes (09/23 PPD) Substance Use: No Allergies-Medications (Allergen,Severity, Reaction): Coded Allergies: fluphenazine (Unverified Allergy, Severe, 09/22/17) ziprasidone (Unverified Allergy, Severe, 09/22/17) Reported Meds & Prescriptions Reported Meds & Active Scripts Active Ventolin Hfa 18 GM Inh (Albuterol Sulfate) 90 Mcg/Act Aer 2 Puff INH Q4-6H PRN Azithromycin 250 Mg Tab 250 Mg PO DIRECTED Take 2 tabs (500 mg) on day 1 then 1 tab daily x 4 days. Fluticasone Nasal [place] 50 Mcg/Act Naspr 2 [place] EACH NARE DAILY 50 mcg/spray Reported Ventolin Hfa 18 GM Inh (Albuterol Sulfate) 90 Mcg/Act Aer 2 Puff INH Q4-6H PRN Myrbetriq (Mirabegron) 50 Mg Tab 50 Mg PO DAILY [place] Carbonate 600 Mg Cap 600 Mg PO HS Ibuprofen 800 Mg Tab 800 Mg PO BID Desmopressin (Desmopressin Acetate) 0.2 Mg Tab 0.2 Mg PO HS Trazodone (Trazodone HCl) 50 Mg Tab 50 Mg PO HS Olanzapine 20 Mg Tab 20 Mg PO HS Olanzapine 10 Mg Tab 10 Mg PO DAILY Haloperidol Decanoate Inj (Haloperidol Decanoate) 100 Mg/Ml Inj 300 Mg IM Q28D Review of Systems Except as stated in HPI: all other systems reviewed are Neg Physical Exam Narrative GENERAL: Well-developed well-nourished male in no acute distress SKIN: Warm and dry. HEAD: Atraumatic. Normocephalic. EYES: Pupils equal and round. No scleral icterus. No injection or drainage. ENT: No nasal bleeding or discharge. Mucous membranes pink and moist. NECK: Trachea midline. No JVD. CARDIOVASCULAR: Regular rate and rhythm. No murmur appreciated. RESPIRATORY: No accessory muscle use. Clear to auscultation. Breath sounds equal bilaterally. GASTROINTESTINAL: Abdomen soft, non-tender, nondistended. Hepatic and splenic margins not palpable. MUSCULOSKELETAL: No obvious deformities. No clubbing. No cyanosis. No edema. NEUROLOGICAL: Awake and alert. No obvious cranial nerve deficits. Motor grossly within normal limits. Normal speech. PSYCHIATRIC: Appropriate mood and affect; insight and judgment normal. Data Data Last Documented VS Vital Signs Date Time Temp Pulse Resp B/P (MAP) Pulse Ox O2 Delivery O2 Flow Rate FiO2 10/03/17 14:27 98.3 71 18 163/91 (115) 98 Room Air Orders Orders Complete Blood Count With Diff (10/03/17 11:17) Comprehensive Metabolic Panel (10/03/17 11:17) Drug Screen, Random Urine (10/03/17 11:17) Alcohol (Ethanol) (10/03/17 11:17) Diet Regular Basic (10/03/17 Dinner) Ed Discharge Order (10/03/17 15:11) Labs Laboratory Tests Test 10/03/17 11:25 White Blood Count 7.9 TH/MM3 Red Blood Count 4.99 MIL/MM3 Hemoglobin 15.2 GM/DL Hematocrit 44.0 % Mean Corpuscular Volume 88.2 FL Mean Corpuscular Hemoglobin 30.5 PG Mean Corpuscular Hemoglobin Concent 34.6 % Red Cell Distribution Width 14.6 % Platelet Count 280 TH/MM3 Mean Platelet Volume 8.1 FL Neutrophils (%) (Auto) 65.6 % Lymphocytes (%) (Auto) 24.0 % Monocytes (%) (Auto) 6.4 % Eosinophils (%) (Auto) 3.3 % Basophils (%) (Auto) 0.7 % Neutrophils # (Auto) 5.2 TH/MM3 Lymphocytes # (Auto) 1.9 TH/MM3 Monocytes # (Auto) 0.5 TH/MM3 Eosinophils # (Auto) 0.3 TH/MM3 Basophils # (Auto) 0.1 TH/MM3 CBC Comment DIFF FINAL Differential Comment Blood Urea Nitrogen 10 MG/DL Creatinine 0.80 MG/DL Random Glucose 96 MG/DL Total Protein 8.1 GM/DL Albumin 4.2 GM/DL Calcium Level 9.4 MG/DL Alkaline Phosphatase 116 U/L Aspartate Amino Transf (AST/SGOT) 25 U/L Alanine Aminotransferase (ALT/SGPT) 48 U/L Total Bilirubin 0.3 MG/DL Sodium Level 139 MEQ/L Potassium Level 4.2 MEQ/L Chloride Level 107 MEQ/L Carbon Dioxide Level 25.7 MEQ/L Anion Gap 6 MEQ/L Estimat Glomerular Filtration Rate 105 ML/MIN Urine Opiates Screen NEG Urine Barbiturates Screen NEG Urine Amphetamines Screen NEG Urine Benzodiazepines Screen NEG Urine Cocaine Screen NEG Urine Cannabinoids Screen NEG Ethyl Alcohol Level LESS THAN 3 MG/DL MDM Medical Decision Making Medical Screen Exam Complete: Yes Emergency Medical Condition: Yes Medical Record Reviewed: Yes Differential Diagnosis Dislike of living arrangements versus noncompliance with medication versus schizophrenia Narrative Course This patient presents because he does no longer wants to live at his assisted living facility. He has no acute medical or psychiatric complaint. Lab work was obtained in triage which is completely unremarkable. This patient requires no additional psychiatric or medical care. Our caser will be contacted. 1510: The patient now reports that he is willing to go back to his assisted living facility. The nurse spoke with someone at the assisted-living facility who reports that they do not necessarily want this patient living at their facility anymore because they're concerned that he may have killed the cat. Our caser was consult and recommends that the patient be sent back to his assisted-living facility and they can work on new living arrangements on their end. He requires no additional care in this emergency department and therefore he is stable for discharge. Diagnosis Primary Impression: Problem related to living arrangement Med/Other Pt SpecificInfo: No Change to Meds Disposition: 01 DISCHARGE HOME Condition: Stable Krishna Obregon Oct 03, 2017 14:37
== END 2017-10-03 17:17 | disposition home or self-care (01) ==
LOC: NEPJ 10:53
DX: F20.9 Schizophrenia, unspecified (principal); F17.200 Nicotine dependence, unspecified, uncomplicated; Z79.899 Other long term (current) drug therapy
CPT/HCPCS: 80053; 80307; 85025; 99283

== ENCOUNTER 2018-03-09 15:01 | Emergency (ER) | payer MEDICARE ==
[~2018-03-09] VITALS: Ht 172.7 cm; Wt 120.0 kg
[2018-03-09 15:20] VITALS: BP 133/76; PULSE 76; RESP 16; TEMP 98.1; O2SAT 97
[2018-03-09 15:57] VITALS: BP 150/72; PULSE 82; RESP 16; TEMP 98.6; O2SAT 98
--- NOTE | 2018-03-09 16:46 | PD ---
History of Present Illness Chief Complaint: Psychiatric Symptoms Time Seen by Provider: 16:30 Travel History International Travel<30 Days: No Contact w/Intl Traveler<30days: No Known affected area: No Legal Status Legal Status: Voluntary History of Present Illness: Patient is 43-year-old male with a long history of chronic paranoid schizophrenia including multiple hospitalizations. He he currently resides at the [facility]. He presents today voluntarily because he is upset because he is a diabetic and they are not giving him enough snacks during the course of the day. On presentation he stated that he was hearing voices. When interviewed he denied hearing voices stating that he got his Haldol Decanoate injection 2 days ago from [facility] and endorses no auditory or visual hallucinations. He does endorse that he is very upset not receiving snacks and requesting that this provider put something in writing so that the [facility] will give him snacks. Current med list includes: Benztropine 1 mg at bedtime, Desmopressin 0.2 at bedtime, Fenofibrate 160 once daily, I buprofen 800 twice daily, Lisinopril 20 daily, [place] carbonate 600 mg 2 capsules at bedtime,[id number] mg, Metformin 500 once daily, Multivite once daily, Myrbetriq 50 mg ER once daily, Olanzapine 20 mg by mouth at bedtime, Olanzapine 5 mg by mouth at bedtime, Haldol Dec NIEVES every 28 days and Atorvastatin 20 at bedtime. Chart reviewed and discussed with nurse. Patient is in room 108 in the J part of the emergency room. He is alert and oriented to name date place. He is disheveled and unshaven. He has very poor dentition. Fund of knowledge is moderate. Insight and judgment is mildly impaired. Motor and gait is normal. Remote and recent memory is mildly impaired. No delusions noted. No paranoid noted. Denies auditory or visual hallucinations. This patient is well-known to this provider. This patient appears at baseline. He is of no harm to himself or others. He is at low risk for decompensation. He is followed by [facility] outpatient services. Will discharge patient back to the [facility]. Will recommend that patient be given snack to cover his diabetes. Dx: Paranoid Schizophrenia PFSH Past Medical History Narrative Medical Long history of Paranoid Schizophrenia. Followed by [facility], Haldol Dec. ADD: Yes Heart Rhythm Problems: No High Cholesterol: No Chest Pain: No Congestive Heart Failure: No Cerebrovascular Accident: No Diabetes: Yes Patient Takes Glucophage: Yes Diminished Hearing: No Musculoskeletal: Yes (States he has hip displasia) Psychiatric: Yes (Hx of treatment for Schizophrenia) Schizophrenia: Yes Seizures: Yes Tetanus Vaccination: Unknown Past Surgical History Abdominal Surgery: No Cardiac Surgery: No Ear Surgery: No Endocrine Surgery: No Eye Surgery: No Genitourinary Surgery: No Gynecologic Surgery: No Thoracic Surgery: No Other Surgery: Yes Psychiatric History Psychiatric History Hx Psychiatric Treatment: PT STATES HE IS "SCHIZO AFFECTIVE" History of Inpatient Treatment: Yes Social History Hx Alcohol Use: No Hx Tobacco Use: Yes (1/2 PPD) Hx Substance Use: No Substance Use Type: Nicotine/Cigarettes Hx of Substance Use Treatment: No Allergies-Medications (Allergen,Severity, Reaction): Coded Allergies: fluphenazine (Verified Allergy, Severe, 03/09/18) ziprasidone (Verified Allergy, Severe, 03/09/18) bee venom protein (honey bee) (Verified Allergy, Intermediate, 03/09/18) Reported Meds & Prescriptions Reported Meds & Active Scripts Active Ventolin Hfa 18 GM Inh (Albuterol Sulfate) 90 Mcg/Act Aer 2 Puff INH Q4-6H PRN Fluticasone Nasal [place] 50 Mcg/Act Naspr 2 [place] EACH NARE DAILY 50 mcg/spray Reported Ventolin Hfa 18 GM Inh (Albuterol Sulfate) 90 Mcg/Act Aer 2 Puff INH Q4-6H PRN Myrbetriq (Mirabegron) 50 Mg Tab 50 Mg PO DAILY [place] Carbonate 600 Mg Cap 600 Mg PO HS Ibuprofen 800 Mg Tab 800 Mg PO BID Desmopressin (Desmopressin Acetate) 0.2 Mg Tab 0.2 Mg PO HS Trazodone (Trazodone HCl) 50 Mg Tab 50 Mg PO HS Olanzapine 20 Mg Tab 20 Mg PO HS Olanzapine 10 Mg Tab 10 Mg PO DAILY Haloperidol Decanoate Inj (Haloperidol Decanoate) 100 Mg/Ml Inj 300 Mg IM Q28D Mental Status Examination Appearance: Appropriate Consciousness: Alert Orientation: Person, Place, Date/Time Motor Activity: Normal gait Speech: Unremarkable Language: Adequate Fund of Knowledge: Adequate Attention and Concentration: Easily Distracted Memory: Impaired Mood: Appropriate Affect: Appropriate Thought Process & Associations: Linear Thought Content: Appropriate Hallucination Type: None Delusion Type: None Suicidal Ideation: No Suicidal Plan: No Suicidal Intention: No Homicidal Ideation: No Homicidal Plan: No Homicidal Intention: No Insight: Adequate Judgment: Adequate MDM Medical Decision Making Medical Record Reviewed: Yes Assessment/Plan Patient is a 43-year-old male with a long-term history of paranoid schizophrenia. He presents to the ER stating that he is hearing voices. When interviewed he states he is not hearing voices. He states that he is here in the ER because the [facility] where he currently resides will not give him snacks for his diabetes. He received a Haldol Decanoate injection 2 days ago from [facility]. Patient is at baseline. No delusions. No paranoia. No auditory or visual hallucinations. Patient will be discharged back to [facility]. Will recommend that [facility] consider giving him snacks during throughout the course of the day. Patient discharged back to the [facility]. We will continue to follow up at [facility] for his mental health care. Orders Orders Complete Blood Count With Diff (03/09/18 15:34) Comprehensive Metabolic Panel (03/09/18 15:34) Thyroid Stimulating Hormone (03/09/18 15:34) Psych Screen (03/09/18 15:34) Drug Screen, Random Urine (03/09/18 15:34) Alcohol (Ethanol) (03/09/18 15:34) Salicylates (Aspirin) (03/09/18 15:34) Tylenol (Acetaminophen) (03/09/18 15:34) Results Vital Signs Date Time Temp Pulse Resp B/P (MAP) Pulse Ox O2 Delivery O2 Flow Rate FiO2 03/09/18 15:57 98.6 82 16 150/72 (98) 98 03/09/18 15:20 98.1 76 16 133/76 (95) 97 Laboratory Tests Test 03/09/18 15:40 Physician Communication PLEASE CONSIDER GIVING PATIENT SNACKS THROUGHOUT THE DAY IN ADDITION TO MEALS TO COVER HIS DIABETES. Diagnosis Primary Impression: Chronic paranoid schizophrenia Disposition: DISCHARGE HOME Condition: Stable Brenda Bautista [facility] Mar 09, 2018 16:46
--- NOTE | 2018-03-09 17:40 | PD ---
HPI Chief Complaint: Psychiatric Symptoms Time Seen by Provider: 17:12 Travel History International Travel<30 days: No Contact w/Intl Traveler<30days: No Traveled to known affect area: No History of Present Illness HPI 43-year-old male presents to the emergency department voluntarily with complaint of hearing voices that onset today. He has history of hearing voices and says he takes Haldol to help with his symptoms. He was seen at [facility] 2 days ago and was given his dose of Haldol. He sees Luna at [facility]. He lives at [facility]. The voices are not telling him bad things. They are telling him to do things of "activity of living." He denies suicidal or homicidal ideations. Denies illicit drug use or alcohol use. No known aggravating or relieving factors. Symptoms are moderate in severity. Has not taken any medications or try treatments to alleviate his symptoms, other than the Haldol 2 days ago. Duration chronic. Allergies as listed on the chart. History of COPD and diabetes type 2. Says he is compliant with taking his medications. He has no other medical complaints. Denies chest pain, shortness of breath, abdominal pain, nausea, vomiting, change in urine or stool. No other modifying factors or associated signs and symptoms. PFSH Past Medical History ADD: Yes Heart Rhythm Problems: No High Cholesterol: No Chest Pain: No Congestive Heart Failure: No Cerebrovascular Accident: No Diabetes: Yes Patient Takes Glucophage: Yes Diminished Hearing: No Musculoskeletal: Yes (States he has hip displasia) Psychiatric: Yes (Hx of treatment for Schizophrenia) Schizophrenia: Yes Seizures: Yes Tetanus Vaccination: Unknown Past Surgical History Abdominal Surgery: No Cardiac Surgery: No Ear Surgery: No Endocrine Surgery: No Eye Surgery: No Genitourinary Surgery: No Gynecologic Surgery: No Thoracic Surgery: No Other Surgery: Yes Social History Alcohol Use: No Tobacco Use: Yes (2 PPD) Substance Use: No Allergies-Medications (Allergen,Severity, Reaction): Coded Allergies: fluphenazine (Verified Allergy, Severe, 03/09/18) ziprasidone (Verified Allergy, Severe, 03/09/18) bee venom protein (honey bee) (Verified Allergy, Intermediate, 03/09/18) Reported Meds & Prescriptions Reported Meds & Active Scripts Active Ventolin Hfa 18 GM Inh (Albuterol Sulfate) 90 Mcg/Act Aer 2 Puff INH Q4-6H PRN Fluticasone Nasal [place] 50 Mcg/Act Naspr 2 [place] EACH NARE DAILY 50 mcg/spray Reported Ventolin Hfa 18 GM Inh (Albuterol Sulfate) 90 Mcg/Act Aer 2 Puff INH Q4-6H PRN Myrbetriq (Mirabegron) 50 Mg Tab [address] [place] Carbonate 600 Mg Cap 600 Mg PO HS Ibuprofen 800 Mg Tab 800 Mg PO BID Desmopressin (Desmopressin Acetate) 0.2 Mg Tab 0.2 Mg PO HS Trazodone (Trazodone HCl) 50 Mg Tab 50 Mg PO HS Olanzapine 20 Mg Tab 20 Mg PO HS Olanzapine 10 Mg Tab 10 Mg PO DAILY Haloperidol Decanoate Inj (Haloperidol Decanoate) 100 Mg/Ml Inj 300 Mg IM Q28D Review of Systems Except as stated in HPI: all other systems reviewed are Neg Physical Exam Narrative GENERAL: Well-nourished, well-developed male patient, in no acute distress SKIN: Warm and dry. HEAD: Atraumatic. Normocephalic. EYES: Pupils equal and round. ENT: Mucosa pink and moist. NECK: Supple. Trachea midline. CARDIOVASCULAR: Regular rate and rhythm. No murmur appreciated. RESPIRATORY: No accessory muscle use. Clear to auscultation. Breath sounds equal bilaterally. GASTROINTESTINAL: Abdomen soft, non-tender, nondistended. Hepatic and splenic margins not palpable. Bowel sounds are active 4 quadrants. MUSCULOSKELETAL: No obvious deformities. No clubbing. No cyanosis. No edema. BACK: No CVA tenderness. NEUROLOGICAL: Awake and alert. Oriented 4. No obvious cranial nerve deficits. Motor grossly within normal limits. Normal speech. Moves all extremities. 5/5 strength to all extremities. PSYCHIATRIC: No delusional thought processes. No hallucinations. Data Data Last Documented VS Vital Signs Date Time Temp Pulse Resp B/P (MAP) Pulse Ox O2 Delivery O2 Flow Rate FiO2 03/09/18 17:40 03/09/18 15:57 98.6 82 16 98 Orders Orders Complete Blood Count With Diff (03/09/18 15:34) Comprehensive Metabolic Panel (03/09/18 15:34) Thyroid Stimulating Hormone (03/09/18 15:34) Psych Screen (03/09/18 15:34) Drug Screen, Random Urine (03/09/18 15:34) Alcohol (Ethanol) (03/09/18 15:34) Salicylates (Aspirin) (03/09/18 15:34) Tylenol (Acetaminophen) (03/09/18 15:34) Diet Regular Basic (03/09/18 Dinner) Labs Laboratory Tests Test 03/09/18 15:40 Urine Opiates Screen NEG Urine Barbiturates Screen NEG Urine Amphetamines Screen NEG Urine Benzodiazepines Screen NEG Urine Cocaine Screen NEG Urine Cannabinoids Screen NEG MDM Medical Decision Making Medical Screen Exam Complete: Yes Emergency Medical Condition: Yes Medical Record Reviewed: Yes Differential Diagnosis Paranoia, schizophrenia, encounter for psychological evaluation Narrative Course This is a 43-year-old male who presents voluntarily for auditory hallucinations. Brenda RIBERA has evaluated the patient and cleared the patient for discharge. She saw this patient 2 days ago at [facility] and he was administered Haldol. The patient will be discharged back to [place], where he lives. Patient contracts safety. Denies suicidal or homicidal ideations. Patient will be provided community resource packet to [facility] for follow-up. Has friends and family for support. Patient was medically cleared by alternate provider prior to psych screening. Patient has been evaluated by psychiatry and and is now cleared for discharge. Diagnosis Primary Impression: Chronic paranoid schizophrenia Referrals: [facility] (Out patient) [facility] as needed Primary Care Physician Psychiatrist Lenore [facility] as needed Mental Health and Substance Abuse inpatient facility [facility] Patient Instructions: General Instructions, Paranoid Personality Disorder (ED) , Schizophrenia (ED) Departure Forms: Tests/Procedures Additional Instructions: Contract safety to your self and others Follow-up with psychiatry Follow-up with primary care provider Follow-up with Juanito Perry Return to the emergency department immediately with worsening of symptoms Med/Other Pt SpecificInfo: No Change to Meds, No Meds Exist/No RX given Disposition: 01 DISCHARGE HOME Condition: Stable Kimberly Escobar Mar 09, 2018 17:40
[2018-03-12] MEDS ORDERED: METF500T PO (04:18)
[2018-03-12] MEDS ORDERED: FENO160T PO (04:18)
[2018-03-12] MEDS ORDERED: LISI-515 PO (04:18)
[2018-03-12] MEDS ORDERED: BENZ0.5T PO (04:18)
[2018-03-12] MEDS ORDERED: ATOR20TA15 PO (04:28)
[2018-03-12] MEDS ORDERED: MULTTAB67 PO (04:30)
== END 2018-03-09 18:17 | disposition home or self-care (01) ==
LOC: NEPJ 15:01
DX: F20.0 Paranoid schizophrenia (principal); R56.9 Unspecified convulsions; F17.210 Nicotine dependence, cigarettes, uncomplicated; Z79.84 Long term (current) use of oral hypoglycemic drugs
CPT/HCPCS: 80307; 99283

== ENCOUNTER 2018-03-11 19:34 | Inpatient (IN) ==
[2018-03-22] MEDS ORDERED: Lisinopril 20 MG Tablet ONE (08:48)
[2018-03-22] MEDS: Lisinopril 20 MG Tablet PO SCH (11:35)
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
[2018-03-22] MEDS: Aluminum/Magnesium/Simethacone Susp 30 ML UDC PO PRN (17:13)
[2018-03-22] MEDS: OLANZapine 10 MG Tablet PO SCH (20:39)
[2018-03-23] MEDS: Lisinopril 20 MG Tablet PO SCH (09:22)
[2018-03-23] MEDS: Acetaminophen 325 MG Tablet PO PRN ×2 (09:31→21:38)
[2018-03-23] MEDS: OLANZapine 10 MG Tablet PO SCH (20:46)
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
[2018-03-24] MEDS: Lisinopril 20 MG Tablet PO SCH (08:43)
[2018-03-24] MEDS: Acetaminophen 325 MG Tablet PO PRN (18:30)
[2018-03-24] MEDS: OLANZapine 10 MG Tablet PO SCH (21:38)
--- NOTE | 2018-03-24 23:36 | P.PNPSY ---
Subjective Remarks: Patient seen for follow up; chart reviewed. Discussion with nursing staff reported the patient to be somewhat anxious at times. Patient was found heavily on the unit, has been transferred over to a less acuity unit and had been behaving appropriately. Patient continued to be perseverative about possible discharge residence but aware that he had been evicted from many in the past. He continues to worry about his. Patient denies any delusions denies any perceptual disturbances and has been compliant with medications. Review of Systems All other systems reviewed negative except as stated in HPI Mental Status Examination Appearance: Appropriate Consciousness: Alert Orientation: x4 Motor Activity: Normal gait Speech: Unremarkable Language: Adequate Fund of Knowledge: Adequate Memory: Unremarkable Mood: Appropriate Affect: Appropriate Thought Process & Associations: Intact Thought Content: Appropriate Hallucination Type: None Delusion Type: Paranoid Suicidal Ideation: No Suicidal Plan: No Suicidal Intention: No Homicidal Ideation: No Homicidal Plan: No Homicidal Intention: No Insight: Poor Judgment: Poor Assessment and Plan - Assessment (1) Schizophrenia Code(s): F20.9 - Schizophrenia, unspecified Status: Acute - Plan Plan: Continue to monitor mood and behavior. Continue current treatment. This was planning a progress. Justification for Continued Inpatient Stay: At risk for further decompensation if at lower level of care.
[2018-03-25] MEDS: Lisinopril 20 MG Tablet PO SCH (09:51)
[2018-03-25] MEDS: OLANZapine 10 MG Tablet PO SCH (21:12)
[2018-03-25] MEDS: Acetaminophen 325 MG Tablet PO PRN (21:53)
--- NOTE | 2018-03-25 21:53 | P.PNPSY ---
Subjective Remarks: Patient seen for follow-up, chart reviewed. Discussion nursing staff reported the patient with good behavioral control and no behavioral issues. Patient was found sitting in hospital bed noted become cooperative. 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 Patient noted be somewhat disappointed that the only return back to his living facility but continues to be hopeful that treatment team will require residence for him. Patient continues to report adequate sleep, appetite, tolerating medications and denies any perceptual service of delusions. Review of Systems All other systems reviewed negative except as stated in HPI Mental Status Examination Appearance: Appropriate Consciousness: Alert Orientation: x4 Motor Activity: Normal gait Speech: Unremarkable Language: Adequate Fund of Knowledge: Adequate Memory: Unremarkable Mood: Appropriate Affect: Appropriate Thought Process & Associations: Intact Thought Content: Appropriate Hallucination Type: None Delusion Type: Paranoid Suicidal Ideation: No Suicidal Plan: No Suicidal Intention: No Homicidal Ideation: No Homicidal Plan: No Homicidal Intention: No Insight: Poor Judgment: Poor Assessment and Plan - Assessment (1) Schizophrenia Code(s): F20.9 - Schizophrenia, unspecified Status: Acute - Plan Plan: Patient this time continues with good behavioral control, compliant with medications, no behavioral disturbances. Patient has reported some nasal congestion therefore we will order saline nasal spray to assist for this. Patient may not return back to his previous assisted living facility. Treatment team will continue to explore other options for discharge. Continue to monitor mood and behavior. Discharge planning in progress. Justification for Continued Inpatient Stay: At risk for further decompensation if at lower level of care.
[2018-03-26] MEDS: Lisinopril 20 MG Tablet PO SCH (09:29)
--- NOTE | 2018-03-26 18:02 | P.PNPSY ---
Subjective Remarks: Patient seen for follow-up, chart reviewed. Discussion with nursing staff reported that the patient noted to be intrusive at times with some disorganization but no behavioral disturbances. Patient was found ambulating on the unit, calm and cooperative. Patient perseverative on the possibility of a being accepted into an [facility] but waiting confirmation. Patient states that he will follow the rules and maintain good behavior at the facility. He is noted to be tangential at times but in good behavioral control. Review of Systems All other systems reviewed negative except as stated in HPI Mental Status Examination Appearance: Appropriate Consciousness: Alert Orientation: x4 Motor Activity: Normal gait Speech: Unremarkable Language: Adequate Fund of Knowledge: Adequate Memory: Unremarkable Mood: Appropriate Affect: Appropriate Thought Process & Associations: Intact, Tangential (at times) Thought Content: Appropriate Hallucination Type: None Delusion Type: Paranoid Suicidal Ideation: No Suicidal Plan: No Suicidal Intention: No Homicidal Ideation: No Homicidal Plan: No Homicidal Intention: No Insight: Poor Judgment: Poor Assessment and Plan - Assessment (1) Schizophrenia Code(s): F20.9 - Schizophrenia, unspecified Status: Acute - Plan Plan: Patient with no behavioral disturbances, noted with some disorganized behavior at times and intrusiveness but redirectable. Patient with stable mood, awaiting placement into an [facility] as patient would not do well without a structured environment. Will continue current treatment and monitor mood and behavior. Discharge planning in progress. Justification for Continued Inpatient Stay: At risk for further decompensation if at lower level of care.
[2018-03-26] MEDS: Acetaminophen 325 MG Tablet PO PRN (20:41)
[2018-03-26] MEDS: OLANZapine 10 MG Tablet PO SCH (21:18)
[2018-03-26] MEDS: Sodium Chloride 0.65% Nasal Spray 45 ML Bottle EACH NARE PRN (21:18)
[2018-03-27] MEDS: Lisinopril 20 MG Tablet PO SCH (09:19)
[2018-03-27] MEDS: Acetaminophen 325 MG Tablet PO PRN (13:18)
--- NOTE | 2018-03-27 17:17 | P.PNPSY ---
Subjective Remarks: Patient seen for follow-up, chart reviewed. Discussion nursing staff reported the patient continues to be intrusive at times with some disorganized behavior but no aggressive bed noted B, cooperative. Patient continues with perseveration about his discharge plan and where he will be referred to. Patient was explained that there is currently a facility that is considering taking him but has not been finalized as of yet. Patient continues to be tangential and reverting back to this topic despite having been explained this. Patient denies any SI or HI. Patient denies any perceptional disturbances or delusions at this time. Review of Systems All other systems reviewed negative except as stated in HPI Mental Status Examination Appearance: Appropriate Consciousness: Alert Orientation: x4 Motor Activity: Normal gait Speech: Unremarkable Language: Adequate Fund of Knowledge: Adequate Memory: Unremarkable Mood: Appropriate Affect: Appropriate Thought Process & Associations: Intact, Tangential (at times) Thought Content: Appropriate Hallucination Type: None Delusion Type: Paranoid Suicidal Ideation: No Suicidal Plan: No Suicidal Intention: No Homicidal Ideation: No Homicidal Plan: No Homicidal Intention: No Insight: Poor Judgment: Poor Assessment and Plan - Assessment (1) Schizophrenia Code(s): F20.9 - Schizophrenia, unspecified Status: Acute - Plan Plan: Patient with no behavioral agitation or behavioral changes. We will continue current treatment. Continue to monitor mood and behavior. Discharge planning in progress. Justification for Continued Inpatient Stay: At risk of further decompensation a lower level of care.
[2018-03-27] MEDS: OLANZapine 10 MG Tablet PO SCH (21:42)
[2018-03-27] MEDS: Sodium Chloride 0.65% Nasal Spray 45 ML Bottle EACH NARE PRN (21:59)
[2018-03-28] MEDS: Lisinopril 20 MG Tablet PO SCH (09:22)
--- NOTE | 2018-03-28 16:24 | P.PNPSY ---
Subjective Remarks: Pt seen and discussed with staff. He is cooperative with medications. Requires frequent redirection on unit. Poor insight. No aggression and agitation. Mental Status Examination Appearance: Appropriate Consciousness: Alert Orientation: x4 Motor Activity: Normal gait Speech: Unremarkable Language: Adequate Fund of Knowledge: Adequate Memory: Unremarkable Mood: Appropriate Affect: Flat Thought Process & Associations: Tangential (at times) Thought Content: Appropriate Hallucination Type: None Delusion Type: Paranoid Suicidal Ideation: No Suicidal Plan: No Suicidal Intention: No Homicidal Ideation: No Homicidal Plan: No Homicidal Intention: No Insight: Poor Judgment: Poor Assessment and Plan - Assessment (1) Schizophrenia Code(s): F20.9 - Schizophrenia, unspecified Status: Acute - Plan Plan: Continue current tx plan Justification for Continued Inpatient Stay: risk of decompensation
[2018-03-28] MEDS: Sodium Chloride 0.65% Nasal Spray 45 ML Bottle EACH NARE PRN (20:40)
[2018-03-29] MEDS: Lisinopril 20 MG Tablet PO SCH (09:27)
[2018-03-29] MEDS: Sodium Chloride 0.65% Nasal Spray 45 ML Bottle EACH NARE PRN (09:32)
--- NOTE | 2018-03-29 17:09 | P.PNPSY ---
Subjective Remarks: Pt seen and discussed with staff. He has been compliant with medications. No aggression or agitation today. No SI/HI. He is more engaged today with staff and peers and less intrusive. Mental Status Examination Appearance: Appropriate Consciousness: Alert Orientation: x4 Motor Activity: Normal gait Speech: Unremarkable Language: Adequate Fund of Knowledge: Adequate Memory: Unremarkable Mood: Appropriate Affect: Flat Thought Process & Associations: Tangential (at times) Thought Content: Appropriate Hallucination Type: None Delusion Type: Paranoid Suicidal Ideation: No Suicidal Plan: No Suicidal Intention: No Homicidal Ideation: No Homicidal Plan: No Homicidal Intention: No Insight: Poor Judgment: Poor Assessment and Plan - Assessment (1) Schizophrenia Code(s): F20.9 - Schizophrenia, unspecified Status: Acute - Plan Plan: Continue current tx plan Justification for Continued Inpatient Stay: risk of decompensation
[2018-03-29] MEDS: OLANZapine 10 MG Tablet PO SCH (20:09)
[2018-03-30] MEDS: Acetaminophen 325 MG Tablet PO PRN (14:39)
--- NOTE | 2018-03-30 15:50 | P.PNPSY ---
Subjective Remarks: Patient seen for follow-up, chart reviewed. Discussion with nursing staff reported that the patient required, cooperative no behavioral issues. Patient was found to be calm, cooperative interview today. Patient said he is feeling "good" reports abiding by all that is expected of him including medications, attending groups. Patient somewhat perseverative on his discharge, feeling worried about being left homeless but is hopeful that treatment team will locate a facility for him. Review of Systems All other systems reviewed negative except as stated in HPI Mental Status Examination Appearance: Appropriate Consciousness: Alert Orientation: x4 Motor Activity: Normal gait Speech: Unremarkable Language: Adequate Fund of Knowledge: Adequate Memory: Unremarkable Mood: Appropriate Affect: Flat Thought Process & Associations: Tangential (at times) Thought Content: Appropriate Hallucination Type: None Delusion Type: Paranoid Suicidal Ideation: No Suicidal Plan: No Suicidal Intention: No Homicidal Ideation: No Homicidal Plan: No Homicidal Intention: No Insight: Poor Judgment: Poor Assessment and Plan - Assessment (1) Schizophrenia Code(s): F20.9 - Schizophrenia, unspecified Status: Acute - Plan Plan: Patient continued with good behavioral control, no episodes of aggression, continue to be somewhat intrusive but less so recently. Patient compliant with medications. Continue to monitor mood and behavior. Continue current treatment. Discharge planning in progress. Justification for Continued Inpatient Stay: At risk for further decompensation if at lower level of care Discharge Planning: To be determined
[2018-03-30] MEDS: OLANZapine 10 MG Tablet PO SCH ×2 (20:46→21:25)
[2018-03-30] MEDS: Lisinopril 20 MG Tablet PO SCH (22:19)
[2018-03-31] MEDS: Lisinopril 20 MG Tablet PO SCH (09:31)
--- NOTE | 2018-03-31 14:22 | P.PNPSY ---
Subjective Remarks: Patient seen for follow-up, chart reviewed. Discussion with nursing staff reported that the patient with no behavioral disturbances, slept well last evening quiet on the unit. Patient was found sleeping in hospital bed noted B, cooperative able to wake up to engage in interview. Patient states he is feeling "alright" having some difficulties last evening due to noise on the unit but generally reports not having any difficulty. Patient denies any perceptional services, reports to take medications well and continues to be worried about his placement upon discharge. Review of Systems All other systems reviewed negative except as stated in HPI Mental Status Examination Appearance: Appropriate Consciousness: Alert Orientation: x4 Motor Activity: Normal gait Speech: Unremarkable Language: Adequate Fund of Knowledge: Adequate Memory: Unremarkable Mood: Appropriate Affect: Flat Thought Process & Associations: Tangential (at times) Thought Content: Appropriate Hallucination Type: None Delusion Type: Paranoid Suicidal Ideation: No Suicidal Plan: No Suicidal Intention: No Homicidal Ideation: No Homicidal Plan: No Homicidal Intention: No Insight: Poor Judgment: Poor Assessment and Plan - Assessment (1) Schizophrenia Code(s): F20.9 - Schizophrenia, unspecified Status: Acute - Plan Plan: Patient with no behavioral disturbances, continues to await placement into a structured facility as patient requires a structured environment. Continue current treatment. Continue to monitor mood and behavior. Discharge planning a progress. Justification for Continued Inpatient Stay: At risk for further decompensation if at lower level of care
[2018-03-31] MEDS: Acetaminophen 325 MG Tablet PO PRN (17:42)
[2018-03-31] MEDS: OLANZapine 10 MG Tablet PO SCH (20:36)
[2018-03-31] MEDS: Sodium Chloride 0.65% Nasal Spray 45 ML Bottle EACH NARE PRN (20:44)
[2018-04-01] MEDS: Lisinopril 20 MG Tablet PO SCH (08:45)
--- NOTE | 2018-04-01 17:27 | P.PNPSY ---
Subjective Remarks: Patient seen for follow, chart reviewed. Discussion nursing staff reported the patient has been appropriate, continues to be intrusive at times but redirectable, visible on the unit and attending groups. Patient was found ambulating on the unit noted B, cooperative. Patient states that he had been feeling worried about having been rejected from another possible facility and is hopeful that he will find a place. Patient continued denying perceptual disturbances no delusions, continues to deny any SI or HI. Patient has occasional intrusiveness although redirectable with no aggressive behavior or behavioral disturbances. Review of Systems All other systems reviewed negative except as stated in HPI Mental Status Examination Appearance: Appropriate Consciousness: Alert Orientation: x4 Motor Activity: Normal gait Speech: Unremarkable Language: Adequate Fund of Knowledge: Adequate Memory: Unremarkable Mood: Appropriate Affect: Flat Thought Process & Associations: Tangential (at times) Thought Content: Appropriate Hallucination Type: None Delusion Type: Paranoid Suicidal Ideation: No Suicidal Plan: No Suicidal Intention: No Homicidal Ideation: No Homicidal Plan: No Homicidal Intention: No Insight: Poor Judgment: Poor Assessment and Plan - Assessment (1) Schizophrenia Code(s): F20.9 - Schizophrenia, unspecified Status: Acute - Plan Plan: Patient with no behavioral changes, continue current treatment. Continue to monitor mood and behavior. We will draw a valproic acid level and BMP tomorrow morning. Discharge planning a progress. Justification for Continued Inpatient Stay: At risk of further decompensation a lower level of care. Discharge Planning: To be determined
[2018-04-01] MEDS: OLANZapine 10 MG Tablet PO SCH (20:38)
[2018-04-02] MEDS: Lisinopril 20 MG Tablet PO SCH (08:35)
[2018-04-02 11:56] LABS: Anion Gap 10 meq/L (5-15); Blood Urea Nitrogen 13 mg/dL (7-18); Calcium 9.8 mg/dL (8.5-10.1); Chloride 109 meq/L (98-107); Glomerular Filtration Rate Greater Than 89 mL/min (>89); Glucose,Random 92 mg/dL (74-106); Potassium 4.7 meq/L (3.5-5.1); Sodium 141 meq/L (136-145)
[2018-04-02 11:58] LABS: Valproic Acid 3 mcg/mL (50-100)
--- NOTE | 2018-04-02 15:11 | P.PNPSY ---
Subjective Remarks: Patient seen for follow-up, chart reviewed. Discussion nursing staff reported the patient with no behavioral changes, has been compliant with medication at times attention seeking and intrusive but redirectable. Patient was found in blade on the unit noted B, cooperative. Patient continued to be somewhat anxious about possibility of finding a residence that will accept him. Patient also mentions wanting to have multivitamin that he used to take her before. Patient denying any perceptual services or delusions and stating that he will follow the rules. Review of Systems All other systems reviewed negative except as stated in HPI Mental Status Examination Appearance: Appropriate Consciousness: Alert Orientation: x4 Motor Activity: Normal gait Speech: Unremarkable Language: Adequate Fund of Knowledge: Adequate Memory: Unremarkable Mood: Appropriate Affect: Flat Thought Process & Associations: Tangential Thought Content: Appropriate Hallucination Type: None Delusion Type: Paranoid Suicidal Ideation: No Suicidal Plan: No Suicidal Intention: No Homicidal Ideation: No Homicidal Plan: No Homicidal Intention: No Insight: Poor Judgment: Poor Assessment and Plan - Assessment (1) Schizophrenia Code(s): F20.9 - Schizophrenia, unspecified Status: Acute - Plan Plan: Patient this time continues with no behavioral disturbances, episodes of aggression or inappropriate behavior patient appeared calm and pleasant with staff, compliant with medications. Continue current treatment. We will add multivitamin daily. Continue to monitor mood and behavior. Discharge planning a progress. Justification for Continued Inpatient Stay: At risk for further decompensation if at lower level of care
[2018-04-02] MEDS: OLANZapine 10 MG Tablet PO SCH (20:31)
[2018-04-03] MEDS: Lisinopril 20 MG Tablet PO SCH (09:09)
--- NOTE | 2018-04-03 12:46 | P.PNPSY ---
Subjective Remarks: Patient seen for follow, chart reviewed. Discussion nursing staff reported the patient with no behavioral changes, calm and cooperative. Patient was found heavily on unit noted, cooperative. Patient continues to be perseverative on being worried where he will be going to upon discharge she states does not want to be homeless. Patient reports complying with treatment and the rules of the unit. Patient denies any physical complaints denies any perceptual disturbances or delusions at this time. Review of Systems All other systems reviewed negative except as stated in HPI Mental Status Examination Appearance: Appropriate Consciousness: Alert Orientation: x4 Motor Activity: Normal gait Speech: Unremarkable Language: Adequate Fund of Knowledge: Adequate Memory: Unremarkable Mood: Appropriate Affect: Flat Thought Process & Associations: Tangential Thought Content: Appropriate Hallucination Type: None Delusion Type: Paranoid Suicidal Ideation: No Suicidal Plan: No Suicidal Intention: No Homicidal Ideation: No Homicidal Plan: No Homicidal Intention: No Insight: Poor Judgment: Poor Assessment and Plan - Assessment (1) Schizophrenia Code(s): F20.9 - Schizophrenia, unspecified Status: Acute - Plan Plan: Patient with no behavioral disturbances has been calm and cooperative and pleasant with staff. Patient compliant with treatment. [place] level within therapeutic limits. Treatment team continues to explore possibility this patient to be discharged to a structured environment. Continue to monitor mood and behavior. Discharge planning in progress. Justification for Continued Inpatient Stay: At risk for decompensation at lower level of care.
[2018-04-03] MEDS: OLANZapine 10 MG Tablet PO SCH (20:41)
[2018-04-04] MEDS: Lisinopril 20 MG Tablet PO SCH (08:53)
--- NOTE | 2018-04-04 12:01 | P.PNPSY ---
Subjective Remarks: Patient was seen and case discussed with nursing. Patient is on good behavior today. He is perseverative about the details of his placement. He has not had any behavioral issues today. He is eating and sleeping well. Tolerating his medications well. Mental Status Examination Appearance: Appropriate Consciousness: Alert Orientation: x4 Motor Activity: Normal gait Speech: Unremarkable Language: Adequate Fund of Knowledge: Adequate Memory: Unremarkable Mood: Appropriate Affect: Blunt Thought Process & Associations: Circumstantial Thought Content: Appropriate Hallucination Type: None Delusion Type: Paranoid Suicidal Ideation: No Suicidal Plan: No Suicidal Intention: No Homicidal Ideation: No Homicidal Plan: No Homicidal Intention: No Insight: Poor Judgment: Poor Assessment and Plan - Assessment (1) Schizophrenia Code(s): F20.9 - Schizophrenia, unspecified Status: Acute - Plan Plan: Continue current treatment plan Justification for Continued Inpatient Stay: Patient would decompensate in a less restrictive setting
[2018-04-04] MEDS ORDERED: Lactic Acid (Ammonium Lactate) 12% Lotion 225 GM Bottle TOPICAL PRN (17:16)
[2018-04-04] MEDS: OLANZapine 10 MG Tablet PO SCH (20:12)
[2018-04-05] MEDS: Lisinopril 20 MG Tablet PO SCH (10:00)
--- NOTE | 2018-04-05 13:16 | P.PNPSY ---
Subjective Remarks: Patient was seen and case discussed with nursing. We discussed his frustrations about his stay here and future discharge. He is behaving well on the unit. Social with others. Compliant with his medications. Thought process remains quite disorganized. No outbursts Mental Status Examination Appearance: Appropriate Consciousness: Alert Orientation: x4 Motor Activity: Normal gait Speech: Unremarkable Language: Adequate Fund of Knowledge: Adequate Memory: Unremarkable Mood: Appropriate Affect: Blunt Thought Process & Associations: Circumstantial Thought Content: Appropriate Hallucination Type: None Delusion Type: Paranoid Suicidal Ideation: No Suicidal Plan: No Suicidal Intention: No Homicidal Ideation: No Homicidal Plan: No Homicidal Intention: No Insight: Poor Judgment: Poor Assessment and Plan - Assessment (1) Schizophrenia Code(s): F20.9 - Schizophrenia, unspecified Status: Acute - Plan Plan: Continue current treatment plan Justification for Continued Inpatient Stay: Patient would decompensate in a less restrictive setting
[2018-04-05] MEDS: OLANZapine 10 MG Tablet PO SCH (20:30)
[2018-04-05] MEDS: Sodium Chloride 0.65% Nasal Spray 45 ML Bottle EACH NARE PRN (20:33)
[2018-04-06] MEDS: Lisinopril 20 MG Tablet PO SCH (11:36)
--- NOTE | 2018-04-06 17:25 | P.PNPSY ---
Subjective Remarks: Patient seen for follow-up, chart reviewed. Discussion nursing staff reported the patient with no behavioral disturbances, compliant with treatment. Patient was found heavily on the unit noted B, cooperative. Patient did have some disorganization during interview focusing on topic of reasonable energy which she had seen on television. Patient denies any perceptional services or delusions, continues to be intrusive at times but redirectable with no behavioral disturbances. Patient continues to be anxious about his possible discharge to a facility that is willing to accept him. Review of Systems All other systems reviewed negative except as stated in HPI Mental Status Examination Appearance: Appropriate Consciousness: Alert Orientation: x4 Motor Activity: Normal gait Speech: Unremarkable Language: Adequate Fund of Knowledge: Adequate Memory: Unremarkable Mood: Appropriate Affect: Blunt Thought Process & Associations: Circumstantial Thought Content: Appropriate Hallucination Type: None Delusion Type: Paranoid (Less so today) Suicidal Ideation: No Suicidal Plan: No Suicidal Intention: No Homicidal Ideation: No Homicidal Plan: No Homicidal Intention: No Insight: Poor Judgment: Poor Assessment and Plan - Assessment (1) Schizophrenia Code(s): F20.9 - Schizophrenia, unspecified Status: Acute - Plan Plan: Patient with no behavioral disturbances or aggression, has a compliant with treatment, intrusive at times but redirectable, some disorganization but appropriate interactions with staff. Continue current treatment. Continue to monitor mood and behavior. Discharge planning a progress. Justification for Continued Inpatient Stay: At risk of further decompensation a lower level care.
[2018-04-06] MEDS: OLANZapine 10 MG Tablet PO SCH (20:20)
[2018-04-06] MEDS: Sodium Chloride 0.65% Nasal Spray 45 ML Bottle EACH NARE PRN (20:21)
[2018-04-07] MEDS: Lisinopril 20 MG Tablet PO SCH (08:16)
[2018-04-07] MEDS: LORazepam 1 MG Tablet PO PRN (12:31)
--- NOTE | 2018-04-07 17:38 | P.PNPSY ---
Subjective Remarks: Patient seen for follow, chart reviewed. Discussion with nursing staff reported to have been no behavioral issues with patient. Patient was found ambulating on unit noted to be in casual attire having shaved this morning. Patient states that he is looking forward for discharge soon and hoping that the facility will accept him. Patient was advised that he will be visited by a sales representative jewelry from this facility prior to acceptance which patient noted to be somewhat upset about. Patient also noted during interview to have some disorganization but redirectable. Patient has been less intrusive recently but noted to be more frustrated with pending acceptance to an assisted living facility. Review of Systems All other systems reviewed negative except as stated in HPI Mental Status Examination Appearance: Appropriate Consciousness: Alert Orientation: x4 Motor Activity: Normal gait Speech: Unremarkable Language: Adequate Fund of Knowledge: Adequate Memory: Unremarkable Mood: Appropriate Affect: Blunt Thought Process & Associations: Circumstantial, Disorganized (At times) Thought Content: Appropriate Hallucination Type: None Delusion Type: Paranoid (Less so today) Suicidal Ideation: No Suicidal Plan: No Suicidal Intention: No Homicidal Ideation: No Homicidal Plan: No Homicidal Intention: No Insight: Poor Judgment: Poor Assessment and Plan - Assessment (1) Schizophrenia Code(s): F20.9 - Schizophrenia, unspecified Status: Acute - Plan Plan: Patient continues with no behavioral disturbances, compliant with treatment, cooperative with staff. Patient less intrusive behavior were continues with some disorganization at times. Patient to continue current treatment. Continue to monitor mood and behavior. Discharge planning in progress. Justification for Continued Inpatient Stay: At risk of further decompensation a lower level of care.
[2018-04-07] MEDS: OLANZapine 10 MG Tablet PO SCH (20:44)
[2018-04-08] MEDS: Lisinopril 20 MG Tablet PO SCH (08:14)
[2018-04-08] MEDS: LORazepam 1 MG Tablet PO PRN ×2 (08:41→16:55)
--- NOTE | 2018-04-08 13:40 | P.PNPSY ---
Subjective Remarks: Patient seen for follow, chart reviewed. Discussion nursing staff reported the patient with no behavioral disturbances have become somewhat irritable yesterday due to his frustrations of continuing to be on the inpatient unit but was redirectable. Patient today was found to be in good spirits, hopeful that he will be placed soon in a facility. Patient states he does not want to sit in for court session tomorrow. Patient denies any physical complaints at this time denies any perceptional disturbances or delusions. Patient continues to have some disorganization at times continues to be noted to be childlike and redirectable. No behavioral disturbances and cooperative with staff. Review of Systems All other systems reviewed negative except as stated in HPI Mental Status Examination Appearance: Appropriate Consciousness: Alert Orientation: x4 Motor Activity: Normal gait Speech: Unremarkable Language: Adequate Fund of Knowledge: Adequate Memory: Unremarkable Mood: Appropriate Affect: Blunt Thought Process & Associations: Circumstantial, Disorganized (At times) Thought Content: Appropriate Hallucination Type: None Delusion Type: Paranoid (Less so today) Suicidal Ideation: No Suicidal Plan: No Suicidal Intention: No Homicidal Ideation: No Homicidal Plan: No Homicidal Intention: No Insight: Poor Judgment: Poor Assessment and Plan - Assessment (1) Schizophrenia Code(s): F20.9 - Schizophrenia, unspecified Status: Acute - Plan Plan: Patient continues with no behavioral disturbances, noted to be calm and cooperative with staff. Continue current treatment. Continue to monitor mood and behavior. Discharge planning in progress. Justification for Continued Inpatient Stay: At risk for further decompensation if at lower level of care
[2018-04-08] MEDS: OLANZapine 10 MG Tablet PO SCH (21:14)
[2018-04-09] MEDS: Lisinopril 20 MG Tablet PO SCH (08:11)
[2018-04-09] MEDS: Aluminum/Magnesium/Simethacone Susp 30 ML UDC PO PRN (09:35)
--- NOTE | 2018-04-09 15:12 | P.PNPSY ---
Subjective Remarks: Patient seen for follow, chart reviewed. Discussion nursing staff reported the patient with no behavioral changes compliant with medication refuses to present to mental health court today. Patient was found lying hospital bed noted B, cooperative. Patient states that he had not been going to groups this morning but did come out for meals. Patient states his mood has been "fine" denying any perceptual services or delusions. Patient agrees to continue treatment and continue to wait for placement. Review of Systems All other systems reviewed negative except as stated in HPI Mental Status Examination Appearance: Appropriate Consciousness: Alert Orientation: x4 Motor Activity: Normal gait Speech: Unremarkable Language: Adequate Fund of Knowledge: Adequate Memory: Unremarkable Mood: Appropriate Affect: Blunt Thought Process & Associations: Circumstantial, Disorganized (At times) Thought Content: Appropriate Hallucination Type: None Delusion Type: Paranoid (Less so today) Suicidal Ideation: No Suicidal Plan: No Suicidal Intention: No Homicidal Ideation: No Homicidal Plan: No Homicidal Intention: No Insight: Poor Judgment: Poor Assessment and Plan - Assessment (1) Schizophrenia Code(s): F20.9 - Schizophrenia, unspecified Status: Acute - Plan Plan: Patient this time continues with no behavioral disturbances have been compliant with treatment, and cooperative. We will continue current treatment. Will continue monitor mood and behavior. Discharge planning in progress. Justification for Continued Inpatient Stay: At risk for further decompensation if at lower level of care
[2018-04-09] MEDS: OLANZapine 10 MG Tablet PO SCH (21:46)
[2018-04-10] MEDS: Lisinopril 20 MG Tablet PO SCH (09:21)
--- NOTE | 2018-04-10 13:44 | P.PNPSY ---
Subjective Remarks: Patient seen for follow, chart reviewed. Discussion nursing staff reported the patient continues to be inappropriate times, intrusive but redirectable. Patient was found lying hospital and noted B, cooperative. Patient continues to be perseverative on his discharge to a facility but was reminded that transfer still in process as approval need to be completed prior to his discharge. Patient voiced understanding and states he will continue his treatment and comply with staff. Review of Systems All other systems reviewed negative except as stated in HPI Mental Status Examination Appearance: Appropriate Consciousness: Alert Orientation: x4 Motor Activity: Normal gait Speech: Unremarkable Language: Adequate Fund of Knowledge: Adequate Memory: Unremarkable Mood: Appropriate Affect: Blunt Thought Process & Associations: Circumstantial, Disorganized (At times) Thought Content: Appropriate Hallucination Type: None Delusion Type: Paranoid (Less so today) Suicidal Ideation: No Suicidal Plan: No Suicidal Intention: No Homicidal Ideation: No Homicidal Plan: No Homicidal Intention: No Insight: Poor Judgment: Poor Assessment and Plan - Assessment (1) Schizophrenia Code(s): F20.9 - Schizophrenia, unspecified Status: Acute - Plan Plan: Patient this time continues with intrusive behavior at times and sexually inappropriate with female staff at times but redirectable, no aggressive behavior toward staff or other patients. We will continue current treatment. We will continue to monitor mood and behavior. Discharge planning a progress. Justification for Continued Inpatient Stay: At risk of further decompensation a lower level of care.
[2018-04-10] MEDS: LORazepam 1 MG Tablet PO PRN (16:50)
[2018-04-10] MEDS: OLANZapine 10 MG Tablet PO SCH (20:45)
[2018-04-11] MEDS: Lisinopril 20 MG Tablet PO SCH (09:21)
--- NOTE | 2018-04-11 14:28 | P.PNPSY ---
Subjective Chief Complaint: Schizophrenia Remarks: Chart reviewed and discussed with nursing staff. Ground in a patient with nurse Lillie KIM. Patient is in the day room watching television. He is very upset about being moved from [id number]. He acknowledges that he was bothering the patient on the other unit and that is when he was moved. He recognizes his behavior. He continues to be invasive at times and needs some redirection. He continues to be perseverative regarding his discharge planning to a facility. He states he is sleeping and eating well. He has no concerns regarding his medications. He has been encouraged to be vigilant about his behavior and to stay focused on his discharge plan. Review of Systems All other systems reviewed negative except as stated in HPI Mental Status Examination Appearance: Appropriate Consciousness: Alert Orientation: x4 Motor Activity: Normal gait Speech: Unremarkable Language: Adequate Fund of Knowledge: Adequate Memory: Unremarkable Mood: Appropriate Affect: Blunt Thought Process & Associations: Circumstantial, Disorganized (At times) Thought Content: Appropriate Hallucination Type: None Delusion Type: Paranoid (Less so today) Suicidal Ideation: No Suicidal Plan: No Suicidal Intention: No Homicidal Ideation: No Homicidal Plan: No Homicidal Intention: No Insight: Poor Judgment: Poor Assessment and Plan - Assessment (1) Schizophrenia Code(s): F20.9 - Schizophrenia, unspecified Status: Acute - Plan Plan: Patient is currently cooperative with no behavioral concerns on 2700. Justification for Continued Inpatient Stay: Patient moved to a lower level of care may result in decompensation. Discharge Planning: Counseling staff is currently working on placement for this patient.
[2018-04-11] MEDS: OLANZapine 10 MG Tablet PO SCH (20:31)
[2018-04-12] MEDS: Lisinopril 20 MG Tablet PO SCH (08:21)
--- NOTE | 2018-04-12 15:16 | P.PNPSY ---
Subjective Chief Complaint: Schizophrenia Remarks: Reviewed electronic medical records and discussed case with staff. Follow-up was conducted in patient's room with nurse present. Nurse reports that patient is reportedly to be discharged Friday to a new placement and he has been compliant with his medication. Patient is quite talkative today. He is discharged focused, reports that he slept well and has good appetite. He denies any side effects from his medication and remains concerned that his being moved to [facility] will affect his placement. He has been advised that that is not the case. Mental Status Examination Appearance: Appropriate Consciousness: Alert Orientation: x4 Motor Activity: Normal gait Speech: Unremarkable Language: Adequate Fund of Knowledge: Adequate Memory: Unremarkable Mood: Appropriate Affect: Blunt Thought Process & Associations: Circumstantial, Disorganized (At times) Thought Content: Appropriate Hallucination Type: None Delusion Type: Paranoid (Less so today) Suicidal Ideation: No Suicidal Plan: No Suicidal Intention: No Homicidal Ideation: No Homicidal Plan: No Homicidal Intention: No Insight: Poor Judgment: Poor Assessment and Plan - Assessment (1) Schizophrenia Code(s): F20.9 - Schizophrenia, unspecified Status: Acute - Plan Plan: Patient will be reevaluated tomorrow by the attending psychiatrist. Continue with current treatment plan. Justification for Continued Inpatient Stay: Moving this patient to a less restrictive environment would likely result in decompensation. Apparently, discharge plan is in place and will be implemented this week.
[2018-04-12] MEDS: OLANZapine 10 MG Tablet PO SCH (20:45)
[2018-04-13] MEDS: Lisinopril 20 MG Tablet PO SCH (08:57)
--- NOTE | 2018-04-13 17:40 | P.PNPSY ---
Subjective Chief Complaint: Schizophrenia Remarks: Patient seen for follow-up, chart reviewed. Discussion with nursing staff reported that the patient with no behavioral disturbances compliant with medications. Patient states that he feeling "good" had a good weekend, reports eating and drinking well, no difficulty or bowel movement, no aggressive behavior, no physical complaints at this time. Review of Systems All other systems reviewed negative except as stated in HPI Mental Status Examination Appearance: Appropriate Consciousness: Alert Orientation: x4 Motor Activity: Normal gait Speech: Unremarkable Language: Adequate Fund of Knowledge: Adequate Memory: Unremarkable Mood: Appropriate Affect: Blunt Thought Process & Associations: Circumstantial, Disorganized (At times) Thought Content: Appropriate Hallucination Type: None Delusion Type: Paranoid (Less so today) Suicidal Ideation: No Suicidal Plan: No Suicidal Intention: No Homicidal Ideation: No Homicidal Plan: No Homicidal Intention: No Insight: Poor Judgment: Poor Assessment and Plan - Assessment (1) Schizophrenia Code(s): F20.9 - Schizophrenia, unspecified Status: Acute - Plan Plan: Patient this time continues to complain of medications, no behavioral disturbances, continues to be intrusive but redirectable. No behavioral disturbances compliant with and cooperative with staff. Continue to monitor mood and behavior. Discharge planning a progress. Justification for Continued Inpatient Stay: At risk for further decompensation if at lower level of care.
[2018-04-13] MEDS: OLANZapine 10 MG Tablet PO SCH (20:21)
[2018-04-14] MEDS: Lisinopril 20 MG Tablet PO SCH (09:18)
--- NOTE | 2018-04-14 18:07 | P.PNPSY ---
Subjective Chief Complaint: Schizophrenia Remarks: Patient seen for follow, chart reviewed. Discussion nursing staff reported that has been no behavioral disturbances with patient compliant with medication and cooperative with staff. Patient was found lying hospital bed noted become cooperative. Patient denies any physical complaints at this time continues to wait for discharge to facility, reports tolerating medications well denying any suicidal homicidal ideations perceptional services or delusions. Review of Systems All other systems reviewed negative except as stated in HPI Mental Status Examination Appearance: Appropriate Consciousness: Alert Orientation: x4 Motor Activity: Normal gait Speech: Unremarkable Language: Adequate Fund of Knowledge: Adequate Memory: Unremarkable Mood: Appropriate Affect: Blunt Thought Process & Associations: Circumstantial, Disorganized (At times) Thought Content: Appropriate Hallucination Type: None Delusion Type: Paranoid (Less so today) Suicidal Ideation: No Suicidal Plan: No Suicidal Intention: No Homicidal Ideation: No Homicidal Plan: No Homicidal Intention: No Insight: Poor Judgment: Poor Assessment and Plan - Assessment (1) Schizophrenia Code(s): F20.9 - Schizophrenia, unspecified Status: Acute - Plan Plan: Patient continues with appropriate behavior on the unit no aggressive or agitation episodes, compliant with medication and with staff. We will continue current treatment. Continue to monitor mood and behavior. Discharge planning a progress. Justification for Continued Inpatient Stay: At risk for further decompensation if at lower level of care
[2018-04-14] MEDS: OLANZapine 10 MG Tablet PO SCH (21:18)
[2018-04-15] MEDS: Lisinopril 20 MG Tablet PO SCH (08:51)
--- NOTE | 2018-04-15 13:36 | P.PNPSY ---
Subjective Chief Complaint: Schizophrenia Remarks: Patient seen for follow, chart reviewed. Discussion nursing staff reported that there have been no behavioral disturbances or changes with patient's behavior on the unit. Patient was found lying hospital bed noted B, cooperative. Patient denies any physical complaints, denies any perceptional service of delusions, states he continues to do what he is asked as he looks forward to be discharged to a facility soon. Review of Systems All other systems reviewed negative except as stated in HPI Mental Status Examination Appearance: Appropriate Consciousness: Alert Orientation: x4 Motor Activity: Normal gait Speech: Unremarkable Language: Adequate Fund of Knowledge: Adequate Memory: Unremarkable Mood: Appropriate Affect: Blunt Thought Process & Associations: Circumstantial, Disorganized (At times) Thought Content: Appropriate Hallucination Type: None Delusion Type: Paranoid (Less so today) Suicidal Ideation: No Suicidal Plan: No Suicidal Intention: No Homicidal Ideation: No Homicidal Plan: No Homicidal Intention: No Insight: Poor Judgment: Poor Assessment and Plan - Assessment (1) Schizophrenia Code(s): F20.9 - Schizophrenia, unspecified Status: Acute - Plan Plan: Patient continues with adequate's behavioral control, no aggressive behavior, compliant with staff and compliant with treatment. We will continue to monitor mood and behavior. Discharge planning in progress. Justification for Continued Inpatient Stay: At risk of further decompensation a lower level of care.
[2018-04-15] MEDS: LORazepam 1 MG Tablet PO PRN (17:56)
[2018-04-15] MEDS: Acetaminophen 325 MG Tablet PO PRN (17:57)
[2018-04-15] MEDS: OLANZapine 10 MG Tablet PO SCH (20:35)
[2018-04-16] MEDS: Lisinopril 20 MG Tablet PO SCH (09:29)
--- NOTE | 2018-04-16 15:14 | P.DSPSY ---
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 Euceda, documentation reviewed, poor impulse control, history of aggressive behavior, outpatient care in [facility], he is on lithium 600 mg twice daily, Haldol Decanoate 300 mg monthly, olanzapine 20 mg at bedtime, benztropine 1 mg twice daily, medical history hypertension, diabetes, presents under [place] act initiated by the [employer]. According to his paperwork the patient told a fellow resident of his assisted living facility that he was having suicidal thoughts. His monitoring and evaluation advisor Alena, contacted for collateral information , was able to confirmed this and also reports that he has been having auditory hallucinations and is concerned that maybe his recent medication changes are causing these acute symptoms. The patient reports that he was talking to the resident about "suicide bombers are going to do suicide because of Allah." On psychiatric evaluation today the patient initially irritable, oppositional, but redirectable, he says that he feels like his statement was misconstrued as that he was suicidal. He reports that people in his longterm has him against him. He reports that he has been taking his medication, being quite compliant, denies side effects. The patient is quite disheveled, dirty and malodorous. Disorganized and concrete. The patient continues to deny persistently alligation his longterm. He reports that he does get upset when he needs to smoke. At this moment he denies suicidal enemas ideation, he denies visual and auditory hallucinations. However, as per collateral information from nurses in the ER, the patient has been agitated, disruptive in the unit, internally preoccupied and talking to self. The patient denies the use of alcohol and illegal drugs. 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 Euceda, documentation reviewed, poor impulse control, history of aggressive behavior, outpatient care in [facility], he is on lithium 600 mg twice daily, Haldol Decanoate 300 mg monthly, olanzapine 20 mg at bedtime, benztropine 1 mg twice daily, medical history hypertension, diabetes, presents under [place] act initiated by the [employer]. According to his paperwork the patient told a fellow resident of his assisted living facility that he was having suicidal thoughts which patient was transferred to the inpatient psychiatry for further evaluation and management. Patient continued on lithium 600mg PO HS, olanzapine 20mg PO HS, benztropine 1mg HS, continued on medications for chronic medical illnesses which he tolerated well with no notable adverse drug reactions. Patient was noted with improvement in mood, noted to have denied having any suicidal ideations since admission. He was observed by staff to not have had any behavioral disturbances, although having needed redirection at times but not having made any suicidal or homicidal statements nor endorsed any perceptual disturbances and maintained stable mood throughout admission and was noted to participate with staff adequately. Patient was noted to participate in self care, engaging with staff and maintaining adequate hygiene. Patient reported feeling more hopeful, future oriented and motivated to continue with outpatient follow up. Treatment team was able to set up outpatient follow up appointments which the patient can continue current medication regimen. Upon discharge patient stated that feeling good, reported feeling well with the treatment, as well as motivation to continue recommendations and denied any SI, HI, perceptual disturbances or delusions. Weighing the acute, chronic, and protective factors and based on the available evidence, I dress draper to a reasonable degree of medical certainty that the patient is at low imminent risk of harm to self or others from a mental illness as defined under the Mortensen act and level of function is adequate as observed on the unit for planned level of outpatient care. Patient was counseled regarding warning signs for need to return to the psychiatric emergency room as part of a general safety plan. Patient advised to call 911 or go nearest ED in case of emergency. Patient agreed with plan. - Discharge Discharge Date: 04/16/18 - Discharge Diagnosis (1) Schizophrenia Code(s): F20.9 - Schizophrenia, unspecified Status: Acute Discharge Disposition: Assisted Living Facility - Discharge Instructions Discharge Diet: Heart Healthy Diet Activities You Can Perform: Regular- No Restrictions - Discharge Time > 30 minutes Mental Status Examination Appearance: Appropriate Consciousness: Alert Orientation: x4 Motor Activity: Normal gait Speech: Unremarkable Language: Adequate Fund of Knowledge: Adequate Memory: Unremarkable Mood: Appropriate Affect: Blunt Thought Process & Associations: Circumstantial Thought Content: Appropriate Hallucination Type: None Delusion Type: Paranoid (minimal) Suicidal Ideation: No Suicidal Plan: No Suicidal Intention: No Homicidal Ideation: No Homicidal Plan: No Homicidal Intention: No Insight: Poor Judgment: Poor Discharge/Advance Care Plan - Results Vital Signs: Last Vital Signs Temp 97.5 F L 04/16/18 06:06 Pulse 91 H 04/16/18 06:06 Resp 18 04/16/18 06:06 BP 158/82 H 04/16/18 06:06 Pulse Ox 97 04/16/18 06:06 Lab Results: Laboratory Results Hemoglobin A1c 5.1 % (4.3-6.0) 03/13/18 08:30 Triglycerides 126 MG/DL (42-150) 03/13/18 08:30 Cholesterol 126 MG/DL (120-200) 03/13/18 08:30 HDL Cholesterol 38.6 MG/DL (40.0-60.0) L 03/13/18 08:30 Valproic Acid 3 mcg/mL (50-100) L 04/02/18 10:17 [place] 0.8 meq/L (0.5-1.5) 04/03/18 06:48 Summary of Procedures: none Pending Results: None - Medications Number of antipsychotic medications at discharge: 1 - Discharge Care Plan Goals to Promote Your Health: * To prevent worsening of your condition and complications * To maintain your health at the optimal level Directions to Meet Your Goals: Take your medications as prescribed Follow your dietary instruction Follow activity as directed Keep your appointments as scheduled Take your immunizations and boosters as scheduled If your symptoms worsen call your PCP, if no PCP go to Urgent Care Center or Emergency Room For 14/04 questions related to your inpatient stay or results of tests pending at discharge, please contact Dr. Moe Boswell MD at Smoking is Dangerous to Your Health. Avoid second hand smoking
== END 2018-04-16 13:20 ==
LOC: H270 03-12 11:48 → H260 03-22 14:52 → H270 04-10 13:13
PROVIDERS: ADMIT Student in an Organized Health Care Education/Training Program; ATTEND Student in an Organized Health Care Education/Training Program